=== PATIENT | female | born 1940 | race Caucasian/White ===

== ENCOUNTER 2020-07-30 13:25 | Outpatient (CLI) | payer MEDICARE, SELFPAY ==
--- NOTE | ~2020-07-30 | CT_ITS ---
EXAMINATION: CT brain wo [facility] EXAM DATE: 07/30/2020 14:23 INDICATION: Dizziness. Nausea. TECHNIQUE: Spiral CT of the head was performed without contrast. Axial, coronal and sagittal images were reviewed. The dose-length product (DLP) for this examination was 529.67 mGy-cm. The exposure w as tailored according to patient size, and iterative reconstruction (ASIR) was used as additional dos e reduction technique. There is no prior study for comparison. FINDINGS: There is no acute intraparenchymal hemorrhage. No evidence of intraparenchymal brain mass lesion. No evidence of acute infarction. Please note that initial head CT has limited sensitivity f or small or acute infarctions. There is mild periventricular and subcortical hypodensity, nonspecific but probably related to small vessel ischemic disease. There is moderate prominence of the sulci a nd ventricles related to cerebral atrophy. There is intracranial carotid arteriosclerosis. There a re no extra-axial collections. There is no mass effect or midline shift. The orbits are unremarkabl e. Soft tissue is unremarkable. The visualized sinuses and mastoid air cells are well aerated. IMPRESSION: 1. No acute intracranial findings. 2. Chronic age related findings. Reviewed, dictated and finalized at location B. HER STRETCHER
== END 2020-07-30 13:26 | disposition home or self-care (01) ==
PROVIDERS: PCP Student in an Organized Health Care Education/Training Program; Visit Provider Student in an Organized Health Care Education/Training Program
DX: R42 Dizziness and giddiness (principal); R53.1 Weakness; R26.9 Unspecified abnormalities of gait and mobility
CPT/HCPCS: 70450

== ENCOUNTER 2020-10-02 14:16 | Outpatient (CLI) | payer MEDICARE, SELFPAY ==
--- NOTE | ~2020-10-02 | CT_ITS ---
EXAMINATION: CT soft tissue neck w con DATE: 10/02/2020 14:48 INDICATION: Nontoxic thyroid nodule. TECHNIQUE: Computed tomography (CT) of the neck was performed with 75 mL Omnipaque-350 intravenous co ntrast. Automated exposure control and iterative reconstruction technique were employed. The dose-nader gth product was 433.70 mGy-cm. COMPARISON: None FINDINGS: There is mild scarring at the lung apices. A calcified right lung nodule and calcified medi astinal lymph nodes are consistent with old granulomatous disease. There is a skin marker at left nec k. There are no pathologically enlarged lymph nodes in the neck. There is plaque in the proximal inte rnal carotid arteries with less than 50% stenosis relative to normal distal artery lumen diameters. T he thyroid is normal. There is moderate cervical spondylosis. There is mucosal thickening in the para nasal sinuses. The mastoid air cells are normal. IMPRESSION: 1. No abnormal mass or lymphadenopathy in the neck. Reviewed, dictated and finalized at location B.
[2020-10-02 14:43] LABS: Estimated Glomerular Filt Rate 48
== END 2020-10-02 14:17 | disposition home or self-care (01) ==
PROVIDERS: PCP Student in an Organized Health Care Education/Training Program; Visit Provider Otolaryngology
DX: E04.1 Nontoxic single thyroid nodule (principal)
CPT/HCPCS: 70491; Q9967

== ENCOUNTER 2024-03-04 05:21 | Inpatient (IN) | payer MEDICARE, SELFPAY ==
[2024-03-04] VITALS (80 sets, daily range): BP systolic 72–198; BP diastolic 43–180; PULSE 56–145; RESP 14–36; TEMP 35.1–37.6; O2SAT 10–100
--- NOTE | ~2024-03-04 | XR_ITS ---
EXAMINATION: XR chest 1V DATE: 03/04/2024 06:20 INDICATION: Shortness of breath. Lung cancer. TECHNIQUE: A single frontal view of the chest was obtained. COMPARISON: None. FINDINGS: The patient is rotated to her left. The lungs are hyperexpanded, consistent with emphysema. There are airspace opacities in all left lung zones. There is a small loculated left pleural effusio n. There is a diffuse interstitial pattern in the lungs, consistent with mild pulmonary edema. No pne umothorax. Cardiomegaly is noted. IMPRESSION: 1. Airspace opacities in all left lung zones, likely a combination of malignancy, treatment change, a nd pneumonia. 2. Small loculated left pleural effusion. 3. Mild pulmonary edema. 4. Emphysema. 5. Cardiomegaly. Reviewed, dictated and finalized at location A. IMPRESSION: 1. Airspace opacities in all left lung zones, likely a combination of malignanc y, treatment change, and pneumonia. 2. Small loculated left pleural effusion. 3. Mild pulmonary edema. 4. Emphysema. 5. Cardiomegaly.
--- NOTE | ~2024-03-04 | US_ITS ---
EXAMINATION: US renal BI DATE: 03/04/2024 11:52 INDICATION: Acute kidney injury. TECHNIQUE: Multiple ultrasound grayscale images of the kidneys were obtained. COMPARISON: None. FINDINGS: The right kidney measures 7.9 x 3.5 x 3.4 cm. The left kidney measures 10.4 x 4.9 x 4.3 cm. The kidne ys demonstrate normal parenchymal echogenicity. There are cysts in right kidney measuring up to 4.2 c m. There is no hydronephrosis. The bladder is decompressed by a Lyn catheter. IMPRESSION: 1. Mild atrophy of right kidney. No hydronephrosis. Reviewed, dictated and finalized at location A.
--- NOTE | ~2024-03-04 | XR_ITS ---
EXAMINATION: XR chest 1V portable DATE: 03/05/2024 08:42 INDICATION: Shortness of breath TECHNIQUE: frontal view of the chest was obtained. COMPARISON: Chest radiograph dated 03/04/2024 FINDINGS: Right upper extremity peripherally inserted central venous catheter (PICC) tip at the cephalad super ior vena cava. There is a transvenous cardiac pacemaker via inferior vena caval approach with distal tip in the right ventricle. Interval increase in diffuse interstitial pattern and perihilar predominant patchy bilateral airspace opacities consistent with worsening mild to moderate pulmonary edema potentially superimposed pneumo amberly. Similarly there is increasing retrocardiac consolidation left lower lung zone which could repres ent atelectasis or pneumonia. Small left pleural effusion. There is a lenticular opacity at the later al left midlung zone which could represent a loculated component to the pleural effusion or a subpleu ral mass. There appears to be significant decrease in conspicuity of the cortex along the adjacent la teral left fifth rib which raises concern for associated osteolytic process which could be infectious or malignant in etiology. Cardiomegaly. IMPRESSION: 1. Increasing interstitial pattern and bilateral perihilar predominant opacities consistent with mild to moderate pulmonary edema. 2. Small left pleural effusion with increasing retrocardiac consolidation left lower lung zone which could represent atelectasis or pneumonia. 3. Persistent reticular opacity lateral left midlung zone which could be related to loculated compone nt to the pleural effusion or a subpleural mass. There is some indistinctness to the cortex one of th e adjacent ribs which raises concern for bladder and the setting of hilar ligaments or infection. Cou ld consider contrast enhanced CT for further evaluation. Reviewed, dictated and finalized at location A. IMPRESSION: 1. Increasing interstitial pattern and bilateral perihilar predominant opacitie s consistent with mild to moderate pulmonary edema. 2. Small left pleural effusion with increasing retrocardiac consolidation left lower lung zone which could represent atelectasis or pneumonia. 3. Persistent reticular opacity lateral left midlung zone which could be relate d to loculated component to the pleural effusion or a subpleural mass. There is some indistinctness to the cortex one of the adjacent ribs which raises concer n for bladder and the setting of hilar ligaments or infection. Could consider c ontrast enhanced CT for further evaluation.
--- NOTE | ~2024-03-04 | XR_ITS ---
Portable chest x-ray Comparison: 03/08/2024 Clinical History: Hypoxia Findings: Right-sided PICC line in place. Patchy bilateral airspace consolidation and extensive inte rstitial thickening are stable from prior exam. Small bilateral pleural effusions present. More promi nent pleural-based lentiform density present at the lateral left lung region. Cardiomediastinal silho uette is stable. Bones and soft tissues are unremarkable. Impression: Patchy airspace disease and extensive interstitial prominence unchanged. Correlate for pulmonary mingo a, pneumonia, and/or chronic interstitial disease. Small bilateral pleural effusions. Lentiform density at the lateral left lung, which could reflect loculated effusion. Reviewed, dictated and finalized at location . Impression: Patchy airspace disease and extensive interstitial prominence unchanged. Correl ate for pulmonary edema, pneumonia, and/or chronic interstitial disease. Small bilateral pleural effusions. Lentiform density at the lateral left lung, which could reflect loculated effus ion.
--- NOTE | ~2024-03-04 | XR_ITS ---
EXAMINATION: XR chest PICC line DATE: 03/04/2024 12:38 INDICATION: Central line placement. TECHNIQUE: A single frontal view of the chest was obtained. COMPARISON: Chest single view at 9:39 AM FINDINGS: There is a diffuse interstitial pattern in the lungs. There are airspace opacities in right perihilar region and all left lung zones. There is a small loculated left pleural effusion. No pneum othorax. Cardiomegaly is noted. There is a pacer wire in right ventricle. A right upper extremity per ipherally inserted central venous catheter (PICC) is seen with tip in the superior vena cava. IMPRESSION: 1. PICC tip in the superior vena cava. 2. Mild pulmonary edema. 3. Diffuse left lung disease, likely a combination of malignancy, treatment change, and pneumonia. 4. Small loculated left pleural effusion. 5. Cardiomegaly. Reviewed, dictated and finalized at location A. IMPRESSION: 1. PICC tip in the superior vena cava. 2. Mild pulmonary edema. 3. Diffuse left lung disease, likely a combination of malignancy, treatment daniel nge, and pneumonia. 4. Small loculated left pleural effusion. 5. Cardiomegaly.
--- NOTE | ~2024-03-04 | XR_ITS ---
EXAMINATION: XR chest 1V portable DATE: 03/04/2024 09:55 INDICATION: Pacer placement. TECHNIQUE: A single frontal view of the chest was obtained. COMPARISON: Chest single view at 6:14 AM FINDINGS: There is a diffuse interstitial pattern in the lungs. There are airspace opacities in right perihilar region and all left lung zones. There is a small loculated left pleural effusion. No pneum othorax. Cardiomegaly is noted. There is a pacer wire in right ventricle. IMPRESSION: 1. Worsened mild pulmonary edema. 2. Diffuse left lung disease, likely a combination of malignancy, treatment change, and pneumonia. 3. Small loculated left pleural effusion. 4. Cardiomegaly. Reviewed, dictated and finalized at location A. IMPRESSION: 1. Worsened mild pulmonary edema. 2. Diffuse left lung disease, likely a combination of malignancy, treatment daniel nge, and pneumonia. 3. Small loculated left pleural effusion. 4. Cardiomegaly.
--- NOTE | ~2024-03-04 | XR_ITS ---
Portable chest x-ray Comparison: 03/05/2024 Clinical History: Pulmonary edema Findings: Right-sided PICC line in satisfactory position. Diffuse bilateral pulmonary consolidation and ground glass opacities again present. Possible minimal pleural effusions. Cardiomediastinal silh ouette is stable. Bones and soft tissues are unremarkable. Impression: Extensive bilateral pulmonary consolidation and present. Correlate for severe pulmonary edema versus diffuse pneumonia. Small pleural effusions. Right-sided PICC line. Reviewed, dictated and finalized at location . Impression: Extensive bilateral pulmonary consolidation and present. Correlate for severe p ulmonary edema versus diffuse pneumonia. Small pleural effusions. Right-sided PICC line.
--- NOTE | ~2024-03-04 | XR_ITS ---
EXAMINATION: XR chest 1V portable DATE: 03/08/2024 17:07 INDICATION: Congestive heart failure. Hypoxia. TECHNIQUE: A single frontal view of the chest was obtained. COMPARISON: Chest single view 03/06/2024 FINDINGS: There is a diffuse interstitial pattern in the lungs. There are airspace opacities in the p erihilar regions and at the lung bases. There are small pleural effusions. No pneumothorax. Cardiomeg nidia is noted. A right upper extremity peripherally inserted central venous catheter (PICC) is seen wi th tip in the superior vena cava. IMPRESSION: 1. Diffuse lung disease with mild improvement, likely moderate pulmonary edema. Pneumonia cannot be e xcluded. 2. Stable small pleural effusions. 3. Cardiomegaly. Reviewed, dictated and finalized at location A. IMPRESSION: 1. Diffuse lung disease with mild improvement, likely moderate pulmonary edema. Pneumonia cannot be excluded. 2. Stable small pleural effusions. 3. Cardiomegaly.
--- NOTE | 2024-03-04 05:36 | PC.NURSE ---
0525 VORB to give 1mg atropine, given at 0527. 0528 Pt is placed on 15L via NRB for O2 sat of 84% on 2L via NC. 0534 Dopamine drip is started at 2mcg/kg which is 4.3ml/hr. 0537 VORB to give 3 grams of Calcium gluconate slow IVP, being given at 0539 slow IVP. 0539 18g IV placed in R AC.
[2024-03-04] MEDS: CALCIUM GLUCONATE 1,000 MG/10 ML VIAL 1000 MG (05:37)
--- NOTE | 2024-03-04 05:41 | PC.NURSE ---
ERP placed patient on external pacer at 60mA with a rate of 60. Patient given 50mcg fentanyl for pain at 0542 per VORB.
[2024-03-04] MEDS: fentaNYL CITRATE INJ (*CRX) 100 MCG/2 ML VIAL (05:42)
--- NOTE | 2024-03-04 05:48 | PC.NURSE ---
0548 STEMI called by ERP.
--- NOTE | 2024-03-04 05:49 | PC.NURSE ---
Patient pacer increased to 70mA with capture with rate of 70 per ERP.
--- NOTE | 2024-03-04 05:53 | PC.NURSE ---
Patient being shaved and prepped for boot and shoe laborer.
[2024-03-04] MEDS: CALCIUM GLUCONATE 1,000 MG/10 ML VIAL 2000 MG (05:59)
[2024-03-04 06:04] LABS: Basophils Absolute Auto 0.1 K/mm3 (0.0-0.1); Basophils Percent Auto 0.4 % (0.2-1.2); Eosinophils Absolute Auto 0.2 K/mm3 (0-0.3); Eosinophils Percent Auto 1.8 % (0-4.4); Hematocrit 30.1 % (37.0-47.0); Hemoglobin 9.7 g/dL (12.0-15.0); Immature Granulocyte Absolute 0.06 K/mm3 (0.00-0.031); Immature Granulocyte Percent A 0.4 % (0-0.5); Lymphocytes Absolute Auto 1.83 K/mm3 (0.9-3.2); Lymphocytes Percent Auto 13.6 % (18.3-44.2); Mean Corpuscular HGB Conc 32.2 g/dl (32-36); Mean Corpuscular Hemoglobin 30.5 pg (26-34); Mean Corpuscular Volume 94.7 fl (80-100); Mean Platelet Volume 10.4 fl (7.4-10.4); Monocytes Absolute Auto 1.3 K/mm3 (0.1-0.6); Monocytes Percent Auto 9.5 % (2.6-8.5); Neutrophils Percent Auto 74.3 % (45.5-73.1); Platelet Count Result 307 k/mm3 (150-375); Red Blood Count 3.18 M/mm3 (4.2-5.4); Red Cell Distribution Width 13.5 % (11.5-14.5); White Blood Count 13.5 K/mm3 (4.5-10.0)
[2024-03-04] MEDS: ASPIRIN 81 MG CHEWABLE TABLET 324 MG PO (06:04)
[2024-03-04 06:14] LABS: Prothrombin Time 14.1 Seconds (11.1-14.7)
[2024-03-04 06:15] LABS: Partial Thromboplastin Time 23.5 Seconds (22.3-36.8)
--- NOTE | 2024-03-04 06:21 | PC.NURSE ---
Patient HR started to decrease to 48bpm, pt increased to 80mA with rate of 70 with capture.
[2024-03-04 06:22] LABS: Alanine Aminotransferase 15 U/L (6-35); Albumin Level 3.9 g/dL (3.5-5.1); Alkaline Phosphatase 82 U/L (38-126); Anion Gap 15 mmol/L (4-12); Aspartate Amino Transferase 35 U/L (14-36); Bilirubin,Total 0.5 mg/dL (0.2-1.3); Blood Urea Nitrogen 17 mg/dL (7-17); Calcium 8.9 mg/dL (8.4-10.2); Carbon Dioxide 19 mmol/L (22-30); Chloride 101 mmol/L (98-107); Estimated Glomerular Filt Rate 36; Glucose 327 mg/dL (65-110); Lipase 82 U/L (23-300); Potassium 4.5 mmol/L (3.4-5.0); Sodium 135 mmol/L (137-145)
--- NOTE | 2024-03-04 06:33 | PC.NURSE ---
0628 cheesemaking laborer arrives and gets bedside report. Patient left ED to cheesemaking laborer at 0630.
[2024-03-04 06:37] LABS: Troponin I 0.495 ng/mL (0.000-0.034)
--- NOTE | 2024-03-04 06:41 | P.SEDATION_ITS ---
Moderate Sedation Note-Pt Data Patient Data Diagnosis: nf-Post STEMI; CHB Present Complaint: Brought by EMS with dypsnea, found to have CHB, ECG hswng inf-post REY elevation Procedure to be performed/Plan: Left HEart cath PCI Temporary pacemaker Allergies Allergy/AdvReac Type Severity Reaction Status Date / Time codeine Allergy Nausea and Verified 03/04/24 06:11 Vomiting erythromycin base Allergy Rash Verified 03/04/24 06:11 escitalopram [From Lexapro] Allergy Nausea and Verified 03/04/24 06:11 Vomiting Home Medications Medication Instructions Recorded Confirmed Type amlodipine 10 mg tablet mg 03/04/24 History amlodipine 5 mg tablet mg 03/04/24 History blood sugar diagnostic (OneTouch 03/04/24 03/04/24 History Ultra Test strips) duloxetine 30 mg capsule,delayed mg PO 03/04/24 History release losartan 100 mg tablet mg 03/04/24 History metformin 500 mg tablet,extended mg PO 03/04/24 History release 24 hr pantoprazole 20 mg tablet,delayed mg PO 03/04/24 History release rosuvastatin 10 mg tablet mg 03/04/24 History Sedation/Anesthesia: No previous sedation/anesthesia problems (including family history). Mod Sed Physical Exam Physical Exam Pre Procedural Exam: Normal: Appearance, Eyes, Ears, Nose, Neck, Throat, Airway, Lungs, Heart Size, Neuro Exam, Abdomen, Liver, Kidneys, Spleen, Breasts, Genitalia, Extremities and Skin and Variation: Heart Rate and Heart Rhythm Hours since solid foods: 8 Hours since liquid intake: 8 Mallampati Classification: class II Internal Medicine - PN: Obj Da Vital Signs Vital Signs: Vital Signs - 24 hr 03/04/24 05:21 03/04/24 05:32 03/04/24 05:35 Temperature 36.1 C L Pulse Rate 63 70 Respiratory Rate 29 H Blood Pressure 90/50 L Pulse Oximetry 84 L 96 Oxygen Delivery Nasal Cannula Non-Rebreather Mask Oxygen Flow Rate 2 15 03/04/24 05:44 03/04/24 05:48 03/04/24 05:30 Temperature Pulse Rate 79 76 Respiratory Rate 18 30 H Blood Pressure 92/53 L 105/65 Pulse Oximetry 97 96 89 L Oxygen Delivery Non-Rebreather Mask Oxygen Flow Rate 15 03/04/24 05:31 03/04/24 05:45 03/04/24 05:46 Temperature Pulse Rate 80 84 76 Respiratory Rate 33 H 26 H 26 H Blood Pressure 92/53 L Pulse Oximetry 89 L 84 L 96 Oxygen Delivery Oxygen Flow Rate 03/04/24 05:50 03/04/24 05:51 03/04/24 05:56 Temperature Pulse Rate 95 69 90 Respiratory Rate 26 H 33 H 30 H Blood Pressure 108/60 102/55 L 104/55 L Pulse Oximetry 95 95 95 Oxygen Delivery Oxygen Flow Rate 03/04/24 06:00 03/04/24 06:01 03/04/24 06:34 Temperature Pulse Rate 70 79 76 Respiratory Rate 25 H 22 H 24 H Blood Pressure 108/54 L 106/54 L Pulse Oximetry 97 100 97 Oxygen Delivery Oxygen Flow Rate 03/04/24 06:02 Temperature Pulse Rate 73 Respiratory Rate 26 H Blood Pressure 106/54 L Pulse Oximetry 97 Oxygen Delivery Oxygen Flow Rate Meds/Results Radiology Results: ITS Impressions Chest X-Ray 03/04/24 06:21 IMPRESSION: 1. Airspace opacities in all left lung zones, likely a combination of malignancy, treatment change, and pneumonia. 2. Small loculated left pleural effusion. 3. Mild pulmonary edema. 4. Emphysema. 5. Cardiomegaly. Labs 03/04/24 05:58 03/04/24 05:58 Labs: Laboratory Results - last 24 hr 03/04/24 05:58 WBC 13.5 H RBC 3.18 L Hgb 9.7 L Hct 30.1 L MCV 94.7 MCH 30.5 MCHC 32.2 RDW 13.5 Plt Count 307 MPV 10.4 Immature Gran % (Auto) 0.4 Neut % (Auto) 74.3 H Lymph % (Auto) 13.6 L [place] % (Auto) 9.5 H Eos % (Auto) 1.8 Baso % (Auto) 0.4 Lymph # (Auto) 1.83 [place] # (Auto) 1.3 H Eos # (Auto) 0.2 Baso # (Auto) 0.1 Abs Immat Gran (auto) 0.06 H Absolute Neuts (auto) 10.0 H Absolute Nucleated RBC 0.000 Nucleated RBC % 0.0 PT 14.1 INR 1.0 APTT 23.5 Sodium 135 L Potassium 4.5 Chloride 101 Carbon Dioxide 19 L Anion Gap 15 H BUN 17 Creatinine 1.40 H Estim Creat Clear Calc Not Reportable Estimated GFR 36 L Glucose 327 H Calcium 8.9 Total Bilirubin 0.5 AST 35 ALT 15 Alkaline Phosphatase 82 Troponin I 0.495 H* Total Protein 7.0 Albumin 3.9 Lipase 82 ASA Classification/Sedation ASA Classification/Sedation ASA Class: III Emergent: Yes Risks: Risks, benefits and alternatives explained and patient/family accepted plan for sedation. Patient re-evaluated immediately prior to sedation.
--- NOTE | 2024-03-04 06:41 | PM.CNCAR ---
Assessment and Plan Assessment and plan (1) Cardiomyopathy: Code(s): I42.9 - Cardiomyopathy, unspecified Status: Acute (2) STEMI (ST elevation myocardial infarction): Code(s): I21.3 - ST elevation (STEMI) myocardial infarction of unspecified site Status: Acute (3) Cardiogenic shock: Code(s): R57.0 - Cardiogenic shock Status: Acute (4) Third degree AV block: Code(s): I44.2 - Atrioventricular block, complete Status: Acute Plan inf-post STEMI HAYDE Score: 250 which translates into 60% probability of in hospital 2. CHB 3. Cardiogenic Shock 4. Successful cutting balloon angioplasty and PCI of PlCX with 2.5/15 mm Resolute Thomas VINICIUS, postdilated with 3.0 NC balloon. Residual recalcitrant thrombus in mLCX with COLLETTE 1-2 flow 5. placement of 5 [place] temporary pacemaker wire the artery mid septal wall and under fluoroscopic guidance PLAN - transfer to ICU - will keep temporarily paced at a rate of 100 to help with cardiogenic shock will try to wean off from the pacemaker slowly when the blood pressure starts improving - will keep on Integrilin infusion for 6 hours to help with the residual thrombus - IABP was not placed because she is on Integrilin infusion and the likelihood of bleeding from the RFA site would be higher - with transition her to heparin a 6 oz of Integrilin infusion - uninterrupted DAPT for at least 12 months - EKG in the ICU, echo - statins to be given History of Present Illness History of Present Illness Consult date/time: 03/04/24 06:41 Consult reason: chest pain and hypotension Reason For Visit: STEMI,CHB,Cardiogenic Shock Narrative: 83-year-old female with a past medical history significant for lung cancer, hypertension, diabetes. who was brought by EMS to the ED with sudden onset chest pain, shortness O breath, diaphoresis, pale looking. she was found to have an inferoposterior STEMI with a complete heart block. she was directly taken to the lab after discussing the risks, benefits and alternatives of the procedure with with her. we also discussed the goals of care with her in light of lung malignancy. she wanted to proceed. she was taken to the labeler and VINICIUS was placed in the proximal LCX. there is some residual thrombus in the mid LCX artery. place a temporary pacemaker through the right femoral vein and currently she is being paced at a rate of 100 beats per minute, output of 10 and sensitivity of 5. post PCI she denied any chest pain and will be transferred to the ICU to help with further management Review of Systems Review of Systems: As reviewed above in HPI All systems reviewed & are unremarkable except as noted in HPI and below (HPI) [facility] Past Medical History Medical History (Updated 03/04/24 @ 10:53 by Deepak Johnson MD) Diabetes Lung cancer Social History Social History (Updated 03/04/24 @ 10:35 by Deepak Johnson MD) Social History: Patient's daughter denies patient using any drugs and no use of alcohol or smoking. Smoking status: Never smoker Second hand tobacco smoke exposure: No Meds Home Medications and Allergies Home Medications Medication Instructions Recorded Confirmed Type amlodipine 10 mg tablet mg 03/04/24 History amlodipine 5 mg tablet mg 03/04/24 History blood sugar diagnostic (OneTouch 03/04/24 03/04/24 History Ultra Test strips) duloxetine 30 mg capsule,delayed mg PO 03/04/24 History release losartan 100 mg tablet mg 03/04/24 History metformin 500 mg tablet,extended mg PO 03/04/24 History release 24 hr pantoprazole 20 mg tablet,delayed mg PO 03/04/24 History release rosuvastatin 10 mg tablet mg 03/04/24 History Allergies Allergy/AdvReac Type Severity Reaction Status Date / Time codeine Allergy Nausea and Verified 03/04/24 06:11 Vomiting erythromycin base Allergy Rash Verified 03/04/24 06:11 escitalopram [From Lexapro] Allergy Nausea and Verified 03/04/24 06:11 Vomiting Vital Signs Vital Signs - 24 hr 03/04/24 05:21 03/04/24 05:32 03/04/24 05:35 Temperature 36.1 C L Pulse Rate 63 70 Respiratory Rate 29 H Blood Pressure 90/50 L Pulse Oximetry 84 L 96 Oxygen Delivery Nasal Cannula Non-Rebreather Mask Oxygen Flow Rate 2 15 03/04/24 05:44 03/04/24 05:48 03/04/24 05:30 Temperature Pulse Rate 79 76 Respiratory Rate 18 30 H Blood Pressure 92/53 L 105/65 Pulse Oximetry 97 96 89 L Oxygen Delivery Non-Rebreather Mask Oxygen Flow Rate 15 03/04/24 05:31 03/04/24 05:45 03/04/24 05:46 Temperature Pulse Rate 80 84 76 Respiratory Rate 33 H 26 H 26 H Blood Pressure 92/53 L Pulse Oximetry 89 L 84 L 96 Oxygen Delivery Oxygen Flow Rate 03/04/24 05:50 03/04/24 05:51 03/04/24 05:56 Temperature Pulse Rate 95 69 90 Respiratory Rate 26 H 33 H 30 H Blood Pressure 108/60 102/55 L 104/55 L Pulse Oximetry 95 95 95 Oxygen Delivery Oxygen Flow Rate 03/04/24 06:00 03/04/24 06:01 03/04/24 06:34 Temperature Pulse Rate 70 79 76 Respiratory Rate 25 H 22 H 24 H Blood Pressure 108/54 L 106/54 L Pulse Oximetry 97 100 97 Oxygen Delivery Oxygen Flow Rate 03/04/24 06:02 Temperature Pulse Rate 73 Respiratory Rate 26 H Blood Pressure 106/54 L Pulse Oximetry 97 Oxygen Delivery Oxygen Flow Rate Exam Narrative: GENERAL: ill-appearing, in acute distress, tachypneic, bradycardic, jessie arrest HEAD: [Normocephalic, atraumatic.] EYES: [PERRLA and EOMI.] ENT: Nares clear, no rhinorrhea or epistaxis. Mucous membranes moist. NECK: Supple. CHEST: coarse breath sounds, accessory muscle use for respiration HEART: palpable bilateral radial pulses with mechanical capture intermittently on the monitor car operator, 2+ symmetric, no edema peripherally. ABDOMEN: [Soft, nondistended], [nontender], [No rigidity or guarding] EXTREMITIES: Normal range of motion. [No edema.] SKIN: Warm, dry, no rash. NEURO: [No focal deficits]. Intermittently awake and alert x4, when captures failed she is more lethargic but able to answer questions Results Labs and Meds 03/04/24 20:00 03/04/24 20:00 Lab results: Cardiac Enzymes 03/04/24 Range/Units 05:58 AST 35 (14-36) U/L Troponin I 0.495 H* (0.000-0.034) ng/mL Coagulation 03/04/24 Range/Units 05:58 PT 14.1 (11.1-14.7) Seconds APTT 23.5 (22.3-36.8) Seconds CBC 03/04/24 Range/Units 05:58 WBC 13.5 H (4.5-10.0) K/mm3 RBC 3.18 L (4.2-5.4) M/mm3 Hgb 9.7 L (12.0-15.0) g/dL Hct 30.1 L (37.0-47.0) % Plt Count 307 (150-375) k/mm3 Lymph # (Auto) 1.83 (0.9-3.2) K/mm3 [place] # (Auto) 1.3 H (0.1-0.6) K/mm3 Eos # (Auto) 0.2 (0-0.3) K/mm3 Baso # (Auto) 0.1 (0.0-0.1) K/mm3 Comprehensive Metabolic Panel 03/04/24 Range/Units 05:58 Sodium 135 L (137-145) mmol/L Potassium 4.5 (3.4-5.0) mmol/L Chloride 101 (98-107) mmol/L Carbon Dioxide 19 L (22-30) mmol/L BUN 17 (7-17) mg/dL Creatinine 1.40 H (0.7-1.0) mg/dL Glucose 327 H (65-110) mg/dL Calcium 8.9 (8.4-10.2) mg/dL AST 35 (14-36) U/L ALT 15 (6-35) U/L Alkaline Phosphatase 82 (38-126) U/L Total Protein 7.0 (6.3-8.2) g/dL Albumin 3.9 (3.5-5.1) g/dL Intake and Output 03/03/24 03/03/24 03/04/24 15:59 23:59 07:59 Other: Amount of IV Fluids Infused by 0 EMS Patient Weight 03/04/24 23:59 Weight 57.8 kg
--- NOTE | 2024-03-04 06:48 | ED.SOB ---
HPI - SOB/Dyspnea General Chief Complaint: Shortness of Breath/Dyspnea Stated Complaint: sob, pale, hypotensive, complete heart block, pace Time Seen by Provider: 03/04/24 05:36 History of Present Illness HPI Narrative: 83-year-old female with a past medical history significant for lung cancer, hypertension, diabetes. She presents via EMS for unstable dysrhythmia and 3rd degree heart block requiring transcutaneous pacing. I initially took the report from EMS who stated that patient was in field with hypotension, tachypnea, pale complexion and diaphoresis. She was responsive and found to be in third-degree block. Orders were to transfer the patient to the nearest ER and she arrived to our resuscitation [place]. Patient has no history of heart attacks or cardiac dysrhythmias, no history of atrial fibrillation. Patient was having intermittent failure of capture with EMS in route and had intermittent bradycardia in the 30s to 40s. AV dissociation seen on her 12 lead EKG with and STEMI and depressions in the septal lateral leads. Patient is awake alert and oriented, expressing shortness of breath and chest discomfort with the pacing. She was brought back to the resuscitation [place] for further evaluation and treatment by myself and the resuscitation team. Related Data Home Medications Medication Instructions Recorded Confirmed amlodipine 10 mg tablet mg 03/04/24 amlodipine 5 mg tablet mg 03/04/24 blood sugar diagnostic (OneTouch 03/04/24 03/04/24 Ultra Test strips) duloxetine 30 mg capsule,delayed mg PO 03/04/24 release losartan 100 mg tablet mg 03/04/24 metformin 500 mg tablet,extended mg PO 03/04/24 release 24 hr pantoprazole 20 mg tablet,delayed mg PO 03/04/24 release rosuvastatin 10 mg tablet mg 03/04/24 Allergies Allergy/AdvReac Type Severity Reaction Status Date / Time codeine Allergy Nausea and Verified 03/04/24 06:11 Vomiting erythromycin base Allergy Rash Verified 03/04/24 06:11 escitalopram [From Lexapro] Allergy Nausea and Verified 03/04/24 06:11 Vomiting Review of Systems Review of Systems: As reviewed above in HPI Exam Narrative: GENERAL: ill-appearing, in acute distress, tachypneic, bradycardic, jessie arrest HEAD: [Normocephalic, atraumatic.] EYES: [PERRLA and EOMI.] ENT: Nares clear, no rhinorrhea or epistaxis. Mucous membranes moist. NECK: Supple. CHEST: coarse breath sounds, accessory muscle use for respiration HEART: palpable bilateral radial pulses with mechanical capture intermittently on the junior marketing associate, 2+ symmetric, no edema peripherally. ABDOMEN: [Soft, nondistended], [nontender], [No rigidity or guarding] EXTREMITIES: Normal range of motion. [No edema.] SKIN: Warm, dry, no rash. NEURO: [No focal deficits]. Intermittently awake and alert x4, when captures failed she is more lethargic but able to answer questions Course Vital Signs Vital signs: Vital Signs Temperature 36.1 C L 03/04/24 05:21 Pulse Rate 63 03/04/24 05:21 Respiratory Rate 29 H 03/04/24 05:21 Blood Pressure 90/50 L 03/04/24 05:21 Pulse Oximetry 84 L 03/04/24 05:21 Oxygen Delivery Nasal Cannula 03/04/24 05:21 Oxygen Flow Rate 2 03/04/24 05:21 Temperature 36.1 C L 03/04/24 05:21 Pulse Rate 76 03/04/24 06:34 Respiratory Rate 24 H 03/04/24 06:34 Blood Pressure 106/54 L 03/04/24 06:34 Pulse Oximetry 97 03/04/24 06:34 Oxygen Delivery Non-Rebreather Mask 03/04/24 05:44 Oxygen Flow Rate 15 03/04/24 05:44 Procedures Pacemaker Pacemaker Date: 03/04/24 Pacemaker Time: 05:55 Pacemaker Type: external Pacemaker Settings: voltage (70) Pacemaker Results: electronic capture with pulse Pacemaker Comments: intermittent loss of capture MDM - SOB/Dyspnea MDM Narrative Medical decision making narrative: 83-year-old female presenting in unstable Third-degree heart block requiring transcutaneous pacing. Patient was transition from her pads from the EMS to our pads. Patient was awake and alert when she had mechanical capture but when capture was failing she was more lethargic. Blood sugar was in the 90 systolic with mechanical [place] at 70 beats per minute and 70 male amps. She was given 1 mg of IV atropine, 3 g of elemental calcium gluconate IV push. Dopamine infusion was started at 2 milligrams/kilogram per hour. Transcutaneous passes were applied and patient had mechanical capture and electrical capture at 70 male ABS. She was awake alert and her pressure was in the 110s. She was expressing pain so she was given fentanyl for analgesia with good effect. EKG was obtained prior to the pacing and during the pacing which confirms capture. Prior to starting the pacing she did have evidence of a profound and STEMI with potential elevation in the inferior leads and depressions be broadly in the septal lateral leads. STEMI was activated this time and I spoke to the crusher assembler on-call informing them of patient's presentation, need for catheterization and pacemaker, definitive management. Catheterization lab was activated and Cardiology agreed to take the patient at this time. Patient agreed to the procedure and had reversed her previous DNR DNI and states that she wishes to be full code and received the procedure including pacemaker placement. She was placed on non-rebreather for oxygenation as she was in the 90% on room air. Patient's laboratory studies were sent off, catheterization lab was activated and patient went to the recyclable materials sorter without further incident. Medical Records Attestation: I reviewed the patient's medical records. Lab Data Attestation: I reviewed the patient's lab results. 03/04/24 05:58 03/04/24 05:58 Labs: Lab Results 03/04/24 Range/Units 05:58 WBC 13.5 H (4.5-10.0) K/mm3 RBC 3.18 L (4.2-5.4) M/mm3 Hgb 9.7 L (12.0-15.0) g/dL Hct 30.1 L (37.0-47.0) % MCV 94.7 (80-100) fl MCH 30.5 (26-34) pg MCHC 32.2 (32-36) g/dl RDW 13.5 (11.5-14.5) % Plt Count 307 (150-375) k/mm3 MPV 10.4 (7.4-10.4) fl Immature Gran % (Auto) 0.4 (0-0.5) % Neut % (Auto) 74.3 H (45.5-73.1) % Lymph % (Auto) 13.6 L (18.3-44.2) % [place] % (Auto) 9.5 H (2.6-8.5) % Eos % (Auto) 1.8 (0-4.4) % Baso % (Auto) 0.4 (0.2-1.2) % Lymph # (Auto) 1.83 (0.9-3.2) K/mm3 [place] # (Auto) 1.3 H (0.1-0.6) K/mm3 Eos # (Auto) 0.2 (0-0.3) K/mm3 Baso # (Auto) 0.1 (0.0-0.1) K/mm3 Abs Immat Gran (auto) 0.06 H (0.00-0.031) K/mm3 Absolute Neuts (auto) 10.0 H (1.3-6.7) K/mm3 Absolute Nucleated RBC 0.000 (0.0-0.012) K/mm3 Nucleated RBC % 0.0 (0.0-0.2) % PT 14.1 (11.1-14.7) Seconds INR 1.0 APTT 23.5 (22.3-36.8) Seconds Sodium 135 L (137-145) mmol/L Potassium 4.5 (3.4-5.0) mmol/L Chloride 101 (98-107) mmol/L Carbon Dioxide 19 L (22-30) mmol/L Anion Gap 15 H (4-12) mmol/L BUN 17 (7-17) mg/dL Creatinine 1.40 H (0.7-1.0) mg/dL Estim Creat Clear Calc Not Reportable Estimated GFR 36 L (59 - ) Glucose 327 H (65-110) mg/dL Calcium 8.9 (8.4-10.2) mg/dL Total Bilirubin 0.5 (0.2-1.3) mg/dL AST 35 (14-36) U/L ALT 15 (6-35) U/L Alkaline Phosphatase 82 (38-126) U/L Troponin I 0.495 H* (0.000-0.034) ng/mL Total Protein 7.0 (6.3-8.2) g/dL Albumin 3.9 (3.5-5.1) g/dL Lipase 82 (23-300) U/L Critical Care Time Critical Care Time Critical Care Time: Yes Total Critical Care Time: 45 Discharge Plan Discharge Clinical Impression: Third degree AV block Patient Disposition: Still a Patient Condition: Serious Time of Disposition: 06:50
[2024-03-04 07:53] LABS: Activated Clotting Time 220 SEC (74-137)
[2024-03-04 07:53] LABS: Activated Clotting Time 238 SEC (74-137)
[2024-03-04 07:53] LABS: Activated Clotting Time 226 SEC (74-137)
[2024-03-04 08:32] LABS: Activated Clotting Time 232 SEC (74-137)
--- NOTE | 2024-03-04 08:57 | ECG_ITS ---
Test Date: 2024-03-04 11:57:04 Measurements Intervals [place] Rate: 101 P: 205 GA: 222 QRS: 20 QRSD: 75 T: 269 QT: 344 QTc: 448 Interpretive Statements UNCERTAIN IRREGULAR RHYTHM ELECTRONIC VENTRICULAR PACEMAKER -- CONTOUR ANALYSIS BASED ON INTRINSIC RHYTHM LOW QRS VOLTAGE IN EXTREMITY LEADS [QRS DEFLECTION < 0.5 mV IN LIMB LEADS] POSSIBLE RIGHT VENTRICULAR CONDUCTION DELAY [RSR (QR) IN V1/V2] ST DEVIATION AND MODERATE T-WAVE ABNORMALITY, CONSIDER LATERAL ISCHEMIA [-0.1+ mV T WAVE IN I/aVL/V5/V6] ST DEVIATION AND MODERATE T-WAVE ABNORMALITY, CONSIDER INFERIOR ISCHEMIA [-0.1+ mV T WAVE IN II/aVF] No previous ECG available for comparison Electronically Signed On 03-04-2024 13:35:33 CDT by Zana Knight M.D.
--- NOTE | 2024-03-04 09:04 | P.PCNCC_ITS ---
Cardiac Cath Procedure Note Date of procedure:: 03/04/24 Performing physician:: Evonne Pinzon MD Indication:: 1. Inf-Post STEMI 2. CHB 3. Cardiogenic Shock Brief clinical history:: 83-year-old female with a past medical history significant for lung cancer, hypertension, diabetes who came in with inf-post STEMI, CHB, Cardiogenic Shock. Procedure Procedure performed:: 1. R Radial Access 2. Coronary Angiography 3. left Heart Catheterization 4. RFA Access, 6F; USG Guided 5. Successful cutting balloon angioplasty and PCI of PlCX with 2.5/15 mm Resolute [place] VINICIUS, postdilated with 3.0 NC balloon. Residual recalcitrant thrombus in mLCX with COLLETTE 1-2 flow Sedation/Medication given:: 1. Versed 1 mg @. Fentanyl 25 mcg Access site:: 1. R radial 2. Right Femoral Estimated blood loss:: 10-15 cc Procedure note:: Right radial access was taken 5-6 and Citizen [place] sheath was placed. coronary angiography of the right and left systems is performed with a JR4 diet an AP and a CLS 3 5 guide. reviewing the angiographic images it was decided to intervene on the proximal circumflex artery which was 100% occluded. PCI was performed after loading with aspirin 325 mg, Plavix 600 mg and the heparin with ACT greater than 250 A [email or web address] wire was traversed through the proximal circumflex into the Mets of and moves ballooned with the 2.1 so compliant balloon. due to the heavy calcification of the proximal circ and the angulation of the circumflex we had to use a body wide in the 1st marginal if. the lesion was repaired with a cutting balloon and subsequently 2.5/ 15 mm resolute VINICIUS was placed in the proximal circ. there was a residual thrombus in the mid LCX which was recalcitrant and we gave her 2 doses of Integrilin in and plan to keep her on a low-dose infusion for 6 hours. 5 Citizen [place] balloon tipped pacemaker lead was placed into the artery mid septal under fluoroscopic guidance through a RFA sheath Findings:: 1. left heart catheterization: shows a LVEDP of 25 mm Hg no significant LV to aortic valve gradient 2. coronary angiography: left dominant system with no ramus. gauge the right with JR4 and of system with Cialis 3 5 guide left main: large caliber intermediate length vessel with device into LAD and circumflex branches. no angiographic evidence of atherosclerotic disease. LAD: large caliber tortuous transapical vessel which gives rise to a small caliber diagonal branch. prox LAD has a 50% stenosis. LCX: moderate to large caliber vessel which is 100% thrombotic occlusion of its proximal portion RCA: small caliber nondominant vessel with luminal irregularities in the mid RCA Conclusion:: 1. inf-post STEMI HAYDE Score: 250 which translates into 60% probability of in hospital 2. CHB 3. Cardiogenic Shock 4. Successful cutting balloon angioplasty and PCI of PlCX with 2.5/15 mm Resolute [place] VINICIUS, postdilated with 3.0 NC balloon. Residual recalcitrant thrombus in mLCX with COLLETTE 1-2 flow 5. placement of 5 [place] temporary pacemaker wire the artery mid septal wall and under fluoroscopic guidance Assessment and Plan Assessment and plan (1) Lung cancer: Code(s): C34.90 - Malignant neoplasm of unspecified part of unspecified bronchus or lung Status: Acute (2) STEMI (ST elevation myocardial infarction): Code(s): I21.3 - ST elevation (STEMI) myocardial infarction of unspecified site Status: Acute (3) Cardiogenic shock: Code(s): R57.0 - Cardiogenic shock Status: Acute (4) Third degree AV block: Code(s): I44.2 - Atrioventricular block, complete Status: Acute Plan - transfer to ICU - will keep temporarily paced at a rate of 100 to help with cardiogenic shock will try to wean off from the pacemaker slowly when the blood pressure starts improving - will keep on Integrilin infusion for 6 hours to help with the residual thrombus - IABP was not placed because she is on Integrilin infusion and the likelihood of bleeding from the RFA site would be higher - with transition her to heparin a 6 oz of Integrilin infusion - uninterrupted DAPT for at least 12 months - EKG in the ICU, echo - statins to be given
--- NOTE | 2024-03-04 09:18 | WPDCNINT ---
Assessment and Plan Assessment and plan (1) STEMI (ST elevation myocardial infarction): Code(s): I21.3 - ST elevation (STEMI) myocardial infarction of unspecified site Status: Acute Assessment and Plan: STEMI status post stent placement in circumflex with residual thrombus Aspirin, Lipitor, Plavix Eptifibatide infusion as per cardiology at this time Plan to transition to heparin infusion as per cardiology recommendations Echo was ordered Patient is chest pain-free Transvenous pacing at this time Levophed to maintain blood pressure (2) Cardiogenic shock: Code(s): R57.0 - Cardiogenic shock Status: Acute Assessment and Plan: Patient currently has cardiogenic shock Echo is ordered Continue Levophed Dopamine has been weaned Continue transvenous pacing Monitor lactic acid level Hold further IV fluids (3) Third degree AV block: Code(s): I44.2 - Atrioventricular block, complete Status: Acute Assessment and Plan: Patient currently has a transvenous pacemaker which is set at rate of 100. Will decrease the rate once the hemodynamics improved (4) Elevated serum creatinine: Code(s): R79.89 - Other specified abnormal findings of blood chemistry Status: Acute Assessment and Plan: Presented with creatinine elevated at 1.5. Baseline unknown but this could be secondary to shock Check CK level Check urine sodium and creatinine Renal ultrasound Maintain perfusion with vasopressors Monitor urine output electrolytes and creatinine (5) Acute respiratory failure: Code(s): J96.00 - Acute respiratory failure, unspecified whether with hypoxia or hypercapnia Status: Acute Assessment and Plan: Patient has history of lung cancer and now also has pulmonary edema Pneumonia is also a possibility Blood cultures have been ordered and sent Continue supplemental oxygen with non-rebreather mask ABG reviewed and shows hypoxia and metabolic acidosis Depending on the course may need nippv or intubation. I have discussed this with patient and she is agreeable to intubation if needed Will attempt diuresis once hemodynamics are stabilized (6) Cardiomyopathy: Code(s): I42.9 - Cardiomyopathy, unspecified Status: Acute Assessment and Plan: Echo ordered and pending. See above (7) Lung cancer: Code(s): C34.90 - Malignant neoplasm of unspecified part of unspecified bronchus or lung Status: Acute Assessment and Plan: Patient has stage IV lung cancer. Details unknown. Will request records from [facility] (8) Diabetes: Code(s): E11.9 - Type 2 diabetes mellitus without complications Status: Acute Assessment and Plan: Regular insulin per 6 units IV ordered now. Will give Lantus and Sliding scale ordered May need insulin infusion (9) Acidosis: Code(s): E87.20 - Acidosis, unspecified Status: Acute Assessment and Plan: Metabolic acidosis secondary to his shock and acute kidney injury Bicarb ordered (10) Sepsis: Code(s): A41.9 - Sepsis, unspecified organism Status: Acute Assessment and Plan: Although it appears that the shock is cardiogenic and patient has lung cancer patient does meet criteria for sepsis Check procalcitonin level Blood cultures Empiric vancomycin and cefepime Monitor lactic acid level Plan DVT prophylaxis -heparin infusion Stress ulcer prophylaxis -PPI Nutrition - npo Code Status - Full Code Case discussed with diesel engine pipe fitter Dr. Pinzon I spoke to patient and patient's daughter at bedside.. With patient's current status events of this morning her current status and current treatment plan I explained that there is a likely possibility the patient may need nippv or intubation for respiratory status worsens. Explained the patient critically ill with unstable hemodynamics and respiratory status at this time and has high risk of mortality and may not survive this hospitalization. Total Critical Care Time - 50 minutes Due to a high probability of clinically significant, life threatening deterioration, the patient required my highest level of preparedness to intervene emergently and I personally spent this critical care time directly and personally managing the patient. This critical care time included obtaining a history; examining the patient; pulse oximetry; ordering and review of studies; arranging urgent treatment with development of a management plan; evaluation of patient's response to treatment; frequent reassessment; and discussions with other providers. It was exclusive of separately billable procedures and treating other patients and teaching time. Please see Assessment and Plan section and the rest of the note for further information on patient assessment and treatment Music Composition Teacher Consult Note Consult date: 03/04/24 Reason for consult: STEMI, complete heart block HPI: Kelsey Bain is a 83 year old female with past medical history of stage IV lung cancer, hypertension, diabetes. She presents via EMS for unstable dysrhythmia and 3rd degree heart block requiring transcutaneous pacing. EMS initially reported from the field the ER that patient had hypotension, tachypnea, pale complexion and diaphoresis. She was responsive and found to be in third-degree block. Patient was transcutaneously paced and route and brought to the ER. In ER patient was diagnosed with STEMI. Patient was started on dopamine. Cardiology was consulted and patient was taken to cardiac catheterization lab. In rn labor delivery patient had coronary Angiography and a stent was placed in circumflex. Patient also had residual thrombus in circumflex. Patient also has other vessel coronary disease but does not need any intervention at this time. Patient also had a transvenous pacemaker placed. Patient was started on Levophed dopamine and was given 500 cc of fluids. Patient elevated LVEDP at 25. LV-gram was not done Patient is now being admitted to ICU for further evaluation management. Patient arrived to the ICU on 10 mics of Levophed at 10 mics of dopamine. Patient has right femoral transvenous pacemaker. Patient at this time denies any pain but does admit to be feeling little short of breath. She states she feels cold. She is alert oriented. Denies any other complaints. Limited review of system was obtained due to acutely of the situation. Patient denies fever, chest pain, cough, nausea vomiting, abdominal pain,, headache dizziness or lightheadedness Additional history was obtained from patient's daughter when she arrived at bedside. She told me the patient has never smoked was diagnosed with lung cancer in January which was stage IV and she has just started chemotherapy which is a pale and took her 1st dose this tuesday. Patient also had some sort of head bleed from trauma in May was managed at [facility]. She has history of diabetes hypertension with no known history of heart disease. Review of Systems Review of Systems: All systems reviewed & are unremarkable except as noted in HPI and below (HPI) [facility] Past Medical History Medical History (Updated 03/04/24 @ 10:53 by Deepak Johnson MD) Diabetes Lung cancer Social History Social History (Updated 03/04/24 @ 10:35 by Deepak Johnson MD) Social History: Patient's daughter denies patient using any drugs and no use of alcohol or smoking. Meds Home Medications and Allergies Home Medications Medication Instructions Recorded Confirmed Type amlodipine 10 mg tablet mg 03/04/24 History amlodipine 5 mg tablet mg 03/04/24 History blood sugar diagnostic (OneTouch 03/04/24 03/04/24 History Ultra Test strips) duloxetine 30 mg capsule,delayed mg PO 03/04/24 History release losartan 100 mg tablet mg 03/04/24 History metformin 500 mg tablet,extended mg PO 03/04/24 History release 24 hr pantoprazole 20 mg tablet,delayed mg PO 03/04/24 History release rosuvastatin 10 mg tablet mg 03/04/24 History Allergies Allergy/AdvReac Type Severity Reaction Status Date / Time codeine Allergy Nausea and Verified 03/04/24 06:11 Vomiting erythromycin base Allergy Rash Verified 03/04/24 06:11 escitalopram [From Lexapro] Allergy Nausea and Verified 03/04/24 06:11 Vomiting Vital Signs Vital Signs - 24 hr 03/04/24 05:21 03/04/24 05:32 03/04/24 05:35 Temperature 36.1 C L Pulse Rate 63 70 Respiratory Rate 29 H Blood Pressure 90/50 L Pulse Oximetry 84 L 96 Oxygen Delivery Nasal Cannula Non-Rebreather Mask Oxygen Flow Rate 2 15 03/04/24 05:44 03/04/24 05:48 03/04/24 05:30 Temperature Pulse Rate 79 76 Respiratory Rate 18 30 H Blood Pressure 92/53 L 105/65 Pulse Oximetry 97 96 89 L Oxygen Delivery Non-Rebreather Mask Oxygen Flow Rate 15 03/04/24 05:31 03/04/24 05:45 03/04/24 05:46 Temperature Pulse Rate 80 84 76 Respiratory Rate 33 H 26 H 26 H Blood Pressure 92/53 L Pulse Oximetry 89 L 84 L 96 Oxygen Delivery Oxygen Flow Rate 03/04/24 05:50 03/04/24 05:51 03/04/24 05:56 Temperature Pulse Rate 95 69 90 Respiratory Rate 26 H 33 H 30 H Blood Pressure 108/60 102/55 L 104/55 L Pulse Oximetry 95 95 95 Oxygen Delivery Oxygen Flow Rate 03/04/24 06:00 03/04/24 06:01 03/04/24 06:34 Temperature Pulse Rate 70 79 76 Respiratory Rate 25 H 22 H 24 H Blood Pressure 108/54 L 106/54 L Pulse Oximetry 97 100 97 Oxygen Delivery Oxygen Flow Rate 03/04/24 06:02 Temperature Pulse Rate 73 Respiratory Rate 26 H Blood Pressure 106/54 L Pulse Oximetry 97 Oxygen Delivery Oxygen Flow Rate Exam Narrative: General: Old frail female who is alert awake and shivering from cold Lungs/Chest: Trachea central Clear BS B/L, No crackles or wheezing. Mild tachypnea Cardiac: Tachycardic Normal S1 S2. No murmurs Circulation: Pedal pulses are intact and symmetrical. TR band on right radial site, Abdomen: Normal bowel sounds.. Soft. NT. ND. Extremities: No clubbing, cyanosis or edema. Warm, transvenous pacemaker in right femoral area : Lyn in place Neurologic: Follows commands. Moves all 4 extremities PERRL AO x3 Skin: No Rash Results Labs 03/04/24 09:35 03/04/24 09:36 Labs: Impressions Chest X-Ray 03/04/24 06:21 IMPRESSION: 1. Airspace opacities in all left lung zones, likely a combination of malignancy, treatment change, and pneumonia. 2. Small loculated left pleural effusion. 3. Mild pulmonary edema. 4. Emphysema. 5. Cardiomegaly. Chest X-Ray 03/04/24 10:01 IMPRESSION: 1. Worsened mild pulmonary edema. 2. Diffuse left lung disease, likely a combination of malignancy, treatment change, and pneumonia. 3. Small loculated left pleural effusion. 4. Cardiomegaly. Short CBC 03/04/24 Range/Units 05:58 WBC 13.5 H (4.5-10.0) K/mm3 Hgb 9.7 L (12.0-15.0) g/dL Hct 30.1 L (37.0-47.0) % Plt Count 307 (150-375) k/mm3 BMP 03/04/24 05:58 Sodium 135 L Potassium 4.5 Chloride 101 Carbon Dioxide 19 L BUN 17 Creatinine 1.40 H Glucose 327 H Calcium 8.9 Cardiac Enzymes 03/04/24 Range/Units 05:58 Troponin I 0.495 H* (0.000-0.034) ng/mL Liver Function 03/04/24 Range/Units 05:58 Total Bilirubin 0.5 (0.2-1.3) mg/dL AST 35 (14-36) U/L ALT 15 (6-35) U/L Alkaline Phosphatase 82 (38-126) U/L Albumin 3.9 (3.5-5.1) g/dL Hospitalist MIPS Advance Care Plan I have confirmed that the patient's Advanced Care Plan is present, code status is documented, or surrogate decision maker is listed in patient medical record.: Yes Medication Reconciliation I have utilized all available resources to obtain, update and review the patients current medications (includes all prescriptions, OTC, herbals, cannabis, and nutritional supplements).: Yes
[2024-03-04] MEDS: NOREPINEPHRINE 8 MG/D5W 250 ML 8 MG/250 ML BAG 18.75 MG IV CONT (09:25)
[2024-03-04] MEDS: DOPamine 400 MG/D5W 250 ML 400 MG/250 ML BAG 21.68 MG IV CONT (09:25)
--- NOTE | 2024-03-04 09:25 | ADMGEN ---
This patient, Kelsey Bain, was admitted to Intensive Care Unit-7 at 0921 from clinical laboratory medical director with transvenous pacer, 15L non rebreather, levophed and dopamine gtt. Patient/family oriented to hospital policies and general routines including ID bracelet, bed and alarms, visiting hours, pain management, procedures, bathroom and other care routines, personal items, smoking policy, room service/diet, and visiting hours. Information on how to activate the Rapid Response Team has been discussed. Patient/Family are encouraged to report perceived risks to care and to ask questions if they do not understand what they are told or what they should do.
[2024-03-04] MEDS: CLOPIDOGREL BISULFATE 75 MG TABLET PO (09:45)
[2024-03-04] MEDS: ATORVASTATIN 40 MG TABLET PO (09:45)
[2024-03-04] MEDS: ASPIRIN 81 MG ENTERIC TABLET PO (09:45)
[2024-03-04 09:46] LABS: Basophils Absolute Auto 0.1 K/mm3 (0.0-0.1); Basophils Percent Auto 0.3 % (0.2-1.2); Eosinophils Percent Auto 0.1 % (0-4.4); Hematocrit 28.6 % (37.0-47.0); Hemoglobin 9.1 g/dL (12.0-15.0); Immature Granulocyte Absolute 0.23 K/mm3 (0.00-0.031); Immature Granulocyte Percent A 1.1 % (0-0.5); Lymphocytes Absolute Auto 2.17 K/mm3 (0.9-3.2); Lymphocytes Percent Auto 10.2 % (18.3-44.2); Mean Corpuscular HGB Conc 31.8 g/dl (32-36); Mean Corpuscular Hemoglobin 30.2 pg (26-34); Mean Platelet Volume 10.1 fl (7.4-10.4); Monocytes Absolute Auto 1.8 K/mm3 (0.1-0.6); Monocytes Percent Auto 8.6 % (2.6-8.5); Neutrophils Absolute Auto 16.9 K/mm3 (1.3-6.7); Neutrophils Percent Auto 79.7 % (45.5-73.1); Platelet Count Result 313 k/mm3 (150-375); Red Blood Count 3.01 M/mm3 (4.2-5.4); Red Cell Distribution Width 13.5 % (11.5-14.5); White Blood Count 21.2 K/mm3 (4.5-10.0)
[2024-03-04 09:49] LABS: Alveolar/Arterial O2 Gradient 606.6 mmHg; Base Excess ABG -9.9 mEq/l (+/-2.0); Fractional Inspired Oxygen 100 %; HCO3 ABG 16.4 mEq/l (22.0-26.0); Oxygen Content ABG 12.9 %vol (16.0-22.0); Oxygen Saturation ABG 91.3 % (95.0-100.0); Oxyhemoglobin 90.5 % THb (90.0-100.0); PCO2 ABG 37.5 mmHg (35.0-45.0); PO2 ABG 68.9 mmHg (80.0-100.0); PO2 FiO2 Ratio Arterial Blood 0.69 %; Total Hemoglobin 10.1 g/dL (12.0-18.0)
[2024-03-04 09:50] LABS: Modified Allen's Test Pass; Site Drawn LEFT RADIAL; pH ABG 7.258 (7.350-7.450)
[2024-03-04 09:51] LABS: Device NON-REBREATHER MASK
[2024-03-04 09:53] LABS: Glucose Point of Care 292 mg/dl (65-105)
[2024-03-04] MEDS: SODIUM BICARBONATE 8.4% 50 MEQ/50 ML SYRINGE IV PUSH ×2 (09:58→14:18)
[2024-03-04 10:01] LABS: Cholesterol 118 mg/dL (0-200); HDL Direct 50 mg/dL; Triglycerides 90 mg/dL (<150)
[2024-03-04 10:02] LABS: Anion Gap 18 mmol/L (4-12); Blood Urea Nitrogen 19 mg/dL (7-17); Calcium 10.1 mg/dL (8.4-10.2); Carbon Dioxide 15 mmol/L (22-30); Chloride 101 mmol/L (98-107); Estimated Glomerular Filt Rate 33; Glucose 356 mg/dL (65-110); Potassium 4.4 mmol/L (3.4-5.0); Sodium 134 mmol/L (137-145)
[2024-03-04 10:06] LABS: Lactic Acid Reflex 5.5 mmol/L (0.7-2.0)
[2024-03-04 10:12] LABS: LDL Cholesterol Direct 37 mg/dL
[2024-03-04] MEDS: ONDANSETRON INJ 4 MG/2 ML VIAL IV PUSH (10:16)
[2024-03-04] MEDS: EPTIFIBATIDE 0.75 MG/ML 75 MG/100 ML VIAL 9.25 MG IV CONT (10:23)
[2024-03-04 10:30] LABS: Troponin I > 80.000 ng/mL (0.000-0.034)
[2024-03-04] MEDS: CEFEPIME 1 GM/NS 50 ML 1 GM/50 ML BAG IVPB ×2 (10:35→22:06)
[2024-03-04 10:42] LABS: Procalcitonin 0.2 ng/mL
[2024-03-04] MEDS: INSULIN HUMAN REGULAR (*BKC) 100 UNITS/ML 6 UNITS IV PUSH (10:53)
[2024-03-04] MEDS: PANTOPRAZOLE SODIUM IV 40 MG VIAL IV PUSH (10:53)
[2024-03-04 11:26] LABS: Add Urine Microscopic? YES; Appearance Urine Clear (Clear); Bacteria Urine None Seen /hpf; Bilirubin Urine Negative (Negative); Blood Urine Negative (Negative); Color Urine Yellow (Yellow); Glucose Urine UA Negative (Negative); Ketones Urine Negative (Negative); Leukocyte Esterase Ur Negative LEU/UL (Negative); Nitrate Urine Negative (Negative); Non Pathogenic Casts 0-2; Protein Urine Trace mg/dL (Negative); RBC Urine 0-2 /hpf (0-2); Specific Grav Ur 1.012 (1.001-1.035); Squamous Epithelial Cell Urine None Seen /hpf (Few); Urobilinogen Urine 0.2 mg/dL (<2.0); WBC Urine 0-5 /hpf (0-3)
--- NOTE | 2024-03-04 11:31 | PC.NURSE ---
Report received by REYES Downey with cardiac mushroom laborer team at 0903. Patient to be transported to ICU room 7.
[2024-03-04 11:33] LABS: Sodium Urine Random 65 meq/L
[2024-03-04 11:57] LABS: Creatine Kinase 5784 U/L (30-135)
--- NOTE | 2024-03-04 12:02 | PC.NURSE ---
Spoke with Dr. Pinzon at 1202 via telephone. Verbal order okay to have PICC line inserted per vascular prepress technician.
[2024-03-04 12:43] LABS: Reflex Lactic Acid Yes or No Add Lactic
[2024-03-04] MEDS: VANCOMYCIN 750 MG/NS 250 ML 750 MG/250 ML BAG 250 MG IVPB (13:00)
[2024-03-04] MEDS: INSULIN ASPART (*BKC) 100 UNITS/ML SUB-Q ×3 (13:12→22:10)
[2024-03-04] MEDS: INSULIN GLARGINE (*BKC) 100 UNITS/ML 15 UNITS SUB-Q (13:12)
[2024-03-04] MEDS: CENTRAL LINE FLUSH 10 ML IV PUSH ×2 (13:15→22:08)
[2024-03-04 13:43] LABS: Lactic Acid 4.5 mmol/L (0.7-2.0); Troponin I > 80.000 ng/mL (0.000-0.034)
[2024-03-04 13:49] LABS: Glucose Point of Care 323 mg/dl (65-105)
[2024-03-04] MEDS: SODIUM BICARBONATE 8.4% 150 MEQ in WATER, STERILE FOR INJECTION 950 ML 75 MEQ IV CONT (14:32)
[2024-03-04 14:57] LABS: MRSA (PCR) NOT DETECTED (NOT DETECTE)
[2024-03-04 16:22] LABS: Hemoglobin 8.3 g/dL (12.0-15.0); Mean Corpuscular HGB Conc 33.2 g/dl (32-36); Mean Corpuscular Hemoglobin 30.6 pg (26-34); Mean Corpuscular Volume 92.3 fl (80-100); Mean Platelet Volume 10.1 fl (7.4-10.4); Platelet Count Result 266 k/mm3 (150-375); Red Blood Count 2.71 M/mm3 (4.2-5.4); Red Cell Distribution Width 13.7 % (11.5-14.5); White Blood Count 21.9 K/mm3 (4.5-10.0)
--- NOTE | 2024-03-04 16:29 | PC.NURSE ---
Patient arrived from cardiac director of cath lab to ICU room 7 at 0925. Patient arrived from director of cath lab on 10 mcg of Levophed and 10 mcg of dopamine gtt. Patient being transvenously paced with rate set at 90 bpm and output set to 5 mv[address] Ver[address] order [address] Dr[address] Johnson at bedside to wean Dopamine gtt., then wean Levophed gtt. as tolerated. TR band intact to right radial wrist, transvenous pacer with dressing intact to right groin. Knee immobilizer placed to right leg.
[2024-03-04 16:41] LABS: INR 1.3; Prothrombin Time 16.4 Seconds (11.1-14.7)
[2024-03-04 16:42] LABS: Partial Thromboplastin Time 39.1 Seconds (22.3-36.8)
[2024-03-04 16:44] LABS: Lactic Acid Reflex 4.8 mmol/L (0.7-2.0)
[2024-03-04] MEDS: HEPARIN SOD/D5W 100 UNITS/ML 25,000 UNITS/250 ML BAG 6 UNITS IV CONT (16:47)
[2024-03-04 17:03] LABS: Band Neutrophils Percent 4 % (0-6); Lymphocytes Absolute Manual 0.87 K/mm3 (1.1-4.5); Monocytes Absolute Manual 1.75 K/mm3 (0.1-0.90); Monocytes Percent Manual 8 % (3-9); Neutrophils Absolute Manual 19.27 K/mm3 (1.7-7.2); Neutrophils Percent Manual 84 % (46-73); Total Cells Counted 100
[2024-03-04 17:04] LABS: Platelet Estimate Adequate (Adequate); Schistocytes None Seen
[2024-03-04 18:01] LABS: Glucose Point of Care 249 mg/dl (65-105)
[2024-03-04 19:02] LABS: Lactic Acid Reflex 6.5 mmol/L (0.7-2.0)
--- NOTE | 2024-03-04 20:01 | PC.NURSE ---
[facility] flyer was given to patient.
[2024-03-04 20:04] LABS: Alveolar/Arterial O2 Gradient 548.1 mmHg; Base Excess ABG -3.9 mEq/l (+/-2.0); Carboxyhemoglobin 0.2 % THb (0-2.0); Device NON-REBREATHER MASK; Fractional Inspired Oxygen 100 %; Oxygen Content ABG 12.5 %vol (16.0-22.0); Oxygen Saturation ABG 98.7 % (95.0-100.0); Oxyhemoglobin 98.4 % THb (90.0-100.0); PCO2 ABG 31.9 mmHg (35.0-45.0); PO2 FiO2 Ratio Arterial Blood 1.33 %; Reduced Hemoglobin 1.4 %THb (0-5.0); Site Drawn RIGHT BRACHIAL; Total Hemoglobin 8.8 g/dL (12.0-18.0); pH ABG 7.416 (7.350-7.450)
[2024-03-04 20:11] LABS: Basophils Percent Auto 0.2 % (0.2-1.2); Hematocrit 24.8 % (37.0-47.0); Immature Granulocyte Absolute 0.15 K/mm3 (0.00-0.031); Immature Granulocyte Percent A 0.8 % (0-0.5); Lymphocytes Absolute Auto 1.28 K/mm3 (0.9-3.2); Lymphocytes Percent Auto 6.8 % (18.3-44.2); Mean Corpuscular HGB Conc 32.3 g/dl (32-36); Mean Corpuscular Hemoglobin 29.9 pg (26-34); Mean Corpuscular Volume 92.5 fl (80-100); Mean Platelet Volume 10.4 fl (7.4-10.4); Monocytes Absolute Auto 1.2 K/mm3 (0.1-0.6); Monocytes Percent Auto 6.5 % (2.6-8.5); Neutrophils Absolute Auto 16.2 K/mm3 (1.3-6.7); Neutrophils Percent Auto 85.7 % (45.5-73.1); Platelet Count Result 269 k/mm3 (150-375); Red Blood Count 2.68 M/mm3 (4.2-5.4); Red Cell Distribution Width 13.4 % (11.5-14.5); White Blood Count 18.9 K/mm3 (4.5-10.0)
[2024-03-04 20:32] LABS: Alanine Aminotransferase 417 U/L (6-35); Albumin Level 3.5 g/dL (3.5-5.1); Alkaline Phosphatase 69 U/L (38-126); Anion Gap 14 mmol/L (4-12); Bilirubin,Total 0.5 mg/dL (0.2-1.3); Blood Urea Nitrogen 26 mg/dL (7-17); Calcium 9.1 mg/dL (8.4-10.2); Carbon Dioxide 23 mmol/L (22-30); Chloride 98 mmol/L (98-107); Estimated CRCL calculation 15 ml/min; Estimated Glomerular Filt Rate 27; Glucose 230 mg/dL (65-110); Magnesium 1.6 mg/dL (1.6-2.3); Potassium 4.6 mmol/L (3.4-5.0); Sodium 135 mmol/L (137-145)
[2024-03-04 20:40] LABS: Aspartate Amino Transferase 959 U/L (14-36)
--- NOTE | 2024-03-04 21:14 | ECG_ITS ---
Test Date: 2024-03-04 21:07:51 Measurements Intervals [place] Rate: 58 P: 68 CT: 215 QRS: 0 QRSD: 66 T: 173 QT: 438 QTc: 431 Interpretive Statements SINUS BRADYCARDIA WITH FIRST DEGREE AV BLOCK WITH OCCASIONAL SUPRAVENTRICULAR PREMATURE COMPLEXES LOW QRS VOLTAGE [QRS DEFLECTION < 0.5/1.0 mV IN LIMB/CHEST LEADS] ST DEVIATION AND MODERATE T-WAVE ABNORMALITY, CONSIDER LATERAL ISCHEMIA [-0.1+ mV T WAVE IN I/aVL/V5/V6] MINIMAL ST ELEVATION, INFERIOR LEADS ST depressions in V1/2 consider posterior [place] Electronically Signed On 03-05-2024 14:27:24 CDT by Juan Jose Koroma M.D.
--- NOTE | 2024-03-04 21:15 | PM.PNCARD ---
Progress Note: A&P Assessment and Plan (1) Stage 4 lung cancer: Code(s): C34.90 - Malignant neoplasm of unspecified part of unspecified bronchus or lung Status: Acute (2) Complete heart block: Code(s): I44.2 - Atrioventricular block, complete Status: Resolved (3) ST elevation myocardial infarct involv left circumflex coronary artery: Code(s): I21.21 - ST elevation (STEMI) myocardial infarction involving left circumflex coronary artery Status: Acute (4) Ischemic cardiomyopathy: Code(s): I25.5 - Ischemic cardiomyopathy Status: Acute Plan I decreased the backup rate to 40, patient has her own intrinsic rhythm at 60-65 bpm. Will keep her @ 80 bpm overnight to help with her cardiac output and renal perfusion ECG shows NSR with first degree AV block - Continue heparin till tomorrow - DAPT to continue - Keep Levophed for SBP ~ 100 mmhg - Lactate in AM - Echo not done today, willl get done tomorrow - Ret as per ICU Subjective Date/time seen: 03/04/24 21:15 Interval history: Doing well No chest pain MAP > 65 Of Dopamine, On low dose levophed Objective Data Vital Signs Vital Signs: Vital Signs - 24 hr 03/04/24 05:21 03/04/24 05:32 03/04/24 05:35 Temperature 36.1 C L Pulse Rate 63 70 Respiratory Rate 29 H Blood Pressure 90/50 L Pulse Oximetry 84 L 96 Oxygen Delivery Nasal Cannula Non-Rebreather Mask Oxygen Flow Rate 2 15 Fraction of Inspired Oxygen 03/04/24 05:44 03/04/24 05:48 03/04/24 05:30 Temperature Pulse Rate 79 76 Respiratory Rate 18 30 H Blood Pressure 92/53 L 105/65 Pulse Oximetry 97 96 89 L Oxygen Delivery Non-Rebreather Mask Oxygen Flow Rate 15 Fraction of Inspired Oxygen 03/04/24 05:31 03/04/24 05:45 03/04/24 05:46 Temperature Pulse Rate 80 84 76 Respiratory Rate 33 H 26 H 26 H Blood Pressure 92/53 L Pulse Oximetry 89 L 84 L 96 Oxygen Delivery Oxygen Flow Rate Fraction of Inspired Oxygen 03/04/24 05:50 03/04/24 05:51 03/04/24 05:56 Temperature Pulse Rate 95 69 90 Respiratory Rate 26 H 33 H 30 H Blood Pressure 108/60 102/55 L 104/55 L Pulse Oximetry 95 95 95 Oxygen Delivery Oxygen Flow Rate Fraction of Inspired Oxygen 03/04/24 06:00 03/04/24 06:01 03/04/24 06:34 Temperature Pulse Rate 70 79 76 Respiratory Rate 25 H 22 H 24 H Blood Pressure 108/54 L 106/54 L Pulse Oximetry 97 100 97 Oxygen Delivery Oxygen Flow Rate Fraction of Inspired Oxygen 03/04/24 06:02 03/04/24 09:55 03/04/24 11:29 Temperature 35.1 C L Pulse Rate 73 Respiratory Rate 26 H Blood Pressure 106/54 L Pulse Oximetry 97 95 Oxygen Delivery Non-Rebreather Mask Oxygen Flow Rate 15 Fraction of Inspired Oxygen 03/04/24 09:25 03/04/24 11:44 03/04/24 09:38 Temperature 35.3 C L Pulse Rate 99 99 Respiratory Rate 23 H 26 H Blood Pressure 119/61 115/65 Pulse Oximetry 100 98 Oxygen Delivery Oxygen Flow Rate Fraction of Inspired Oxygen 03/04/24 11:59 03/04/24 12:14 03/04/24 12:29 Temperature 35.5 C L 35.8 C L 35.8 C L Pulse Rate Respiratory Rate Blood Pressure Pulse Oximetry Oxygen Delivery Oxygen Flow Rate Fraction of Inspired Oxygen 03/04/24 09:53 03/04/24 10:23 03/04/24 10:53 Temperature Pulse Rate 140 H 102 H 103 H Respiratory Rate 24 H 34 H 21 H Blood Pressure 113/83 103/92 H 122/76 Pulse Oximetry 98 91 96 Oxygen Delivery Oxygen Flow Rate Fraction of Inspired Oxygen 03/04/24 12:59 03/04/24 10:00 03/04/24 11:53 Temperature 36.2 C L 35.2 C L Pulse Rate 145 H 126 H Respiratory Rate 26 H 26 H Blood Pressure 113/83 106/69 Pulse Oximetry 98 97 Oxygen Delivery Oxygen Flow Rate Fraction of Inspired Oxygen 03/04/24 09:25 03/04/24 09:25 03/04/24 12:00 Temperature Pulse Rate 100 100 Respiratory Rate 24 H Blood Pressure 115/65 115/65 Pulse Oximetry 97 Oxygen Delivery Non-Rebreather Mask Oxygen Flow Rate 15 Fraction of Inspired Oxygen 03/04/24 13:40 03/04/24 13:29 03/04/24 13:30 Temperature 36.3 C L 36.3 C L Pulse Rate Respiratory Rate 30 H Blood Pressure Pulse Oximetry 90 Oxygen Delivery Venturi Mask Oxygen Flow Rate 15 Fraction of Inspired Oxygen 50 03/04/24 14:00 03/04/24 14:00 03/04/24 10:30 Temperature 36.6 C Pulse Rate 90 99 Respiratory Rate Blood Pressure 115/73 Pulse Oximetry Oxygen Delivery Oxygen Flow Rate Fraction of Inspired Oxygen 03/04/24 10:35 03/04/24 10:40 03/04/24 10:45 Temperature Pulse Rate 100 100 103 H Respiratory Rate Blood Pressure 117/74 116/82 131/81 Pulse Oximetry Oxygen Delivery Oxygen Flow Rate Fraction of Inspired Oxygen 03/04/24 10:50 03/04/24 11:00 03/04/24 11:15 Temperature Pulse Rate 100 108 H 111 H Respiratory Rate Blood Pressure 122/76 127/80 118/74 Pulse Oximetry Oxygen Delivery Oxygen Flow Rate Fraction of Inspired Oxygen 03/04/24 12:00 03/04/24 14:00 03/04/24 12:00 Temperature Pulse Rate 106 H 90 106 H Respiratory Rate Blood Pressure 113/84 92/65 L 113/84 Pulse Oximetry Oxygen Delivery Oxygen Flow Rate Fraction of Inspired Oxygen 03/04/24 14:00 03/04/24 12:00 03/04/24 12:00 Temperature 35.3 C L 35.3 C L Pulse Rate 90 106 H 106 H Respiratory Rate 24 H 24 H Blood Pressure 92/65 L 113/84 113/84 Pulse Oximetry 97 97 Oxygen Delivery Oxygen Flow Rate Fraction of Inspired Oxygen 03/04/24 13:00 03/04/24 14:00 03/04/24 14:00 Temperature 36.0 C L 36.6 C 36.6 C Pulse Rate 98 90 90 Respiratory Rate 25 H 28 H 28 H Blood Pressure 96/66 L 92/65 L 92/65 L Pulse Oximetry 100 100 100 Oxygen Delivery Oxygen Flow Rate Fraction of Inspired Oxygen 03/04/24 14:30 03/04/24 15:00 03/04/24 15:00 Temperature 36.9 C 37.1 C 37.1 C Pulse Rate Respiratory Rate Blood Pressure Pulse Oximetry Oxygen Delivery Oxygen Flow Rate Fraction of Inspired Oxygen 03/04/24 15:00 03/04/24 15:00 03/04/24 14:00 Temperature 37.1 C Pulse Rate 90 90 Respiratory Rate 29 H Blood Pressure 85/54 L 85/56 L Pulse Oximetry 100 97 Oxygen Delivery Non-Rebreather Mask Oxygen Flow Rate 15 Fraction of Inspired Oxygen 03/04/24 15:16 03/04/24 15:16 03/04/24 09:25 Temperature Pulse Rate 90 99 Respiratory Rate 34 H Blood Pressure 92/58 L Pulse Oximetry 97 97 Oxygen Delivery Non-Rebreather Mask Oxygen Flow Rate 10 Fraction of Inspired Oxygen 03/04/24 12:00 03/04/24 09:35 03/04/24 09:45 Temperature Pulse Rate 99 99 99 Respiratory Rate Blood Pressure 119/61 115/65 Pulse Oximetry Oxygen Delivery Oxygen Flow Rate Fraction of Inspired Oxygen 03/04/24 10:00 03/04/24 10:15 03/04/24 16:00 Temperature 37.3 C Pulse Rate 140 H 102 H 90 Respiratory Rate 30 H Blood Pressure 113/83 103/92 H 94/59 L Pulse Oximetry 99 Oxygen Delivery Oxygen Flow Rate Fraction of Inspired Oxygen 03/04/24 16:00 03/04/24 16:00 03/04/24 17:12 Temperature 37.3 C Pulse Rate 90 Respiratory Rate 30 H Blood Pressure 94/59 L Pulse Oximetry 99 99 90 Oxygen Delivery Non-Rebreather Mask High Flow Nasal Cannula Oxygen Flow Rate 10 10 Fraction of Inspired Oxygen 03/04/24 17:00 03/04/24 15:30 03/04/24 16:00 Temperature 37.4 C 37.1 C 37.2 C Pulse Rate 91 Respiratory Rate 22 H Blood Pressure 99/59 L Pulse Oximetry 99 Oxygen Delivery Oxygen Flow Rate Fraction of Inspired Oxygen 03/04/24 16:30 03/04/24 17:00 03/04/24 17:30 Temperature 37.4 C 37.4 C 37.3 C Pulse Rate Respiratory Rate Blood Pressure Pulse Oximetry Oxygen Delivery Oxygen Flow Rate Fraction of Inspired Oxygen 03/04/24 18:00 03/04/24 18:00 03/04/24 18:00 Temperature 37.3 C 37.3 C Pulse Rate 90 90 Respiratory Rate 29 H 29 H Blood Pressure 90/70 L 90/70 L Pulse Oximetry 91 91 Oxygen Delivery Oxygen Flow Rate Fraction of Inspired Oxygen 03/04/24 16:00 03/04/24 18:30 03/04/24 19:00 Temperature 37.3 C 37.3 C Pulse Rate 90 90 Respiratory Rate 36 H Blood Pressure 92/52 L 89/50 L Pulse Oximetry 91 Oxygen Delivery Oxygen Flow Rate Fraction of Inspired Oxygen 03/04/24 19:00 03/04/24 18:00 03/04/24 19:00 Temperature 37.3 C Pulse Rate 91 91 Respiratory Rate Blood Pressure 90/70 L 89/50 L Pulse Oximetry Oxygen Delivery Oxygen Flow Rate Fraction of Inspired Oxygen 03/04/24 16:00 03/04/24 18:00 03/04/24 20:00 Temperature Pulse Rate 90 90 91 Respiratory Rate Blood Pressure 82/55 L Pulse Oximetry Oxygen Delivery Oxygen Flow Rate Fraction of Inspired Oxygen 03/04/24 21:12 Temperature Pulse Rate 63 Respiratory Rate Blood Pressure 88/49 L Pulse Oximetry Oxygen Delivery Oxygen Flow Rate Fraction of Inspired Oxygen Intake/Output Intake/Output: Intake & Output 03/01/24 03/02/24 03/03/24 03/04/24 23:59 23:59 23:59 23:59 Intake Total 299.1 Output Total 225 Balance 74.1 Meds/Results Medications: Active Medications Generic Name Dose Route Start Last Admin Trade Name Freq PRN Reason Stop Dose Admin Acetaminophen 650 mg 03/04/24 08:53 Acetaminophen 325 Mg Tablet PO Q6H PRN Mild Pain (1-3) or Fever Aspirin 81 mg 03/04/24 09:00 03/04/24 09:45 Aspirin 81 Mg Enteric Tablet PO 81 mg DAILY BONY Administration Atorvastatin Calcium 40 mg 03/04/24 09:00 03/04/24 09:45 Atorvastatin 40 Mg Tablet PO 40 mg DAILY BONY Administration Clopidogrel Bisulfate 75 mg 03/04/24 09:00 03/04/24 09:45 Clopidogrel Bisulfate 75 Mg Tablet PO 75 mg DAILY BONY Administration Dextrose 12.5 gm 03/04/24 09:24 Dextrose 50% 25 Gm/50 Ml Syringe IV PUSH PRN PRN Hypoglycemia Protocol Glucagon 1 mg 03/04/24 09:24 Glucagon For Inj 1 Mg Vial IM PRN PRN Hypoglycemia Protocol Glucose 15 gm 03/04/24 09:24 Glucose Oral Gel 15 Gm Of Glucse In 37.5 Gm Tube PO PRN PRN Hypoglycemia Protocol Heparin Sodium (Porcine) 4,000 units 03/04/24 15:30 Heparin Sodium 5,000 Units/Ml Vial IV PUSH PRN PRN aPTT less than 55 seconds Heparin Sodium (Porcine) 2,000 units 03/04/24 15:30 Heparin Sodium 5,000 Units/Ml Vial IV PUSH PRN PRN aPTT 55 - 70 seconds Dextrose 1,000 mls @ 100 mls/hr 03/04/24 09:24 Dextrose 5% 1,000 Ml IVPB PRN PRN Hypoglycemia Protocol Cefepime HCl 1 gm in 50 mls @ 100 mls/hr 03/04/24 09:40 03/04/24 11:05 Maxipime 1 Gm/Ns 50 Ml IVPB Infused Q12HR BONY Infusion Heparin Sodium/Dextrose 25,000 units in 250 mls @ 6 mls/hr 03/04/24 15:30 03/04/24 16:47 Heparin Sodium/D5w 100 Units/Ml IV CONT 600 units/hr .Q24H BONY 6 mls/hr Administration Protocol 600 UNITS/HR Norepinephrine Bitartrate 8 mg in 250 mls @ 18.75 mls/hr 03/04/24 09:25 03/04/24 21:12 Levophed 8 Mg/D5w 250 Ml IV CONT 10 mcg/min .[id number] BONY 18.75 mls/hr Titration Protocol 10 MCG/MIN Sodium Bicarbonate 150 meq/ 1,100 mls @ 75 mls/hr 03/04/24 14:30 03/04/24 14:32 Sterile Water IV CONT 03/05/24 14:29 75 mls/hr .[id number] BONY Administration Insulin Aspart 3 - 6 units 03/04/24 09:40 03/04/24 18:00 Insulin Aspart (*Bkc) 100 Units/Ml SUB-Q 3 units Q4HR BONY Administration Protocol Ondansetron HCl 4 mg 03/04/24 08:53 Ondansetron Hcl Odt 4 Mg Tablet PO 03/05/24 08:52 Q4-6H PRN Nausea Ondansetron HCl 4 mg 03/04/24 10:15 03/04/24 10:16 Ondansetron Inj 4 Mg/2 Ml Vial IV PUSH 4 mg Q4H PRN Administration Nausea And Vomiting Pantoprazole Sodium 40 mg 03/04/24 09:00 03/04/24 10:53 Pantoprazole Sodium Iv 40 Mg Vial IV PUSH 40 mg QAM BONY Administration Perflutren Lipid Microsphere 0 ml 03/04/24 08:53 Perflutren Lipid Microspheres 1.5 Ml Vial Diluted To 10 Ml Total Volume IV PUSH 03/07/24 08:57 ONCE PRN adequate visualization Protocol Sodium Chloride 10 ml 03/04/24 14:00 03/04/24 13:15 Central Line Flush IV PUSH 10 ml Q8HR BONY Administration Sodium Chloride 10 ml 03/04/24 12:31 Central Line Flush IV PUSH PRN PRN with TPN bag changes Sodium Chloride 20 ml 03/04/24 12:31 Central Line Flush IV PUSH PRN PRN after blood draws Vancomycin HCl 1 each 03/04/24 11:05 Vancomycin For Acute Kidney Injury IVPB PRN PRN Vancomycin Protocol Radiology Results: ITS Impressions Renal Ultrasound 03/04/24 12:01 IMPRESSION: 1. Mild atrophy of right kidney. No hydronephrosis. Chest X-Ray 03/04/24 13:01 IMPRESSION: 1. PICC tip in the superior vena cava. 2. Mild pulmonary edema. 3. Diffuse left lung disease, likely a combination of malignancy, treatment change, and pneumonia. 4. Small loculated left pleural effusion. 5. Cardiomegaly. Labs Labs: Laboratory Results - last 24 hr 03/04/24 03/04/24 03/04/24 05:58 07:27 07:41 WBC 13.5 H RBC 3.18 L Hgb 9.7 L Hct 30.1 L MCV 94.7 MCH 30.5 MCHC 32.2 RDW 13.5 Plt Count 307 MPV 10.4 Immature Gran % (Auto) 0.4 Neut % (Auto) 74.3 H Lymph % (Auto) 13.6 L [place] % (Auto) 9.5 H Eos % (Auto) 1.8 Baso % (Auto) 0.4 Lymph # (Auto) 1.83 [place] # (Auto) 1.3 H Eos # (Auto) 0.2 Baso # (Auto) 0.1 Abs Immat Gran (auto) 0.06 H Absolute Neuts (auto) 10.0 H Absolute Nucleated RBC 0.000 Total Counted Neutrophils % (Manual) Band Neutrophils % Lymphocytes % (Manual) Monocytes % (Manual) Nucleated RBC % 0.0 Abs Neuts (Manual) Abs Lymphs (Manual) Abs Monocytes (Manual) Platelet Estimate Schistocytes PT 14.1 INR 1.0 APTT 23.5 Activ Coag Time Kaolin 220 H 226 H Puncture Site ABG pH ABG pCO2 ABG pO2 ABG PO2/FiO2 Ratio ABG HCO3 ABG O2 Saturation ABG O2 Content ABG Base Excess A-a Gradient Oxyhemoglobin Carboxyhemoglobin Methemoglobin Reduced Hemoglobin Total Hemoglobin O2 Delivery Device O2 Liters/Min FiO2 Sodium 135 L Potassium 4.5 Chloride 101 Carbon Dioxide 19 L Anion Gap 15 H BUN 17 Creatinine 1.40 H Estim Creat Clear Calc Not Reportable Estimated GFR 36 L Glucose 327 H POC Capillary Glucose Lactic Acid Calcium 8.9 Magnesium Total Bilirubin 0.5 AST 35 ALT 15 Alkaline Phosphatase 82 Total Creatine Kinase Troponin I 0.495 H* Total Protein 7.0 Albumin 3.9 Triglycerides Cholesterol LDL Cholesterol Direct HDL Direct Lipase 82 Procalcitonin Urine Color Urine Appearance Urine pH Ur Specific [place] Urine Protein Urine Glucose (UA) Urine Ketones Ur Blood (Man) Urine Nitrate Urine Bilirubin Urine Urobilinogen Leukocyte Esterase Rfl Urine RBC Urine WBC Ur Squamous Epith Cells Urine Bacteria Urine Casts Ur Random Sodium Urine Creatinine Nasal MRSA (PCR) 03/04/24 03/04/24 03/04/24 07:48 08:26 09:35 WBC 21.2 H RBC 3.01 L Hgb 9.1 L Hct 28.6 L MCV 95.0 MCH 30.2 MCHC 31.8 L RDW 13.5 Plt Count 313 MPV 10.1 Immature Gran % (Auto) 1.1 H Neut % (Auto) 79.7 H Lymph % (Auto) 10.2 L [place] % (Auto) 8.6 H Eos % (Auto) 0.1 Baso % (Auto) 0.3 Lymph # (Auto) 2.17 [place] # (Auto) 1.8 H Eos # (Auto) 0.0 Baso # (Auto) 0.1 Abs Immat Gran (auto) 0.23 H Absolute Neuts (auto) 16.9 H Absolute Nucleated RBC 0.000 Total Counted Neutrophils % (Manual) Band Neutrophils % Lymphocytes % (Manual) Monocytes % (Manual) Nucleated RBC % 0.0 Abs Neuts (Manual) Abs Lymphs (Manual) Abs Monocytes (Manual) Platelet Estimate Schistocytes PT INR APTT Activ Coag Time Kaolin 238 H 232 H Puncture Site ABG pH ABG pCO2 ABG pO2 ABG PO2/FiO2 Ratio ABG HCO3 ABG O2 Saturation ABG O2 Content ABG Base Excess A-a Gradient Oxyhemoglobin Carboxyhemoglobin Methemoglobin Reduced Hemoglobin Total Hemoglobin O2 Delivery Device O2 Liters/Min FiO2 Sodium Potassium Chloride Carbon Dioxide Anion Gap BUN Creatinine Estim Creat Clear Calc Estimated GFR Glucose POC Capillary Glucose Lactic Acid Calcium Magnesium Total Bilirubin AST ALT Alkaline Phosphatase Total Creatine Kinase Troponin I > 80.000 H* D Total Protein Albumin Triglycerides Cholesterol LDL Cholesterol Direct HDL Direct Lipase Procalcitonin Urine Color Urine Appearance Urine pH Ur Specific [place] Urine Protein Urine Glucose (UA) Urine Ketones Ur Blood (Man) Urine Nitrate Urine Bilirubin Urine Urobilinogen Leukocyte Esterase Rfl Urine RBC Urine WBC Ur Squamous Epith Cells Urine Bacteria Urine Casts Ur Random Sodium Urine Creatinine Nasal MRSA (PCR) 03/04/24 03/04/24 03/04/24 09:36 09:37 09:38 WBC RBC Hgb Hct MCV MCH MCHC RDW Plt Count MPV Immature Gran % (Auto) Neut % (Auto) Lymph % (Auto) [place] % (Auto) Eos % (Auto) Baso % (Auto) Lymph # (Auto) [place] # (Auto) Eos # (Auto) Baso # (Auto) Abs Immat Gran (auto) Absolute Neuts (auto) Absolute Nucleated RBC Total Counted Neutrophils % (Manual) Band Neutrophils % Lymphocytes % (Manual) Monocytes % (Manual) Nucleated RBC % Abs Neuts (Manual) Abs Lymphs (Manual) Abs Monocytes (Manual) Platelet Estimate Schistocytes PT INR APTT Activ Coag Time Kaolin Puncture Site ABG pH ABG pCO2 ABG pO2 ABG PO2/FiO2 Ratio ABG HCO3 ABG O2 Saturation ABG O2 Content ABG Base Excess A-a Gradient Oxyhemoglobin Carboxyhemoglobin Methemoglobin Reduced Hemoglobin Total Hemoglobin O2 Delivery Device O2 Liters/Min FiO2 Sodium 134 L Potassium 4.4 Chloride 101 Carbon Dioxide 15 L Anion Gap 18 H BUN 19 H Creatinine 1.50 H Estim Creat Clear Calc Not Reportable Estimated GFR 33 L Glucose 356 H POC Capillary Glucose Lactic Acid 5.5 H* Calcium 10.1 Magnesium Total Bilirubin AST ALT Alkaline Phosphatase Total Creatine Kinase Troponin I Cancelled Total Protein Albumin Triglycerides 90 Cholesterol 118 LDL Cholesterol Direct 37 HDL Direct 50 Lipase Procalcitonin 0.2 Urine Color Urine Appearance Urine pH Ur Specific [place] Urine Protein Urine Glucose (UA) Urine Ketones Ur Blood (Man) Urine Nitrate Urine Bilirubin Urine Urobilinogen Leukocyte Esterase Rfl Urine RBC Urine WBC Ur Squamous Epith Cells Urine Bacteria Urine Casts Ur Random Sodium Urine Creatinine Nasal MRSA (PCR) 03/04/24 03/04/24 03/04/24 09:45 09:49 10:46 WBC RBC Hgb Hct MCV MCH MCHC RDW Plt Count MPV Immature Gran % (Auto) Neut % (Auto) Lymph % (Auto) [place] % (Auto) Eos % (Auto) Baso % (Auto) Lymph # (Auto) [place] # (Auto) Eos # (Auto) Baso # (Auto) Abs Immat Gran (auto) Absolute Neuts (auto) Absolute Nucleated RBC Total Counted Neutrophils % (Manual) Band Neutrophils % Lymphocytes % (Manual) Monocytes % (Manual) Nucleated RBC % Abs Neuts (Manual) Abs Lymphs (Manual) Abs Monocytes (Manual) Platelet Estimate Schistocytes PT INR APTT Activ Coag Time Kaolin Puncture Site Left radial ABG pH 7.258 L* ABG pCO2 37.5 ABG pO2 68.9 L ABG PO2/FiO2 Ratio 0.69 ABG HCO3 16.4 L ABG O2 Saturation 91.3 L ABG O2 Content 12.9 L ABG Base Excess -9.9 A-a Gradient 606.6 Oxyhemoglobin 90.5 Carboxyhemoglobin Methemoglobin Reduced Hemoglobin Total Hemoglobin 10.1 L O2 Delivery Device Non-rebreather mask O2 Liters/Min 15.0 FiO2 100 Sodium Potassium Chloride Carbon Dioxide Anion Gap BUN Creatinine Estim Creat Clear Calc Estimated GFR Glucose POC Capillary Glucose 292 H Lactic Acid Calcium Magnesium Total Bilirubin AST ALT Alkaline Phosphatase Total Creatine Kinase Troponin I Total Protein Albumin Triglycerides Cholesterol LDL Cholesterol Direct HDL Direct Lipase Procalcitonin Urine Color Yellow Urine Appearance Clear Urine pH 6.0 Ur Specific [place] 1.012 Urine Protein Trace Urine Glucose (UA) Negative Urine Ketones Negative Ur Blood (Man) Negative Urine Nitrate Negative Urine Bilirubin Negative Urine Urobilinogen 0.2 Leukocyte Esterase Rfl Negative Urine RBC 0-2 Urine WBC 0-5 Ur Squamous Epith Cells None seen Urine Bacteria None seen Urine Casts 0-2 Ur Random Sodium 65 Urine Creatinine 52.0 Nasal MRSA (PCR) 03/04/24 03/04/24 03/04/24 11:07 13:04 13:05 WBC RBC Hgb Hct MCV MCH MCHC RDW Plt Count MPV Immature Gran % (Auto) Neut % (Auto) Lymph % (Auto) [place] % (Auto) Eos % (Auto) Baso % (Auto) Lymph # (Auto) [place] # (Auto) Eos # (Auto) Baso # (Auto) Abs Immat Gran (auto) Absolute Neuts (auto) Absolute Nucleated RBC Total Counted Neutrophils % (Manual) Band Neutrophils % Lymphocytes % (Manual) Monocytes % (Manual) Nucleated RBC % Abs Neuts (Manual) Abs Lymphs (Manual) Abs Monocytes (Manual) Platelet Estimate Schistocytes PT INR APTT Activ Coag Time Kaolin Puncture Site ABG pH ABG pCO2 ABG pO2 ABG PO2/FiO2 Ratio ABG HCO3 ABG O2 Saturation ABG O2 Content ABG Base Excess A-a Gradient Oxyhemoglobin Carboxyhemoglobin Methemoglobin Reduced Hemoglobin Total Hemoglobin O2 Delivery Device O2 Liters/Min FiO2 Sodium Potassium Chloride Carbon Dioxide Anion Gap BUN Creatinine Estim Creat Clear Calc Estimated GFR Glucose POC Capillary Glucose 323 H Lactic Acid 4.5 H* Calcium Magnesium Total Bilirubin AST ALT Alkaline Phosphatase Total Creatine Kinase 5784 H Troponin I > 80.000 H* Total Protein Albumin Triglycerides Cholesterol LDL Cholesterol Direct HDL Direct Lipase Procalcitonin Urine Color Urine Appearance Urine pH Ur Specific [place] Urine Protein Urine Glucose (UA) Urine Ketones Ur Blood (Man) Urine Nitrate Urine Bilirubin Urine Urobilinogen Leukocyte Esterase Rfl Urine RBC Urine WBC Ur Squamous Epith Cells Urine Bacteria Urine Casts Ur Random Sodium Urine Creatinine Nasal MRSA (PCR) 03/04/24 03/04/24 03/04/24 13:06 16:18 17:58 WBC 21.9 H RBC 2.71 L Hgb 8.3 L Hct 25.0 L MCV 92.3 MCH 30.6 MCHC 33.2 RDW 13.7 Plt Count 266 MPV 10.1 Immature Gran % (Auto) Not Reportable Neut % (Auto) Not Reportable Lymph % (Auto) Not Reportable [place] % (Auto) Not Reportable Eos % (Auto) Not Reportable Baso % (Auto) Not Reportable Lymph # (Auto) Not Reportable [place] # (Auto) Not Reportable Eos # (Auto) Not Reportable Baso # (Auto) Not Reportable Abs Immat Gran (auto) Not Reportable Absolute Neuts (auto) Not Reportable Absolute Nucleated RBC Not Reportable Total Counted 100 Neutrophils % (Manual) 84 H Band Neutrophils % 4 Lymphocytes % (Manual) 4.0 L Monocytes % (Manual) 8 Nucleated RBC % Not Reportable Abs Neuts (Manual) 19.27 H Abs Lymphs (Manual) 0.87 L Abs Monocytes (Manual) 1.75 H Platelet Estimate Adequate Schistocytes None seen PT 16.4 H INR 1.3 APTT 39.1 H Activ Coag Time Kaolin Puncture Site ABG pH ABG pCO2 ABG pO2 ABG PO2/FiO2 Ratio ABG HCO3 ABG O2 Saturation ABG O2 Content ABG Base Excess A-a Gradient Oxyhemoglobin Carboxyhemoglobin Methemoglobin Reduced Hemoglobin Total Hemoglobin O2 Delivery Device O2 Liters/Min FiO2 Sodium Potassium Chloride Carbon Dioxide Anion Gap BUN Creatinine Estim Creat Clear Calc Estimated GFR Glucose POC Capillary Glucose 249 H Lactic Acid 4.8 H* Calcium Magnesium Total Bilirubin AST ALT Alkaline Phosphatase Total Creatine Kinase Troponin I Total Protein Albumin Triglycerides Cholesterol LDL Cholesterol Direct HDL Direct Lipase Procalcitonin Urine Color Urine Appearance Urine pH Ur Specific [place] Urine Protein Urine Glucose (UA) Urine Ketones Ur Blood (Man) Urine Nitrate Urine Bilirubin Urine Urobilinogen Leukocyte Esterase Rfl Urine RBC Urine WBC Ur Squamous Epith Cells Urine Bacteria Urine Casts Ur Random Sodium Urine Creatinine Nasal MRSA (PCR) Not detected 03/04/24 03/04/24 03/04/24 18:38 19:54 20:00 WBC 18.9 H RBC 2.68 L Hgb 8.0 L Hct 24.8 L MCV 92.5 MCH 29.9 MCHC 32.3 RDW 13.4 Plt Count 269 MPV 10.4 Immature Gran % (Auto) 0.8 H Neut % (Auto) 85.7 H Lymph % (Auto) 6.8 L [place] % (Auto) 6.5 Eos % (Auto) 0.0 Baso % (Auto) 0.2 Lymph # (Auto) 1.28 [place] # (Auto) 1.2 H Eos # (Auto) 0.0 Baso # (Auto) 0.0 Abs Immat Gran (auto) 0.15 H Absolute Neuts (auto) 16.2 H Absolute Nucleated RBC 0.000 Total Counted Neutrophils % (Manual) Band Neutrophils % Lymphocytes % (Manual) Monocytes % (Manual) Nucleated RBC % 0.0 Abs Neuts (Manual) Abs Lymphs (Manual) Abs Monocytes (Manual) Platelet Estimate Schistocytes PT INR APTT Activ Coag Time Kaolin Puncture Site Right brachial ABG pH 7.416 ABG pCO2 31.9 L ABG pO2 133.0 H ABG PO2/FiO2 Ratio 1.33 ABG HCO3 20.0 L ABG O2 Saturation 98.7 ABG O2 Content 12.5 L ABG Base Excess -3.9 A-a Gradient 548.1 Oxyhemoglobin 98.4 Carboxyhemoglobin 0.2 Methemoglobin 0.0 Reduced Hemoglobin 1.4 Total Hemoglobin 8.8 L O2 Delivery Device Non-rebreather mask O2 Liters/Min 15.0 FiO2 100 Sodium 135 L Potassium 4.6 Chloride 98 Carbon Dioxide 23 Anion Gap 14 H BUN 26 H Creatinine 1.80 H Estim Creat Clear Calc 15 Estimated GFR 27 L Glucose 230 H POC Capillary Glucose Lactic Acid 6.5 H* Calcium 9.1 Magnesium 1.6 Total Bilirubin 0.5 AST 959 H ALT 417 H Alkaline Phosphatase 69 Total Creatine Kinase Troponin I Total Protein 7.0 Albumin 3.5 Triglycerides Cholesterol LDL Cholesterol Direct HDL Direct Lipase Procalcitonin Urine Color Urine Appearance Urine pH Ur Specific [place] Urine Protein Urine Glucose (UA) Urine Ketones Ur Blood (Man) Urine Nitrate Urine Bilirubin Urine Urobilinogen Leukocyte Esterase Rfl Urine RBC Urine WBC Ur Squamous Epith Cells Urine Bacteria Urine Casts Ur Random Sodium Urine Creatinine Nasal MRSA (PCR)
[2024-03-04] MEDS: LACTATED RINGERS 1,000 ML 75 ML IV CONT (22:06)
[2024-03-04] MEDS: MAGNESIUM SULF 2 GM/WATER 50ML 2 GM/50 ML BAG IVPB (22:08)
[2024-03-04 22:27] LABS: Glucose Point of Care 213 mg/dl (65-105)
[2024-03-04 23:16] LABS: Partial Thromboplastin Time 62.3 Seconds (22.3-36.8)
--- NOTE | 2024-03-04 23:40 | PC.NURSE ---
2100 Dr. Lockhart at bedside.
[2024-03-04] MEDS: HEPARIN SODIUM 5,000 UNITS/ML VIAL 2000 UNITS IV PUSH (23:57)
[2024-03-05] VITALS (65 sets, daily range): BP systolic 87–124; BP diastolic 52–80; PULSE 87–112; RESP 15–31; TEMP 37.4–37.8; O2SAT 80–99
--- NOTE | 2024-03-05 | ECHO_ITS ---
Patient Info Name: Kelsey Bain Age: 83 years : 1940 Gender: Female Ht: 60 in Wt: 127 lbs BSA: 1.57 m2 HR: 105 bpm BP: 120 / 72 mmHg Technical Quality: Fair Exam Date: 03/05/2024 10:48 AM Exam Location: [facility] Lab Patient Status: Inpatient Admit Date: 03/04/2024 Staff Ordering Physician: Evonne Pinzon MD (vanita/maliha) Test Inspection Engineer: Geovanna Colmenares RDCS Attending Provider: Evonne Pinzon MD (vanita/maliha) Referring Physician: Jeromy COVINGTON; Exam Type: CA echo doppler color flow Study Info Indications - CAD Complete two-dimensional, color flow and Doppler transthoracic echocardiogram is performed. Summary 1. Complete two-dimensional, color flow and Doppler transthoracic echocardiogram is performed. 2. The left ventricle is normal size with mildly reduced systolic function. The LVEF is estimated to be 40-45%. 3. The anterolateral, inferior, and inferolateral ceron are severely hypokinetic. 4. The right ventricle is normal size and systolic function. 5. Linear artifact in right ventricle suggestive of catheter(s), pacemaker lead(s), or ICD lead(s). 6. The aortic valve is bileaflet and opens well. There is no aortic regurgitation. 7. The mitral valve leaflets are thickened and sclerotic. There is moderate mitral regurgitation. Left Ventricle The left ventricle is normal size with mildly reduced systolic function. The LVEF is estimated to be 40-45%. The anterolateral, inferior, and inferolateral ceron are severely hypokinetic. Right Ventricle The right ventricle is normal size and systolic function. Linear artifact in right ventricle suggestive of catheter(s), pacemaker lead(s), or ICD lead(s). Left Atria The left atrial size is borderline normal. Right Atria The right atrial size is normal. Aortic Valve The aortic valve is bileaflet and opens well. There is no aortic regurgitation. Pulmonic Valve The pulmonic valve is normal. There is no pulmonic valve regurgitation. Mitral Valve The mitral valve leaflets are thickened and sclerotic. There is moderate mitral regurgitation. Tricuspid Valve The tricuspid valve is normal. There is trace tricuspid regurgitation. Pulmonary Arteries There is mild pulmonary hypertension. The PASP is estimated to be 45 mm Hg. Pericardium/Pleural There is small pericardial effusion. Inferior Vena Cava Normal inferior vena cava with <50% collapse upon inspiration consistent with elevated right atrial pressure, 8 mmHg. Left Ventricular Outflow Tract Name Value Normal LVOT 2D LVOT Diameter 1.9 cm LVOT Doppler LVOT Peak Gradient 4 mmHg LVOT Mean Gradient 2 mmHg LVOT VTI 14 cm LVOT VTI/AV VTI Ratio 0.7 LVOT Stroke Volume 38 ml LVOT CO 3.8 l/min LVOT CI 2.4 l/min/m2 Pulmonic Valve Name Value Normal PV Doppler PV Peak Gradient 2 mmHg Mitral Valve Name Value Normal MV Doppler MV Decel Twiggs 752 cm/s2 MV PHT 57 ms MV Area (PHT) 3.8 cm2 4.0-5.0 MV Diastolic Function MV E Peak Velocity 149 cm/s MV A Peak Velocity 1 cm/s MV E/A 205.5 MV Decel Time 198 ms Tricuspid Valve Name Value Normal TV Regurgitation Doppler TR Peak Velocity 304 cm/s TR Peak Gradient 37 mmHg Estimated PAP/RSVP RA Pressure 8 mmHg <=5 PA Systolic Pressure 45 mmHg <36 RV Systolic Pressure 45 mmHg <36 Aorta Name Value Normal Ascending Aorta Ao Root Diameter (MM) 2.2 cm Ao Root Diam Index (MM) 1.4 cm/m2 Aortic Valve Name Value Normal AV Doppler AV Peak Velocity 153 cm/s AV Peak Gradient 9 mmHg AV Mean Gradient 4 mmHg AV VTI 21 cm AV Area (Cont Eq VTI) 1.8 cm2 >=3.0 AV Area (Cont Eq Rik) 1.7 cm2 AV Regurgitation 2D LVOT Area 2.7 cm2 Ventricles Name Value Normal LV Dimensions 2D/MM IVS Diastolic Thickness (2D) 0.9 cm 0.6-1.0 IVS Diastole Thickness (MM) 0.9 cm 0.6-0.9 LVID Diastole (2D) 4.5 cm 3.8-5.2 LVID Diastole (MM) 4.4 cm 3.8-5.2 LVIW Diastolic Thickness (2D) 0.9 cm 0.6-0.9 LVIW Diastolic Thickness (MM) 1.0 cm 0.6-0.9 LVID Systole (2D) 3.7 cm 2.2-3.5 LVID Systole (MM) 3.4 cm 2.2-3.5 LVOT Diameter 1.9 cm LV Mass (2D Cubed) 137.00 g 67.00-162.00 LV Mass Index (2D Cubed) 87 g/m2 43-95 Relative Wall Thickness (2D) 0.41 LV Mass (MM Cubed) 144.06 g 67.00-162.00 LV Mass Index (MM Cubed) 92 g/m2 43-95 Relative Wall Thickness (MM) 0.45 LV Fractional Shortening/Ejection Fraction 2D/MM LV Fractional Shortening (2D) 17 % 27-45 LV Fractional Shortening (MM) 24 % 27-45 LV EF (MM Teicholz) 48 % 54-74 LV EF (2D Teicholz) 35 % 54-74 LV Diastolic Volume (4C MOD) 70 ml LV EF (4C MOD) 50 % LV Diastolic Volume (2C MOD) 79 ml LV EF (2C MOD) 40 % LV Diastolic Volume (BP MOD) 76 ml 46-106 LV Diastolic Volume Index (BP MOD) 48 ml/m2 29-61 LV Systolic Volume (BP MOD) 43 ml 14-42 LV Systolic Volume Index (BP MOD) 27 ml/m2 8-24 LV EF (BP MOD) 43 % 54-74 LV Diastolic Length (4C) 7.0 cm LV Systolic Length (4C) 5.8 cm LV Stroke Volume (4C MOD) 35 ml Atria Name Value Normal LA Dimensions LA Dimension (MM) 2.7 cm 2.7-3.8 LA Volume (4C A-L) 44 ml LA Volume (BP A-L) 53 ml RA Dimensions RA Area (4C) 11.0 cm2 <=18.0 Report Signatures
[2024-03-05 01:30] LABS: Glucose Point of Care 183 mg/dl (65-105)
[2024-03-05] MEDS: NOREPINEPHRINE 8 MG/D5W 250 ML 8 MG/250 ML BAG 28.13 MG IV CONT (05:32)
[2024-03-05] MEDS: CENTRAL LINE FLUSH 10 ML IV PUSH ×3 (05:43→20:53)
[2024-03-05 05:48] LABS: Hemoglobin 7.7 g/dL (12.0-15.0); Mean Corpuscular HGB Conc 33.5 g/dl (32-36); Mean Corpuscular Hemoglobin 30.4 pg (26-34); Mean Corpuscular Volume 90.9 fl (80-100); Mean Platelet Volume 10.4 fl (7.4-10.4); Platelet Count Result 248 k/mm3 (150-375); Red Blood Count 2.53 M/mm3 (4.2-5.4); Red Cell Distribution Width 13.6 % (11.5-14.5); White Blood Count 22.2 K/mm3 (4.5-10.0)
[2024-03-05 05:51] LABS: Glucose Point of Care 190 mg/dl (65-105)
[2024-03-05 06:01] LABS: Partial Thromboplastin Time 94.9 Seconds (22.3-36.8)
[2024-03-05 06:06] LABS: Albumin Level 3.4 g/dL (3.5-5.1); Alkaline Phosphatase 75 U/L (38-126); Anion Gap 8 mmol/L (4-12); Bilirubin,Total 0.4 mg/dL (0.2-1.3); Blood Urea Nitrogen 31 mg/dL (7-17); Calcium 8.7 mg/dL (8.4-10.2); Carbon Dioxide 29 mmol/L (22-30); Chloride 98 mmol/L (98-107); Estimated CRCL calculation 13 ml/min; Estimated Glomerular Filt Rate 22; Glucose 197 mg/dL (65-110); Magnesium 2.4 mg/dL (1.6-2.3); Potassium 4.5 mmol/L (3.4-5.0); Sodium 135 mmol/L (137-145)
[2024-03-05 06:08] LABS: Alanine Aminotransferase 1224 U/L (6-35)
[2024-03-05 06:30] LABS: Aspartate Amino Transferase 2363 U/L (14-36)
[2024-03-05 06:36] LABS: Vancomycin Random 9.7 ug/mL (10-20)
[2024-03-05] MEDS: VANCOMYCIN 750 MG/NS 250 ML 750 MG/250 ML BAG 250 MG IVPB (07:02)
[2024-03-05 07:56] LABS: Glucose Point of Care 176 mg/dl (65-105)
[2024-03-05] MEDS: CEFEPIME 1 GM/NS 50 ML 1 GM/50 ML BAG IVPB ×2 (08:31→20:53)
[2024-03-05] MEDS: ASPIRIN 81 MG ENTERIC TABLET PO (08:32)
[2024-03-05] MEDS: CLOPIDOGREL BISULFATE 75 MG TABLET PO (08:32)
[2024-03-05] MEDS: ATORVASTATIN 40 MG TABLET PO (08:32)
[2024-03-05] MEDS: PANTOPRAZOLE SODIUM IV 40 MG VIAL IV PUSH (08:33)
--- NOTE | 2024-03-05 09:54 | ECG_ITS ---
Test Date: 2024-03-05 12:40:31 Measurements Intervals [place] Rate: 106 P: 220 IL: 241 QRS: 25 QRSD: 72 T: 0 QT: 339 QTc: 452 Interpretive Statements SINUS TACHYCARDIA WITH FIRST DEGREE AV BLOCK LOW QRS VOLTAGE IN EXTREMITY LEADS [QRS DEFLECTION < 0.5 mV IN LIMB LEADS] ST DEPRESSION, CONSIDER SUBENDOCARDIAL INJURY [0.1+ mV ST DEPRESSION] or Posterior SD WARNING: DATA QUALITY MAY AFFECT INTERPRETATION Compared to ECG 03/04/2024 21:07:51 Sinus bradycardia no longer present T-wave abnormality no longer present Possible ischemia no longer present Myocardial infarct finding no longer present ST (T wave) deviation still present Electronically Signed On 03-05-2024 14:36:58 CDT by Juan Jose Koroma M.D.
--- NOTE | 2024-03-05 09:54 | WPDINTPN ---
Progress Note: A&P Assessment and Plan (1) STEMI (ST elevation myocardial infarction): Code(s): I21.3 - ST elevation (STEMI) myocardial infarction of unspecified site Status: Acute Assessment and Plan: STEMI status post stent placement in circumflex with residual thrombus Aspirin, Lipitor, Plavix She received Eptifibatide infusion post cardiac catheterization Currently on heparin infusion as per cardiology recommendations Echo ordered and pending Patient is chest pain-free Transvenous pacing as below Levophed to maintain blood pressure (2) Cardiogenic shock: Code(s): R57.0 - Cardiogenic shock Status: Acute Assessment and Plan: Patient currently has cardiogenic shock Echo is ordered and pending Continue Levophed Dopamine has been weaned off Transvenous pacing as below Monitor lactic acid level Continue cautious IV fluids (3) Third degree AV block: Code(s): I44.2 - Atrioventricular block, complete Status: Acute Assessment and Plan: Patient presented with complete heart block and had a placement of transvenous pacemaker which is set at rate of 100 initially. In the ICU as the hemodynamics improved patient's rate was gradually dropped to 90 and then 80. This morning patient is sinus tach I have changed the transvenous pacing rate to 50 as a backup patient is in her intrinsic sinus rhythm. Check EKG (4) Acute respiratory failure: Code(s): J96.00 - Acute respiratory failure, unspecified whether with hypoxia or hypercapnia Status: Acute Assessment and Plan: Patient has history of lung cancer and now also has pulmonary edema Pneumonia is also a possibility but very unlikely considering the presentation Blood cultures have been ordered and sent Continue supplemental oxygen high-flow nasal cannula ABG reviewed and shows hypoxia and metabolic acidosis Depending on the course may need nippv or intubation. I have discussed this with patient and she is agreeable to intubation if needed Will attempt diuresis once hemodynamics are stabilized (5) Cardiomyopathy: Code(s): I42.9 - Cardiomyopathy, unspecified Status: Acute Assessment and Plan: Echo ordered and pending. See above (6) Lung cancer: Code(s): C34.90 - Malignant neoplasm of unspecified part of unspecified bronchus or lung Status: Acute Assessment and Plan: Patient has stage IV lung cancer and was just started on chemotherapy. Will request records from [facility] (7) Diabetes: Code(s): E11.9 - Type 2 diabetes mellitus without complications Status: Acute Assessment and Plan: Continue Lantus and Sliding scale ordered Resume diet (8) Acidosis: Code(s): E87.20 - Acidosis, unspecified Status: Acute Assessment and Plan: Metabolic acidosis secondary to his shock and acute kidney injury Bicarb ordered (9) Sepsis: Code(s): A41.9 - Sepsis, unspecified organism Status: Acute Assessment and Plan: Although it appears that the shock is cardiogenic and patient has lung cancer patient does meet criteria for sepsis Low procalcitonin level Blood cultures Continue Empiric cefepime but will discontinue vancomycin Monitor lactic acid level (10) Acute kidney injury: Code(s): N17.9 - Acute kidney failure, unspecified Status: Acute Assessment and Plan: Baseline creatinine unknown. Presented with creatinine elevated at 1.5 which has now increased 2.1 This likely combination of shock and rhabdomyolysis. Patient could not be given liberal IV fluids due to pulmonary edema and congestive heart failure Monitor CK level Continue gentle IV fluid Renal ultrasound is ordered and pending Maintain perfusion with vasopressors Monitor urine output electrolytes and creatinine Will consult nephrology Plan DVT prophylaxis -heparin infusion Stress ulcer prophylaxis -PPI Nutrition -resume diet Code Status - Full Code Total Critical Care Time - 30 minutes Due to a high probability of clinically significant, life threatening deterioration, the patient required my highest level of preparedness to intervene emergently and I personally spent this critical care time directly and personally managing the patient. This critical care time included obtaining a history; examining the patient; pulse oximetry; ordering and review of studies; arranging urgent treatment with development of a management plan; evaluation of patient's response to treatment; frequent reassessment; and discussions with other providers. It was exclusive of separately billable procedures and treating other patients and teaching time. Please see Assessment and Plan section and the rest of the note for further information on patient assessment and treatment Subjective Date/time seen: 03/05/24 Patient states she feels better than yesterday. She denies any pain at this time. She denies any cough but does have some shortness of breath. She states her breathing is low easier than yesterday. Patient denies fever, nausea vomiting, abdominal pain,, diarrhea, headache or constipation. All other systems were reviewed negative Patient is on Levophed. Currently in sinus tach and not requiring pacing. Pacemaker is set at rate of 80. Urine output is low. Review of Systems Review of Systems: All systems reviewed & are unremarkable except as noted in HPI and below (HPI) Exam Narrative: General: Old frail female who is alert awake and shivering from cold Lungs/Chest: Trachea central Clear BS B/L, few crackles at the bases. Cardiac: Tachycardic Normal S1 S2. No murmurs Circulation: Pedal pulses are intact and symmetrical. TR band on right radial site, Abdomen: Normal bowel sounds.. Soft. NT. ND. Extremities: No clubbing, cyanosis or edema. Warm, transvenous pacemaker in right femoral area : Lyn in place Neurologic: Follows commands. Moves all 4 extremities PERRL AO x3 Skin: No Rash Objective Data Vital Signs Vital Signs: Vital Signs - 24 hr 03/04/24 09:55 03/04/24 11:29 03/04/24 11:44 Temperature 35.1 C L 35.3 C L Pulse Rate Pulse Rate [Bilateral Pedal (Dorsalis Pedis) Palpation] Pulse Rate [Left Radial Palpation] Pulse Rate [Right Radial Palpation] Respiratory Rate Blood Pressure Pulse Oximetry 95 Oxygen Delivery Non-Rebreather Mask Oxygen Flow Rate 15 Fraction of Inspired Oxygen 03/04/24 11:59 03/04/24 12:14 03/04/24 12:29 Temperature 35.5 C L 35.8 C L 35.8 C L Pulse Rate Pulse Rate [Bilateral Pedal (Dorsalis Pedis) Palpation] Pulse Rate [Left Radial Palpation] Pulse Rate [Right Radial Palpation] Respiratory Rate Blood Pressure Pulse Oximetry Oxygen Delivery Oxygen Flow Rate Fraction of Inspired Oxygen 03/04/24 10:23 03/04/24 10:53 03/04/24 12:59 Temperature 36.2 C L Pulse Rate 102 H 103 H Pulse Rate [Bilateral Pedal (Dorsalis Pedis) Palpation] Pulse Rate [Left Radial Palpation] Pulse Rate [Right Radial Palpation] Respiratory Rate 34 H 21 H Blood Pressure 103/92 H 122/76 Pulse Oximetry 91 96 Oxygen Delivery Oxygen Flow Rate Fraction of Inspired Oxygen 03/04/24 10:00 03/04/24 11:53 03/04/24 12:00 Temperature 35.2 C L Pulse Rate 145 H 126 H Pulse Rate [Bilateral Pedal (Dorsalis Pedis) Palpation] Pulse Rate [Left Radial Palpation] Pulse Rate [Right Radial Palpation] Respiratory Rate 26 H 26 H 24 H Blood Pressure 113/83 106/69 Pulse Oximetry 98 97 97 Oxygen Delivery Non-Rebreather Mask Oxygen Flow Rate 15 Fraction of Inspired Oxygen 03/04/24 13:40 03/04/24 13:29 03/04/24 13:30 Temperature 36.3 C L 36.3 C L Pulse Rate Pulse Rate [Bilateral Pedal (Dorsalis Pedis) Palpation] Pulse Rate [Left Radial Palpation] Pulse Rate [Right Radial Palpation] Respiratory Rate 30 H Blood Pressure Pulse Oximetry 90 Oxygen Delivery Venturi Mask Oxygen Flow Rate 15 Fraction of Inspired Oxygen 50 03/04/24 14:00 03/04/24 14:00 03/04/24 10:30 Temperature 36.6 C Pulse Rate 90 99 Pulse Rate [Bilateral Pedal (Dorsalis Pedis) Palpation] Pulse Rate [Left Radial Palpation] Pulse Rate [Right Radial Palpation] Respiratory Rate Blood Pressure 115/73 Pulse Oximetry Oxygen Delivery Oxygen Flow Rate Fraction of Inspired Oxygen 03/04/24 10:35 03/04/24 10:40 03/04/24 10:45 Temperature Pulse Rate 100 100 103 H Pulse Rate [Bilateral Pedal (Dorsalis Pedis) Palpation] Pulse Rate [Left Radial Palpation] Pulse Rate [Right Radial Palpation] Respiratory Rate Blood Pressure 117/74 116/82 131/81 Pulse Oximetry Oxygen Delivery Oxygen Flow Rate Fraction of Inspired Oxygen 03/04/24 10:50 03/04/24 11:00 03/04/24 11:15 Temperature Pulse Rate 100 108 H 111 H Pulse Rate [Bilateral Pedal (Dorsalis Pedis) Palpation] Pulse Rate [Left Radial Palpation] Pulse Rate [Right Radial Palpation] Respiratory Rate Blood Pressure 122/76 127/80 118/74 Pulse Oximetry Oxygen Delivery Oxygen Flow Rate Fraction of Inspired Oxygen 03/04/24 12:00 03/04/24 14:00 03/04/24 12:00 Temperature Pulse Rate 106 H 90 106 H Pulse Rate [Bilateral Pedal (Dorsalis Pedis) Palpation] Pulse Rate [Left Radial Palpation] Pulse Rate [Right Radial Palpation] Respiratory Rate Blood Pressure 113/84 92/65 L 113/84 Pulse Oximetry Oxygen Delivery Oxygen Flow Rate Fraction of Inspired Oxygen 03/04/24 14:00 03/04/24 12:00 03/04/24 12:00 Temperature 35.3 C L 35.3 C L Pulse Rate 90 106 H 106 H Pulse Rate [Bilateral Pedal (Dorsalis Pedis) Palpation] Pulse Rate [Left Radial Palpation] Pulse Rate [Right Radial Palpation] Respiratory Rate 24 H 24 H Blood Pressure 92/65 L 113/84 113/84 Pulse Oximetry 97 97 Oxygen Delivery Oxygen Flow Rate Fraction of Inspired Oxygen 03/04/24 13:00 03/04/24 14:00 03/04/24 14:00 Temperature 36.0 C L 36.6 C 36.6 C Pulse Rate 98 90 90 Pulse Rate [Bilateral Pedal (Dorsalis Pedis) Palpation] Pulse Rate [Left Radial Palpation] Pulse Rate [Right Radial Palpation] Respiratory Rate 25 H 28 H 28 H Blood Pressure 96/66 L 92/65 L 92/65 L Pulse Oximetry 100 100 100 Oxygen Delivery Oxygen Flow Rate Fraction of Inspired Oxygen 03/04/24 14:30 03/04/24 15:00 03/04/24 15:00 Temperature 36.9 C 37.1 C 37.1 C Pulse Rate Pulse Rate [Bilateral Pedal (Dorsalis Pedis) Palpation] Pulse Rate [Left Radial Palpation] Pulse Rate [Right Radial Palpation] Respiratory Rate Blood Pressure Pulse Oximetry Oxygen Delivery Oxygen Flow Rate Fraction of Inspired Oxygen 03/04/24 15:00 03/04/24 15:00 03/04/24 14:00 Temperature 37.1 C Pulse Rate 90 90 Pulse Rate [Bilateral Pedal (Dorsalis Pedis) Palpation] Pulse Rate [Left Radial Palpation] Pulse Rate [Right Radial Palpation] Respiratory Rate 29 H Blood Pressure 85/54 L 85/56 L Pulse Oximetry 100 97 Oxygen Delivery Non-Rebreather Mask Oxygen Flow Rate 15 Fraction of Inspired Oxygen 03/04/24 15:16 03/04/24 15:16 03/04/24 12:00 Temperature Pulse Rate 90 99 Pulse Rate [Bilateral Pedal (Dorsalis Pedis) Palpation] Pulse Rate [Left Radial Palpation] Pulse Rate [Right Radial Palpation] Respiratory Rate 34 H Blood Pressure 92/58 L Pulse Oximetry 97 97 Oxygen Delivery Non-Rebreather Mask Oxygen Flow Rate 10 Fraction of Inspired Oxygen 03/04/24 10:00 03/04/24 10:15 03/04/24 16:00 Temperature 37.3 C Pulse Rate 140 H 102 H 90 Pulse Rate [Bilateral Pedal (Dorsalis Pedis) Palpation] Pulse Rate [Left Radial Palpation] Pulse Rate [Right Radial Palpation] Respiratory Rate 30 H Blood Pressure 113/83 103/92 H 94/59 L Pulse Oximetry 99 Oxygen Delivery Oxygen Flow Rate Fraction of Inspired Oxygen 03/04/24 16:00 03/04/24 16:00 03/04/24 17:12 Temperature 37.3 C Pulse Rate 90 Pulse Rate [Bilateral Pedal (Dorsalis Pedis) Palpation] Pulse Rate [Left Radial Palpation] Pulse Rate [Right Radial Palpation] Respiratory Rate 30 H Blood Pressure 94/59 L Pulse Oximetry 99 99 90 Oxygen Delivery Non-Rebreather Mask High Flow Nasal Cannula Oxygen Flow Rate 10 10 Fraction of Inspired Oxygen 03/04/24 17:00 03/04/24 15:30 03/04/24 16:00 Temperature 37.4 C 37.1 C 37.2 C Pulse Rate 91 Pulse Rate [Bilateral Pedal (Dorsalis Pedis) Palpation] Pulse Rate [Left Radial Palpation] Pulse Rate [Right Radial Palpation] Respiratory Rate 22 H Blood Pressure 99/59 L Pulse Oximetry 99 Oxygen Delivery Oxygen Flow Rate Fraction of Inspired Oxygen 03/04/24 16:30 03/04/24 17:00 03/04/24 17:30 Temperature 37.4 C 37.4 C 37.3 C Pulse Rate Pulse Rate [Bilateral Pedal (Dorsalis Pedis) Palpation] Pulse Rate [Left Radial Palpation] Pulse Rate [Right Radial Palpation] Respiratory Rate Blood Pressure Pulse Oximetry Oxygen Delivery Oxygen Flow Rate Fraction of Inspired Oxygen 03/04/24 18:00 03/04/24 18:00 03/04/24 18:00 Temperature 37.3 C 37.3 C Pulse Rate 90 90 Pulse Rate [Bilateral Pedal (Dorsalis Pedis) Palpation] Pulse Rate [Left Radial Palpation] Pulse Rate [Right Radial Palpation] Respiratory Rate 29 H 29 H Blood Pressure 90/70 L 90/70 L Pulse Oximetry 91 91 Oxygen Delivery Oxygen Flow Rate Fraction of Inspired Oxygen 03/04/24 16:00 03/04/24 18:30 03/04/24 19:00 Temperature 37.3 C 37.3 C Pulse Rate 90 90 Pulse Rate [Bilateral Pedal (Dorsalis Pedis) Palpation] Pulse Rate [Left Radial Palpation] Pulse Rate [Right Radial Palpation] Respiratory Rate 36 H Blood Pressure 92/52 L 89/50 L Pulse Oximetry 91 Oxygen Delivery Oxygen Flow Rate Fraction of Inspired Oxygen 03/04/24 19:00 03/04/24 18:00 03/04/24 19:00 Temperature 37.3 C Pulse Rate 91 91 Pulse Rate [Bilateral Pedal (Dorsalis Pedis) Palpation] Pulse Rate [Left Radial Palpation] Pulse Rate [Right Radial Palpation] Respiratory Rate Blood Pressure 90/70 L 89/50 L Pulse Oximetry Oxygen Delivery Oxygen Flow Rate Fraction of Inspired Oxygen 03/04/24 16:00 03/04/24 18:00 03/04/24 20:00 Temperature Pulse Rate 90 90 91 Pulse Rate [Bilateral Pedal (Dorsalis Pedis) Palpation] Pulse Rate [Left Radial Palpation] Pulse Rate [Right Radial Palpation] Respiratory Rate Blood Pressure 82/55 L Pulse Oximetry Oxygen Delivery Oxygen Flow Rate Fraction of Inspired Oxygen 03/04/24 21:12 03/04/24 21:16 03/04/24 20:00 Temperature Pulse Rate 63 61 92 Pulse Rate [Bilateral Pedal (Dorsalis Pedis) Palpation] Pulse Rate [Left Radial Palpation] Pulse Rate [Right Radial Palpation] Respiratory Rate Blood Pressure 88/49 L 88/47 L Pulse Oximetry Oxygen Delivery Oxygen Flow Rate Fraction of Inspired Oxygen 03/04/24 20:00 03/04/24 20:00 03/04/24 20:00 Temperature 37.3 C Pulse Rate 92 92 Pulse Rate [Bilateral Pedal (Dorsalis Pedis) Palpation] 92 Pulse Rate [Left Radial Palpation] 92 Pulse Rate [Right Radial Palpation] 92 Respiratory Rate 29 H 29 H Blood Pressure 82/55 L Pulse Oximetry 100 100 Oxygen Delivery Non-Rebreather Mask Oxygen Flow Rate 15 Fraction of Inspired Oxygen 03/04/24 21:30 03/04/24 21:45 03/04/24 22:00 Temperature Pulse Rate 80 80 80 Pulse Rate [Bilateral Pedal (Dorsalis Pedis) Palpation] Pulse Rate [Left Radial Palpation] Pulse Rate [Right Radial Palpation] Respiratory Rate Blood Pressure 101/58 L 198/180 H 89/54 L Pulse Oximetry Oxygen Delivery Oxygen Flow Rate Fraction of Inspired Oxygen 03/04/24 22:15 03/04/24 22:30 03/04/24 22:45 Temperature Pulse Rate 80 80 80 Pulse Rate [Bilateral Pedal (Dorsalis Pedis) Palpation] Pulse Rate [Left Radial Palpation] Pulse Rate [Right Radial Palpation] Respiratory Rate Blood Pressure 93/54 L 72/48 L 93/53 L Pulse Oximetry Oxygen Delivery Oxygen Flow Rate Fraction of Inspired Oxygen 03/04/24 23:00 03/04/24 23:15 03/04/24 23:30 Temperature Pulse Rate 80 80 82 Pulse Rate [Bilateral Pedal (Dorsalis Pedis) Palpation] Pulse Rate [Left Radial Palpation] Pulse Rate [Right Radial Palpation] Respiratory Rate Blood Pressure 101/55 L 95/56 L 105/61 Pulse Oximetry Oxygen Delivery Oxygen Flow Rate Fraction of Inspired Oxygen 03/04/24 23:45 03/04/24 22:00 03/04/24 22:00 Temperature 37.6 C Pulse Rate 84 80 80 Pulse Rate [Bilateral Pedal (Dorsalis Pedis) Palpation] Pulse Rate [Left Radial Palpation] Pulse Rate [Right Radial Palpation] Respiratory Rate 26 H Blood Pressure 105/56 L 89/54 L Pulse Oximetry 94 Oxygen Delivery Oxygen Flow Rate Fraction of Inspired Oxygen 03/05/24 00:00 03/05/24 00:00 03/05/24 00:00 Temperature 37.6 C Pulse Rate 95 95 Pulse Rate [Bilateral Pedal (Dorsalis Pedis) Palpation] 95 Pulse Rate [Left Radial Palpation] 95 Pulse Rate [Right Radial Palpation] 95 Respiratory Rate 20 Blood Pressure 118/68 Pulse Oximetry 95 Oxygen Delivery Oxygen Flow Rate Fraction of Inspired Oxygen 03/05/24 00:00 03/05/24 02:00 03/05/24 02:00 Temperature 37.7 C H Pulse Rate 95 99 99 Pulse Rate [Bilateral Pedal (Dorsalis Pedis) Palpation] Pulse Rate [Left Radial Palpation] Pulse Rate [Right Radial Palpation] Respiratory Rate 20 22 H Blood Pressure 119/73 Pulse Oximetry 95 98 Oxygen Delivery Non-Rebreather Mask Oxygen Flow Rate 10 Fraction of Inspired Oxygen 03/05/24 00:00 03/05/24 02:11 03/05/24 03:15 Temperature Pulse Rate 95 99 101 H Pulse Rate [Bilateral Pedal (Dorsalis Pedis) Palpation] Pulse Rate [Left Radial Palpation] Pulse Rate [Right Radial Palpation] Respiratory Rate Blood Pressure 118/68 119/73 123/69 Pulse Oximetry Oxygen Delivery Oxygen Flow Rate Fraction of Inspired Oxygen 03/04/24 20:15 03/04/24 20:30 03/04/24 20:45 Temperature 37.3 C 37.3 C 37.3 C Pulse Rate 92 90 90 Pulse Rate [Bilateral Pedal (Dorsalis Pedis) Palpation] Pulse Rate [Left Radial Palpation] Pulse Rate [Right Radial Palpation] Respiratory Rate 20 23 H 23 H Blood Pressure 81/57 L 81/57 L 84/60 L Pulse Oximetry 100 100 100 Oxygen Delivery Oxygen Flow Rate Fraction of Inspired Oxygen 03/04/24 21:00 03/04/24 21:07 03/04/24 21:15 Temperature 37.3 C 37.4 C 37.4 C Pulse Rate 56 L 63 56 L Pulse Rate [Bilateral Pedal (Dorsalis Pedis) Palpation] Pulse Rate [Left Radial Palpation] Pulse Rate [Right Radial Palpation] Respiratory Rate 22 H 26 H 24 H Blood Pressure 77/43 L 88/49 L 86/47 L Pulse Oximetry 10 L 100 100 Oxygen Delivery Oxygen Flow Rate Fraction of Inspired Oxygen 03/04/24 21:30 03/04/24 21:45 03/04/24 22:15 Temperature 37.4 C 37.5 C 37.6 C Pulse Rate 80 80 80 Pulse Rate [Bilateral Pedal (Dorsalis Pedis) Palpation] Pulse Rate [Left Radial Palpation] Pulse Rate [Right Radial Palpation] Respiratory Rate 24 H 18 24 H Blood Pressure 101/58 L 198/180 H 93/54 L Pulse Oximetry 100 99 93 Oxygen Delivery Oxygen Flow Rate Fraction of Inspired Oxygen 03/04/24 22:30 03/04/24 22:45 03/04/24 23:00 Temperature 37.6 C 37.6 C H 37.6 C H Pulse Rate 80 80 80 Pulse Rate [Bilateral Pedal (Dorsalis Pedis) Palpation] Pulse Rate [Left Radial Palpation] Pulse Rate [Right Radial Palpation] Respiratory Rate 28 H 29 H 23 H Blood Pressure 72/48 L 93/53 L 101/55 L Pulse Oximetry 94 92 86 L Oxygen Delivery Oxygen Flow Rate Fraction of Inspired Oxygen 03/04/24 23:15 03/04/24 23:30 03/04/24 23:45 Temperature 37.6 C H 37.6 C H 37.6 C H Pulse Rate 80 82 84 Pulse Rate [Bilateral Pedal (Dorsalis Pedis) Palpation] Pulse Rate [Left Radial Palpation] Pulse Rate [Right Radial Palpation] Respiratory Rate 14 25 H 24 H Blood Pressure 95/56 L 105/61 105/56 L Pulse Oximetry 81 L 92 90 Oxygen Delivery Oxygen Flow Rate Fraction of Inspired Oxygen 03/05/24 05:30 03/05/24 04:00 03/05/24 05:32 Temperature Pulse Rate 104 H 102 H 104 H Pulse Rate [Bilateral Pedal (Dorsalis Pedis) Palpation] Pulse Rate [Left Radial Palpation] Pulse Rate [Right Radial Palpation] Respiratory Rate Blood Pressure 122/70 123/77 122/70 Pulse Oximetry Oxygen Delivery Oxygen Flow Rate Fraction of Inspired Oxygen 03/05/24 03:30 03/05/24 03:45 03/05/24 04:15 Temperature Pulse Rate 103 H 102 H 103 H Pulse Rate [Bilateral Pedal (Dorsalis Pedis) Palpation] Pulse Rate [Left Radial Palpation] Pulse Rate [Right Radial Palpation] Respiratory Rate Blood Pressure 119/66 122/67 107/80 Pulse Oximetry Oxygen Delivery Oxygen Flow Rate Fraction of Inspired Oxygen 03/05/24 04:50 03/05/24 05:00 03/05/24 05:15 Temperature Pulse Rate 106 H 110 H 103 H Pulse Rate [Bilateral Pedal (Dorsalis Pedis) Palpation] Pulse Rate [Left Radial Palpation] Pulse Rate [Right Radial Palpation] Respiratory Rate Blood Pressure 115/57 L 117/64 124/74 Pulse Oximetry Oxygen Delivery Oxygen Flow Rate Fraction of Inspired Oxygen 03/05/24 05:45 03/05/24 06:00 03/05/24 04:00 Temperature Pulse Rate 99 105 H 104 H Pulse Rate [Bilateral Pedal (Dorsalis Pedis) Palpation] Pulse Rate [Left Radial Palpation] Pulse Rate [Right Radial Palpation] Respiratory Rate Blood Pressure 112/66 120/72 Pulse Oximetry Oxygen Delivery Oxygen Flow Rate Fraction of Inspired Oxygen 03/05/24 04:00 03/05/24 04:00 03/05/24 04:00 Temperature 37.7 C H Pulse Rate 104 H 104 H Pulse Rate [Bilateral Pedal (Dorsalis Pedis) Palpation] 104 H Pulse Rate [Left Radial Palpation] 104 H Pulse Rate [Right Radial Palpation] 104 H Respiratory Rate 17 17 Blood Pressure 123/77 Pulse Oximetry 93 93 Oxygen Delivery Non-Rebreather Mask Oxygen Flow Rate 9 Fraction of Inspired Oxygen 03/05/24 06:00 03/05/24 06:00 03/05/24 03:15 Temperature 37.6 C 37.7 C H Pulse Rate 105 H 105 H 100 Pulse Rate [Bilateral Pedal (Dorsalis Pedis) Palpation] Pulse Rate [Left Radial Palpation] Pulse Rate [Right Radial Palpation] Respiratory Rate 26 H 23 H Blood Pressure 120/72 123/69 Pulse Oximetry 91 99 Oxygen Delivery Oxygen Flow Rate Fraction of Inspired Oxygen 03/05/24 03:30 03/05/24 03:45 03/05/24 04:15 Temperature 37.7 C H 37.7 C H 37.8 C H Pulse Rate 103 H 102 H 103 H Pulse Rate [Bilateral Pedal (Dorsalis Pedis) Palpation] Pulse Rate [Left Radial Palpation] Pulse Rate [Right Radial Palpation] Respiratory Rate 15 23 H 23 H Blood Pressure 119/66 122/67 107/80 Pulse Oximetry 93 94 91 Oxygen Delivery Oxygen Flow Rate Fraction of Inspired Oxygen 03/05/24 04:50 03/05/24 05:00 03/05/24 05:15 Temperature 37.7 C H 37.7 C H Pulse Rate 106 H 110 H 103 H Pulse Rate [Bilateral Pedal (Dorsalis Pedis) Palpation] Pulse Rate [Left Radial Palpation] Pulse Rate [Right Radial Palpation] Respiratory Rate 21 H 25 H 25 H Blood Pressure 115/67 117/64 124/74 Pulse Oximetry 86 L 88 L Oxygen Delivery Oxygen Flow Rate Fraction of Inspired Oxygen 03/05/24 05:30 03/05/24 05:45 03/05/24 08:00 Temperature 37.7 C H 37.6 C H 37.4 C Pulse Rate 101 H 99 110 H Pulse Rate [Bilateral Pedal (Dorsalis Pedis) Palpation] Pulse Rate [Left Radial Palpation] Pulse Rate [Right Radial Palpation] Respiratory Rate 24 H 24 H 21 H Blood Pressure 122/70 112/66 116/62 Pulse Oximetry 89 L 93 90 Oxygen Delivery Oxygen Flow Rate Fraction of Inspired Oxygen 03/05/24 08:53 Temperature Pulse Rate Pulse Rate [Bilateral Pedal (Dorsalis Pedis) Palpation] Pulse Rate [Left Radial Palpation] Pulse Rate [Right Radial Palpation] Respiratory Rate Blood Pressure Pulse Oximetry 91 Oxygen Delivery High Flow Nasal Cannula Oxygen Flow Rate 12 Fraction of Inspired Oxygen Intake/Output Intake/Output: Intake & Output 03/02/24 03/03/24 03/04/24 03/05/24 23:59 23:59 23:59 23:59 Intake Total 462.1 150.9 Output Total 225 150 Balance 237.1 0.9 Meds/Results Medications: Active Medications Generic Name Dose Route Start Last Admin Trade Name Freq PRN Reason Stop Dose Admin Acetaminophen 650 mg 03/04/24 08:53 Acetaminophen 325 Mg Tablet PO Q6H PRN Mild Pain (1-3) or Fever Aspirin 81 mg 03/04/24 09:00 03/05/24 08:32 Aspirin 81 Mg Enteric Tablet PO 81 mg DAILY BONY Administration Atorvastatin Calcium 40 mg 03/04/24 09:00 03/05/24 08:32 Atorvastatin 40 Mg Tablet PO 40 mg DAILY BONY Administration Clopidogrel Bisulfate 75 mg 03/04/24 09:00 03/05/24 08:32 Clopidogrel Bisulfate 75 Mg Tablet PO 75 mg DAILY BONY Administration Dextrose 12.5 gm 03/04/24 09:24 Dextrose 50% 25 Gm/50 Ml Syringe IV PUSH PRN PRN Hypoglycemia Protocol Glucagon 1 mg 03/04/24 09:24 Glucagon For Inj 1 Mg Vial IM PRN PRN Hypoglycemia Protocol Glucose 15 gm 03/04/24 09:24 Glucose Oral Gel 15 Gm Of Glucse In 37.5 Gm Tube PO PRN PRN Hypoglycemia Protocol Heparin Sodium (Porcine) 4,000 units 03/04/24 15:30 Heparin Sodium 5,000 Units/Ml Vial IV PUSH PRN PRN aPTT less than 55 seconds Heparin Sodium (Porcine) 2,000 units 03/04/24 15:30 03/04/24 23:57 Heparin Sodium 5,000 Units/Ml Vial IV PUSH 2,000 units PRN PRN Administration aPTT 55 - 70 seconds Dextrose 1,000 mls @ 100 mls/hr 03/04/24 09:24 Dextrose 5% 1,000 Ml IVPB PRN PRN Hypoglycemia Protocol Cefepime HCl 1 gm in 50 mls @ 100 mls/hr 03/04/24 09:40 03/05/24 08:31 Maxipime 1 Gm/Ns 50 Ml IVPB 100 mls/hr Q12HR BONY Administration Heparin Sodium/Dextrose 25,000 units in 250 mls @ 7 mls/hr 03/04/24 15:30 03/05/24 06:05 Heparin Sodium/D5w 100 Units/Ml IV CONT 700 units/hr .Q24H BONY 7 mls/hr Titration Protocol 700 UNITS/HR Norepinephrine Bitartrate 8 mg in 250 mls @ 28.125 mls/hr 03/04/24 09:25 03/05/24 06:00 Levophed 8 Mg/D5w 250 Ml IV CONT 15 mcg/min .Q8H54M BONY 28.13 mls/hr Titration Protocol 15 MCG/MIN Lactated Ringer's 1,000 mls @ 75 mls/hr 03/04/24 21:55 03/04/24 22:06 Lr - Lactated Ringers Iv IV CONT 75 mls/hr .[id number] BONY Administration Insulin Aspart 3 - 6 units 03/04/24 09:40 03/05/24 08:33 Insulin Aspart (*Bkc) 100 Units/Ml SUB-Q Not Given Q4HR BONY Protocol Ondansetron HCl 4 mg 03/04/24 10:15 03/04/24 10:16 Ondansetron Inj 4 Mg/2 Ml Vial IV PUSH 4 mg Q4H PRN Administration Nausea And Vomiting Pantoprazole Sodium 40 mg 03/04/24 09:00 03/05/24 08:33 Pantoprazole Sodium Iv 40 Mg Vial IV PUSH 40 mg QAM BONY Administration Perflutren Lipid Microsphere 0 ml 03/04/24 08:53 Perflutren Lipid Microspheres 1.5 Ml Vial Diluted To 10 Ml Total Volume IV PUSH 03/07/24 08:57 ONCE PRN adequate visualization Protocol Sodium Chloride 10 ml 03/04/24 14:00 03/05/24 05:43 Central Line Flush IV PUSH 10 ml Q8HR BONY Administration Sodium Chloride 10 ml 03/04/24 12:31 Central Line Flush IV PUSH PRN PRN with TPN bag changes Sodium Chloride 20 ml 03/04/24 12:31 Central Line Flush IV PUSH PRN PRN after blood draws Radiology Results: ITS Impressions Renal Ultrasound 03/04/24 12:01 IMPRESSION: 1. Mild atrophy of right kidney. No hydronephrosis. Chest X-Ray 03/05/24 08:44 IMPRESSION: 1. Increasing interstitial pattern and bilateral perihilar predominant opacities consistent with mild to moderate pulmonary edema. 2. Small left pleural effusion with increasing retrocardiac consolidation left lower lung zone which could represent atelectasis or pneumonia. 3. Persistent reticular opacity lateral left midlung zone which could be related to loculated component to the pleural effusion or a subpleural mass. There is some indistinctness to the cortex one of the adjacent ribs which raises concern for bladder and the setting of hilar ligaments or infection. Could consider contrast enhanced CT for further evaluation. Labs Labs: Laboratory Results - last 24 hr 03/04/24 03/04/24 03/04/24 09:35 09:36 09:38 WBC 21.2 H RBC 3.01 L Hgb 9.1 L Hct 28.6 L MCV 95.0 MCH 30.2 MCHC 31.8 L RDW 13.5 Plt Count 313 MPV 10.1 Immature Gran % (Auto) 1.1 H Neut % (Auto) 79.7 H Lymph % (Auto) 10.2 L [place] % (Auto) 8.6 H Eos % (Auto) 0.1 Baso % (Auto) 0.3 Lymph # (Auto) 2.17 [place] # (Auto) 1.8 H Eos # (Auto) 0.0 Baso # (Auto) 0.1 Abs Immat Gran (auto) 0.23 H Absolute Neuts (auto) 16.9 H Absolute Nucleated RBC 0.000 Total Counted Neutrophils % (Manual) Band Neutrophils % Lymphocytes % (Manual) Monocytes % (Manual) Nucleated RBC % 0.0 Abs Neuts (Manual) Abs Lymphs (Manual) Abs Monocytes (Manual) Platelet Estimate Schistocytes PT INR APTT Puncture Site ABG pH ABG pCO2 ABG pO2 ABG PO2/FiO2 Ratio ABG HCO3 ABG O2 Saturation ABG O2 Content ABG Base Excess A-a Gradient Oxyhemoglobin Carboxyhemoglobin Methemoglobin Reduced Hemoglobin Total Hemoglobin O2 Delivery Device O2 Liters/Min FiO2 Sodium 134 L Potassium 4.4 Chloride 101 Carbon Dioxide 15 L Anion Gap 18 H BUN 19 H Creatinine 1.50 H Estim Creat Clear Calc Not Reportable Estimated GFR 33 L Glucose 356 H POC Capillary Glucose Lactic Acid 5.5 H* Calcium 10.1 Magnesium Total Bilirubin AST ALT Alkaline Phosphatase Total Creatine Kinase Troponin I > 80.000 H* D Total Protein Albumin Triglycerides 90 Cholesterol 118 LDL Cholesterol Direct 37 HDL Direct 50 Procalcitonin 0.2 Urine Color Urine Appearance Urine pH Ur Specific [place] Urine Protein Urine Glucose (UA) Urine Ketones Ur Blood (Man) Urine Nitrate Urine Bilirubin Urine Urobilinogen Leukocyte Esterase Rfl Urine RBC Urine WBC Ur Squamous Epith Cells Urine Bacteria Urine Casts Ur Random Sodium Urine Creatinine Nasal MRSA (PCR) Random Vancomycin 03/04/24 03/04/24 03/04/24 10:46 11:07 13:04 WBC RBC Hgb Hct MCV MCH MCHC RDW Plt Count MPV Immature Gran % (Auto) Neut % (Auto) Lymph % (Auto) [place] % (Auto) Eos % (Auto) Baso % (Auto) Lymph # (Auto) [place] # (Auto) Eos # (Auto) Baso # (Auto) Abs Immat Gran (auto) Absolute Neuts (auto) Absolute Nucleated RBC Total Counted Neutrophils % (Manual) Band Neutrophils % Lymphocytes % (Manual) Monocytes % (Manual) Nucleated RBC % Abs Neuts (Manual) Abs Lymphs (Manual) Abs Monocytes (Manual) Platelet Estimate Schistocytes PT INR APTT Puncture Site ABG pH ABG pCO2 ABG pO2 ABG PO2/FiO2 Ratio ABG HCO3 ABG O2 Saturation ABG O2 Content ABG Base Excess A-a Gradient Oxyhemoglobin Carboxyhemoglobin Methemoglobin Reduced Hemoglobin Total Hemoglobin O2 Delivery Device O2 Liters/Min FiO2 Sodium Potassium Chloride Carbon Dioxide Anion Gap BUN Creatinine Estim Creat Clear Calc Estimated GFR Glucose POC Capillary Glucose Lactic Acid 4.5 H* Calcium Magnesium Total Bilirubin AST ALT Alkaline Phosphatase Total Creatine Kinase 5784 H Troponin I > 80.000 H* Total Protein Albumin Triglycerides Cholesterol LDL Cholesterol Direct HDL Direct Procalcitonin Urine Color Yellow Urine Appearance Clear Urine pH 6.0 Ur Specific [place] 1.012 Urine Protein Trace Urine Glucose (UA) Negative Urine Ketones Negative Ur Blood (Man) Negative Urine Nitrate Negative Urine Bilirubin Negative Urine Urobilinogen 0.2 Leukocyte Esterase Rfl Negative Urine RBC 0-2 Urine WBC 0-5 Ur Squamous Epith Cells None seen Urine Bacteria None seen Urine Casts 0-2 Ur Random Sodium 65 Urine Creatinine 52.0 Nasal MRSA (PCR) Random Vancomycin 03/04/24 03/04/24 03/04/24 13:05 13:06 16:18 WBC 21.9 H RBC 2.71 L Hgb 8.3 L Hct 25.0 L MCV 92.3 MCH 30.6 MCHC 33.2 RDW 13.7 Plt Count 266 MPV 10.1 Immature Gran % (Auto) Not Reportable Neut % (Auto) Not Reportable Lymph % (Auto) Not Reportable [place] % (Auto) Not Reportable Eos % (Auto) Not Reportable Baso % (Auto) Not Reportable Lymph # (Auto) Not Reportable [place] # (Auto) Not Reportable Eos # (Auto) Not Reportable Baso # (Auto) Not Reportable Abs Immat Gran (auto) Not Reportable Absolute Neuts (auto) Not Reportable Absolute Nucleated RBC Not Reportable Total Counted 100 Neutrophils % (Manual) 84 H Band Neutrophils % 4 Lymphocytes % (Manual) 4.0 L Monocytes % (Manual) 8 Nucleated RBC % Not Reportable Abs Neuts (Manual) 19.27 H Abs Lymphs (Manual) 0.87 L Abs Monocytes (Manual) 1.75 H Platelet Estimate Adequate Schistocytes None seen PT 16.4 H INR 1.3 APTT 39.1 H Puncture Site ABG pH ABG pCO2 ABG pO2 ABG PO2/FiO2 Ratio ABG HCO3 ABG O2 Saturation ABG O2 Content ABG Base Excess A-a Gradient Oxyhemoglobin Carboxyhemoglobin Methemoglobin Reduced Hemoglobin Total Hemoglobin O2 Delivery Device O2 Liters/Min FiO2 Sodium Potassium Chloride Carbon Dioxide Anion Gap BUN Creatinine Estim Creat Clear Calc Estimated GFR Glucose POC Capillary Glucose 323 H Lactic Acid 4.8 H* Calcium Magnesium Total Bilirubin AST ALT Alkaline Phosphatase Total Creatine Kinase Troponin I Total Protein Albumin Triglycerides Cholesterol LDL Cholesterol Direct HDL Direct Procalcitonin Urine Color Urine Appearance Urine pH Ur Specific [place] Urine Protein Urine Glucose (UA) Urine Ketones Ur Blood (Man) Urine Nitrate Urine Bilirubin Urine Urobilinogen Leukocyte Esterase Rfl Urine RBC Urine WBC Ur Squamous Epith Cells Urine Bacteria Urine Casts Ur Random Sodium Urine Creatinine Nasal MRSA (PCR) Not detected Random Vancomycin 03/04/24 03/04/24 03/04/24 17:58 18:38 19:54 WBC RBC Hgb Hct MCV MCH MCHC RDW Plt Count MPV Immature Gran % (Auto) Neut % (Auto) Lymph % (Auto) [place] % (Auto) Eos % (Auto) Baso % (Auto) Lymph # (Auto) [place] # (Auto) Eos # (Auto) Baso # (Auto) Abs Immat Gran (auto) Absolute Neuts (auto) Absolute Nucleated RBC Total Counted Neutrophils % (Manual) Band Neutrophils % Lymphocytes % (Manual) Monocytes % (Manual) Nucleated RBC % Abs Neuts (Manual) Abs Lymphs (Manual) Abs Monocytes (Manual) Platelet Estimate Schistocytes PT INR APTT Puncture Site Right brachial ABG pH 7.416 ABG pCO2 31.9 L ABG pO2 133.0 H ABG PO2/FiO2 Ratio 1.33 ABG HCO3 20.0 L ABG O2 Saturation 98.7 ABG O2 Content 12.5 L ABG Base Excess -3.9 A-a Gradient 548.1 Oxyhemoglobin 98.4 Carboxyhemoglobin 0.2 Methemoglobin 0.0 Reduced Hemoglobin 1.4 Total Hemoglobin 8.8 L O2 Delivery Device Non-rebreather mask O2 Liters/Min 15.0 FiO2 100 Sodium Potassium Chloride Carbon Dioxide Anion Gap BUN Creatinine Estim Creat Clear Calc Estimated GFR Glucose POC Capillary Glucose 249 H Lactic Acid 6.5 H* Calcium Magnesium Total Bilirubin AST ALT Alkaline Phosphatase Total Creatine Kinase Troponin I Total Protein Albumin Triglycerides Cholesterol LDL Cholesterol Direct HDL Direct Procalcitonin Urine Color Urine Appearance Urine pH Ur Specific [place] Urine Protein Urine Glucose (UA) Urine Ketones Ur Blood (Man) Urine Nitrate Urine Bilirubin Urine Urobilinogen Leukocyte Esterase Rfl Urine RBC Urine WBC Ur Squamous Epith Cells Urine Bacteria Urine Casts Ur Random Sodium Urine Creatinine Nasal MRSA (PCR) Random Vancomycin 03/04/24 03/04/24 03/04/24 20:00 22:05 22:47 WBC 18.9 H RBC 2.68 L Hgb 8.0 L Hct 24.8 L MCV 92.5 MCH 29.9 MCHC 32.3 RDW 13.4 Plt Count 269 MPV 10.4 Immature Gran % (Auto) 0.8 H Neut % (Auto) 85.7 H Lymph % (Auto) 6.8 L [place] % (Auto) 6.5 Eos % (Auto) 0.0 Baso % (Auto) 0.2 Lymph # (Auto) 1.28 [place] # (Auto) 1.2 H Eos # (Auto) 0.0 Baso # (Auto) 0.0 Abs Immat Gran (auto) 0.15 H Absolute Neuts (auto) 16.2 H Absolute Nucleated RBC 0.000 Total Counted Neutrophils % (Manual) Band Neutrophils % Lymphocytes % (Manual) Monocytes % (Manual) Nucleated RBC % 0.0 Abs Neuts (Manual) Abs Lymphs (Manual) Abs Monocytes (Manual) Platelet Estimate Schistocytes PT INR APTT 62.3 H Puncture Site ABG pH ABG pCO2 ABG pO2 ABG PO2/FiO2 Ratio ABG HCO3 ABG O2 Saturation ABG O2 Content ABG Base Excess A-a Gradient Oxyhemoglobin Carboxyhemoglobin Methemoglobin Reduced Hemoglobin Total Hemoglobin O2 Delivery Device O2 Liters/Min FiO2 Sodium 135 L Potassium 4.6 Chloride 98 Carbon Dioxide 23 Anion Gap 14 H BUN 26 H Creatinine 1.80 H Estim Creat Clear Calc 15 Estimated GFR 27 L Glucose 230 H POC Capillary Glucose 213 H Lactic Acid Calcium 9.1 Magnesium 1.6 Total Bilirubin 0.5 AST 959 H ALT 417 H Alkaline Phosphatase 69 Total Creatine Kinase Troponin I Total Protein 7.0 Albumin 3.5 Triglycerides Cholesterol LDL Cholesterol Direct HDL Direct Procalcitonin Urine Color Urine Appearance Urine pH Ur Specific [place] Urine Protein Urine Glucose (UA) Urine Ketones Ur Blood (Man) Urine Nitrate Urine Bilirubin Urine Urobilinogen Leukocyte Esterase Rfl Urine RBC Urine WBC Ur Squamous Epith Cells Urine Bacteria Urine Casts Ur Random Sodium Urine Creatinine Nasal MRSA (PCR) Random Vancomycin 03/05/24 03/05/24 03/05/24 01:19 05:41 05:42 WBC 22.2 H RBC 2.53 L Hgb 7.7 L Hct 23.0 L MCV 90.9 MCH 30.4 MCHC 33.5 RDW 13.6 Plt Count 248 MPV 10.4 Immature Gran % (Auto) Neut % (Auto) Lymph % (Auto) [place] % (Auto) Eos % (Auto) Baso % (Auto) Lymph # (Auto) [place] # (Auto) Eos # (Auto) Baso # (Auto) Abs Immat Gran (auto) Absolute Neuts (auto) Absolute Nucleated RBC Total Counted Neutrophils % (Manual) Band Neutrophils % Lymphocytes % (Manual) Monocytes % (Manual) Nucleated RBC % Abs Neuts (Manual) Abs Lymphs (Manual) Abs Monocytes (Manual) Platelet Estimate Schistocytes PT INR APTT 94.9 H Puncture Site ABG pH ABG pCO2 ABG pO2 ABG PO2/FiO2 Ratio ABG HCO3 ABG O2 Saturation ABG O2 Content ABG Base Excess A-a Gradient Oxyhemoglobin Carboxyhemoglobin Methemoglobin Reduced Hemoglobin Total Hemoglobin O2 Delivery Device O2 Liters/Min FiO2 Sodium 135 L Potassium 4.5 Chloride 98 Carbon Dioxide 29 Anion Gap 8 BUN 31 H Creatinine 2.10 H Estim Creat Clear Calc 13 Estimated GFR 22 L Glucose 197 H POC Capillary Glucose 183 H 190 H Lactic Acid Calcium 8.7 Magnesium 2.4 H Total Bilirubin 0.4 AST 2363 H ALT 1224 H Alkaline Phosphatase 75 Total Creatine Kinase Troponin I Total Protein 7.0 Albumin 3.4 L Triglycerides Cholesterol LDL Cholesterol Direct HDL Direct Procalcitonin Urine Color Urine Appearance Urine pH Ur Specific [place] Urine Protein Urine Glucose (UA) Urine Ketones Ur Blood (Man) Urine Nitrate Urine Bilirubin Urine Urobilinogen Leukocyte Esterase Rfl Urine RBC Urine WBC Ur Squamous Epith Cells Urine Bacteria Urine Casts Ur Random Sodium Urine Creatinine Nasal MRSA (PCR) Random Vancomycin 9.7 L 03/05/24 07:54 WBC RBC Hgb Hct MCV MCH MCHC RDW Plt Count MPV Immature Gran % (Auto) Neut % (Auto) Lymph % (Auto) [place] % (Auto) Eos % (Auto) Baso % (Auto) Lymph # (Auto) [place] # (Auto) Eos # (Auto) Baso # (Auto) Abs Immat Gran (auto) Absolute Neuts (auto) Absolute Nucleated RBC Total Counted Neutrophils % (Manual) Band Neutrophils % Lymphocytes % (Manual) Monocytes % (Manual) Nucleated RBC % Abs Neuts (Manual) Abs Lymphs (Manual) Abs Monocytes (Manual) Platelet Estimate Schistocytes PT INR APTT Puncture Site ABG pH ABG pCO2 ABG pO2 ABG PO2/FiO2 Ratio ABG HCO3 ABG O2 Saturation ABG O2 Content ABG Base Excess A-a Gradient Oxyhemoglobin Carboxyhemoglobin Methemoglobin Reduced Hemoglobin Total Hemoglobin O2 Delivery Device O2 Liters/Min FiO2 Sodium Potassium Chloride Carbon Dioxide Anion Gap BUN Creatinine Estim Creat Clear Calc Estimated GFR Glucose POC Capillary Glucose 176 H Lactic Acid Calcium Magnesium Total Bilirubin AST ALT Alkaline Phosphatase Total Creatine Kinase Troponin I Total Protein Albumin Triglycerides Cholesterol LDL Cholesterol Direct HDL Direct Procalcitonin Urine Color Urine Appearance Urine pH Ur Specific [place] Urine Protein Urine Glucose (UA) Urine Ketones Ur Blood (Man) Urine Nitrate Urine Bilirubin Urine Urobilinogen Leukocyte Esterase Rfl Urine RBC Urine WBC Ur Squamous Epith Cells Urine Bacteria Urine Casts Ur Random Sodium Urine Creatinine Nasal MRSA (PCR) Random Vancomycin
--- NOTE | 2024-03-05 10:32 | P.CONNP_ITS ---
Assessment and Plan Assessment and plan (1) Acute kidney injury: Code(s): N17.9 - Acute kidney failure, unspecified Status: Acute Assessment and Plan: * as noted by trend of labs * suspect multifactorial etiology: * rhabdomyolysis * shock/homodynamic instability * sepsis/infection (?) * contrast exposure (cardiac catheterization) * BP medications prior to admission (losartan) * underlying cardiomyopathy * follow up on renal ultrasound * check urine studies * follow trend of CPK * on trial of IVFs (but may need to discontinue depending on respiratory status) * monitor trend of repeat labs and UOP (2) Chronic kidney disease, stage 3: Code(s): N18.30 - Chronic kidney disease, stage 3 unspecified Status: Chronic Assessment and Plan: * baseline creatinine seems to run ~ 1.0 - 1.6mg/dl in the last year or so * this causes her to fluctuate between CKD stage 3A and stage 3B * presumably secondary to HTN, DM, vascular disease, and age-related change (3) STEMI (ST elevation myocardial infarction): Code(s): I21.3 - ST elevation (STEMI) myocardial infarction of unspecified site Status: Acute Assessment and Plan: * s/p stent placement in circumflex with residual thrombus * Cardiology following * on heparin gtt as well as ASA/statin/plavix * vasaopressor support to maintain MAP (4) Shock: Code(s): R57.9 - Shock, unspecified Status: Acute Assessment and Plan: * suspect a combination of cardiogenic and sepsis * vasopressor support as needed * follow culture data * continue empiric antibiotics (5) Acute respiratory failure: Code(s): J96.00 - Acute respiratory failure, unspecified whether with hypoxia or hypercapnia Status: Acute Assessment and Plan: * due to pulmonary edema complicated by known history of lung cancer * possible component of pneumonia * continue supplemental oxygen * remains at risk for intubation/mechanical ventilation * diuresis as hemodynamics allow (6) Third degree AV block: Code(s): I44.2 - Atrioventricular block, complete Status: Acute Assessment and Plan: * complete heart block noted on presentation * s/p placement of transvenous pacemaker * as the hemodynamics improved, patient's rate was gradually decreased * wean off pacing as tolerated * follow telemetry (7) Stage 4 lung cancer: Code(s): C34.90 - Malignant neoplasm of unspecified part of unspecified bronchus or lung Status: Chronic Assessment and Plan: * known diagnosis * receiving chemotherapy as an outpatient (8) Diabetes: Code(s): E11.9 - Type 2 diabetes mellitus without complications Status: Acute Assessment and Plan: * follow accu-cheks * glycemic control per tipple supervisor/hospitalist Long extensive discussion (greater than 20 min) with both the patient as well as her family at bedside regarding her renal dysfunction and the likelihood that her renal failure is related to her acute illnesses that have led to her hospitalization at this time. I did voiced my concerns that if her urine output continues to worsen or she runs into issues related to fluid overload unresponsive to diuretics, worsening metabolic acidosis, or uremia, she may require renal replacement therapy/ dialysis. The patient as well as her family appeared to voice understanding. I will continue to follow the patient with you while she remains hospitalized and make further recommendations as deemed necessary. Thank you for allowing me to participate in the care of this patient. History of Present Illness Reason for Consult Consult date: 03/05/24 Reason for consult: acute renal failure Chief Complaint Chief complaint: STEMI,CHB,Cardiogenic Shock History of Present Illness Narrative: The patient is an 83-year-old female with a past medical history as outlined below who presented to [facility] Emergency room via EMS for unstable this arrhythmia and associated third-degree heart block. Per EMS records, when they were initially called and saw the patient, she was hypotensive tachypneic with a pale complexion and associated diaphoresis. This is when she was discovered to be found in third-degree heart block. Subsequently, transcutaneous pacing was used and route to the emergency room as a temporary solution. By the time of her arrival to the emergency room, subsequent workup and evaluation demonstrated evidence of a non ST elevation CT. She was started on dopamine and Cardiology was consulted from the emergency room and emergently taken to the cardiac open hearth laborer. While in the cardiac open hearth laborer, she had a stent placed with noted coronary artery disease and other blood vessels but did not need any intervention. Because of her 3rd degree heart block, she had a transvenous pacemaker placed. She still remained hypotensive and was initiated on both Levophed IV fluids, and Dopamine and was subsequently transferred to the ICU post cardiac catheterization. By the time of her arrival to the ICU, her only major complaint was that of shortness of breath and hypothermia. Order last 24 hr, the patient states that she feels a bit better. She reports no pain but does continue to avoid ceased complaints of shortness of breath although it does seem better today comparison to yesterday. No other acute complaints voiced at this time she remains on vasopressor therapy for urine output has declined. Renal consultation was requested due to her acute kidney injury/acute renal failure on top of her baseline chronic kidney disease. For review of her records, her creatinine seems to fluctuate anywhere from 1.0-1.6 mg/dL in the last year causing her to be classified as chronic kidney disease stage 3. presumably, her underlying renal insufficiency is secondary to her risk factors with regard to HTN, DM, vascular disease, and age. on admission, her creatinine was 1.4 mg/dL but has subsequently risen to 2.1 mg/dL by labs done this morning in association with a decline in urine output. It is felt that her acute kidney injury is due to a multitude of issues including rhabdomyolysis, possible prerenal factors, hemodynamic instability, ARB therapy prior to admission, and recent contrast exposure. Currently, at the time my evaluation, she does not appear to be in any acute distress. Review of Systems Review of Systems: As per HPI. [facility] Past Medical History Medical History Anxiety Chronic kidney disease, stage 3 Coronary artery disease Gastroesophageal reflux disease Hypertension Obstructive sleep apnea Osteoporosis ST elevation myocardial infarction (STEMI) (03/04/24) inferior-posterior STEMI status post PTCA/stent to the proximal left circumflex with residual recalcitrant thrombus and mid left circumflex with COLLETTE 1 to 2 flow Stage 4 lung cancer Type 2 diabetes mellitus Surgical History Surgical History History of cardiac catheterization (03/04/24) History of coronary angioplasty with insertion of stent (03/04/24) angioplasty/stent to proximal left circumflex Social History Social History Social History: Surrogate medical decision maker: Code status: Do not resuscitate. Smoking status: Never smoker Second hand tobacco smoke exposure: No Alcohol intake: never Substance use: never Substance use type: does not use Do You Feel Safe in your Home?: Yes Lack of Transportation: No Lack of Food: Never True Current Housing: I Have Housing Concerned About Future Housing: No Difficulty Paying Gas/Electric Bills: No Difficulty Paying for Meds: No Currently Unemployed: No Education: High School Diploma/GED Difficulty w/ Childcare or Family Care: No Spiritual care concerns: No Meds Home Medications and Allergies Home Medications Medication Instructions Recorded Confirmed Type blood sugar diagnostic (OneTouch 03/04/24 04/09/24 History Ultra Test strips) metformin 500 mg tablet,extended 500 mg PO BID 03/04/24 04/09/24 History release 24 hr acidophilus 100 million 1 cap PO DAILY 03/05/24 04/09/24 History cell-pectin, citrus 10 mg capsule amlodipine 5 mg tablet 5 mg PO DAILY 03/05/24 04/09/24 History calcium 600 mg capsule 600 mg PO DAILY 03/05/24 04/09/24 History cholecalciferol (vitamin D3) 25 25 mcg PO DAILY 03/05/24 04/09/24 History mcg (1,000 unit) tablet (Vitamin D3) cyanocobalamin (vitamin B-12) 1,000 mcg PO DAILY 03/05/24 04/09/24 History 1,000 mcg tablet (Vitamin B-12) krill oil 500 mg capsule 500 mg PO DAILY 03/05/24 04/09/24 History kviqqiuweyqj-Au-hgld-minerals 1 tablet PO DAILY 03/05/24 04/09/24 History aspirin 81 mg tablet,delayed 81 mg PO DAILY #90 tabs 03/08/24 04/09/24 Rx release atorvastatin 40 mg tablet 40 mg PO DAILY #90 tabs 03/08/24 04/09/24 Rx osimertinib 80 mg tablet (Tagrisso) 80 mg PO DAILY 03/10/24 04/09/24 History metoprolol succinate 25 mg 12.5 mg PO DAILY #14 tabs 03/12/24 04/09/24 Rx tablet,extended release 24 hr (Toprol XL) pantoprazole 40 mg tablet,delayed 40 mg PO QAM 30 days #30 tabs 03/12/24 04/09/24 Rx release clopidogrel 75 mg tablet 75 mg PO HS 04/09/24 04/09/24 History furosemide 80 mg tablet 80 mg PO BID 04/10/24 04/10/24 History Allergies Allergy/AdvReac Type Severity Reaction Status Date / Time codeine Allergy Nausea and Verified 03/04/24 06:11 Vomiting erythromycin base Allergy Rash Verified 03/04/24 06:11 escitalopram [From Lexapro] Allergy Nausea and Verified 03/04/24 06:11 Vomiting Vital Signs Vital Signs Temp Pulse Pulse Pulse Pulse Resp BP 03/05/24 10:00 99.4 F 100 20 121/76 03/05/24 08:00 101 H 116/62 03/05/24 08:53 03/05/24 08:00 99.4 F 110 H 21 H 116/62 03/05/24 05:45 99.7 F H 99 24 H 112/66 03/05/24 05:30 99.8 F H 101 H 24 H 122/70 03/05/24 05:15 99.9 F H 103 H 25 H 124/74 03/05/24 05:00 100 F H 110 H 25 H 117/64 03/05/24 04:50 106 H 21 H 115/67 03/05/24 04:15 100.1 F H 103 H 23 H 107/80 03/05/24 03:45 100 F H 102 H 23 H 122/67 03/05/24 03:30 99.9 F H 103 H 15 119/66 03/05/24 03:15 99.9 F H 100 23 H 123/69 03/05/24 06:00 105 H 03/05/24 06:00 99.6 F 105 H 26 H 120/72 03/05/24 04:00 104 H 17 03/05/24 04:00 100 F H 104 H 17 123/77 03/05/24 04:00 104 H 104 H 104 H 03/05/24 04:00 104 H 03/05/24 06:00 105 H 120/72 03/05/24 05:45 99 112/66 03/05/24 05:15 103 H 124/74 03/05/24 05:00 110 H 117/64 03/05/24 04:50 106 H 115/57 L 03/05/24 04:15 103 H 107/80 03/05/24 03:45 102 H 122/67 03/05/24 03:30 103 H 119/66 03/05/24 05:32 104 H 122/70 03/05/24 04:00 102 H 123/77 03/05/24 05:30 104 H 122/70 03/04/24 23:45 99.7 F H 84 24 H 105/56 L 03/04/24 23:30 99.7 F H 82 25 H 105/61 03/04/24 23:15 99.7 F H 80 14 95/56 L 03/04/24 23:00 99.7 F H 80 23 H 101/55 L 03/04/24 22:45 99.7 F H 80 29 H 93/53 L 03/04/24 22:30 99.6 F 80 28 H 72/48 L 03/04/24 22:15 99.6 F 80 24 H 93/54 L 03/04/24 21:45 99.5 F 80 18 198/180 H 03/04/24 21:30 99.4 F 80 24 H 101/58 L 03/04/24 21:15 99.4 F 56 L 24 H 86/47 L 03/04/24 21:07 99.3 F 63 26 H 88/49 L 03/04/24 21:00 99.2 F 56 L 22 H 77/43 L 03/04/24 20:45 99.2 F 90 23 H 84/60 L 03/04/24 20:30 99.2 F 90 23 H 81/57 L 03/04/24 20:15 99.2 F 92 20 81/57 L 03/05/24 03:15 101 H 123/69 03/05/24 02:11 99 119/73 03/05/24 00:00 95 118/68 03/05/24 02:00 99 03/05/24 02:00 99.8 F H 99 22 H 119/73 03/05/24 00:00 95 20 03/05/24 00:00 95 95 95 03/05/24 00:00 99.6 F 95 20 118/68 03/05/24 00:00 95 03/04/24 22:00 99.6 F 80 26 H 89/54 L 03/04/24 22:00 80 03/04/24 23:45 84 105/56 L 03/04/24 23:30 82 105/61 03/04/24 23:15 80 95/56 L 03/04/24 23:00 80 101/55 L 03/04/24 22:45 80 93/53 L 03/04/24 22:30 80 72/48 L 03/04/24 22:15 80 93/54 L 03/04/24 22:00 80 89/54 L 03/04/24 21:45 80 198/180 H 03/04/24 21:30 80 101/58 L 03/04/24 20:00 92 29 H 03/04/24 20:00 99.2 F 92 29 H 82/55 L 03/04/24 20:00 92 92 92 03/04/24 20:00 92 03/04/24 21:16 61 88/47 L 03/04/24 21:12 63 88/49 L 03/04/24 20:00 91 82/55 L 03/04/24 18:00 90 03/04/24 16:00 90 03/04/24 19:00 91 89/50 L 03/04/24 18:00 91 90/70 L 03/04/24 19:00 99.2 F 03/04/24 19:00 99.1 F 90 36 H 89/50 L 03/04/24 18:30 99.1 F 03/04/24 16:00 90 92/52 L 03/04/24 18:00 90 29 H 90/70 L 03/04/24 18:00 99.1 F 90 29 H 90/70 L 03/04/24 18:00 99.1 F 03/04/24 17:30 99.1 F 03/04/24 17:00 99.3 F 03/04/24 16:30 99.3 F 03/04/24 16:00 99 F 03/04/24 15:30 98.8 F 03/04/24 17:00 99.3 F 91 22 H 99/59 L 03/04/24 17:12 03/04/24 16:00 03/04/24 16:00 99.1 F 90 30 H 94/59 L 03/04/24 16:00 99.1 F 90 30 H 94/59 L 03/04/24 15:16 03/04/24 15:16 90 34 H 92/58 L 03/04/24 14:00 03/04/24 15:00 98.8 F 90 29 H 85/56 L 03/04/24 15:00 90 85/54 L 03/04/24 15:00 98.8 F 03/04/24 15:00 98.8 F 03/04/24 14:30 98.4 F 03/04/24 14:00 97.8 F 90 28 H 92/65 L 03/04/24 14:00 97.8 F 90 28 H 92/65 L 03/04/24 14:00 90 92/65 L 03/04/24 14:00 90 92/65 L 03/04/24 14:00 90 03/04/24 14:00 97.8 F 03/04/24 13:30 97.3 F L 03/04/24 13:29 97.3 F L 03/04/24 13:40 30 H Exam Narrative: GENERAL APPEARANCE: frail and elderly female in no acute distress HEENT: normocephalic, atraumatic, normal conjunctiva and sclera, nares patient NECK: no lymphadenopathy, thyromegaly, or JVD MOUTH: normal lips, teeth, and gums CARDIOVASCULAR: tachycardic, RRR, normal S1 and S2, no rub RESPIRATORY: coarse with bibasilar crackles ABDOMEN: soft, nontender, nondistended, positive bowel sounds present EXTREMITIES: no evidence of cyanosis, clubbing, or edema NEUROLOGICAL: alert and oriented x 3; CN II - XII intact bilaterally; no focal deficits noted Results Lab Results 03/12/24 05:49 03/12/24 05:49 Lab results: Most recent lab results ABG pH 7.416 (7.350-7.450) 03/04/24 19:54 ABG pCO2 31.9 mmHg (35.0-45.0) L 03/04/24 19:54 ABG pO2 133.0 mmHg (80.0-100.0) H 03/04/24 19:54 ABG HCO3 20.0 mEq/l (22.0-26.0) L 03/04/24 19:54 ABG O2 Saturation 98.7 % (95.0-100.0) 03/04/24 19:54 Calcium 8.7 mg/dL (8.4-10.2) 03/05/24 05:42 Magnesium 2.4 mg/dL (1.6-2.3) H 03/05/24 05:42 Urine Creatinine 52.0 mg/dL 03/04/24 10:46
--- NOTE | 2024-03-05 11:35 | P.PNCA_ITS ---
Progress Note: A&P Assessment and Plan (1) STEMI (ST elevation myocardial infarction): Code(s): I21.3 - ST elevation (STEMI) myocardial infarction of unspecified site Status: Acute (2) Cardiogenic shock: Code(s): R57.0 - Cardiogenic shock Status: Acute Plan 83 yo woman with lung cancer, DM type 2, and HTN who suffered a STEMI is now post revascularization with a TVP in place for hemodynamically significant bradycardia STEMI sp PCI with features of cardiogenic shock - continue asa 81mg, plavix 75mg, and atorvastatin 40mg qhs - wean off levophed with goal SBP >85mmHg - keep TVP in place given her significant bradycardia this morning - needs an echocardiogram and repeat lactic acid - if her clinical course does not improve, will consider invasive hemodynamics and mechanical support Subjective Date/time seen: 03/05/24 11:35 Interval history: denies chest pain and dyspnea today. Review of Systems Review of Systems: All systems reviewed & are unremarkable except as noted in HPI and below Exam Const: General: comfortable and no acute distress HENMT: Mouth: Yes moist mucous membranes Eyes: EOM: EOMs intact bilaterally Neck: Neck: no JVD Resp: Auscultation: clear to auscultation bilaterally Cardio: Rhythm: regular rhythm GI: GI Palp: Yes Soft to palpation Neuro: Speech: normal speech Extrem: Other: right groin dressing is dry and intact. no palpable hematoma. TVP in place Psych: Affect: normal affect Objective Data Vital Signs Vital Signs: Vital Signs - 24 hr 03/04/24 11:44 03/04/24 11:59 03/04/24 12:14 Temperature 35.3 C L 35.5 C L 35.8 C L Pulse Rate Pulse Rate [Bilateral Pedal (Dorsalis Pedis) Palpation] Pulse Rate [Left Radial Palpation] Pulse Rate [Right Radial Palpation] Respiratory Rate Blood Pressure Pulse Oximetry Oxygen Delivery Oxygen Flow Rate Fraction of Inspired Oxygen 03/04/24 12:29 03/04/24 12:59 03/04/24 11:53 Temperature 35.8 C L 36.2 C L 35.2 C L Pulse Rate 126 H Pulse Rate [Bilateral Pedal (Dorsalis Pedis) Palpation] Pulse Rate [Left Radial Palpation] Pulse Rate [Right Radial Palpation] Respiratory Rate 26 H Blood Pressure 106/69 Pulse Oximetry 97 Oxygen Delivery Oxygen Flow Rate Fraction of Inspired Oxygen 10/13/24 12:00 03/04/24 13:40 03/04/24 13:29 Temperature 36.3 C L Pulse Rate Pulse Rate [Bilateral Pedal (Dorsalis Pedis) Palpation] Pulse Rate [Left Radial Palpation] Pulse Rate [Right Radial Palpation] Respiratory Rate 24 H 30 H Blood Pressure Pulse Oximetry 97 90 Oxygen Delivery Non-Rebreather Mask Venturi Mask Oxygen Flow Rate 15 15 Fraction of Inspired Oxygen 50 03/04/24 13:30 03/04/24 14:00 03/04/24 14:00 Temperature 36.3 C L 36.6 C Pulse Rate 90 Pulse Rate [Bilateral Pedal (Dorsalis Pedis) Palpation] Pulse Rate [Left Radial Palpation] Pulse Rate [Right Radial Palpation] Respiratory Rate Blood Pressure Pulse Oximetry Oxygen Delivery Oxygen Flow Rate Fraction of Inspired Oxygen 03/04/24 12:00 03/04/24 14:00 03/04/24 12:00 Temperature Pulse Rate 106 H 90 106 H Pulse Rate [Bilateral Pedal (Dorsalis Pedis) Palpation] Pulse Rate [Left Radial Palpation] Pulse Rate [Right Radial Palpation] Respiratory Rate Blood Pressure 113/84 92/65 L 113/84 Pulse Oximetry Oxygen Delivery Oxygen Flow Rate Fraction of Inspired Oxygen 03/04/24 14:00 03/04/24 12:00 03/04/24 12:00 Temperature 35.3 C L 35.3 C L Pulse Rate 90 106 H 106 H Pulse Rate [Bilateral Pedal (Dorsalis Pedis) Palpation] Pulse Rate [Left Radial Palpation] Pulse Rate [Right Radial Palpation] Respiratory Rate 24 H 24 H Blood Pressure 92/65 L 113/84 113/84 Pulse Oximetry 97 97 Oxygen Delivery Oxygen Flow Rate Fraction of Inspired Oxygen 03/04/24 13:00 03/04/24 14:00 03/04/24 14:00 Temperature 36.0 C L 36.6 C 36.6 C Pulse Rate 98 90 90 Pulse Rate [Bilateral Pedal (Dorsalis Pedis) Palpation] Pulse Rate [Left Radial Palpation] Pulse Rate [Right Radial Palpation] Respiratory Rate 25 H 28 H 28 H Blood Pressure 96/66 L 92/65 L 92/65 L Pulse Oximetry 100 100 100 Oxygen Delivery Oxygen Flow Rate Fraction of Inspired Oxygen 03/04/24 14:30 03/04/24 15:00 03/04/24 15:00 Temperature 36.9 C 37.1 C 37.1 C Pulse Rate Pulse Rate [Bilateral Pedal (Dorsalis Pedis) Palpation] Pulse Rate [Left Radial Palpation] Pulse Rate [Right Radial Palpation] Respiratory Rate Blood Pressure Pulse Oximetry Oxygen Delivery Oxygen Flow Rate Fraction of Inspired Oxygen 03/04/24 15:00 03/04/24 15:00 03/04/24 14:00 Temperature 37.1 C Pulse Rate 90 90 Pulse Rate [Bilateral Pedal (Dorsalis Pedis) Palpation] Pulse Rate [Left Radial Palpation] Pulse Rate [Right Radial Palpation] Respiratory Rate 29 H Blood Pressure 85/54 L 85/56 L Pulse Oximetry 100 97 Oxygen Delivery Non-Rebreather Mask Oxygen Flow Rate 15 Fraction of Inspired Oxygen 03/04/24 15:16 03/04/24 15:16 03/04/24 12:00 Temperature Pulse Rate 90 99 Pulse Rate [Bilateral Pedal (Dorsalis Pedis) Palpation] Pulse Rate [Left Radial Palpation] Pulse Rate [Right Radial Palpation] Respiratory Rate 34 H Blood Pressure 92/58 L Pulse Oximetry 97 97 Oxygen Delivery Non-Rebreather Mask Oxygen Flow Rate 10 Fraction of Inspired Oxygen 03/04/24 16:00 03/04/24 16:00 03/04/24 16:00 Temperature 37.3 C 37.3 C Pulse Rate 90 90 Pulse Rate [Bilateral Pedal (Dorsalis Pedis) Palpation] Pulse Rate [Left Radial Palpation] Pulse Rate [Right Radial Palpation] Respiratory Rate 30 H 30 H Blood Pressure 94/59 L 94/59 L Pulse Oximetry 99 99 99 Oxygen Delivery Non-Rebreather Mask Oxygen Flow Rate 10 Fraction of Inspired Oxygen 03/04/24 17:12 03/04/24 17:00 03/04/24 15:30 Temperature 37.4 C 37.1 C Pulse Rate 91 Pulse Rate [Bilateral Pedal (Dorsalis Pedis) Palpation] Pulse Rate [Left Radial Palpation] Pulse Rate [Right Radial Palpation] Respiratory Rate 22 H Blood Pressure 99/59 L Pulse Oximetry 90 99 Oxygen Delivery High Flow Nasal Cannula Oxygen Flow Rate 10 Fraction of Inspired Oxygen 03/04/24 16:00 03/04/24 16:30 03/04/24 17:00 Temperature 37.2 C 37.4 C 37.4 C Pulse Rate Pulse Rate [Bilateral Pedal (Dorsalis Pedis) Palpation] Pulse Rate [Left Radial Palpation] Pulse Rate [Right Radial Palpation] Respiratory Rate Blood Pressure Pulse Oximetry Oxygen Delivery Oxygen Flow Rate Fraction of Inspired Oxygen 03/04/24 17:30 03/04/24 18:00 03/04/24 18:00 Temperature 37.3 C 37.3 C 37.3 C Pulse Rate 90 Pulse Rate [Bilateral Pedal (Dorsalis Pedis) Palpation] Pulse Rate [Left Radial Palpation] Pulse Rate [Right Radial Palpation] Respiratory Rate 29 H Blood Pressure 90/70 L Pulse Oximetry 91 Oxygen Delivery Oxygen Flow Rate Fraction of Inspired Oxygen 03/04/24 18:00 03/04/24 16:00 03/04/24 18:30 Temperature 37.3 C Pulse Rate 90 90 Pulse Rate [Bilateral Pedal (Dorsalis Pedis) Palpation] Pulse Rate [Left Radial Palpation] Pulse Rate [Right Radial Palpation] Respiratory Rate 29 H Blood Pressure 90/70 L 92/52 L Pulse Oximetry 91 Oxygen Delivery Oxygen Flow Rate Fraction of Inspired Oxygen 03/04/24 19:00 03/04/24 19:00 03/04/24 18:00 Temperature 37.3 C 37.3 C Pulse Rate 90 91 Pulse Rate [Bilateral Pedal (Dorsalis Pedis) Palpation] Pulse Rate [Left Radial Palpation] Pulse Rate [Right Radial Palpation] Respiratory Rate 36 H Blood Pressure 89/50 L 90/70 L Pulse Oximetry 91 Oxygen Delivery Oxygen Flow Rate Fraction of Inspired Oxygen 03/04/24 19:00 03/04/24 16:00 03/04/24 18:00 Temperature Pulse Rate 91 90 90 Pulse Rate [Bilateral Pedal (Dorsalis Pedis) Palpation] Pulse Rate [Left Radial Palpation] Pulse Rate [Right Radial Palpation] Respiratory Rate Blood Pressure 89/50 L Pulse Oximetry Oxygen Delivery Oxygen Flow Rate Fraction of Inspired Oxygen 03/04/24 20:00 03/04/24 21:12 03/04/24 21:16 Temperature Pulse Rate 91 63 61 Pulse Rate [Bilateral Pedal (Dorsalis Pedis) Palpation] Pulse Rate [Left Radial Palpation] Pulse Rate [Right Radial Palpation] Respiratory Rate Blood Pressure 82/55 L 88/49 L 88/47 L Pulse Oximetry Oxygen Delivery Oxygen Flow Rate Fraction of Inspired Oxygen 03/04/24 20:00 03/04/24 20:00 03/04/24 20:00 Temperature 37.3 C Pulse Rate 92 92 Pulse Rate [Bilateral Pedal (Dorsalis Pedis) Palpation] 92 Pulse Rate [Left Radial Palpation] 92 Pulse Rate [Right Radial Palpation] 92 Respiratory Rate 29 H Blood Pressure 82/55 L Pulse Oximetry 100 Oxygen Delivery Oxygen Flow Rate Fraction of Inspired Oxygen 03/04/24 20:00 03/04/24 21:30 03/04/24 21:45 Temperature Pulse Rate 92 80 80 Pulse Rate [Bilateral Pedal (Dorsalis Pedis) Palpation] Pulse Rate [Left Radial Palpation] Pulse Rate [Right Radial Palpation] Respiratory Rate 29 H Blood Pressure 101/58 L 198/180 H Pulse Oximetry 100 Oxygen Delivery Non-Rebreather Mask Oxygen Flow Rate 15 Fraction of Inspired Oxygen 03/04/24 22:00 03/04/24 22:15 03/04/24 22:30 Temperature Pulse Rate 80 80 80 Pulse Rate [Bilateral Pedal (Dorsalis Pedis) Palpation] Pulse Rate [Left Radial Palpation] Pulse Rate [Right Radial Palpation] Respiratory Rate Blood Pressure 89/54 L 93/54 L 72/48 L Pulse Oximetry Oxygen Delivery Oxygen Flow Rate Fraction of Inspired Oxygen 03/04/24 22:45 03/04/24 23:00 03/04/24 23:15 Temperature Pulse Rate 80 80 80 Pulse Rate [Bilateral Pedal (Dorsalis Pedis) Palpation] Pulse Rate [Left Radial Palpation] Pulse Rate [Right Radial Palpation] Respiratory Rate Blood Pressure 93/53 L 101/55 L 95/56 L Pulse Oximetry Oxygen Delivery Oxygen Flow Rate Fraction of Inspired Oxygen 03/04/24 23:30 03/04/24 23:45 03/04/24 22:00 Temperature Pulse Rate 82 84 80 Pulse Rate [Bilateral Pedal (Dorsalis Pedis) Palpation] Pulse Rate [Left Radial Palpation] Pulse Rate [Right Radial Palpation] Respiratory Rate Blood Pressure 105/61 105/56 L Pulse Oximetry Oxygen Delivery Oxygen Flow Rate Fraction of Inspired Oxygen 03/04/24 22:00 03/05/24 00:00 03/05/24 00:00 Temperature 37.6 C 37.6 C Pulse Rate 80 95 95 Pulse Rate [Bilateral Pedal (Dorsalis Pedis) Palpation] Pulse Rate [Left Radial Palpation] Pulse Rate [Right Radial Palpation] Respiratory Rate 26 H 20 Blood Pressure 89/54 L 118/68 Pulse Oximetry 94 95 Oxygen Delivery Oxygen Flow Rate Fraction of Inspired Oxygen 03/05/24 00:00 03/05/24 00:00 03/05/24 02:00 Temperature 37.7 C H Pulse Rate 95 99 Pulse Rate [Bilateral Pedal (Dorsalis Pedis) Palpation] 95 Pulse Rate [Left Radial Palpation] 95 Pulse Rate [Right Radial Palpation] 95 Respiratory Rate 20 22 H Blood Pressure 119/73 Pulse Oximetry 95 98 Oxygen Delivery Non-Rebreather Mask Oxygen Flow Rate 10 Fraction of Inspired Oxygen 03/05/24 02:00 03/05/24 00:00 03/05/24 02:11 Temperature Pulse Rate 99 95 99 Pulse Rate [Bilateral Pedal (Dorsalis Pedis) Palpation] Pulse Rate [Left Radial Palpation] Pulse Rate [Right Radial Palpation] Respiratory Rate Blood Pressure 118/68 119/73 Pulse Oximetry Oxygen Delivery Oxygen Flow Rate Fraction of Inspired Oxygen 03/05/24 03:15 03/04/24 20:15 03/04/24 20:30 Temperature 37.3 C 37.3 C Pulse Rate 101 H 92 90 Pulse Rate [Bilateral Pedal (Dorsalis Pedis) Palpation] Pulse Rate [Left Radial Palpation] Pulse Rate [Right Radial Palpation] Respiratory Rate 20 23 H Blood Pressure 123/69 81/57 L 81/57 L Pulse Oximetry 100 100 Oxygen Delivery Oxygen Flow Rate Fraction of Inspired Oxygen 03/04/24 20:45 03/04/24 21:00 03/04/24 21:07 Temperature 37.3 C 37.3 C 37.4 C Pulse Rate 90 56 L 63 Pulse Rate [Bilateral Pedal (Dorsalis Pedis) Palpation] Pulse Rate [Left Radial Palpation] Pulse Rate [Right Radial Palpation] Respiratory Rate 23 H 22 H 26 H Blood Pressure 84/60 L 77/43 L 88/49 L Pulse Oximetry 100 10 L 100 Oxygen Delivery Oxygen Flow Rate Fraction of Inspired Oxygen 03/04/24 21:15 03/04/24 21:30 03/04/24 21:45 Temperature 37.4 C 37.4 C 37.5 C Pulse Rate 56 L 80 80 Pulse Rate [Bilateral Pedal (Dorsalis Pedis) Palpation] Pulse Rate [Left Radial Palpation] Pulse Rate [Right Radial Palpation] Respiratory Rate 24 H 24 H 18 Blood Pressure 86/47 L 101/58 L 198/180 H Pulse Oximetry 100 100 99 Oxygen Delivery Oxygen Flow Rate Fraction of Inspired Oxygen 03/04/24 22:15 03/04/24 22:30 03/04/24 22:45 Temperature 37.6 C 37.6 C 37.6 C H Pulse Rate 80 80 80 Pulse Rate [Bilateral Pedal (Dorsalis Pedis) Palpation] Pulse Rate [Left Radial Palpation] Pulse Rate [Right Radial Palpation] Respiratory Rate 24 H 28 H 29 H Blood Pressure 93/54 L 72/48 L 93/53 L Pulse Oximetry 93 94 92 Oxygen Delivery Oxygen Flow Rate Fraction of Inspired Oxygen 03/04/24 23:00 03/04/24 23:15 03/04/24 23:30 Temperature 37.6 C H 37.6 C H 37.6 C H Pulse Rate 80 80 82 Pulse Rate [Bilateral Pedal (Dorsalis Pedis) Palpation] Pulse Rate [Left Radial Palpation] Pulse Rate [Right Radial Palpation] Respiratory Rate 23 H 14 25 H Blood Pressure 101/55 L 95/56 L 105/61 Pulse Oximetry 86 L 81 L 92 Oxygen Delivery Oxygen Flow Rate Fraction of Inspired Oxygen 03/04/24 23:45 03/05/24 05:30 03/05/24 04:00 Temperature 37.6 C H Pulse Rate 84 104 H 102 H Pulse Rate [Bilateral Pedal (Dorsalis Pedis) Palpation] Pulse Rate [Left Radial Palpation] Pulse Rate [Right Radial Palpation] Respiratory Rate 24 H Blood Pressure 105/56 L 122/70 123/77 Pulse Oximetry 90 Oxygen Delivery Oxygen Flow Rate Fraction of Inspired Oxygen 03/05/24 05:32 03/05/24 03:30 03/05/24 03:45 Temperature Pulse Rate 104 H 103 H 102 H Pulse Rate [Bilateral Pedal (Dorsalis Pedis) Palpation] Pulse Rate [Left Radial Palpation] Pulse Rate [Right Radial Palpation] Respiratory Rate Blood Pressure 122/70 119/66 122/67 Pulse Oximetry Oxygen Delivery Oxygen Flow Rate Fraction of Inspired Oxygen 03/05/24 04:15 03/05/24 04:50 03/05/24 05:00 Temperature Pulse Rate 103 H 106 H 110 H Pulse Rate [Bilateral Pedal (Dorsalis Pedis) Palpation] Pulse Rate [Left Radial Palpation] Pulse Rate [Right Radial Palpation] Respiratory Rate Blood Pressure 107/80 115/57 L 117/64 Pulse Oximetry Oxygen Delivery Oxygen Flow Rate Fraction of Inspired Oxygen 03/05/24 05:15 03/05/24 05:45 03/05/24 06:00 Temperature Pulse Rate 103 H 99 105 H Pulse Rate [Bilateral Pedal (Dorsalis Pedis) Palpation] Pulse Rate [Left Radial Palpation] Pulse Rate [Right Radial Palpation] Respiratory Rate Blood Pressure 124/74 112/66 120/72 Pulse Oximetry Oxygen Delivery Oxygen Flow Rate Fraction of Inspired Oxygen 03/05/24 04:00 03/05/24 04:00 03/05/24 04:00 Temperature 37.7 C H Pulse Rate 104 H 104 H Pulse Rate [Bilateral Pedal (Dorsalis Pedis) Palpation] 104 H Pulse Rate [Left Radial Palpation] 104 H Pulse Rate [Right Radial Palpation] 104 H Respiratory Rate 17 Blood Pressure 123/77 Pulse Oximetry 93 Oxygen Delivery Oxygen Flow Rate Fraction of Inspired Oxygen 03/05/24 04:00 03/05/24 06:00 03/05/24 06:00 Temperature 37.6 C Pulse Rate 104 H 105 H 105 H Pulse Rate [Bilateral Pedal (Dorsalis Pedis) Palpation] Pulse Rate [Left Radial Palpation] Pulse Rate [Right Radial Palpation] Respiratory Rate 17 26 H Blood Pressure 120/72 Pulse Oximetry 93 91 Oxygen Delivery Non-Rebreather Mask Oxygen Flow Rate 9 Fraction of Inspired Oxygen 03/05/24 03:15 03/05/24 03:30 03/05/24 03:45 Temperature 37.7 C H 37.7 C H 37.7 C H Pulse Rate 100 103 H 102 H Pulse Rate [Bilateral Pedal (Dorsalis Pedis) Palpation] Pulse Rate [Left Radial Palpation] Pulse Rate [Right Radial Palpation] Respiratory Rate 23 H 15 23 H Blood Pressure 123/69 119/66 122/67 Pulse Oximetry 99 93 94 Oxygen Delivery Oxygen Flow Rate Fraction of Inspired Oxygen 03/05/24 04:15 03/05/24 04:50 03/05/24 05:00 Temperature 37.8 C H 37.7 C H Pulse Rate 103 H 106 H 110 H Pulse Rate [Bilateral Pedal (Dorsalis Pedis) Palpation] Pulse Rate [Left Radial Palpation] Pulse Rate [Right Radial Palpation] Respiratory Rate 23 H 21 H 25 H Blood Pressure 107/80 115/67 117/64 Pulse Oximetry 91 86 L Oxygen Delivery Oxygen Flow Rate Fraction of Inspired Oxygen 03/05/24 05:15 03/05/24 05:30 03/05/24 05:45 Temperature 37.7 C H 37.7 C H 37.6 C H Pulse Rate 103 H 101 H 99 Pulse Rate [Bilateral Pedal (Dorsalis Pedis) Palpation] Pulse Rate [Left Radial Palpation] Pulse Rate [Right Radial Palpation] Respiratory Rate 25 H 24 H 24 H Blood Pressure 124/74 122/70 112/66 Pulse Oximetry 88 L 89 L 93 Oxygen Delivery Oxygen Flow Rate Fraction of Inspired Oxygen 03/05/24 08:00 03/05/24 08:53 03/05/24 08:00 Temperature 37.4 C Pulse Rate 110 H 101 H Pulse Rate [Bilateral Pedal (Dorsalis Pedis) Palpation] Pulse Rate [Left Radial Palpation] Pulse Rate [Right Radial Palpation] Respiratory Rate 21 H Blood Pressure 116/62 116/62 Pulse Oximetry 90 91 Oxygen Delivery High Flow Nasal Cannula Oxygen Flow Rate 12 Fraction of Inspired Oxygen 03/05/24 10:30 03/05/24 10:45 03/05/24 08:00 Temperature Pulse Rate 106 H 105 H 101 H Pulse Rate [Bilateral Pedal (Dorsalis Pedis) Palpation] Pulse Rate [Left Radial Palpation] Pulse Rate [Right Radial Palpation] Respiratory Rate Blood Pressure 118/69 106/63 Pulse Oximetry Oxygen Delivery Oxygen Flow Rate Fraction of Inspired Oxygen 03/05/24 08:00 03/05/24 11:00 03/05/24 10:00 Temperature 37.4 C Pulse Rate 106 H 100 Pulse Rate [Bilateral Pedal (Dorsalis Pedis) Palpation] 101 H Pulse Rate [Left Radial Palpation] 101 H Pulse Rate [Right Radial Palpation] 101 H Respiratory Rate 20 Blood Pressure 106/65 121/76 Pulse Oximetry 98 Oxygen Delivery Oxygen Flow Rate Fraction of Inspired Oxygen 03/05/24 10:00 03/05/24 11:15 03/05/24 11:31 Temperature Pulse Rate 100 108 H 103 H Pulse Rate [Bilateral Pedal (Dorsalis Pedis) Palpation] Pulse Rate [Left Radial Palpation] Pulse Rate [Right Radial Palpation] Respiratory Rate Blood Pressure 103/52 L 101/70 Pulse Oximetry Oxygen Delivery Oxygen Flow Rate Fraction of Inspired Oxygen Intake/Output Intake/Output: Intake & Output 03/02/24 03/03/24 03/04/24 03/05/24 23:59 23:59 23:59 23:59 Intake Total 462.1 391.7 Output Total 225 150 Balance 237.1 241.7 Meds/Results Medications: Active Medications Generic Name Dose Route Start Last Admin Trade Name Freq PRN Reason Stop Dose Admin Acetaminophen 650 mg 03/04/24 08:53 Acetaminophen 325 Mg Tablet PO Q6H PRN Mild Pain (1-3) or Fever Aspirin 81 mg 03/04/24 09:00 03/05/24 08:32 Aspirin 81 Mg Enteric Tablet PO 81 mg DAILY BONY Administration Atorvastatin Calcium 40 mg 03/04/24 09:00 03/05/24 08:32 Atorvastatin 40 Mg Tablet PO 40 mg DAILY BONY Administration Clopidogrel Bisulfate 75 mg 03/04/24 09:00 03/05/24 08:32 Clopidogrel Bisulfate 75 Mg Tablet PO 75 mg DAILY BONY Administration Dextrose 12.5 gm 03/04/24 09:24 Dextrose 50% 25 Gm/50 Ml Syringe IV PUSH PRN PRN Hypoglycemia Protocol Enoxaparin Sodium 30 mg 03/06/24 09:00 Enoxaparin 30 Mg/0.3 Ml Syringe SUB-Q DAILY BONY Glucagon 1 mg 03/04/24 09:24 Glucagon For Inj 1 Mg Vial IM PRN PRN Hypoglycemia Protocol Glucose 15 gm 03/04/24 09:24 Glucose Oral Gel 15 Gm Of Glucse In 37.5 Gm Tube PO PRN PRN Hypoglycemia Protocol Dextrose 1,000 mls @ 100 mls/hr 03/04/24 09:24 Dextrose 5% 1,000 Ml IVPB PRN PRN Hypoglycemia Protocol Cefepime HCl 1 gm in 50 mls @ 100 mls/hr 03/04/24 09:40 03/05/24 09:01 Maxipime 1 Gm/Ns 50 Ml IVPB Infused Q12HR BONY Infusion Norepinephrine Bitartrate 8 mg in 250 mls @ 26.25 mls/hr 03/04/24 09:25 03/05/24 11:31 Levophed 8 Mg/D5w 250 Ml IV CONT 14 mcg/min .[id number] BONY 26.25 mls/hr Titration Protocol 14 MCG/MIN Lactated Ringer's 1,000 mls @ 75 mls/hr 03/04/24 21:55 03/04/24 22:06 Lr - Lactated Ringers Iv IV CONT 75 mls/hr .[id number] BONY Administration Insulin Aspart 3 - 6 units 03/04/24 09:40 03/05/24 08:33 Insulin Aspart (*Bkc) 100 Units/Ml SUB-Q Not Given Q4HR [facility] Protocol Insulin Glargine 15 units 03/05/24 10:00 Insulin Glargine (*Bkc) 100 Units/Ml SUB-Q QAM BONY Ondansetron HCl 4 mg 03/04/24 10:15 03/04/24 10:16 Ondansetron Inj 4 Mg/2 Ml Vial IV PUSH 4 mg Q4H PRN Administration Nausea And Vomiting Pantoprazole Sodium 40 mg 03/04/24 09:00 03/05/24 08:33 Pantoprazole Sodium Iv 40 Mg Vial IV PUSH 40 mg QAM BONY Administration Perflutren Lipid Microsphere 0 ml 03/04/24 08:53 Perflutren Lipid Microspheres 1.5 Ml Vial Diluted To 10 Ml Total Volume IV PUSH 03/07/24 08:57 ONCE PRN adequate visualization Protocol Sodium Chloride 10 ml 03/04/24 14:00 03/05/24 05:43 Central Line Flush IV PUSH 10 ml Q8HR BONY Administration Sodium Chloride 10 ml 03/04/24 12:31 Central Line Flush IV PUSH PRN PRN with TPN bag changes Sodium Chloride 20 ml 03/04/24 12:31 Central Line Flush IV PUSH PRN PRN after blood draws Radiology Results: ITS Impressions Renal Ultrasound 03/04/24 12:01 IMPRESSION: 1. Mild atrophy of right kidney. No hydronephrosis. Chest X-Ray 03/05/24 08:44 IMPRESSION: 1. Increasing interstitial pattern and bilateral perihilar predominant opacities consistent with mild to moderate pulmonary edema. 2. Small left pleural effusion with increasing retrocardiac consolidation left lower lung zone which could represent atelectasis or pneumonia. 3. Persistent reticular opacity lateral left midlung zone which could be related to loculated component to the pleural effusion or a subpleural mass. There is some indistinctness to the cortex one of the adjacent ribs which raises concern for bladder and the setting of hilar ligaments or infection. Could consider contrast enhanced CT for further evaluation. Labs Labs: Laboratory Results - last 24 hr 03/04/24 03/04/24 03/04/24 11:07 13:04 13:05 WBC RBC Hgb Hct MCV MCH MCHC RDW Plt Count MPV Immature Gran % (Auto) Neut % (Auto) Lymph % (Auto) [place]aver % (Auto) Eos % (Auto) Baso % (Auto) Lymph # (Auto) [place] # (Auto) Eos # (Auto) Baso # (Auto) Abs Immat Gran (auto) Absolute Neuts (auto) Absolute Nucleated RBC Total Counted Neutrophils % (Manual) Band Neutrophils % Lymphocytes % (Manual) Monocytes % (Manual) Nucleated RBC % Abs Neuts (Manual) Abs Lymphs (Manual) Abs Monocytes (Manual) Platelet Estimate Schistocytes PT INR APTT Puncture Site ABG pH ABG pCO2 ABG pO2 ABG PO2/FiO2 Ratio ABG HCO3 ABG O2 Saturation ABG O2 Content ABG Base Excess A-a Gradient Oxyhemoglobin Carboxyhemoglobin Methemoglobin Reduced Hemoglobin Total Hemoglobin O2 Delivery Device O2 Liters/Min FiO2 Sodium Potassium Chloride Carbon Dioxide Anion Gap BUN Creatinine Estim Creat Clear Calc Estimated GFR Glucose POC Capillary Glucose 323 H Lactic Acid 4.5 H* Calcium Magnesium Total Bilirubin AST ALT Alkaline Phosphatase Total Creatine Kinase 5784 H Troponin I > 80.000 H* Total Protein Albumin Nasal MRSA (PCR) Random Vancomycin 03/04/24 03/04/24 03/04/24 13:06 16:18 17:58 WBC 21.9 H RBC 2.71 L Hgb 8.3 L Hct 25.0 L MCV 92.3 MCH 30.6 MCHC 33.2 RDW 13.7 Plt Count 266 MPV 10.1 Immature Gran % (Auto) Not Reportable Neut % (Auto) Not Reportable Lymph % (Auto) Not Reportable [place]aver % (Auto) Not Reportable Eos % (Auto) Not Reportable Baso % (Auto) Not Reportable Lymph # (Auto) Not Reportable [place] # (Auto) Not Reportable Eos # (Auto) Not Reportable Baso # (Auto) Not Reportable Abs Immat Gran (auto) Not Reportable Absolute Neuts (auto) Not Reportable Absolute Nucleated RBC Not Reportable Total Counted 100 Neutrophils % (Manual) 84 H Band Neutrophils % 4 Lymphocytes % (Manual) 4.0 L Monocytes % (Manual) 8 Nucleated RBC % Not Reportable Abs Neuts (Manual) 19.27 H Abs Lymphs (Manual) 0.87 L Abs Monocytes (Manual) 1.75 H Platelet Estimate Adequate Schistocytes None seen PT 16.4 H INR 1.3 APTT 39.1 H Puncture Site ABG pH ABG pCO2 ABG pO2 ABG PO2/FiO2 Ratio ABG HCO3 ABG O2 Saturation ABG O2 Content ABG Base Excess A-a Gradient Oxyhemoglobin Carboxyhemoglobin Methemoglobin Reduced Hemoglobin Total Hemoglobin O2 Delivery Device O2 Liters/Min FiO2 Sodium Potassium Chloride Carbon Dioxide Anion Gap BUN Creatinine Estim Creat Clear Calc Estimated GFR Glucose POC Capillary Glucose 249 H Lactic Acid 4.8 H* Calcium Magnesium Total Bilirubin AST ALT Alkaline Phosphatase Total Creatine Kinase Troponin I Total Protein Albumin Nasal MRSA (PCR) Not detected Random Vancomycin 03/04/24 03/04/24 03/04/24 18:38 19:54 20:00 WBC 18.9 H RBC 2.68 L Hgb 8.0 L Hct 24.8 L MCV 92.5 MCH 29.9 MCHC 32.3 RDW 13.4 Plt Count 269 MPV 10.4 Immature Gran % (Auto) 0.8 H Neut % (Auto) 85.7 H Lymph % (Auto) 6.8 L [place]aver % (Auto) 6.5 Eos % (Auto) 0.0 Baso % (Auto) 0.2 Lymph # (Auto) 1.28 [place] # (Auto) 1.2 H Eos # (Auto) 0.0 Baso # (Auto) 0.0 Abs Immat Gran (auto) 0.15 H Absolute Neuts (auto) 16.2 H Absolute Nucleated RBC 0.000 Total Counted Neutrophils % (Manual) Band Neutrophils % Lymphocytes % (Manual) Monocytes % (Manual) Nucleated RBC % 0.0 Abs Neuts (Manual) Abs Lymphs (Manual) Abs Monocytes (Manual) Platelet Estimate Schistocytes PT INR APTT Puncture Site Right brachial ABG pH 7.416 ABG pCO2 31.9 L ABG pO2 133.0 H ABG PO2/FiO2 Ratio 1.33 ABG HCO3 20.0 L ABG O2 Saturation 98.7 ABG O2 Content 12.5 L ABG Base Excess -3.9 A-a Gradient 548.1 Oxyhemoglobin 98.4 Carboxyhemoglobin 0.2 Methemoglobin 0.0 Reduced Hemoglobin 1.4 Total Hemoglobin 8.8 L O2 Delivery Device Non-rebreather mask O2 Liters/Min 15.0 FiO2 100 Sodium 135 L Potassium 4.6 Chloride 98 Carbon Dioxide 23 Anion Gap 14 H BUN 26 H Creatinine 1.80 H Estim Creat Clear Calc 15 Estimated GFR 27 L Glucose 230 H POC Capillary Glucose Lactic Acid 6.5 H* Calcium 9.1 Magnesium 1.6 Total Bilirubin 0.5 AST 959 H ALT 417 H Alkaline Phosphatase 69 Total Creatine Kinase Troponin I Total Protein 7.0 Albumin 3.5 Nasal MRSA (PCR) Random Vancomycin 03/04/24 03/04/24 03/05/24 22:05 22:47 01:19 WBC RBC Hgb Hct MCV MCH MCHC RDW Plt Count MPV Immature Gran % (Auto) Neut % (Auto) Lymph % (Auto) Beaver % (Auto) Eos % (Auto) Baso % (Auto) Lymph # (Auto) [place]aver # (Auto) Eos # (Auto) Baso # (Auto) Abs Immat Gran (auto) Absolute Neuts (auto) Absolute Nucleated RBC Total Counted Neutrophils % (Manual) Band Neutrophils % Lymphocytes % (Manual) Monocytes % (Manual) Nucleated RBC % Abs Neuts (Manual) Abs Lymphs (Manual) Abs Monocytes (Manual) Platelet Estimate Schistocytes PT INR APTT 62.3 H Puncture Site ABG pH ABG pCO2 ABG pO2 ABG PO2/FiO2 Ratio ABG HCO3 ABG O2 Saturation ABG O2 Content ABG Base Excess A-a Gradient Oxyhemoglobin Carboxyhemoglobin Methemoglobin Reduced Hemoglobin Total Hemoglobin O2 Delivery Device O2 Liters/Min FiO2 Sodium Potassium Chloride Carbon Dioxide Anion Gap BUN Creatinine Estim Creat Clear Calc Estimated GFR Glucose POC Capillary Glucose 213 H 183 H Lactic Acid Calcium Magnesium Total Bilirubin AST ALT Alkaline Phosphatase Total Creatine Kinase Troponin I Total Protein Albumin Nasal MRSA (PCR) Random Vancomycin 03/05/24 03/05/24 03/05/24 05:41 05:42 07:54 WBC 22.2 H RBC 2.53 L Hgb 7.7 L Hct 23.0 L MCV 90.9 MCH 30.4 MCHC 33.5 RDW 13.6 Plt Count 248 MPV 10.4 Immature Gran % (Auto) Neut % (Auto) Lymph % (Auto) Beaver % (Auto) Eos % (Auto) Baso % (Auto) Lymph # (Auto) Beaver # (Auto) Eos # (Auto) Baso # (Auto) Abs Immat Gran (auto) Absolute Neuts (auto) Absolute Nucleated RBC Total Counted Neutrophils % (Manual) Band Neutrophils % Lymphocytes % (Manual) Monocytes % (Manual) Nucleated RBC % Abs Neuts (Manual) Abs Lymphs (Manual) Abs Monocytes (Manual) Platelet Estimate Schistocytes PT INR APTT 94.9 H Puncture Site ABG pH ABG pCO2 ABG pO2 ABG PO2/FiO2 Ratio ABG HCO3 ABG O2 Saturation ABG O2 Content ABG Base Excess A-a Gradient Oxyhemoglobin Carboxyhemoglobin Methemoglobin Reduced Hemoglobin Total Hemoglobin O2 Delivery Device O2 Liters/Min FiO2 Sodium 135 L Potassium 4.5 Chloride 98 Carbon Dioxide 29 Anion Gap 8 BUN 31 H Creatinine 2.10 H Estim Creat Clear Calc 13 Estimated GFR 22 L Glucose 197 H POC Capillary Glucose 190 H 176 H Lactic Acid Calcium 8.7 Magnesium 2.4 H Total Bilirubin 0.4 AST 2363 H ALT 1224 H Alkaline Phosphatase 75 Total Creatine Kinase Troponin I Total Protein 7.0 Albumin 3.4 L Nasal MRSA (PCR) Random Vancomycin 9.7 L
[2024-03-05] MEDS: INSULIN GLARGINE (*BKC) 100 UNITS/ML 15 UNITS SUB-Q (12:02)
[2024-03-05] MEDS: LACTATED RINGERS 1,000 ML 75 ML IV CONT (12:03)
[2024-03-05 12:04] LABS: Glucose Point of Care 198 mg/dl (65-105)
[2024-03-05 12:34] LABS: Lactic Acid Reflex 2.6 mmol/L (0.7-2.0)
[2024-03-05 12:59] LABS: Creatinine Urine 139.4 mg/dL
[2024-03-05 13:01] LABS: Total Protein Urine Random 23 mg/dL; Urea Random Urine 541 MG/DL
[2024-03-05 13:03] LABS: Creatinine Urine 140.5 mg/dL; Sodium Urine Random 17 meq/L; Total Protein Urine Random 23 mg/dL; Ur Ttl Prot Creatinine Ratio 0.16 mg/mg (0-0.20)
[2024-03-05 13:22] LABS: Eosinophil Urine None Seen % (None Seen); Urine Eos QC 2nd Tech Confirmed
[2024-03-05] MEDS: ACETAMINOPHEN 325 MG TABLET 650 MG PO (14:41)
[2024-03-05 15:23] LABS: Reflex Lactic Acid Yes or No Add Lactic
[2024-03-05 16:21] LABS: Glucose Point of Care 160 mg/dl (65-105)
[2024-03-05] MEDS: NOREPINEPHRINE 8 MG/D5W 250 ML 8 MG/250 ML BAG 9.38 MG IV CONT (16:30)
[2024-03-05 18:15] LABS: Hematocrit 21.2 % (37.0-47.0); Mean Corpuscular Hemoglobin 30.7 pg (26-34); Mean Platelet Volume 10.7 fl (7.4-10.4); Platelet Count Result 175 k/mm3 (150-375); Red Blood Count 2.28 M/mm3 (4.2-5.4); Red Cell Distribution Width 13.8 % (11.5-14.5); White Blood Count 21.9 K/mm3 (4.5-10.0)
[2024-03-05 18:25] LABS: Lactic Acid Reflex 3.7 mmol/L (0.7-2.0)
[2024-03-05 18:29] LABS: Albumin Level 3.3 g/dL (3.5-5.1); Alkaline Phosphatase 67 U/L (38-126); Anion Gap 10 mmol/L (4-12); Bilirubin,Total 0.3 mg/dL (0.2-1.3); Blood Urea Nitrogen 34 mg/dL (7-17); Calcium 8.2 mg/dL (8.4-10.2); Carbon Dioxide 25 mmol/L (22-30); Chloride 97 mmol/L (98-107); Estimated CRCL calculation 12 ml/min; Estimated Glomerular Filt Rate 21; Glucose 217 mg/dL (65-110); Potassium 4.1 mmol/L (3.4-5.0); Sodium 132 mmol/L (137-145)
[2024-03-05 19:28] LABS: Alanine Aminotransferase 1221 U/L (6-35); Aspartate Amino Transferase 1810 U/L (14-36)
[2024-03-05 21:04] LABS: Glucose Point of Care 167 mg/dl (65-105)
[2024-03-06] VITALS (43 sets, daily range): BP systolic 92–122; BP diastolic 48–74; PULSE 89–119; RESP 20–35; TEMP 37.3–38; O2SAT 91–100
[2024-03-06 00:05] LABS: Glucose Point of Care 154 mg/dl (65-105)
[2024-03-06 00:13] LABS: Hematocrit 21.3 % (37.0-47.0); Mean Corpuscular HGB Conc 32.9 g/dl (32-36); Mean Corpuscular Hemoglobin 30.6 pg (26-34); Mean Platelet Volume 10.5 fl (7.4-10.4); Platelet Count Result 144 k/mm3 (150-375); Red Blood Count 2.29 M/mm3 (4.2-5.4); White Blood Count 19.4 K/mm3 (4.5-10.0)
--- NOTE | 2024-03-06 00:15 | PC.NURSE ---
RT at bedside to initiate cpap. Unable to maintain O2 saturations. Patient placed back on 15 L NRB.
[2024-03-06 05:21] LABS: Mean Corpuscular HGB Conc 32.7 g/dl (32-36); Mean Corpuscular Hemoglobin 30.4 pg (26-34); Mean Corpuscular Volume 92.9 fl (80-100); Mean Platelet Volume 10.6 fl (7.4-10.4); Platelet Count Result 123 k/mm3 (150-375); Red Blood Count 2.24 M/mm3 (4.2-5.4); White Blood Count 19.3 K/mm3 (4.5-10.0)
[2024-03-06 05:35] LABS: Hematocrit 20.8 % (37.0-47.0); Hemoglobin 6.8 g/dL (12.0-15.0)
[2024-03-06 05:37] LABS: Albumin Level 3.3 g/dL (3.5-5.1); Alkaline Phosphatase 75 U/L (38-126); Anion Gap 7 mmol/L (4-12); Bilirubin,Total 0.3 mg/dL (0.2-1.3); Blood Urea Nitrogen 36 mg/dL (7-17); Calcium 8.2 mg/dL (8.4-10.2); Carbon Dioxide 28 mmol/L (22-30); Chloride 99 mmol/L (98-107); Creatine Kinase 1133 U/L (30-135); Estimated CRCL calculation 13 ml/min; Estimated Glomerular Filt Rate 22; Glucose 142 mg/dL (65-110); Magnesium 2.4 mg/dL (1.6-2.3); Potassium 4.3 mmol/L (3.4-5.0); Sodium 134 mmol/L (137-145)
[2024-03-06] MEDS: CENTRAL LINE FLUSH 10 ML IV PUSH ×3 (06:08→21:50)
[2024-03-06 06:19] LABS: Alanine Aminotransferase 1092 U/L (6-35); Aspartate Amino Transferase 1137 U/L (14-36)
[2024-03-06 06:25] LABS: Hepatitis B Surface Antigen Negative (Negative)
[2024-03-06 06:42] LABS: Hepatitis B Surface Anti Res Negative
[2024-03-06 08:50] LABS: Glucose Point of Care 161 mg/dl (65-105)
[2024-03-06] MEDS: CLOPIDOGREL BISULFATE 75 MG TABLET PO (09:22)
[2024-03-06] MEDS: ATORVASTATIN 40 MG TABLET PO (09:22)
[2024-03-06] MEDS: ASPIRIN 81 MG ENTERIC TABLET PO (09:22)
[2024-03-06] MEDS: PANTOPRAZOLE SODIUM IV 40 MG VIAL IV PUSH (09:23)
[2024-03-06] MEDS: FUROSEMIDE INJ 40 MG/4 ML VIAL IV PUSH ×2 (09:23→16:59)
[2024-03-06] MEDS: CEFEPIME 1 GM/NS 50 ML 1 GM/50 ML BAG IVPB ×2 (09:23→21:49)
[2024-03-06] MEDS: INSULIN GLARGINE (*BKC) 100 UNITS/ML 15 UNITS SUB-Q (09:23)
--- NOTE | 2024-03-06 09:25 | P.PNNP_ITS ---
Progress Note: A&P Assessment and Plan (1) Acute kidney injury: Code(s): N17.9 - Acute kidney failure, unspecified Status: Acute Assessment and Plan: * as noted by trend of labs since admission * suspect multifactorial etiology: * rhabdomyolysis * shock/homodynamic instability * sepsis/infection (?) * contrast exposure (cardiac catheterization) * BP medications prior to admission (losartan) * underlying cardiomyopathy * evaluation to date noted: * renal ultrasound with right renal atrophy but on obstruction * urine electrolytes prerenal (suspect more indicative of cardiomyopathy than volume depletion) * urine eosinophils negative * CPK downtrending * no significant proteinuria * trial of diuretics today * monitor trend of repeat labs and UOP (2) Chronic kidney disease, stage 3: Code(s): N18.30 - Chronic kidney disease, stage 3 unspecified Status: Chronic Assessment and Plan: * baseline creatinine seems to run ~ 1.0 - 1.6mg/dl in the last year or so * this causes her to fluctuate between CKD stage 3A and stage 3B * presumably secondary to HTN, DM, vascular disease, and age-related change (3) STEMI (ST elevation myocardial infarction): Code(s): I21.3 - ST elevation (STEMI) myocardial infarction of unspecified site Status: Acute Assessment and Plan: * s/p stent placement in circumflex with residual thrombus * Cardiology following * on ASA/statin/plavix * evidence of cardiomyopathy by Echo (4) Shock: Code(s): R57.9 - Shock, unspecified Status: Acute Assessment and Plan: * resolving * suspect a combination of cardiogenic and sepsis * weaned off vasopressor support * follow culture data * continue empiric antibiotics (5) Acute respiratory failure: Code(s): J96.00 - Acute respiratory failure, unspecified whether with hypoxia or hypercapnia Status: Acute Assessment and Plan: * due to pulmonary edema complicated by known history of lung cancer * possible component of pneumonia * continue supplemental oxygen * remains at risk for intubation/mechanical ventilation * diuresis as hemodynamics allow (6) Anemia: Code(s): D64.9 - Anemia, unspecified Status: Acute Assessment and Plan: * PRBC transfusion per protocol * related to JAE, CKD, and acute illness * check iron stores and stool guaiac * follow H/H (7) Third degree AV block: Code(s): I44.2 - Atrioventricular block, complete Status: Acute Assessment and Plan: * complete heart block noted on presentation * s/p placement of transvenous pacemaker * as the hemodynamics improved, patient's rate was gradually weaned off pacing * follow telemetry (8) Stage 4 lung cancer: Code(s): C34.90 - Malignant neoplasm of unspecified part of unspecified bronchus or lung Status: Chronic Assessment and Plan: * known diagnosis * receiving chemotherapy as an outpatient (9) Diabetes: Code(s): E11.9 - Type 2 diabetes mellitus without complications Status: Acute Assessment and Plan: * follow accu-cheks * glycemic control per coffee shop attendant/hospitalist Will continue to follow.. Subjective Date/time seen: 03/06/24 09:25 Interval history: Follow-up for acute kidney injury/acute renal failure on chronic kidney disease. Renal function/creatinine appears relatively stable at this time but diminished urine output noted in the last 24 hours; weaned off vasopressor therapy overnight/early this morning with relative stability in hemodynamics; noted drop in H/H by AM labs with plan for PRBC transfusion as well as IV lasix; no apparent distress noted on my visit. Exam Narrative: General: frail and elderly female in NAD Heart: normal S1 and S2; no rub Lungs: coarse with bibasilar crackles Abdomen: soft, nontender, nondistended, positive bowel sounds Extremities: no cyanosis or clubbing; no edema Skin: warm and dry Objective Data Vital Signs Vital Signs: Vital Signs Temp Pulse Pulse Pulse Pulse Resp BP 03/06/24 06:00 99.3 F 98 24 H 102/64 03/06/24 06:00 98 03/06/24 06:00 99 102/64 03/06/24 04:00 110 H 03/06/24 04:00 99.5 F 110 H 24 H 111/66 03/06/24 04:00 110 H 111/66 03/06/24 03:52 03/06/24 02:00 99.5 F 101 H 23 H 93/62 L 03/06/24 01:45 99.5 F 97 27 H 92/62 L 03/06/24 01:30 99.5 F 97 24 H 96/67 L 03/06/24 01:15 99.4 F 89 26 H 104/62 03/06/24 02:00 101 H 03/06/24 02:00 97 93/62 L 03/06/24 00:00 104 H 03/06/24 01:00 99.4 F 108 H 22 H 103/63 03/06/24 00:45 99.4 F 101 H 26 H 100/60 03/06/24 00:30 99.4 F 99 29 H 97/48 L 03/06/24 00:15 99.3 F 99 25 H 107/63 03/06/24 00:00 99.4 F 104 H 28 H 97/58 L 03/06/24 00:00 03/06/24 00:00 110 H 97/58 L 03/05/24 23:43 03/05/24 23:00 99.5 F 94 23 H 100/60 03/05/24 22:00 99.4 F 95 26 H 96/61 L 03/05/24 22:00 95 03/05/24 20:00 97 03/05/24 20:00 03/05/24 22:00 95 96/61 L 03/05/24 21:00 99.5 F 101 H 31 H 89/61 L 03/05/24 20:00 99.6 F 97 23 H 99/58 L 03/05/24 20:00 98 99/58 L 03/05/24 19:45 101 H 102/61 03/05/24 19:30 102 H 104/70 03/05/24 19:01 90 91/63 L 03/05/24 18:45 98 96/62 L 03/05/24 18:30 90 92/59 L 03/05/24 18:15 88 87/66 L 03/05/24 18:00 95 92/61 L 03/05/24 17:47 107 H 101/66 03/05/24 17:45 99.8 F H 94 28 H 101/66 03/05/24 17:45 94 03/05/24 17:37 03/05/24 17:30 95 110/60 03/05/24 17:19 87 96/57 L 03/05/24 17:01 109 H 94/57 L 03/05/24 16:00 105 H 03/05/24 16:45 104 H 105/69 03/05/24 16:45 03/05/24 16:30 104 H 106/68 03/05/24 16:16 103 H 110/68 03/05/24 16:00 99.7 F H 103 H 24 H 96/57 L 03/05/24 16:00 103 H 103 H 103 H 03/05/24 16:00 104 H 96/57 L 03/05/24 15:54 03/05/24 15:45 109 H 118/76 03/05/24 15:30 108 H 100/62 03/05/24 15:15 103 H 107/64 03/05/24 15:00 105 H 98/65 L 03/05/24 14:45 03/05/24 14:55 03/05/24 14:45 92 92/57 L 03/05/24 14:30 91 89/64 L 03/05/24 14:15 94 98/68 L 03/05/24 14:00 97 03/05/24 14:00 100.0 F H 92 26 H 102/65 03/05/24 14:00 98 102/65 03/05/24 13:45 103 H 108/67 03/05/24 13:36 03/05/24 13:33 104 H 111/70 03/05/24 12:00 99.6 F 110 H 29 H 106/68 03/05/24 12:00 110 H 110 H 110 H 03/05/24 12:00 03/05/24 12:00 110 H 03/05/24 13:20 104 H 114/65 03/05/24 13:01 105 H 107/66 03/05/24 12:49 109 H 105/69 03/05/24 12:33 108 H 117/66 03/05/24 12:19 112 H 106/68 03/05/24 12:00 110 H 102/71 03/05/24 11:47 103 H 103/68 03/05/24 11:31 103 H 101/70 03/05/24 11:15 108 H 103/52 L 03/05/24 10:00 100 03/05/24 10:00 99.4 F 100 20 121/76 03/05/24 11:00 106 H 106/65 03/05/24 10:45 105 H 106/63 03/05/24 10:30 106 H 118/69 Intake/Output Intake/Output: Intake & Output 03/03/24 03/04/24 03/05/24/15/24 23:59 23:59 23:59 23:59 Intake Total 462.1 2018.9 100 Output Total 225 300 250 Balance 237.1 1718.9 -150 Meds/Results Medications: Active Medications Generic Name Dose Route Start Last Admin Trade Name Freq PRN Reason Stop Dose Admin Acetaminophen 650 mg 03/04/24 08:53 03/05/24 14:41 Acetaminophen 325 Mg Tablet PO 650 mg Q6H PRN Administration Mild Pain (1-3) or Fever Aspirin 81 mg 03/04/24 09:00 03/05/24 08:32 Aspirin 81 Mg Enteric Tablet PO 81 mg DAILY BONY Administration Atorvastatin Calcium 40 mg 03/04/24 09:00 03/05/24 08:32 Atorvastatin 40 Mg Tablet PO 40 mg DAILY BONY Administration Clopidogrel Bisulfate 75 mg 03/04/24 09:00 03/05/24 08:32 Clopidogrel Bisulfate 75 Mg Tablet PO 75 mg DAILY BONY Administration Dextrose 12.5 gm 03/04/24 09:24 Dextrose 50% 25 Gm/50 Ml Syringe IV PUSH PRN PRN Hypoglycemia Protocol Enoxaparin Sodium 30 mg 03/06/24 09:00 03/06/24 08:45 Enoxaparin 30 Mg/0.3 Ml Syringe SUB-Q Not Given DAILY BONY Glucagon 1 mg 03/04/24 09:24 Glucagon For Inj 1 Mg Vial IM PRN PRN Hypoglycemia Protocol Glucose 15 gm 03/04/24 09:24 Glucose Oral Gel 15 Gm Of Glucse In 37.5 Gm Tube PO PRN PRN Hypoglycemia Protocol Dextrose 1,000 mls @ 100 mls/hr 03/04/24 09:24 Dextrose 5% 1,000 Ml IVPB PRN PRN Hypoglycemia Protocol Cefepime HCl 1 gm in 50 mls @ 100 mls/hr 03/04/24 09:40 03/05/24 21:23 Maxipime 1 Gm/Ns 50 Ml IVPB Infused Q12HR BONY Infusion Norepinephrine Bitartrate 8 mg in 250 mls @ 0 mls/hr 03/04/24 09:25 03/06/24 06:00 Levophed 8 Mg/D5w 250 Ml IV CONT 0 mcg/min .Q0M BONY 0 mls/hr Titration Protocol 0 MCG/MIN Sodium Chloride 250 mls @ 30 mls/hr 03/06/24 06:50 Normal Saline Iv IV CONT 03/06/24 15:09 .Q8H20M STA Insulin Aspart 3 - 6 units 03/04/24 09:40 03/06/24 08:54 Insulin Aspart (*Bkc) 100 Units/Ml SUB-Q Not Given Q4HR BONY Protocol Insulin Glargine 15 units 03/05/24 10:00 03/05/24 12:02 Insulin Glargine (*Bkc) 100 Units/Ml SUB-Q 15 units QAM BONY Administration Ondansetron HCl 4 mg 03/04/24 10:15 03/04/24 10:16 Ondansetron Inj 4 Mg/2 Ml Vial IV PUSH 4 mg Q4H PRN Administration Nausea And Vomiting Pantoprazole Sodium 40 mg 03/04/24 09:00 03/05/24 08:33 Pantoprazole Sodium Iv 40 Mg Vial IV PUSH 40 mg QAM BONY Administration Perflutren Lipid Microsphere 0 ml 03/04/24 08:53 Perflutren Lipid Microspheres 1.5 Ml Vial Diluted To 10 Ml Total Volume IV PUSH 03/07/24 08:57 ONCE PRN adequate visualization Protocol Sodium Chloride 10 ml 03/04/24 14:00 03/06/24 06:08 Central Line Flush IV PUSH 10 ml Q8HR BONY Administration Sodium Chloride 10 ml 03/04/24 12:31 Central Line Flush IV PUSH PRN PRN with TPN bag changes Sodium Chloride 20 ml 03/04/24 12:31 Central Line Flush IV PUSH PRN PRN after blood draws Radiology Results: ITS Impressions Renal Ultrasound 03/04/24 12:01 IMPRESSION: 1. Mild atrophy of right kidney. No hydronephrosis. Chest X-Ray 03/06/24 07:42 Impression: Extensive bilateral pulmonary consolidation and present. Correlate for severe pulmonary edema versus diffuse pneumonia. Small pleural effusions. Right-sided PICC line. Labs Labs: Laboratory Tests 03/06/24 04:59 03/06/24 04:59 Lactic Acid 1.0 Calcium 8.2 L Magnesium 2.4 H Total Bilirubin 0.3 AST 1137 H ALT 1092 H Alkaline Phosphatase 75 Total Creatine Kinase 1133 H Total Protein 6.0 L Albumin 3.3 L Microbiology 03/04/24 11:08 Blood Blood Culture - Preliminary 03/04/24 10:55 Blood Blood Culture - Preliminary
[2024-03-06] MEDS: SODIUM CHLORIDE 0.9% IV 250 ML 30 ML IV CONT (11:00)
--- NOTE | 2024-03-06 11:47 | PM.PNCARD ---
Progress Note: A&P Assessment and Plan (1) STEMI (ST elevation myocardial infarction): Code(s): I21.3 - ST elevation (STEMI) myocardial infarction of unspecified site Status: Acute Assessment and Plan: Continue ASA, Plavix, Atorvastatin (2) Cardiogenic shock: Code(s): R57.0 - Cardiogenic shock Status: Acute Assessment and Plan: Echocardiogram with LVEF 40-45%. Off of Levophed now. (3) Third degree AV block: Code(s): I44.2 - Atrioventricular block, complete Status: Acute Assessment and Plan: Not requiring transvenous pacer. Removed at bedside this morning. (4) Cardiomyopathy: Code(s): I42.9 - Cardiomyopathy, unspecified Status: Acute Assessment and Plan: Echocardiogram with LVEF 40-45%. Will hold off on starting heart failure GDMT at this time given JAE, recent pressor requirement. Agree with intermittent doses of IV Lasix given pulmonary edema on chest XR. (5) Acute kidney injury: Code(s): N17.9 - Acute kidney failure, unspecified Status: Acute Assessment and Plan: Nephrology consulted. (6) Anemia: Code(s): D64.9 - Anemia, unspecified Status: Acute Assessment and Plan: Hgb 6.8 this morning, receiving blood transfusion. Plan After discussion regarding code status with the patient, patient would like to return to DNR/DNI status. Recommendations and plan discussed with Hospitalist. Subjective Date/time seen: 03/06/24 11:47 Interval history: Reason for visit: STEMI HPI: 83-year-old female with a past medical history significant for lung cancer, hypertension, diabetes who was brought by EMS to the ED with sudden onset chest pain, shortness of breath, diaphoresis, pale looking. She was found to have an inferoposterior STEMI with a complete heart block. She was directly taken to the lab after discussing the risks, benefits and alternatives of the procedure with her. We also discussed the goals of care with her in light of lung malignancy. She wanted to proceed. She was taken to the lab technologist and VINICIUS was placed in the proximal LCX. There is some residual thrombus in the mid LCX artery. Placed a temporary pacemaker through the right femoral vein and currently she is being paced at a rate of 100 beats per minute, output of 10 and sensitivity of 5. Post PCI she denied any chest pain and will be transferred to the ICU to help with further management. Date of service 03/05: Denies chest pain and dyspnea today. Date of service 03/06: No chest pain. Tele with sinus tachycardia with first degree AV block. Not requiring transvenous pacer. Off of pressors. Hgb 6.8, getting blood transfusion. Review of Systems Review of Systems: All systems reviewed & are unremarkable except as noted in HPI and below (HPI) Exam Const: General: no acute distress Other: Ill appearing female Eyes: General: appearance normal, both eyes and all related structures Sclera: sclerae normal Resp: Effort & Inspection: normal respiratory effort Cardio: Rate: regular rate Rhythm: regular rhythm Heart sounds: no murmurs Neuro: Speech: normal speech Psych: Mental Status: mental status grossly normal Affect: normal affect Objective Data Vital Signs Vital Signs: Vital Signs - 24 hr 03/05/24 12:00 03/05/24 12:19 03/05/24 12:33 Temperature Pulse Rate 110 H 112 H 108 H Pulse Rate [Bilateral Pedal (Dorsalis Pedis) Palpation] Pulse Rate [Left Radial Palpation] Pulse Rate [Right Radial Palpation] Respiratory Rate Blood Pressure 102/71 106/68 117/66 Pulse Oximetry Oxygen Delivery Oxygen Flow Rate 03/05/24 12:49 03/05/24 13:01 03/05/24 13:20 Temperature Pulse Rate 109 H 105 H 104 H Pulse Rate [Bilateral Pedal (Dorsalis Pedis) Palpation] Pulse Rate [Left Radial Palpation] Pulse Rate [Right Radial Palpation] Respiratory Rate Blood Pressure 105/69 107/66 114/65 Pulse Oximetry Oxygen Delivery Oxygen Flow Rate 03/05/24 12:00 03/05/24 12:00 03/05/24 12:00 Temperature Pulse Rate 110 H Pulse Rate [Bilateral Pedal (Dorsalis Pedis) Palpation] 110 H Pulse Rate [Left Radial Palpation] 110 H Pulse Rate [Right Radial Palpation] 110 H Respiratory Rate Blood Pressure Pulse Oximetry 90 Oxygen Delivery High Flow Nasal Cannula Oxygen Flow Rate 15 03/05/24 12:00 03/05/24 13:33 03/05/24 13:36 Temperature 37.6 C Pulse Rate 110 H 104 H Pulse Rate [Bilateral Pedal (Dorsalis Pedis) Palpation] Pulse Rate [Left Radial Palpation] Pulse Rate [Right Radial Palpation] Respiratory Rate 29 H Blood Pressure 106/68 111/70 Pulse Oximetry 92 96 Oxygen Delivery High Flow Therapy with Na Oxygen Flow Rate 13 03/05/24 13:45 03/05/24 14:00 03/05/24 14:00 Temperature 37.8 C H Pulse Rate 103 H 98 92 Pulse Rate [Bilateral Pedal (Dorsalis Pedis) Palpation] Pulse Rate [Left Radial Palpation] Pulse Rate [Right Radial Palpation] Respiratory Rate 26 H Blood Pressure 108/67 102/65 102/65 Pulse Oximetry 92 Oxygen Delivery Oxygen Flow Rate 03/05/24 14:00 03/05/24 14:15 03/05/24 14:30 Temperature Pulse Rate 97 94 91 Pulse Rate [Bilateral Pedal (Dorsalis Pedis) Palpation] Pulse Rate [Left Radial Palpation] Pulse Rate [Right Radial Palpation] Respiratory Rate Blood Pressure 98/68 L 89/64 L Pulse Oximetry Oxygen Delivery Oxygen Flow Rate 03/05/24 14:45 03/05/24 14:55 03/05/24 14:45 Temperature Pulse Rate 92 Pulse Rate [Bilateral Pedal (Dorsalis Pedis) Palpation] Pulse Rate [Left Radial Palpation] Pulse Rate [Right Radial Palpation] Respiratory Rate Blood Pressure 92/57 L Pulse Oximetry 93 80 L Oxygen Delivery High Flow Therapy with Na High Flow Therapy with Na Oxygen Flow Rate 14 13 03/05/24 15:00 03/05/24 15:15 03/05/24 15:30 Temperature Pulse Rate 105 H 103 H 108 H Pulse Rate [Bilateral Pedal (Dorsalis Pedis) Palpation] Pulse Rate [Left Radial Palpation] Pulse Rate [Right Radial Palpation] Respiratory Rate Blood Pressure 98/65 L 107/64 100/62 Pulse Oximetry Oxygen Delivery Oxygen Flow Rate 03/05/24 15:45 03/05/24 15:54 03/05/24 16:00 Temperature Pulse Rate 109 H 104 H Pulse Rate [Bilateral Pedal (Dorsalis Pedis) Palpation] Pulse Rate [Left Radial Palpation] Pulse Rate [Right Radial Palpation] Respiratory Rate Blood Pressure 118/76 96/57 L Pulse Oximetry 88 L Oxygen Delivery High Flow Therapy with Na Oxygen Flow Rate 15 03/05/24 16:00 03/05/24 16:00 03/05/24 16:16 Temperature 37.6 C H Pulse Rate 103 H 103 H Pulse Rate [Bilateral Pedal (Dorsalis Pedis) Palpation] 103 H Pulse Rate [Left Radial Palpation] 103 H Pulse Rate [Right Radial Palpation] 103 H Respiratory Rate 24 H Blood Pressure 96/57 L 110/68 Pulse Oximetry 93 Oxygen Delivery Oxygen Flow Rate 03/05/24 16:30 03/05/24 16:45 03/05/24 16:45 Temperature Pulse Rate 104 H 104 H Pulse Rate [Bilateral Pedal (Dorsalis Pedis) Palpation] Pulse Rate [Left Radial Palpation] Pulse Rate [Right Radial Palpation] Respiratory Rate Blood Pressure 106/68 105/69 Pulse Oximetry 98 Oxygen Delivery High Flow Therapy with Na Oxygen Flow Rate 14 03/05/24 16:00 03/05/24 17:01 03/05/24 17:19 Temperature Pulse Rate 105 H 109 H 87 Pulse Rate [Bilateral Pedal (Dorsalis Pedis) Palpation] Pulse Rate [Left Radial Palpation] Pulse Rate [Right Radial Palpation] Respiratory Rate Blood Pressure 94/57 L 96/57 L Pulse Oximetry Oxygen Delivery Oxygen Flow Rate 03/05/24 17:30 03/05/24 17:37 03/05/24 17:45 Temperature Pulse Rate 95 94 Pulse Rate [Bilateral Pedal (Dorsalis Pedis) Palpation] Pulse Rate [Left Radial Palpation] Pulse Rate [Right Radial Palpation] Respiratory Rate Blood Pressure 110/60 Pulse Oximetry 96 Oxygen Delivery High Flow Therapy with Na Oxygen Flow Rate 13 03/05/24 17:45 03/05/24 17:47 03/05/24 18:00 Temperature 37.7 C H Pulse Rate 94 107 H 95 Pulse Rate [Bilateral Pedal (Dorsalis Pedis) Palpation] Pulse Rate [Left Radial Palpation] Pulse Rate [Right Radial Palpation] Respiratory Rate 28 H Blood Pressure 101/66 101/66 92/61 L Pulse Oximetry 95 Oxygen Delivery Oxygen Flow Rate 03/05/24 18:15 03/05/24 18:30 03/05/24 18:45 Temperature Pulse Rate 88 90 98 Pulse Rate [Bilateral Pedal (Dorsalis Pedis) Palpation] Pulse Rate [Left Radial Palpation] Pulse Rate [Right Radial Palpation] Respiratory Rate Blood Pressure 87/66 L 92/59 L 96/62 L Pulse Oximetry Oxygen Delivery Oxygen Flow Rate 03/05/24 19:01 03/05/24 19:30 03/05/24 19:45 Temperature Pulse Rate 90 102 H 101 H Pulse Rate [Bilateral Pedal (Dorsalis Pedis) Palpation] Pulse Rate [Left Radial Palpation] Pulse Rate [Right Radial Palpation] Respiratory Rate Blood Pressure 91/63 L 104/70 102/61 Pulse Oximetry Oxygen Delivery Oxygen Flow Rate 03/05/24 20:00 03/05/24 20:00 03/05/24 21:00 Temperature 37.6 C 37.5 C Pulse Rate 98 97 101 H Pulse Rate [Bilateral Pedal (Dorsalis Pedis) Palpation] Pulse Rate [Left Radial Palpation] Pulse Rate [Right Radial Palpation] Respiratory Rate 23 H 31 H Blood Pressure 99/58 L 99/58 L 89/61 L Pulse Oximetry 94 92 Oxygen Delivery Oxygen Flow Rate 03/05/24 22:00 03/05/24 20:00 03/05/24 20:00 Temperature Pulse Rate 95 97 Pulse Rate [Bilateral Pedal (Dorsalis Pedis) Palpation] Pulse Rate [Left Radial Palpation] Pulse Rate [Right Radial Palpation] Respiratory Rate Blood Pressure 96/61 L Pulse Oximetry 97 Oxygen Delivery High Flow Therapy with Na Oxygen Flow Rate 13 03/05/24 22:00 03/05/24 22:00 03/05/24 23:00 Temperature 37.4 C 37.5 C Pulse Rate 95 95 94 Pulse Rate [Bilateral Pedal (Dorsalis Pedis) Palpation] Pulse Rate [Left Radial Palpation] Pulse Rate [Right Radial Palpation] Respiratory Rate 26 H 23 H Blood Pressure 96/61 L 100/60 Pulse Oximetry 96 99 Oxygen Delivery Oxygen Flow Rate 03/05/24 23:43 03/06/24 00:00 03/06/24 00:00 Temperature Pulse Rate 110 H Pulse Rate [Bilateral Pedal (Dorsalis Pedis) Palpation] Pulse Rate [Left Radial Palpation] Pulse Rate [Right Radial Palpation] Respiratory Rate Blood Pressure 97/58 L Pulse Oximetry 98 95 Oxygen Delivery Non-Rebreather Mask Non-Rebreather Mask Oxygen Flow Rate 15 15 03/06/24 00:00 03/06/24 00:15 03/06/24 00:30 Temperature 37.4 C 37.4 C 37.4 C Pulse Rate 104 H 99 99 Pulse Rate [Bilateral Pedal (Dorsalis Pedis) Palpation] Pulse Rate [Left Radial Palpation] Pulse Rate [Right Radial Palpation] Respiratory Rate 28 H 25 H 29 H Blood Pressure 97/58 L 107/63 97/48 L Pulse Oximetry 95 97 100 Oxygen Delivery Oxygen Flow Rate 03/06/24 00:45 03/06/24 01:00 03/06/24 00:00 Temperature 37.4 C 37.4 C Pulse Rate 101 H 108 H 104 H Pulse Rate [Bilateral Pedal (Dorsalis Pedis) Palpation] Pulse Rate [Left Radial Palpation] Pulse Rate [Right Radial Palpation] Respiratory Rate 26 H 22 H Blood Pressure 100/60 103/63 Pulse Oximetry 93 97 Oxygen Delivery Oxygen Flow Rate 03/06/24 02:00 03/06/24 02:00 03/06/24 01:15 Temperature 37.4 C Pulse Rate 97 101 H 89 Pulse Rate [Bilateral Pedal (Dorsalis Pedis) Palpation] Pulse Rate [Left Radial Palpation] Pulse Rate [Right Radial Palpation] Respiratory Rate 26 H Blood Pressure 93/62 L 104/62 Pulse Oximetry 99 Oxygen Delivery Oxygen Flow Rate 03/06/24 01:30 03/06/24 01:45 03/06/24 02:00 Temperature 37.5 C 37.5 C 37.5 C Pulse Rate 97 97 101 H Pulse Rate [Bilateral Pedal (Dorsalis Pedis) Palpation] Pulse Rate [Left Radial Palpation] Pulse Rate [Right Radial Palpation] Respiratory Rate 24 H 27 H 23 H Blood Pressure 96/67 L 92/62 L 93/62 L Pulse Oximetry 98 100 97 Oxygen Delivery Oxygen Flow Rate 03/06/24 03:52 03/06/24 04:00 03/06/24 04:00 Temperature 37.5 C Pulse Rate 110 H 110 H Pulse Rate [Bilateral Pedal (Dorsalis Pedis) Palpation] Pulse Rate [Left Radial Palpation] Pulse Rate [Right Radial Palpation] Respiratory Rate 24 H Blood Pressure 111/66 111/66 Pulse Oximetry 100 99 Oxygen Delivery Non-Rebreather Mask Oxygen Flow Rate 03/06/24 04:00 03/06/24 06:00 03/06/24 06:00 Temperature Pulse Rate 110 H 99 98 Pulse Rate [Bilateral Pedal (Dorsalis Pedis) Palpation] Pulse Rate [Left Radial Palpation] Pulse Rate [Right Radial Palpation] Respiratory Rate Blood Pressure 102/64 Pulse Oximetry Oxygen Delivery Oxygen Flow Rate 03/06/24 06:00 03/06/24 08:00 03/06/24 08:00 Temperature 37.4 C Pulse Rate 98 100 Pulse Rate [Bilateral Pedal (Dorsalis Pedis) Palpation] Pulse Rate [Left Radial Palpation] Pulse Rate [Right Radial Palpation] Respiratory Rate 24 H Blood Pressure 102/64 Pulse Oximetry 98 99 Oxygen Delivery Non-Rebreather Mask Oxygen Flow Rate 11 03/06/24 08:00 03/06/24 10:00 03/06/24 10:00 Temperature 37.4 C 37.3 C Pulse Rate 108 H 106 H 106 H Pulse Rate [Bilateral Pedal (Dorsalis Pedis) Palpation] Pulse Rate [Left Radial Palpation] Pulse Rate [Right Radial Palpation] Respiratory Rate 26 H 30 H Blood Pressure 110/69 100/58 L Pulse Oximetry 93 94 Oxygen Delivery Oxygen Flow Rate 03/06/24 11:19 03/06/24 08:00 03/06/24 10:00 Temperature 37.6 C Pulse Rate 112 H 105 H 106 H Pulse Rate [Bilateral Pedal (Dorsalis Pedis) Palpation] Pulse Rate [Left Radial Palpation] Pulse Rate [Right Radial Palpation] Respiratory Rate 26 H Blood Pressure 103/70 105/68 100/58 L Pulse Oximetry 96 Oxygen Delivery Oxygen Flow Rate 03/06/24 11:34 Temperature 37.6 C Pulse Rate 105 H Pulse Rate [Bilateral Pedal (Dorsalis Pedis) Palpation] Pulse Rate [Left Radial Palpation] Pulse Rate [Right Radial Palpation] Respiratory Rate 26 H Blood Pressure 99/61 L Pulse Oximetry 97 Oxygen Delivery Oxygen Flow Rate Intake/Output Intake/Output: Intake & Output 03/03/24 03/04/24 03/05/24 03/06/24 23:59 23:59 23:59 23:59 Intake Total 462.1 2018.9 305.5 Output Total 225 300 700 Balance 237.1 1718.9 -394.5 Meds/Results Medications: Active Medications Generic Name Dose Route Start Last Admin Trade Name Freq PRN Reason Stop Dose Admin Acetaminophen 650 mg 03/04/24 08:53 03/05/24 14:41 Acetaminophen 325 Mg Tablet PO 650 mg Q6H PRN Administration Mild Pain (1-3) or Fever Aspirin 81 mg 03/04/24 09:00 03/06/24 09:22 Aspirin 81 Mg Enteric Tablet PO 81 mg DAILY BONY Administration Atorvastatin Calcium 40 mg 03/04/24 09:00 03/06/24 09:22 Atorvastatin 40 Mg Tablet PO 40 mg DAILY BONY Administration Clopidogrel Bisulfate 75 mg 03/04/24 09:00 03/06/24 09:22 Clopidogrel Bisulfate 75 Mg Tablet PO 75 mg DAILY BONY Administration Dextrose 12.5 gm 03/04/24 09:24 Dextrose 50% 25 Gm/50 Ml Syringe IV PUSH PRN PRN Hypoglycemia Protocol Enoxaparin Sodium 30 mg 03/06/24 09:00 03/06/24 08:45 Enoxaparin 30 Mg/0.3 Ml Syringe SUB-Q Not Given DAILY BONY Glucagon 1 mg 03/04/24 09:24 Glucagon For Inj 1 Mg Vial IM PRN PRN Hypoglycemia Protocol Glucose 15 gm 03/04/24 09:24 Glucose Oral Gel 15 Gm Of Glucse In 37.5 Gm Tube PO PRN PRN Hypoglycemia Protocol Dextrose 1,000 mls @ 100 mls/hr 03/04/24 09:24 Dextrose 5% 1,000 Ml IVPB PRN PRN Hypoglycemia Protocol Cefepime HCl 1 gm in 50 mls @ 100 mls/hr 03/04/24 09:40 03/06/24 09:53 Maxipime 1 Gm/Ns 50 Ml IVPB Infused Q12HR BONY Infusion Norepinephrine Bitartrate 8 mg in 250 mls @ 0 mls/hr 03/04/24 09:25 03/06/24 10:00 Levophed 8 Mg/D5w 250 Ml IV CONT 0 mcg/min .Q0M BONY 0 mls/hr Titration Protocol 0 MCG/MIN Sodium Chloride 250 mls @ 30 mls/hr 03/06/24 06:50 03/06/24 11:11 Normal Saline Iv IV CONT 03/06/24 15:09 0 mls/hr .Q8H20M STA Infusion Insulin Aspart 3 - 6 units 03/04/24 09:40 03/06/24 08:54 Insulin Aspart (*Bkc) 100 Units/Ml SUB-Q Not Given Q4HR [facility] Protocol Insulin Glargine 15 units 03/05/24 10:00 03/06/24 09:23 Insulin Glargine (*Bkc) 100 Units/Ml SUB-Q 15 units QAM BONY Administration Ondansetron HCl 4 mg 03/04/24 10:15 03/04/24 10:16 Ondansetron Inj 4 Mg/2 Ml Vial IV PUSH 4 mg Q4H PRN Administration Nausea And Vomiting Pantoprazole Sodium 40 mg 03/04/24 09:00 03/06/24 09:23 Pantoprazole Sodium Iv 40 Mg Vial IV PUSH 40 mg QAM BONY Administration Perflutren Lipid Microsphere 0 ml 03/04/24 08:53 Perflutren Lipid Microspheres 1.5 Ml Vial Diluted To 10 Ml Total Volume IV PUSH 03/07/24 08:57 ONCE PRN adequate visualization Protocol Sodium Chloride 10 ml 03/04/24 14:00 03/06/24 06:08 Central Line Flush IV PUSH 10 ml Q8HR BONY Administration Sodium Chloride 10 ml 03/04/24 12:31 Central Line Flush IV PUSH PRN PRN with TPN bag changes Sodium Chloride 20 ml 03/04/24 12:31 Central Line Flush IV PUSH PRN PRN after blood draws Radiology Results: ITS Impressions Renal Ultrasound 03/04/24 12:01 IMPRESSION: 1. Mild atrophy of right kidney. No hydronephrosis. Chest X-Ray 03/06/24 07:42 Impression: Extensive bilateral pulmonary consolidation and present. Correlate for severe pulmonary edema versus diffuse pneumonia. Small pleural effusions. Right-sided PICC line. Labs Labs: Laboratory Results - last 24 hr 03/05/24 03/05/24 03/05/24 12:01 12:15 12:15 WBC RBC Hgb Hct MCV MCH MCHC RDW Plt Count MPV Sodium Potassium Chloride Carbon Dioxide Anion Gap BUN Creatinine Estim Creat Clear Calc Estimated GFR Glucose POC Capillary Glucose 198 H Lactic Acid 2.6 H Calcium Magnesium Total Bilirubin AST ALT Alkaline Phosphatase Total Creatine Kinase Total Protein Albumin Urine Eosinophils None seen U Random Total Protein 23 23 Ur Random Sodium 17 Ur Random Urea 541 Urine Creatinine 140.5 Protein/Creat Ratio 2 Hep Bs Antigen Hep Bs Antibody Blood Type Antibody Screen Crossmatch 03/05/24 03/05/24 03/05/24 12:15 16:19 18:06 WBC 21.9 H RBC 2.28 L Hgb 7.0 L Hct 21.2 L MCV 93.0 MCH 30.7 MCHC 33.0 RDW 13.8 Plt Count 175 MPV 10.7 H Sodium 132 L Potassium 4.1 Chloride 97 L Carbon Dioxide 25 Anion Gap 10 BUN 34 H Creatinine 2.20 H Estim Creat Clear Calc 12 Estimated GFR 21 L Glucose 217 H POC Capillary Glucose 160 H Lactic Acid 3.7 H Calcium 8.2 L Magnesium Total Bilirubin 0.3 AST 1810 H ALT 1221 H Alkaline Phosphatase 67 Total Creatine Kinase Total Protein 6.0 L Albumin 3.3 L Urine Eosinophils U Random Total Protein Ur Random Sodium Ur Random Urea Urine Creatinine 139.4 Protein/Creat Ratio 2 0.16 Hep Bs Antigen Hep Bs Antibody Blood Type Antibody Screen Crossmatch 03/05/24 03/05/24 03/06/24 20:51 23:51 00:02 WBC 19.4 H RBC 2.29 L Hgb 7.0 L Hct 21.3 L MCV 93.0 MCH 30.6 MCHC 32.9 RDW 14.0 Plt Count 144 L MPV 10.5 H Sodium Potassium Chloride Carbon Dioxide Anion Gap BUN Creatinine Estim Creat Clear Calc Estimated GFR Glucose POC Capillary Glucose 167 H 154 H Lactic Acid Calcium Magnesium Total Bilirubin AST ALT Alkaline Phosphatase Total Creatine Kinase Total Protein Albumin Urine Eosinophils U Random Total Protein Ur Random Sodium Ur Random Urea Urine Creatinine Protein/Creat Ratio 2 Hep Bs Antigen Hep Bs Antibody Blood Type Antibody Screen Crossmatch 03/06/24 03/06/24 03/06/24 04:59 06:34 08:43 WBC 19.3 H RBC 2.24 L Hgb 6.8 L* Hct 20.8 L* MCV 92.9 MCH 30.4 MCHC 32.7 RDW 14.0 Plt Count 123 L MPV 10.6 H Sodium 134 L Potassium 4.3 Chloride 99 Carbon Dioxide 28 Anion Gap 7 BUN 36 H Creatinine 2.10 H Estim Creat Clear Calc 13 Estimated GFR 22 L Glucose 142 H POC Capillary Glucose 161 H Lactic Acid 1.0 Calcium 8.2 L Magnesium 2.4 H Total Bilirubin 0.3 AST 1137 H ALT 1092 H Alkaline Phosphatase 75 Total Creatine Kinase 1133 H Total Protein 6.0 L Albumin 3.3 L Urine Eosinophils U Random Total Protein Ur Random Sodium Ur Random Urea Urine Creatinine Protein/Creat Ratio 2 Hep Bs Antigen Negative Hep Bs Antibody Negative Blood Type O Positive Antibody Screen Negative Crossmatch See Detail
[2024-03-06 11:53] LABS: Glucose Point of Care 159 mg/dl (65-105)
--- NOTE | 2024-03-06 12:33 | WPDINTPN ---
Progress Note: A&P Assessment and Plan (1) STEMI (ST elevation myocardial infarction): Code(s): I21.3 - ST elevation (STEMI) myocardial infarction of unspecified site Status: Acute Assessment and Plan: STEMI status post stent placement in left circumflex with residual thrombus -continue Aspirin, statin, Plavix -cardiology following the patient. Status post Eptifibatide infusion and heparin infusion post cardiac catheterization Patient is chest pain-free Transvenous pacing as below Currently off all pressors. 03/05/2024: Echocardiogram Summary 1. Complete two-dimensional, color flow and Doppler transthoracic echocardiogram is performed. 2. The left ventricle is normal size with mildly reduced systolic function. The LVEF is estimated to be 40-45%. 3. The anterolateral, inferior, and inferolateral ceron are severely hypokinetic. 4. The right ventricle is normal size and systolic function. 5. Linear artifact in right ventricle suggestive of catheter(s), pacemaker lead(s), or ICD lead(s). 6. The aortic valve is bileaflet and opens well. There is no aortic regurgitation. 7. The mitral valve leaflets are thickened and sclerotic. There is moderate mitral regurgitatio (2) Cardiogenic shock: Code(s): R57.0 - Cardiogenic shock Status: Acute Assessment and Plan: Patient currently has cardiogenic shock likely secondary to STEMI Echo as above Off vasopressor Off dopamine -Transvenous pacing as below -lactic acid has resolved -off IV fluids (3) Third degree AV block: Code(s): I44.2 - Atrioventricular block, complete Status: Acute Assessment and Plan: Patient presented with complete heart block and had a placement of transvenous pacemaker which is set at rate of 100 initially. In the ICU as the hemodynamics improved patient's rate was gradually dropped to 90 and then 80. 03/05: This morning patient is sinus tach I have changed the transvenous pacing rate to 50 as a backup patient is in her intrinsic sinus rhythm. -patient has not required transvenous pacing since since the morning of 03/05/2024, discussed with assistant merchandise manager, transvenous temporary pacer was removed (4) Acute respiratory failure: Code(s): J96.00 - Acute respiratory failure, unspecified whether with hypoxia or hypercapnia Status: Acute Assessment and Plan: Patient has history of lung cancer and now also has pulmonary edema Pneumonia is also a possibility but very unlikely considering the presentation 03/04: Blood cultures are negative x2 Continue supplemental oxygen high-flow nasal cannula -03/06: patient received Lasix this morning., will monitor urine output, may repeat another does later today to offload her lungs -high-flow therapy or NIPPV if required (5) Cardiomyopathy: Code(s): I42.9 - Cardiomyopathy, unspecified Status: Acute Assessment and Plan: Echo as above, will hold heart failure GDMT per Cardiology given her acute kidney injury and recent vasopressor use (6) Lung cancer: Code(s): C34.90 - Malignant neoplasm of unspecified part of unspecified bronchus or lung Status: Acute Assessment and Plan: Patient has stage IV lung cancer and was just started on chemotherapy. Have requested records from [facility] (7) Diabetes: Code(s): E11.9 - Type 2 diabetes mellitus without complications Status: Acute Assessment and Plan: Continue Lantus and Sliding scale ordered Resume diet (8) Acidosis: Code(s): E87.20 - Acidosis, unspecified Status: Acute Assessment and Plan: Metabolic acidosis secondary to his shock and acute kidney injury Status post bicarb -lactic acidosis has resolved (9) Sepsis: Code(s): A41.9 - Sepsis, unspecified organism Status: Acute Assessment and Plan: Although it appears that the shock is cardiogenic and patient has lung cancer patient does meet criteria for sepsis Low procalcitonin level Blood cultures are negative x2 Patient was started on Empiric cefepime and vancomycin, 03/04 -vancomycin was discontinued Lactic acids have normalized (10) Acute kidney injury: Code(s): N17.9 - Acute kidney failure, unspecified Status: Acute Assessment and Plan: Baseline creatinine unknown. Presented with creatinine elevated at 1.5 which has now increased 2.1 This likely combination of shock and rhabdomyolysis,, contrast from coronary angiogram Patient could not be given liberal IV fluids due to pulmonary edema and congestive heart failure Monitor CK level Off IV fluid 03/04: Renal ultrasound with mild atrophy of right kidney, no hydronephrosis Maintain adequate mean arterial pressures for end-organ perfusion Monitor urine output electrolytes and creatinine Appreciate nephrology following the patient -patient was diuresed this morning, will monitor urine output and repeat diuresis if required dated today (11) Anemia: Code(s): D64.9 - Anemia, unspecified Status: Acute Assessment and Plan: Anemia could be multifactorial -hemoglobin 6.8 this morning on 03/06 -will receive 1 unit of packed RBCs -will check iron panel, stool Hemoccult Plan DVT prophylaxis -off heparin infusion due to anemia, SCDs Stress ulcer prophylaxis -PPI Nutrition -heart healthy diet Code Status -DNR/DNI per Cardiology discussion with the patient Total Critical Care Time - 34 minutes -discussed with patient and her daughter at bedside updated on patient's condition and plan of care. I answered all questions Due to a high probability of clinically significant, life threatening deterioration, the patient required my highest level of preparedness to intervene emergently and I personally spent this critical care time directly and personally managing the patient. This critical care time included obtaining a history; examining the patient; pulse oximetry; ordering and review of studies; arranging urgent treatment with development of a management plan; evaluation of patient's response to treatment; frequent reassessment; and discussions with other providers. It was exclusive of separately billable procedures and treating other patients and teaching time. Please see Assessment and Plan section and the rest of the note for further information on patient assessment and treatment Subjective Date/time seen: 03/06/24 12:33 Interval history: Reason for consult: STEMI status post VINICIUS x1 to proximal left circumflex with some residual thrombus in the mid left circumflex artery, , rhabdomyolysis, high-grade AV block requiring temporary pacemaker, pulmonary edema, acute kidney injury 03/06/2024: Patient seen and examined the ICU, is awake, alert and, requiring 10-11 L of high-flow oxygen via nasal cannula. Patient with sinus tachycardia, not requiring temporary transvenous pacer. Urine output is decreased, patient is afebrile, hemodynamically stable, off pressors. Dropped her hemoglobin to 6.8 this morning Review of Systems Review of Systems: All systems reviewed & are unremarkable except as noted in HPI and below (HPI) Exam Narrative: General: Old frail female who is alert awake in mild respiratory distress Lungs/Chest: Trachea central Clear BS B/L, bilateral crackles and wheezing Cardiac: Tachycardic Normal S1 S2. No murmurs Circulation: Pedal pulses are intact and symmetrical. Right radial site with no ecchymosis or hematoma, right radial pulse is palpable Abdomen: Normal bowel sounds.. Soft. NT. ND. Extremities: No clubbing, cyanosis or edema. Warm, transvenous pacemaker in right femoral area : Lyn in place Neurologic: Follows commands. Moves all 4 extremities PERRL AO x3 Skin: No Rash Objective Data Vital Signs Vital Signs: Vital Signs - 24 hr 03/05/24 12:49 03/05/24 13:01 03/05/24 13:20 Temperature Pulse Rate 109 H 105 H 104 H Pulse Rate [Bilateral Pedal (Dorsalis Pedis) Palpation] Pulse Rate [Left Radial Palpation] Pulse Rate [Right Radial Palpation] Respiratory Rate Blood Pressure 105/69 107/66 114/65 Pulse Oximetry Oxygen Delivery Oxygen Flow Rate 03/05/24 13:33 03/05/24 13:36 03/05/24 13:45 Temperature Pulse Rate 104 H 103 H Pulse Rate [Bilateral Pedal (Dorsalis Pedis) Palpation] Pulse Rate [Left Radial Palpation] Pulse Rate [Right Radial Palpation] Respiratory Rate Blood Pressure 111/70 108/67 Pulse Oximetry 96 Oxygen Delivery High Flow Therapy with Na Oxygen Flow Rate 13 03/05/24 14:00 03/05/24 14:00 03/05/24 14:00 Temperature 100.0 F H Pulse Rate 98 92 97 Pulse Rate [Bilateral Pedal (Dorsalis Pedis) Palpation] Pulse Rate [Left Radial Palpation] Pulse Rate [Right Radial Palpation] Respiratory Rate 26 H Blood Pressure 102/65 102/65 Pulse Oximetry 92 Oxygen Delivery Oxygen Flow Rate 03/05/24 14:15 03/05/24 14:30 03/05/24 14:45 Temperature Pulse Rate 94 91 92 Pulse Rate [Bilateral Pedal (Dorsalis Pedis) Palpation] Pulse Rate [Left Radial Palpation] Pulse Rate [Right Radial Palpation] Respiratory Rate Blood Pressure 98/68 L 89/64 L 92/57 L Pulse Oximetry Oxygen Delivery Oxygen Flow Rate 03/05/24 14:55 03/05/24 14:45 03/05/24 15:00 Temperature Pulse Rate 105 H Pulse Rate [Bilateral Pedal (Dorsalis Pedis) Palpation] Pulse Rate [Left Radial Palpation] Pulse Rate [Right Radial Palpation] Respiratory Rate Blood Pressure 98/65 L Pulse Oximetry 93 80 L Oxygen Delivery High Flow Therapy with Na High Flow Therapy with Na Oxygen Flow Rate 14 13 03/05/24 15:15 03/05/24 15:30 03/05/24 15:45 Temperature Pulse Rate 103 H 108 H 109 H Pulse Rate [Bilateral Pedal (Dorsalis Pedis) Palpation] Pulse Rate [Left Radial Palpation] Pulse Rate [Right Radial Palpation] Respiratory Rate Blood Pressure 107/64 100/62 118/76 Pulse Oximetry Oxygen Delivery Oxygen Flow Rate 03/05/24 15:54 03/05/24 16:00 03/05/24 16:00 Temperature Pulse Rate 104 H Pulse Rate [Bilateral Pedal (Dorsalis Pedis) Palpation] 103 H Pulse Rate [Left Radial Palpation] 103 H Pulse Rate [Right Radial Palpation] 103 H Respiratory Rate Blood Pressure 96/57 L Pulse Oximetry 88 L Oxygen Delivery High Flow Therapy with Na Oxygen Flow Rate 15 03/05/24 16:00 03/05/24 16:16 03/05/24 16:30 Temperature 99.7 F H Pulse Rate 103 H 103 H 104 H Pulse Rate [Bilateral Pedal (Dorsalis Pedis) Palpation] Pulse Rate [Left Radial Palpation] Pulse Rate [Right Radial Palpation] Respiratory Rate 24 H Blood Pressure 96/57 L 110/68 106/68 Pulse Oximetry 93 Oxygen Delivery Oxygen Flow Rate 03/05/24 16:45 03/05/24 16:45 03/05/24 16:00 Temperature Pulse Rate 104 H 105 H Pulse Rate [Bilateral Pedal (Dorsalis Pedis) Palpation] Pulse Rate [Left Radial Palpation] Pulse Rate [Right Radial Palpation] Respiratory Rate Blood Pressure 105/69 Pulse Oximetry 98 Oxygen Delivery High Flow Therapy with Na Oxygen Flow Rate 14 03/05/24 17:01 03/05/24 17:19 03/05/24 17:30 Temperature Pulse Rate 109 H 87 95 Pulse Rate [Bilateral Pedal (Dorsalis Pedis) Palpation] Pulse Rate [Left Radial Palpation] Pulse Rate [Right Radial Palpation] Respiratory Rate Blood Pressure 94/57 L 96/57 L 110/60 Pulse Oximetry Oxygen Delivery Oxygen Flow Rate 03/05/24 17:37 03/05/24 17:45 03/05/24 17:45 Temperature 99.8 F H Pulse Rate 94 94 Pulse Rate [Bilateral Pedal (Dorsalis Pedis) Palpation] Pulse Rate [Left Radial Palpation] Pulse Rate [Right Radial Palpation] Respiratory Rate 28 H Blood Pressure 101/66 Pulse Oximetry 96 95 Oxygen Delivery High Flow Therapy with Na Oxygen Flow Rate 13 03/05/24 17:47 03/05/24 18:00 03/05/24 18:15 Temperature Pulse Rate 107 H 95 88 Pulse Rate [Bilateral Pedal (Dorsalis Pedis) Palpation] Pulse Rate [Left Radial Palpation] Pulse Rate [Right Radial Palpation] Respiratory Rate Blood Pressure 101/66 92/61 L 87/66 L Pulse Oximetry Oxygen Delivery Oxygen Flow Rate 03/05/24 18:30 03/05/24 18:45 03/05/24 19:01 Temperature Pulse Rate 90 98 90 Pulse Rate [Bilateral Pedal (Dorsalis Pedis) Palpation] Pulse Rate [Left Radial Palpation] Pulse Rate [Right Radial Palpation] Respiratory Rate Blood Pressure 92/59 L 96/62 L 91/63 L Pulse Oximetry Oxygen Delivery Oxygen Flow Rate 03/05/24 19:30 03/05/24 19:45 03/05/24 20:00 Temperature Pulse Rate 102 H 101 H 98 Pulse Rate [Bilateral Pedal (Dorsalis Pedis) Palpation] Pulse Rate [Left Radial Palpation] Pulse Rate [Right Radial Palpation] Respiratory Rate Blood Pressure 104/70 102/61 99/58 L Pulse Oximetry Oxygen Delivery Oxygen Flow Rate 03/05/24 20:00 03/05/24 21:00 03/05/24 22:00 Temperature 99.6 F 99.5 F Pulse Rate 97 101 H 95 Pulse Rate [Bilateral Pedal (Dorsalis Pedis) Palpation] Pulse Rate [Left Radial Palpation] Pulse Rate [Right Radial Palpation] Respiratory Rate 23 H 31 H Blood Pressure 99/58 L 89/61 L 96/61 L Pulse Oximetry 94 92 Oxygen Delivery Oxygen Flow Rate 03/05/24 20:00 03/05/24 20:00 03/05/24 22:00 Temperature Pulse Rate 97 95 Pulse Rate [Bilateral Pedal (Dorsalis Pedis) Palpation] Pulse Rate [Left Radial Palpation] Pulse Rate [Right Radial Palpation] Respiratory Rate Blood Pressure Pulse Oximetry 97 Oxygen Delivery High Flow Therapy with Na Oxygen Flow Rate 13 03/05/24 22:00 03/05/24 23:00 03/05/24 23:43 Temperature 99.4 F 99.5 F Pulse Rate 95 94 Pulse Rate [Bilateral Pedal (Dorsalis Pedis) Palpation] Pulse Rate [Left Radial Palpation] Pulse Rate [Right Radial Palpation] Respiratory Rate 26 H 23 H Blood Pressure 96/61 L 100/60 Pulse Oximetry 96 99 98 Oxygen Delivery Non-Rebreather Mask Oxygen Flow Rate 15 03/06/24 00:00 03/06/24 00:00 03/06/24 00:00 Temperature 99.4 F Pulse Rate 110 H 104 H Pulse Rate [Bilateral Pedal (Dorsalis Pedis) Palpation] Pulse Rate [Left Radial Palpation] Pulse Rate [Right Radial Palpation] Respiratory Rate 28 H Blood Pressure 97/58 L 97/58 L Pulse Oximetry 95 95 Oxygen Delivery Non-Rebreather Mask Oxygen Flow Rate 15 03/06/24 00:15 03/06/24 00:30 03/06/24 00:45 Temperature 99.3 F 99.4 F 99.4 F Pulse Rate 99 99 101 H Pulse Rate [Bilateral Pedal (Dorsalis Pedis) Palpation] Pulse Rate [Left Radial Palpation] Pulse Rate [Right Radial Palpation] Respiratory Rate 25 H 29 H 26 H Blood Pressure 107/63 97/48 L 100/60 Pulse Oximetry 97 100 93 Oxygen Delivery Oxygen Flow Rate 03/06/24 01:00 03/06/24 00:00 03/06/24 02:00 Temperature 99.4 F Pulse Rate 108 H 104 H 97 Pulse Rate [Bilateral Pedal (Dorsalis Pedis) Palpation] Pulse Rate [Left Radial Palpation] Pulse Rate [Right Radial Palpation] Respiratory Rate 22 H Blood Pressure 103/63 93/62 L Pulse Oximetry 97 Oxygen Delivery Oxygen Flow Rate 03/06/24 02:00 03/06/24 01:15 03/06/24 01:30 Temperature 99.4 F 99.5 F Pulse Rate 101 H 89 97 Pulse Rate [Bilateral Pedal (Dorsalis Pedis) Palpation] Pulse Rate [Left Radial Palpation] Pulse Rate [Right Radial Palpation] Respiratory Rate 26 H 24 H Blood Pressure 104/62 96/67 L Pulse Oximetry 99 98 Oxygen Delivery Oxygen Flow Rate 03/06/24 01:45 03/06/24 02:00 03/06/24 03:52 Temperature 99.5 F 99.5 F Pulse Rate 97 101 H Pulse Rate [Bilateral Pedal (Dorsalis Pedis) Palpation] Pulse Rate [Left Radial Palpation] Pulse Rate [Right Radial Palpation] Respiratory Rate 27 H 23 H Blood Pressure 92/62 L 93/62 L Pulse Oximetry 100 97 100 Oxygen Delivery Non-Rebreather Mask Oxygen Flow Rate 15 03/06/24 04:00 03/06/24 04:00 03/06/24 04:00 Temperature 99.5 F Pulse Rate 110 H 110 H 110 H Pulse Rate [Bilateral Pedal (Dorsalis Pedis) Palpation] Pulse Rate [Left Radial Palpation] Pulse Rate [Right Radial Palpation] Respiratory Rate 24 H Blood Pressure 111/66 111/66 Pulse Oximetry 99 Oxygen Delivery Oxygen Flow Rate 03/06/24 06:00 03/06/24 06:00 03/06/24 06:00 Temperature 99.3 F Pulse Rate 99 98 98 Pulse Rate [Bilateral Pedal (Dorsalis Pedis) Palpation] Pulse Rate [Left Radial Palpation] Pulse Rate [Right Radial Palpation] Respiratory Rate 24 H Blood Pressure 102/64 102/64 Pulse Oximetry 98 Oxygen Delivery Oxygen Flow Rate 03/06/24 08:00 03/06/24 08:00 03/06/24 08:00 Temperature 99.3 F Pulse Rate 100 108 H Pulse Rate [Bilateral Pedal (Dorsalis Pedis) Palpation] Pulse Rate [Left Radial Palpation] Pulse Rate [Right Radial Palpation] Respiratory Rate 26 H Blood Pressure 110/69 Pulse Oximetry 99 93 Oxygen Delivery Non-Rebreather Mask Oxygen Flow Rate 11 03/06/24 10:00 03/06/24 10:00 03/06/24 11:19 Temperature 99.1 F 99.6 F Pulse Rate 106 H 106 H 112 H Pulse Rate [Bilateral Pedal (Dorsalis Pedis) Palpation] Pulse Rate [Left Radial Palpation] Pulse Rate [Right Radial Palpation] Respiratory Rate 30 H 26 H Blood Pressure 100/58 L 103/70 Pulse Oximetry 94 96 Oxygen Delivery Oxygen Flow Rate 03/06/24 08:00 03/06/24 10:00 03/06/24 11:34 Temperature 99.6 F Pulse Rate 105 H 106 H 105 H Pulse Rate [Bilateral Pedal (Dorsalis Pedis) Palpation] Pulse Rate [Left Radial Palpation] Pulse Rate [Right Radial Palpation] Respiratory Rate 26 H Blood Pressure 105/68 100/58 L 99/61 L Pulse Oximetry 97 Oxygen Delivery Oxygen Flow Rate 03/06/24 11:54 Temperature Pulse Rate 113 H Pulse Rate [Bilateral Pedal (Dorsalis Pedis) Palpation] Pulse Rate [Left Radial Palpation] Pulse Rate [Right Radial Palpation] Respiratory Rate Blood Pressure 112/68 Pulse Oximetry Oxygen Delivery Oxygen Flow Rate Intake/Output Intake/Output: Intake & Output 03/03/24 03/04/24 03/05/24 03/06/24 23:59 23:59 23:59 23:59 Intake Total 462.1 2018.9 305.5 Output Total 225 300 700 Balance 237.1 1718.9 -394.5 Meds/Results Medications: Active Medications Generic Name Dose Route Start Last Admin Trade Name Freq PRN Reason Stop Dose Admin Acetaminophen 650 mg 03/04/24 08:53 03/05/24 14:41 Acetaminophen 325 Mg Tablet PO 650 mg Q6H PRN Administration Mild Pain (1-3) or Fever Aspirin 81 mg 03/04/24 09:00 03/06/24 09:22 Aspirin 81 Mg Enteric Tablet PO 81 mg DAILY BONY Administration Atorvastatin Calcium 40 mg 03/04/24 09:00 03/06/24 09:22 Atorvastatin 40 Mg Tablet PO 40 mg DAILY BONY Administration Clopidogrel Bisulfate 75 mg 03/04/24 09:00 03/06/24 09:22 Clopidogrel Bisulfate 75 Mg Tablet PO 75 mg DAILY BONY Administration Dextrose 12.5 gm 03/04/24 09:24 Dextrose 50% 25 Gm/50 Ml Syringe IV PUSH PRN PRN Hypoglycemia Protocol Enoxaparin Sodium 30 mg 03/06/24 09:00 03/06/24 08:45 Enoxaparin 30 Mg/0.3 Ml Syringe SUB-Q Not Given DAILY BONY Glucagon 1 mg 03/04/24 09:24 Glucagon For Inj 1 Mg Vial IM PRN PRN Hypoglycemia Protocol Glucose 15 gm 03/04/24 09:24 Glucose Oral Gel 15 Gm Of Glucse In 37.5 Gm Tube PO PRN PRN Hypoglycemia Protocol Dextrose 1,000 mls @ 100 mls/hr 03/04/24 09:24 Dextrose 5% 1,000 Ml IVPB PRN PRN Hypoglycemia Protocol Cefepime HCl 1 gm in 50 mls @ 100 mls/hr 03/04/24 09:40 03/06/24 09:53 Maxipime 1 Gm/Ns 50 Ml IVPB Infused Q12HR BONY Infusion Norepinephrine Bitartrate 8 mg in 250 mls @ 0 mls/hr 03/04/24 09:25 03/06/24 11:54 Levophed 8 Mg/D5w 250 Ml IV CONT 0 mcg/min .Q0M BONY 0 mls/hr Titration Protocol 0 MCG/MIN Sodium Chloride 250 mls @ 30 mls/hr 03/06/24 06:50 03/06/24 11:11 Normal Saline Iv IV CONT 03/06/24 15:09 0 mls/hr .Q8H20M STA Infusion Insulin Aspart 3 - 6 units 03/04/24 09:40 03/06/24 11:53 Insulin Aspart (*Bkc) 100 Units/Ml SUB-Q Not Given Q4HR BONY Protocol Insulin Glargine 15 units 03/05/24 10:00 03/06/24 09:23 Insulin Glargine (*Bkc) 100 Units/Ml SUB-Q 15 units QAM BONY Administration Ondansetron HCl 4 mg 03/04/24 10:15 03/04/24 10:16 Ondansetron Inj 4 Mg/2 Ml Vial IV PUSH 4 mg Q4H PRN Administration Nausea And Vomiting Pantoprazole Sodium 40 mg 03/04/24 09:00 03/06/24 09:23 Pantoprazole Sodium Iv 40 Mg Vial IV PUSH 40 mg QAM BONY Administration Perflutren Lipid Microsphere 0 ml 03/04/24 08:53 Perflutren Lipid Microspheres 1.5 Ml Vial Diluted To 10 Ml Total Volume IV PUSH 03/07/24 08:57 ONCE PRN adequate visualization Protocol Sodium Chloride 10 ml 03/04/24 14:00 03/06/24 06:08 Central Line Flush IV PUSH 10 ml Q8HR BONY Administration Sodium Chloride 10 ml 03/04/24 12:31 Central Line Flush IV PUSH PRN PRN with TPN bag changes Sodium Chloride 20 ml 03/04/24 12:31 Central Line Flush IV PUSH PRN PRN after blood draws Radiology Results: ITS Impressions Renal Ultrasound 03/04/24 12:01 IMPRESSION: 1. Mild atrophy of right kidney. No hydronephrosis. Chest X-Ray 03/06/24 07:42 Impression: Extensive bilateral pulmonary consolidation and present. Correlate for severe pulmonary edema versus diffuse pneumonia. Small pleural effusions. Right-sided PICC line. Labs Labs: Laboratory Results - last 24 hr 03/05/24 03/05/24 03/05/24 12:15 12:15 12:15 WBC RBC Hgb Hct MCV MCH MCHC RDW Plt Count MPV Sodium Potassium Chloride Carbon Dioxide Anion Gap BUN Creatinine Estim Creat Clear Calc Estimated GFR Glucose POC Capillary Glucose Lactic Acid 2.6 H Calcium Magnesium Total Bilirubin AST ALT Alkaline Phosphatase Total Creatine Kinase Total Protein Albumin Urine Eosinophils None seen U Random Total Protein 23 23 Ur Random Sodium 17 Ur Random Urea 541 Urine Creatinine 140.5 139.4 Protein/Creat Ratio 2 0.16 Hep Bs Antigen Hep Bs Antibody Blood Type Antibody Screen Crossmatch 03/05/24 03/05/24 03/05/24 16:19 18:06 20:51 WBC 21.9 H RBC 2.28 L Hgb 7.0 L Hct 21.2 L MCV 93.0 MCH 30.7 MCHC 33.0 RDW 13.8 Plt Count 175 MPV 10.7 H Sodium 132 L Potassium 4.1 Chloride 97 L Carbon Dioxide 25 Anion Gap 10 BUN 34 H Creatinine 2.20 H Estim Creat Clear Calc 12 Estimated GFR 21 L Glucose 217 H POC Capillary Glucose 160 H 167 H Lactic Acid 3.7 H Calcium 8.2 L Magnesium Total Bilirubin 0.3 AST 1810 H ALT 1221 H Alkaline Phosphatase 67 Total Creatine Kinase Total Protein 6.0 L Albumin 3.3 L Urine Eosinophils U Random Total Protein Ur Random Sodium Ur Random Urea Urine Creatinine Protein/Creat Ratio 2 Hep Bs Antigen Hep Bs Antibody Blood Type Antibody Screen Crossmatch 03/05/24 03/06/24 03/06/24 23:51 00:02 04:59 WBC 19.4 H 19.3 H RBC 2.29 L 2.24 L Hgb 7.0 L 6.8 L* Hct 21.3 L 20.8 L* MCV 93.0 92.9 MCH 30.6 30.4 MCHC 32.9 32.7 RDW 14.0 14.0 Plt Count 144 L 123 L MPV 10.5 H 10.6 H Sodium 134 L Potassium 4.3 Chloride 99 Carbon Dioxide 28 Anion Gap 7 BUN 36 H Creatinine 2.10 H Estim Creat Clear Calc 13 Estimated GFR 22 L Glucose 142 H POC Capillary Glucose 154 H Lactic Acid 1.0 Calcium 8.2 L Magnesium 2.4 H Total Bilirubin 0.3 AST 1137 H ALT 1092 H Alkaline Phosphatase 75 Total Creatine Kinase 1133 H Total Protein 6.0 L Albumin 3.3 L Urine Eosinophils U Random Total Protein Ur Random Sodium Ur Random Urea Urine Creatinine Protein/Creat Ratio 2 Hep Bs Antigen Negative Hep Bs Antibody Negative Blood Type Antibody Screen Crossmatch 03/06/24 03/06/24 03/06/24 06:34 08:43 11:50 WBC RBC Hgb Hct MCV MCH MCHC RDW Plt Count MPV Sodium Potassium Chloride Carbon Dioxide Anion Gap BUN Creatinine Estim Creat Clear Calc Estimated GFR Glucose POC Capillary Glucose 161 H 159 H Lactic Acid Calcium Magnesium Total Bilirubin AST ALT Alkaline Phosphatase Total Creatine Kinase Total Protein Albumin Urine Eosinophils U Random Total Protein Ur Random Sodium Ur Random Urea Urine Creatinine Protein/Creat Ratio 2 Hep Bs Antigen Hep Bs Antibody Blood Type O Positive Antibody Screen Negative Crossmatch See Detail
[2024-03-06 13:03] LABS: Iron 26 ug/dL (37-170)
[2024-03-06 13:12] LABS: Percent Iron Saturation 8 % (20-50)
[2024-03-06] MEDS: IPRATROPIUM 0.5 MG/ALBUTEROL SULFATE 2.5 MG AMPUL.NEB 3 ML INHALATION ×2 (14:38→20:27)
[2024-03-06 16:28] LABS: Glucose Point of Care 252 mg/dl (65-105)
[2024-03-06 16:32] LABS: Hematocrit 26.7 % (37.0-47.0); Hemoglobin 8.9 g/dL (12.0-15.0)
[2024-03-06] MEDS: INSULIN ASPART (*BKC) 100 UNITS/ML SUB-Q (16:58)
[2024-03-06 21:56] LABS: Glucose Point of Care 176 mg/dl (65-105)
[2024-03-07] VITALS (27 sets, daily range): BP systolic 107–132; BP diastolic 62–89; PULSE 101–126; RESP 18–30; TEMP 36.7–38.1; O2SAT 90–98
[2024-03-07 01:17] LABS: Glucose Point of Care 142 mg/dl (65-105)
[2024-03-07] MEDS: IPRATROPIUM 0.5 MG/ALBUTEROL SULFATE 2.5 MG AMPUL.NEB 3 ML INHALATION ×4 (02:02→20:15)
[2024-03-07 06:33] LABS: Hematocrit 26.2 % (37.0-47.0); Hemoglobin 8.8 g/dL (12.0-15.0); Immature Platelet Fraction Pct 5.2 % (0.9-11.2); Mean Corpuscular HGB Conc 33.6 g/dl (32-36); Mean Corpuscular Hemoglobin 29.8 pg (26-34); Mean Corpuscular Volume 88.8 fl (80-100); Mean Platelet Volume 10.3 fl (7.4-10.4); Platelet Count Result 111 k/mm3 (150-375); Red Blood Count 2.95 M/mm3 (4.2-5.4); Red Cell Distribution Width 15.4 % (11.5-14.5); White Blood Count 15.9 K/mm3 (4.5-10.0)
[2024-03-07 06:34] LABS: Glucose Point of Care 129 mg/dl (65-105)
[2024-03-07 06:51] LABS: Albumin Level 3.4 g/dL (3.5-5.1); Alkaline Phosphatase 80 U/L (38-126); Anion Gap 6 mmol/L (4-12); Aspartate Amino Transferase 532 U/L (14-36); Bilirubin,Total 0.7 mg/dL (0.2-1.3); Blood Urea Nitrogen 36 mg/dL (7-17); Calcium 8.2 mg/dL (8.4-10.2); Carbon Dioxide 32 mmol/L (22-30); Chloride 96 mmol/L (98-107); Creatine Kinase 414 U/L (30-135); Estimated CRCL calculation 15 ml/min; Estimated Glomerular Filt Rate 27; Glucose 128 mg/dL (65-110); Potassium 3.5 mmol/L (3.4-5.0); Sodium 134 mmol/L (137-145)
[2024-03-07 07:00] LABS: Alanine Aminotransferase 886 U/L (6-35)
[2024-03-07 07:57] LABS: Glucose Point of Care 129 mg/dl (65-105)
[2024-03-07] MEDS: BUMETANIDE INJ 1 MG/4 ML VIAL IV PUSH (08:24)
[2024-03-07] MEDS: POTASSIUM CHLORIDE 20 MEQ PACKET (FOR LIQUID) 40 MEQ PO (08:25)
[2024-03-07] MEDS: CEFEPIME 1 GM/NS 50 ML 1 GM/50 ML BAG IVPB ×2 (08:25→21:01)
[2024-03-07] MEDS: PANTOPRAZOLE SODIUM IV 40 MG VIAL IV PUSH (08:26)
[2024-03-07] MEDS: CLOPIDOGREL BISULFATE 75 MG TABLET PO (08:26)
[2024-03-07] MEDS: ASPIRIN 81 MG ENTERIC TABLET PO (08:26)
[2024-03-07] MEDS: ATORVASTATIN 40 MG TABLET PO (08:26)
[2024-03-07] MEDS: ENOXAPARIN 30 MG/0.3 ML SYRINGE SUB-Q (08:26)
[2024-03-07] MEDS: INSULIN GLARGINE (*BKC) 100 UNITS/ML 15 UNITS SUB-Q (08:28)
[2024-03-07] MEDS: CENTRAL LINE FLUSH 10 ML IV PUSH ×3 (08:28→21:01)
--- NOTE | 2024-03-07 08:55 | P.PNNP_ITS ---
Progress Note: A&P Assessment and Plan (1) Acute kidney injury: Code(s): N17.9 - Acute kidney failure, unspecified Status: Acute Assessment and Plan: * as noted by trend of labs since admission * suspect multifactorial etiology: * rhabdomyolysis * shock/homodynamic instability * sepsis/infection (?) * contrast exposure (cardiac catheterization) * BP medications prior to admission (losartan) * underlying cardiomyopathy * evaluation to date noted: * renal ultrasound with right renal atrophy but on obstruction * urine electrolytes prerenal (suspect more indicative of cardiomyopathy than volume depletion) * urine eosinophils negative * CPK downtrending * no significant proteinuria * trial of diuretics today * monitor trend of repeat labs and UOP (2) Chronic kidney disease, stage 3: Code(s): N18.30 - Chronic kidney disease, stage 3 unspecified Status: Chronic Assessment and Plan: * baseline creatinine seems to run ~ 1.0 - 1.6mg/dl in the last year or so * this causes her to fluctuate between CKD stage 3A and stage 3B * presumably secondary to HTN, DM, vascular disease, and age-related change (3) STEMI (ST elevation myocardial infarction): Code(s): I21.3 - ST elevation (STEMI) myocardial infarction of unspecified site Status: Acute Assessment and Plan: * s/p stent placement in circumflex with residual thrombus * Cardiology following * on ASA/statin/plavix * evidence of cardiomyopathy by Echo (4) Shock: Code(s): R57.9 - Shock, unspecified Status: Acute Assessment and Plan: * resolved * suspect a combination of cardiogenic and sepsis * weaned off vasopressor support * follow culture data * wean antibiotics (5) Acute respiratory failure: Code(s): J96.00 - Acute respiratory failure, unspecified whether with hypoxia or hypercapnia Status: Acute Assessment and Plan: * due to pulmonary edema complicated by known history of lung cancer * possible component of pneumonia * continue supplemental oxygen * remains at risk for intubation/mechanical ventilation * diuresis as hemodynamics allow (6) Anemia: Code(s): D64.9 - Anemia, unspecified Status: Acute Assessment and Plan: * PRBC transfusion per protocol * related to JAE, CKD, and acute illness * anemia studies c/w with iron deficiency * follow H/H (7) Stage 4 lung cancer: Code(s): C34.90 - Malignant neoplasm of unspecified part of unspecified bronchus or lung Status: Chronic Assessment and Plan: * known diagnosis * receiving chemotherapy as an outpatient (8) Diabetes: Code(s): E11.9 - Type 2 diabetes mellitus without complications Status: Acute Assessment and Plan: * follow accu-cheks * glycemic control per tawer/hospitalist Will continue to follow.. Subjective Date/time seen: 03/07/24 08:55 Interval history: Follow-up for acute kidney injury/acute renal failure on chronic kidney disease. Reasonable response to IV diuretics given yesterday with relative stability if not improvement in renal function/creatinine -- plan to repeat IV diuretics toda y; overall, she reports feeling better in general at the time of my visit; transvenous pacemaker was removed yesterday; relative stability in hemodynamics noted without the need for vasopressor therapy; tolerated PRBC transfusion with appropriate incrementation of H/H; breathing/respiratory status appears to be slowly improving with current interventions/therapy. Exam Narrative: General: frail and elderly female in NAD Heart: normal S1 and S2; no rub Lungs: coarse with bibasilar crackles Abdomen: soft, nontender, nondistended, positive bowel sounds Extremities: no cyanosis or clubbing; no edema Skin: warm and dry Objective Data Vital Signs Vital Signs: Vital Signs Temp Pulse Resp BP Pulse Ox O2 Del Method O2 Flow Rate 03/07/24 08:00 99.4 F 119 H 27 H 126/89 94 03/07/24 07:36 106 H 21 H 03/07/24 07:26 111 H 25 H 03/07/24 07:26 92 High Flow Nasal Cannula 6 03/07/24 06:00 98.9 F 104 H 19 111/69 95 03/07/24 05:00 98.6 F 104 H 24 H 118/79 94 03/07/24 04:00 98.8 F 108 H 20 107/68 95 03/07/24 03:00 99.1 F 118 H 24 H 114/77 91 03/07/24 02:00 99.5 F 107 H 19 114/75 96 03/07/24 01:00 99.8 F H 101 H 20 109/69 97 03/07/24 00:00 99.9 F H 105 H 22 H 112/71 96 03/06/24 23:00 100.2 F H 108 H 20 111/71 94 03/07/24 06:00 105 H 03/07/24 04:00 106 H 03/07/24 02:00 105 H 03/07/24 00:00 104 H 03/06/24 22:00 108 H 03/06/24 20:00 112 H 03/07/24 04:00 105 H 24 H 94 High Flow Nasal Cannula 6 03/07/24 00:00 105 H 24 H 94 High Flow Nasal Cannula 8 03/07/24 02:11 105 H 24 H 03/07/24 02:04 105 H 18 03/06/24 22:30 100.3 F H 108 H 23 H 110/66 94 03/06/24 22:00 100.3 F H 110 H 24 H 115/72 94 03/06/24 21:30 100.4 F H 115 H 35 H 120/65 94 03/06/24 21:00 100.4 F H 115 H 30 H 115/67 91 03/06/24 20:30 100.4 F H 110 H 28 H 115/70 96 03/06/24 20:00 100.4 F H 111 H 23 H 113/71 95 03/06/24 19:31 100.3 F H 112 H 29 H 97 03/06/24 19:30 100.4 F H 112 H 29 H 118/69 94 03/06/24 19:00 100.2 F H 117 H 28 H 114/73 98 03/06/24 18:59 100.2 F H 117 H 32 H 95 03/06/24 20:00 113 H 24 H 100 High Flow Nasal Cannula 10 03/06/24 20:36 113 H 24 H 03/06/24 20:30 113 H 22 H 03/06/24 20:30 100 High Flow Nasal Cannula 10 03/06/24 18:45 100.3 F H 112 H 25 H 105/73 93 03/06/24 18:33 100.2 F H 114 H 22 H 114/74 95 03/06/24 18:16 100.1 F H 111 H 25 H 110/60 92 03/06/24 18:00 100.1 F H 112 H 22 H 111/65 93 03/06/24 18:00 113 H 03/06/24 17:57 100.1 F H 112 H 22 H 111/65 93 03/06/24 16:00 100.3 F H 117 H 25 H 116/69 95 03/06/24 16:00 95 High Flow Nasal Cannula 11 03/06/24 16:00 115 H 03/06/24 14:00 109 H 121/72 03/06/24 14:48 119 H 20 03/06/24 14:39 117 H 32 H 03/06/24 14:37 94 High Flow Nasal Cannula 11 03/06/24 14:32 100.2 F H 111 H 24 H 121/72 96 03/06/24 14:00 100.2 F H 110 H 25 H 122/72 93 03/06/24 14:00 110 H 03/06/24 13:34 99.7 F H 110 H 23 H 115/62 97 03/06/24 12:34 99.5 F 106 H 25 H 108/58 L 93 03/06/24 12:00 99.5 F 102 H 32 H 106/61 93 03/06/24 12:00 93 High Flow Nasal Cannula 11 03/06/24 12:00 108 H 03/06/24 11:54 113 H 112/68 03/06/24 11:34 99.6 F 105 H 26 H 99/61 L 97 03/06/24 11:19 99.6 F 112 H 26 H 103/70 96 Intake/Output Intake/Output: Intake & Output 03/04/24 03/05/24 03/06/24 03/07/24 23:59 23:59 23:59 23:59 Intake Total 462.1 2018.9 1595.5 Output Total 491 761 4820 1550 Balance 237.1 1718.9 445.5 -1550 Meds/Results Medications: Active Medications Generic Name Dose Route Start Last Admin Trade Name Freq PRN Reason Stop Dose Admin Acetaminophen 650 mg 03/04/24 08:53 03/05/24 14:41 Acetaminophen 325 Mg Tablet PO 650 mg Q6H PRN Administration Mild Pain (1-3) or Fever Albuterol/Ipratropium 3 ml 03/06/24 14:00 03/07/24 07:25 Ipratropium 0.5 Mg/Albuterol Sulfate 2.5 Mg Ampul.Neb 3 Ml INHALATION 3 ml Q6HRT BONY Administration Aspirin 81 mg 03/04/24 09:00 03/07/24 08:26 Aspirin 81 Mg Enteric Tablet PO 81 mg DAILY BONY Administration Atorvastatin Calcium 40 mg 03/04/24 09:00 03/07/24 08:26 Atorvastatin 40 Mg Tablet PO 40 mg DAILY BONY Administration Clopidogrel Bisulfate 75 mg 03/04/24 09:00 03/07/24 08:26 Clopidogrel Bisulfate 75 Mg Tablet PO 75 mg DAILY BONY Administration Dextrose 12.5 gm 03/04/24 09:24 Dextrose 50% 25 Gm/50 Ml Syringe IV PUSH PRN PRN Hypoglycemia Protocol Enoxaparin Sodium 30 mg 03/06/24 09:00 03/07/24 08:26 Enoxaparin 30 Mg/0.3 Ml Syringe SUB-Q 30 mg DAILY BONY Administration Glucagon 1 mg 03/04/24 09:24 Glucagon For Inj 1 Mg Vial IM PRN PRN Hypoglycemia Protocol Glucose 15 gm 03/04/24 09:24 Glucose Oral Gel 15 Gm Of Glucse In 37.5 Gm Tube PO PRN PRN Hypoglycemia Protocol Dextrose 1,000 mls @ 100 mls/hr 03/04/24 09:24 Dextrose 5% 1,000 Ml IVPB PRN PRN Hypoglycemia Protocol Cefepime HCl 1 gm in 50 mls @ 100 mls/hr 03/04/24 09:40 03/07/24 08:25 Maxipime 1 Gm/Ns 50 Ml IVPB 100 mls/hr Q12HR BONY Administration Norepinephrine Bitartrate 8 mg in 250 mls @ 0 mls/hr 03/04/24 09:25 03/06/24 15:08 Levophed 8 Mg/D5w 250 Ml IV CONT Not Given .Q0M BONY Protocol 0 MCG/MIN Insulin Aspart 3 - 6 units 03/04/24 09:40 03/07/24 08:27 Insulin Aspart (*Bkc) 100 Units/Ml SUB-Q Not Given Q4HR [facility] Protocol Insulin Glargine 15 units 03/05/24 10:00 03/07/24 08:28 Insulin Glargine (*Bkc) 100 Units/Ml SUB-Q 15 units QAM BONY Administration Ondansetron HCl 4 mg 03/04/24 10:15 03/04/24 10:16 Ondansetron Inj 4 Mg/2 Ml Vial IV PUSH 4 mg Q4H PRN Administration Nausea And Vomiting Pantoprazole Sodium 40 mg 03/04/24 09:00 03/07/24 08:26 Pantoprazole Sodium Iv 40 Mg Vial IV PUSH 40 mg QAM BONY Administration Potassium Chloride 40 meq 03/07/24 09:00 03/07/24 08:25 Potassium Chloride 20 Meq Packet (For Liquid) PO 03/07/24 17:01 40 meq BID BONY Administration Sodium Chloride 10 ml 03/04/24 14:00 03/07/24 08:28 Central Line Flush IV PUSH 10 ml Q8HR BONY Administration Sodium Chloride 10 ml 03/04/24 12:31 Central Line Flush IV PUSH PRN PRN with TPN bag changes Sodium Chloride 20 ml 03/04/24 12:31 Central Line Flush IV PUSH PRN PRN after blood draws Radiology Results: ITS Impressions Renal Ultrasound 03/04/24 12:01 IMPRESSION: 1. Mild atrophy of right kidney. No hydronephrosis. Chest X-Ray 03/06/24 07:42 Impression: Extensive bilateral pulmonary consolidation and present. Correlate for severe pulmonary edema versus diffuse pneumonia. Small pleural effusions. Right-sided PICC line. Labs Labs: Laboratory Tests 03/07/24 06:21 03/07/24 06:20 Calcium 8.2 L Magnesium 2.0 Total Bilirubin 0.7 AST 532 H ALT 886 H Alkaline Phosphatase 80 Total Creatine Kinase 414 H Total Protein 7.0 Albumin 3.4 L
--- NOTE | 2024-03-07 09:30 | WPDINTPN ---
Progress Note: A&P Assessment and Plan (1) STEMI (ST elevation myocardial infarction): Code(s): I21.3 - ST elevation (STEMI) myocardial infarction of unspecified site Status: Acute Assessment and Plan: STEMI status post stent placement in left circumflex with residual thrombus -continue Aspirin, statin, Plavix -will discuss with Cardiology regarding adding low-dose metoprolol for tachycardia status post STEMI, since she had high degree AV block on admission -cardiology following the patient. Status post Eptifibatide infusion and heparin infusion post cardiac catheterization Patient is chest pain-free Transvenous pacer removed on 03/06 Currently off all pressors. 03/05/2024: Echocardiogram Summary 1. Complete two-dimensional, color flow and Doppler transthoracic echocardiogram is performed. 2. The left ventricle is normal size with mildly reduced systolic function. The LVEF is estimated to be 40-45%. 3. The anterolateral, inferior, and inferolateral ceron are severely hypokinetic. 4. The right ventricle is normal size and systolic function. 5. Linear artifact in right ventricle suggestive of catheter(s), pacemaker lead(s), or ICD lead(s). 6. The aortic valve is bileaflet and opens well. There is no aortic regurgitation. 7. The mitral valve leaflets are thickened and sclerotic. There is moderate mitral regurgitatio (2) Cardiogenic shock: Code(s): R57.0 - Cardiogenic shock Status: Acute Assessment and Plan: Patient currently has cardiogenic shock likely secondary to STEMI Echo as above Off vasopressor Off dopamine -lactic acid has resolved -off IV fluids (3) Third degree AV block: Code(s): I44.2 - Atrioventricular block, complete Status: Acute Assessment and Plan: Patient presented with complete heart block and had a placement of transvenous pacemaker which is set at rate of 100 initially. In the ICU as the hemodynamics improved patient's rate was gradually dropped to 90 and then 80. 03/05: This morning patient is sinus tach I have changed the transvenous pacing rate to 50 as a backup patient is in her intrinsic sinus rhythm. -patient has not required transvenous pacing since since the morning of 03/05/2024, discussed with blaster helper, transvenous temporary pacer was removed on 03/06 (4) Acute respiratory failure: Code(s): J96.00 - Acute respiratory failure, unspecified whether with hypoxia or hypercapnia Status: Acute Assessment and Plan: Patient has history of lung cancer and now also has pulmonary edema Pneumonia is also a possibility but very unlikely considering the presentation 03/04: Blood cultures are negative x2 Continue supplemental oxygen high-flow nasal cannula -03/06: Patient responded well to diuretics with good urine output, negative fluid balance improvement in her creatinine. -will repeat diuretics again -high-flow therapy or NIPPV if required (5) Cardiomyopathy: Code(s): I42.9 - Cardiomyopathy, unspecified Status: Acute Assessment and Plan: Echo as above, cardiology recommended holding heart failure GDMT per Cardiology given her acute kidney injury and recent vasopressor use (6) Lung cancer: Code(s): C34.90 - Malignant neoplasm of unspecified part of unspecified bronchus or lung Status: Acute Assessment and Plan: Patient has stage IV lung cancer and was just started on chemotherapy. Have requested records from [facility] (7) Diabetes: Code(s): E11.9 - Type 2 diabetes mellitus without complications Status: Acute Assessment and Plan: Continue Lantus and Sliding scale ordered Resume heart healthy diet (8) Acidosis: Code(s): E87.20 - Acidosis, unspecified Status: Acute Assessment and Plan: Metabolic acidosis secondary to his shock and acute kidney injury Status post bicarb -lactic acidosis has resolved (9) Sepsis: Code(s): A41.9 - Sepsis, unspecified organism Status: Acute Assessment and Plan: Although it appears that the shock is cardiogenic and patient has lung cancer patient does meet criteria for sepsis Low procalcitonin level Blood cultures are negative x2 Patient was started on Empiric cefepime and vancomycin, 03/04 -vancomycin was discontinued Lactic acids have normalized (10) Acute kidney injury: Code(s): N17.9 - Acute kidney failure, unspecified Status: Acute Assessment and Plan: Baseline creatinine unknown. Presented with creatinine elevated at 1.5 which has now increased 2.1 This likely combination of shock and rhabdomyolysis,, contrast from coronary angiogram Patient could not be given liberal IV fluids due to pulmonary edema and congestive heart failure Monitor CK level Off IV fluid 03/04: Renal ultrasound with mild atrophy of right kidney, no hydronephrosis Maintain adequate mean arterial pressures for end-organ perfusion Monitor urine output electrolytes and creatinine Appreciate nephrology following the patient -03/06: diuresed well - will diurese again today (11) Anemia: Code(s): D64.9 - Anemia, unspecified Status: Acute Assessment and Plan: Anemia could be multifactorial -hemoglobin 6.8 this morning on 03/06 -03/06: s/p 1 unit of packed RBCs -iron panel reflective of iron deficiency anemia Plan DVT prophylaxis -off heparin infusion due to anemia, SCDs Stress ulcer prophylaxis -PPI Nutrition -heart healthy diet Code Status -DNR/DNI per Cardiology discussion with the patient Total Critical Care Time - 32 minutes -discuss with family in rounds, updated them with her condition and plan of care. I answered all questions Patient is a transfer of the ICU if okay with cardiology Due to a high probability of clinically significant, life threatening deterioration, the patient required my highest level of preparedness to intervene emergently and I personally spent this critical care time directly and personally managing the patient. This critical care time included obtaining a history; examining the patient; pulse oximetry; ordering and review of studies; arranging urgent treatment with development of a management plan; evaluation of patient's response to treatment; frequent reassessment; and discussions with other providers. It was exclusive of separately billable procedures and treating other patients and teaching time. Please see Assessment and Plan section and the rest of the note for further information on patient assessment and treatment Subjective Date/time seen: 03/07/24 09:30 Interval history: Reason for consult: STEMI status post VINICIUS x1 to proximal left circumflex with some residual thrombus in the mid left circumflex artery, , rhabdomyolysis, high-grade AV block requiring temporary pacemaker, pulmonary edema, acute kidney injury 03/07/2024: Patient seen and examined the ICU, is awake, alert, oriented. Had very good urine output in response to diuretics on 03/06, currently on 6 L oxygen via nasal cannula. Transvenous pacemaker was removed yesterday. Patient states she feels better this morning, denies any chest pain, breathing is better, denies any nausea, vomiting. Review of Systems Review of Systems: All systems reviewed & are unremarkable except as noted in HPI and below (HPI) Exam Narrative: General: Old frail female who is alert awake in mild respiratory distress Lungs/Chest: Trachea central Clear BS B/L, bilateral crackles, No wheezing Cardiac: Tachycardic Normal S1 S2. No murmurs Circulation: Pedal pulses are intact and symmetrical. Right radial site with no ecchymosis or hematoma, right radial pulse is palpable Abdomen: Normal bowel sounds.. Soft. NT. ND. Extremities: No clubbing, cyanosis or edema. Warm, transvenous pacemaker in right femoral area : Lyn in place Neurologic: Follows commands. Moves all 4 extremities PERRL AO x3 Skin: No Rash Objective Data Vital Signs Vital Signs: Vital Signs - 24 hr 03/06/24 10:00 03/06/24 10:00 03/06/24 11:19 Temperature 99.1 F 99.6 F Pulse Rate 106 H 106 H 112 H Respiratory Rate 30 H 26 H Blood Pressure 100/58 L 103/70 Pulse Oximetry 94 96 Oxygen Delivery Oxygen Flow Rate Fraction of Inspired Oxygen 03/06/24 10:00 03/06/24 11:34 03/06/24 11:54 Temperature 99.6 F Pulse Rate 106 H 105 H 113 H Respiratory Rate 26 H Blood Pressure 100/58 L 99/61 L 112/68 Pulse Oximetry 97 Oxygen Delivery Oxygen Flow Rate Fraction of Inspired Oxygen 03/06/24 12:00 03/06/24 12:00 03/06/24 12:00 Temperature 99.5 F Pulse Rate 108 H 102 H Respiratory Rate 32 H Blood Pressure 106/61 Pulse Oximetry 93 93 Oxygen Delivery High Flow Nasal Cannula Oxygen Flow Rate 11 Fraction of Inspired Oxygen 03/06/24 12:34 03/06/24 13:34 03/06/24 14:00 Temperature 99.5 F 99.7 F H Pulse Rate 106 H 110 H 110 H Respiratory Rate 25 H 23 H Blood Pressure 108/58 L 115/62 Pulse Oximetry 93 97 Oxygen Delivery Oxygen Flow Rate Fraction of Inspired Oxygen 03/06/24 14:00 03/06/24 14:32 03/06/24 14:37 Temperature 100.2 F H 100.2 F H Pulse Rate 110 H 111 H Respiratory Rate 25 H 24 H Blood Pressure 122/72 121/72 Pulse Oximetry 93 96 94 Oxygen Delivery High Flow Nasal Cannula Oxygen Flow Rate 11 Fraction of Inspired Oxygen 03/06/24 14:39 03/06/24 14:48 03/06/24 14:00 Temperature Pulse Rate 117 H 119 H 109 H Respiratory Rate 32 H 20 Blood Pressure 121/72 Pulse Oximetry Oxygen Delivery Oxygen Flow Rate Fraction of Inspired Oxygen 03/06/24 16:00 03/06/24 16:00 03/06/24 16:00 Temperature 100.3 F H Pulse Rate 115 H 117 H Respiratory Rate 25 H Blood Pressure 116/69 Pulse Oximetry 95 95 Oxygen Delivery High Flow Nasal Cannula Oxygen Flow Rate 11 Fraction of Inspired Oxygen 03/06/24 17:57 03/06/24 18:00 03/06/24 18:00 Temperature 100.1 F H 100.1 F H Pulse Rate 112 H 113 H 112 H Respiratory Rate 22 H 22 H Blood Pressure 111/65 111/65 Pulse Oximetry 93 93 Oxygen Delivery Oxygen Flow Rate Fraction of Inspired Oxygen 03/06/24 18:16 03/06/24 18:33 03/06/24 18:45 Temperature 100.1 F H 100.2 F H 100.3 F H Pulse Rate 111 H 114 H 112 H Respiratory Rate 25 H 22 H 25 H Blood Pressure 110/60 114/74 105/73 Pulse Oximetry 92 95 93 Oxygen Delivery Oxygen Flow Rate Fraction of Inspired Oxygen 03/06/24 20:30 03/06/24 20:30 03/06/24 20:36 Temperature Pulse Rate 113 H 113 H Respiratory Rate 22 H 24 H Blood Pressure Pulse Oximetry 100 Oxygen Delivery High Flow Nasal Cannula Oxygen Flow Rate 10 Fraction of Inspired Oxygen 03/06/24 20:00 03/06/24 18:59 03/06/24 19:00 Temperature 100.2 F H 100.2 F H Pulse Rate 113 H 117 H 117 H Respiratory Rate 24 H 32 H 28 H Blood Pressure 114/73 Pulse Oximetry 100 95 98 Oxygen Delivery High Flow Nasal Cannula Oxygen Flow Rate 10 Fraction of Inspired Oxygen 50 03/06/24 19:30 03/06/24 19:31 03/06/24 20:00 Temperature 100.4 F H 100.3 F H 100.4 F H Pulse Rate 112 H 112 H 111 H Respiratory Rate 29 H 29 H 23 H Blood Pressure 118/69 113/71 Pulse Oximetry 94 97 95 Oxygen Delivery Oxygen Flow Rate Fraction of Inspired Oxygen 03/06/24 20:30 03/06/24 21:00 03/06/24 21:30 Temperature 100.4 F H 100.4 F H 100.4 F H Pulse Rate 110 H 115 H 115 H Respiratory Rate 28 H 30 H 35 H Blood Pressure 115/70 115/67 120/65 Pulse Oximetry 96 91 94 Oxygen Delivery Oxygen Flow Rate Fraction of Inspired Oxygen 03/06/24 22:00 03/06/24 22:30 03/07/24 02:04 Temperature 100.3 F H 100.3 F H Pulse Rate 110 H 108 H 105 H Respiratory Rate 24 H 23 H 18 Blood Pressure 115/72 110/66 Pulse Oximetry 94 94 Oxygen Delivery Oxygen Flow Rate Fraction of Inspired Oxygen 03/07/24 02:11 03/07/24 00:00 03/07/24 04:00 Temperature Pulse Rate 105 H 105 H 105 H Respiratory Rate 24 H 24 H 24 H Blood Pressure Pulse Oximetry 94 94 Oxygen Delivery High Flow Nasal Cannula High Flow Nasal Cannula Oxygen Flow Rate 8 6 Fraction of Inspired Oxygen 50 50 03/06/24 20:00 03/06/24 22:00 03/07/24 00:00 Temperature Pulse Rate 112 H 108 H 104 H Respiratory Rate Blood Pressure Pulse Oximetry Oxygen Delivery Oxygen Flow Rate Fraction of Inspired Oxygen 03/07/24 02:00 03/07/24 04:00 03/07/24 06:00 Temperature Pulse Rate 105 H 106 H 105 H Respiratory Rate Blood Pressure Pulse Oximetry Oxygen Delivery Oxygen Flow Rate Fraction of Inspired Oxygen 03/06/24 23:00 03/07/24 00:00 03/07/24 01:00 Temperature 100.2 F H 99.9 F H 99.8 F H Pulse Rate 108 H 105 H 101 H Respiratory Rate 20 22 H 20 Blood Pressure 111/71 112/71 109/69 Pulse Oximetry 94 96 97 Oxygen Delivery Oxygen Flow Rate Fraction of Inspired Oxygen 03/07/24 02:00 03/07/24 03:00 03/07/24 04:00 Temperature 99.5 F 99.1 F 98.8 F Pulse Rate 107 H 118 H 108 H Respiratory Rate 19 24 H 20 Blood Pressure 114/75 114/77 107/68 Pulse Oximetry 96 91 95 Oxygen Delivery Oxygen Flow Rate Fraction of Inspired Oxygen 03/07/24 05:00 03/07/24 06:00 03/07/24 07:26 Temperature 98.6 F 98.9 F Pulse Rate 104 H 104 H Respiratory Rate 24 H 19 Blood Pressure 118/79 111/69 Pulse Oximetry 94 95 92 Oxygen Delivery High Flow Nasal Cannula Oxygen Flow Rate 6 Fraction of Inspired Oxygen 03/07/24 07:26 03/07/24 07:36 03/07/24 08:00 Temperature 99.4 F Pulse Rate 111 H 106 H 119 H Respiratory Rate 25 H 21 H 27 H Blood Pressure 126/89 Pulse Oximetry 94 Oxygen Delivery Oxygen Flow Rate Fraction of Inspired Oxygen Intake/Output Intake/Output: Intake & Output 03/04/24 03/05/24 03/06/24 03/07/24 23:59 23:59 23:59 23:59 Intake Total 462.1 2018.9 1595.5 Output Total 712 308 6393 1550 Balance 237.1 1718.9 445.5 -1550 Meds/Results Medications: Active Medications Generic Name Dose Route Start Last Admin Trade Name Freq PRN Reason Stop Dose Admin Acetaminophen 650 mg 03/04/24 08:53 03/05/24 14:41 Acetaminophen 325 Mg Tablet PO 650 mg Q6H PRN Administration Mild Pain (1-3) or Fever Albuterol/Ipratropium 3 ml 03/06/24 14:00 03/07/24 07:25 Ipratropium 0.5 Mg/Albuterol Sulfate 2.5 Mg Ampul.Neb 3 Ml INHALATION 3 ml Q6HRT BONY Administration Aspirin 81 mg 03/04/24 09:00 03/07/24 08:26 Aspirin 81 Mg Enteric Tablet PO 81 mg DAILY BONY Administration Atorvastatin Calcium 40 mg 03/04/24 09:00 03/07/24 08:26 Atorvastatin 40 Mg Tablet PO 40 mg DAILY BONY Administration Clopidogrel Bisulfate 75 mg 03/04/24 09:00 03/07/24 08:26 Clopidogrel Bisulfate 75 Mg Tablet PO 75 mg DAILY BONY Administration Dextrose 12.5 gm 03/04/24 09:24 Dextrose 50% 25 Gm/50 Ml Syringe IV PUSH PRN PRN Hypoglycemia Protocol Enoxaparin Sodium 30 mg 03/06/24 09:00 03/07/24 08:26 Enoxaparin 30 Mg/0.3 Ml Syringe SUB-Q 30 mg DAILY BONY Administration Glucagon 1 mg 03/04/24 09:24 Glucagon For Inj 1 Mg Vial IM PRN PRN Hypoglycemia Protocol Glucose 15 gm 03/04/24 09:24 Glucose Oral Gel 15 Gm Of Glucse In 37.5 Gm Tube PO PRN PRN Hypoglycemia Protocol Dextrose 1,000 mls @ 100 mls/hr 03/04/24 09:24 Dextrose 5% 1,000 Ml IVPB PRN PRN Hypoglycemia Protocol Cefepime HCl 1 gm in 50 mls @ 100 mls/hr 03/04/24 09:40 03/07/24 08:25 Maxipime 1 Gm/Ns 50 Ml IVPB 100 mls/hr Q12HR BONY Administration Norepinephrine Bitartrate 8 mg in 250 mls @ 0 mls/hr 03/04/24 09:25 03/06/24 15:08 Levophed 8 Mg/D5w 250 Ml IV CONT Not Given .Q0M BONY Protocol 0 MCG/MIN Insulin Aspart 3 - 6 units 03/04/24 09:40 03/07/24 08:27 Insulin Aspart (*Bkc) 100 Units/Ml SUB-Q Not Given Q4HR BONY Protocol Insulin Glargine 15 units 03/05/24 10:00 03/07/24 08:28 Insulin Glargine (*Bkc) 100 Units/Ml SUB-Q 15 units QAM BONY Administration Ondansetron HCl 4 mg 03/04/24 10:15 03/04/24 10:16 Ondansetron Inj 4 Mg/2 Ml Vial IV PUSH 4 mg Q4H PRN Administration Nausea And Vomiting Pantoprazole Sodium 40 mg 03/04/24 09:00 03/07/24 08:26 Pantoprazole Sodium Iv 40 Mg Vial IV PUSH 40 mg QAM BONY Administration Potassium Chloride 40 meq 03/07/24 09:00 03/07/24 08:25 Potassium Chloride 20 Meq Packet (For Liquid) PO 03/07/24 17:01 40 meq BID BONY Administration Sodium Chloride 10 ml 03/04/24 14:00 03/07/24 08:28 Central Line Flush IV PUSH 10 ml Q8HR BONY Administration Sodium Chloride 10 ml 03/04/24 12:31 Central Line Flush IV PUSH PRN PRN with TPN bag changes Sodium Chloride 20 ml 03/04/24 12:31 Central Line Flush IV PUSH PRN PRN after blood draws Radiology Results: ITS Impressions Renal Ultrasound 03/04/24 12:01 IMPRESSION: 1. Mild atrophy of right kidney. No hydronephrosis. Chest X-Ray 03/06/24 07:42 Impression: Extensive bilateral pulmonary consolidation and present. Correlate for severe pulmonary edema versus diffuse pneumonia. Small pleural effusions. Right-sided PICC line. Labs Labs: Laboratory Results - last 24 hr 03/06/24 03/06/24 03/06/24 04:59 06:34 11:50 WBC RBC Hgb Hct MCV MCH MCHC RDW Plt Count MPV % Immature Plt Fraction Sodium Potassium Chloride Carbon Dioxide Anion Gap BUN Creatinine Estim Creat Clear Calc Estimated GFR Glucose POC Capillary Glucose 159 H Calcium Magnesium Iron 26 L TIBC 326 % Saturation 8 L Total Bilirubin AST ALT Alkaline Phosphatase Total Creatine Kinase Total Protein Albumin Blood Type O Positive Antibody Screen Negative Crossmatch See Detail 03/06/24 03/06/24 03/06/24 16:21 16:24 21:49 WBC RBC Hgb 8.9 L Hct 26.7 L MCV MCH MCHC RDW Plt Count MPV % Immature Plt Fraction Sodium Potassium Chloride Carbon Dioxide Anion Gap BUN Creatinine Estim Creat Clear Calc Estimated GFR Glucose POC Capillary Glucose 252 H 176 H Calcium Magnesium Iron TIBC % Saturation Total Bilirubin AST ALT Alkaline Phosphatase Total Creatine Kinase Total Protein Albumin Blood Type Antibody Screen Crossmatch 03/07/24 03/07/24 03/07/24 01:13 06:16 06:20 WBC RBC Hgb Hct MCV MCH MCHC RDW Plt Count MPV % Immature Plt Fraction Sodium 134 L Potassium 3.5 Chloride 96 L Carbon Dioxide 32 H Anion Gap 6 BUN 36 H Creatinine 1.80 H Estim Creat Clear Calc 15 Estimated GFR 27 L Glucose 128 H POC Capillary Glucose 142 H 129 H Calcium 8.2 L Magnesium 2.0 Iron TIBC % Saturation Total Bilirubin 0.7 AST 532 H ALT 886 H Alkaline Phosphatase 80 Total Creatine Kinase 414 H Total Protein 7.0 Albumin 3.4 L Blood Type Antibody Screen Crossmatch 03/07/24 03/07/24 06:21 07:53 WBC 15.9 H RBC 2.95 L Hgb 8.8 L Hct 26.2 L MCV 88.8 MCH 29.8 MCHC 33.6 RDW 15.4 H Plt Count 111 L MPV 10.3 % Immature Plt Fraction 5.2 Sodium Potassium Chloride Carbon Dioxide Anion Gap BUN Creatinine Estim Creat Clear Calc Estimated GFR Glucose POC Capillary Glucose 129 H Calcium Magnesium Iron TIBC % Saturation Total Bilirubin AST ALT Alkaline Phosphatase Total Creatine Kinase Total Protein Albumin Blood Type Antibody Screen Crossmatch
[2024-03-07 11:46] LABS: Glucose Point of Care 206 mg/dl (65-105)
[2024-03-07] MEDS: METOPROLOL SUCCINATE EXT REL 12.5 MG TABCR PO (11:53)
[2024-03-07] MEDS: INSULIN ASPART (*BKC) 100 UNITS/ML SUB-Q ×2 (11:53→21:01)
--- NOTE | 2024-03-07 12:20 | PM.PNCARD ---
Progress Note: A&P Assessment and Plan (1) STEMI (ST elevation myocardial infarction): Code(s): I21.3 - ST elevation (STEMI) myocardial infarction of unspecified site Status: Acute Assessment and Plan: Continue ASA, Plavix, Atorvastatin (2) Cardiogenic shock: Code(s): R57.0 - Cardiogenic shock Status: Acute Assessment and Plan: Echocardiogram with LVEF 40-45%. Off of Levophed now. (3) Third degree AV block: Code(s): I44.2 - Atrioventricular block, complete Status: Acute Assessment and Plan: Not requiring transvenous pacer. Removed at bedside 03/06 (4) Cardiomyopathy: Code(s): I42.9 - Cardiomyopathy, unspecified Status: Acute Assessment and Plan: Echocardiogram with LVEF 40-45%. Agree with intermittent doses of IV diuretic given pulmonary edema on chest XR. Will start low dose Toprol. Plan to uptitrate heart failure GDMT as tolerated. Hold off on ARNI/ACEi/ARB due to JAE. (5) Acute kidney injury: Code(s): N17.9 - Acute kidney failure, unspecified Status: Acute Assessment and Plan: Improving. Nephrology consulted. (6) Anemia: Code(s): D64.9 - Anemia, unspecified Status: Acute Assessment and Plan: Hgb 6.8 03/06, received blood transfusion. Hgb currently stable. Plan Recommendations and plan discussed with School Psychology Specialist. Subjective Date/time seen: 03/07/24 12:20 Interval history: Reason for visit: STEMI HPI: 83-year-old female with a past medical history significant for lung cancer, hypertension, diabetes who was brought by EMS to the ED with sudden onset chest pain, shortness of breath, diaphoresis, pale looking. She was found to have an inferoposterior STEMI with a complete heart block. She was directly taken to the lab after discussing the risks, benefits and alternatives of the procedure with her. We also discussed the goals of care with her in light of lung malignancy. She wanted to proceed. She was taken to the nitriles lab technician and VINICIUS was placed in the proximal LCX. There is some residual thrombus in the mid LCX artery. Placed a temporary pacemaker through the right femoral vein and currently she is being paced at a rate of 100 beats per minute, output of 10 and sensitivity of 5. Post PCI she denied any chest pain and will be transferred to the ICU to help with further management. Date of service 03/05: Denies chest pain and dyspnea today. Date of service 03/06: No chest pain. Tele with sinus tachycardia with first degree AV block. Not requiring transvenous pacer. Off of pressors. Hgb 6.8, getting blood transfusion. Date of service 03/07: Feeling better today. Still requiring supplemental oxygen. Diuresed well with Lasix yesterday, given dose of Bumex this morning. Review of Systems Review of Systems: All systems reviewed & are unremarkable except as noted in HPI and below (HPI) Exam Const: General: no acute distress Eyes: General: appearance normal, both eyes and all related structures Sclera: sclerae normal Resp: Effort & Inspection: normal respiratory effort Other: On supplemental oxygen Cardio: Rate: regular rate Rhythm: regular rhythm Neuro: Speech: normal speech Psych: Mental Status: mental status grossly normal Affect: normal affect Objective Data Vital Signs Vital Signs: Vital Signs - 24 hr 03/06/24 12:34 03/06/24 13:34 03/06/24 14:00 Temperature 37.5 C 37.6 C H Pulse Rate 106 H 110 H 110 H Respiratory Rate 25 H 23 H Blood Pressure 108/58 L 115/62 Pulse Oximetry 93 97 Oxygen Delivery Oxygen Flow Rate Fraction of Inspired Oxygen 03/06/24 14:00 03/06/24 14:32 03/06/24 14:37 Temperature 37.9 C H 37.9 C H Pulse Rate 110 H 111 H Respiratory Rate 25 H 24 H Blood Pressure 122/72 121/72 Pulse Oximetry 93 96 94 Oxygen Delivery High Flow Nasal Cannula Oxygen Flow Rate 11 Fraction of Inspired Oxygen 03/06/24 14:39 03/06/24 14:48 03/06/24 14:00 Temperature Pulse Rate 117 H 119 H 109 H Respiratory Rate 32 H 20 Blood Pressure 121/72 Pulse Oximetry Oxygen Delivery Oxygen Flow Rate Fraction of Inspired Oxygen 03/06/24 16:00 03/06/24 16:00 03/06/24 16:00 Temperature 37.9 C H Pulse Rate 115 H 117 H Respiratory Rate 25 H Blood Pressure 116/69 Pulse Oximetry 95 95 Oxygen Delivery High Flow Nasal Cannula Oxygen Flow Rate 11 Fraction of Inspired Oxygen 03/06/24 17:57 03/06/24 18:00 03/06/24 18:00 Temperature 37.8 C H 37.8 C H Pulse Rate 112 H 113 H 112 H Respiratory Rate 22 H 22 H Blood Pressure 111/65 111/65 Pulse Oximetry 93 93 Oxygen Delivery Oxygen Flow Rate Fraction of Inspired Oxygen 03/06/24 18:16 03/06/24 18:33 03/06/24 18:45 Temperature 37.8 C H 37.9 C H 37.9 C H Pulse Rate 111 H 114 H 112 H Respiratory Rate 25 H 22 H 25 H Blood Pressure 110/60 114/74 105/73 Pulse Oximetry 92 95 93 Oxygen Delivery Oxygen Flow Rate Fraction of Inspired Oxygen 03/06/24 20:30 03/06/24 20:30 03/06/24 20:36 Temperature Pulse Rate 113 H 113 H Respiratory Rate 22 H 24 H Blood Pressure Pulse Oximetry 100 Oxygen Delivery High Flow Nasal Cannula Oxygen Flow Rate 10 Fraction of Inspired Oxygen 03/06/24 20:00 03/06/24 18:59 03/06/24 19:00 Temperature 37.9 C H 37.9 C H Pulse Rate 113 H 117 H 117 H Respiratory Rate 24 H 32 H 28 H Blood Pressure 114/73 Pulse Oximetry 100 95 98 Oxygen Delivery High Flow Nasal Cannula Oxygen Flow Rate 10 Fraction of Inspired Oxygen 50 03/06/24 19:30 03/06/24 19:31 03/06/24 20:00 Temperature 38.0 C H 37.9 C H 38.0 C H Pulse Rate 112 H 112 H 111 H Respiratory Rate 29 H 29 H 23 H Blood Pressure 118/69 113/71 Pulse Oximetry 94 97 95 Oxygen Delivery Oxygen Flow Rate Fraction of Inspired Oxygen 03/06/24 20:30 03/06/24 21:00 03/06/24 21:30 Temperature 38.0 C H 38.0 C H 38.0 C H Pulse Rate 110 H 115 H 115 H Respiratory Rate 28 H 30 H 35 H Blood Pressure 115/70 115/67 120/65 Pulse Oximetry 96 91 94 Oxygen Delivery Oxygen Flow Rate Fraction of Inspired Oxygen 03/06/24 22:00 03/06/24 22:30 03/07/24 02:04 Temperature 37.9 C H 37.9 C H Pulse Rate 110 H 108 H 105 H Respiratory Rate 24 H 23 H 18 Blood Pressure 115/72 110/66 Pulse Oximetry 94 94 Oxygen Delivery Oxygen Flow Rate Fraction of Inspired Oxygen 03/07/24 02:11 03/07/24 00:00 03/07/24 04:00 Temperature Pulse Rate 105 H 105 H 105 H Respiratory Rate 24 H 24 H 24 H Blood Pressure Pulse Oximetry 94 94 Oxygen Delivery High Flow Nasal Cannula High Flow Nasal Cannula Oxygen Flow Rate 8 6 Fraction of Inspired Oxygen 50 50 03/06/24 20:00 03/06/24 22:00 03/07/24 00:00 Temperature Pulse Rate 112 H 108 H 104 H Respiratory Rate Blood Pressure Pulse Oximetry Oxygen Delivery Oxygen Flow Rate Fraction of Inspired Oxygen 03/07/24 02:00 03/07/24 04:00 03/07/24 06:00 Temperature Pulse Rate 105 H 106 H 105 H Respiratory Rate Blood Pressure Pulse Oximetry Oxygen Delivery Oxygen Flow Rate Fraction of Inspired Oxygen 03/06/24 23:00 03/07/24 00:00 03/07/24 01:00 Temperature 37.9 C H 37.7 C H 37.7 C H Pulse Rate 108 H 105 H 101 H Respiratory Rate 20 22 H 20 Blood Pressure 111/71 112/71 109/69 Pulse Oximetry 94 96 97 Oxygen Delivery Oxygen Flow Rate Fraction of Inspired Oxygen 03/07/24 02:00 03/07/24 03:00 03/07/24 04:00 Temperature 37.5 C 37.3 C 37.1 C Pulse Rate 107 H 118 H 108 H Respiratory Rate 19 24 H 20 Blood Pressure 114/75 114/77 107/68 Pulse Oximetry 96 91 95 Oxygen Delivery Oxygen Flow Rate Fraction of Inspired Oxygen 03/07/24 05:00 03/07/24 06:00 03/07/24 07:26 Temperature 37.0 C 37.2 C Pulse Rate 104 H 104 H Respiratory Rate 24 H 19 Blood Pressure 118/79 111/69 Pulse Oximetry 94 95 92 Oxygen Delivery High Flow Nasal Cannula Oxygen Flow Rate 6 Fraction of Inspired Oxygen 03/07/24 07:26 03/07/24 07:36 03/07/24 08:00 Temperature 37.4 C Pulse Rate 111 H 106 H 119 H Respiratory Rate 25 H 21 H 27 H Blood Pressure 126/89 Pulse Oximetry 94 Oxygen Delivery Oxygen Flow Rate Fraction of Inspired Oxygen 03/07/24 10:00 03/07/24 08:00 03/07/24 08:00 Temperature 37.6 C Pulse Rate 126 H 118 H 126 H Respiratory Rate 21 H 21 H Blood Pressure 126/70 Pulse Oximetry 95 95 Oxygen Delivery High Flow Nasal Cannula Oxygen Flow Rate 6 Fraction of Inspired Oxygen 50 03/07/24 11:53 Temperature Pulse Rate 125 H Respiratory Rate Blood Pressure Pulse Oximetry Oxygen Delivery Oxygen Flow Rate Fraction of Inspired Oxygen Intake/Output Intake/Output: Intake & Output 03/04/24 03/05/24 03/06/24 03/07/24 23:59 23:59 23:59 23:59 Intake Total 462.1 2018.9 1595.5 Output Total 945 066 9303 1550 Balance 237.1 1718.9 445.5 -1550 Meds/Results Medications: Active Medications Generic Name Dose Route Start Last Admin Trade Name Freq PRN Reason Stop Dose Admin Acetaminophen 650 mg 03/04/24 08:53 03/05/24 14:41 Acetaminophen 325 Mg Tablet PO 650 mg Q6H PRN Administration Mild Pain (1-3) or Fever Albuterol/Ipratropium 3 ml 03/06/24 14:00 03/07/24 07:25 Ipratropium 0.5 Mg/Albuterol Sulfate 2.5 Mg Ampul.Neb 3 Ml INHALATION 3 ml Q6HRT BONY Administration Aspirin 81 mg 03/04/24 09:00 03/07/24 08:26 Aspirin 81 Mg Enteric Tablet PO 81 mg DAILY OBNY Administration Atorvastatin Calcium 40 mg 03/04/24 09:00 03/07/24 08:26 Atorvastatin 40 Mg Tablet PO 40 mg DAILY BONY Administration Clopidogrel Bisulfate 75 mg 03/04/24 09:00 03/07/24 08:26 Clopidogrel Bisulfate 75 Mg Tablet PO 75 mg DAILY BONY Administration Dextrose 12.5 gm 03/04/24 09:24 Dextrose 50% 25 Gm/50 Ml Syringe IV PUSH PRN PRN Hypoglycemia Protocol Enoxaparin Sodium 30 mg 03/06/24 09:00 03/07/24 08:26 Enoxaparin 30 Mg/0.3 Ml Syringe SUB-Q 30 mg DAILY BONY Administration Glucagon 1 mg 03/04/24 09:24 Glucagon For Inj 1 Mg Vial IM PRN PRN Hypoglycemia Protocol Glucose 15 gm 03/04/24 09:24 Glucose Oral Gel 15 Gm Of Glucse In 37.5 Gm Tube PO PRN PRN Hypoglycemia Protocol Dextrose 1,000 mls @ 100 mls/hr 03/04/24 09:24 Dextrose 5% 1,000 Ml IVPB PRN PRN Hypoglycemia Protocol Cefepime HCl 1 gm in 50 mls @ 100 mls/hr 03/04/24 09:40 03/07/24 08:25 Maxipime 1 Gm/Ns 50 Ml IVPB 100 mls/hr Q12HR BONY Administration Insulin Aspart 3 - 6 units 03/04/24 09:40 03/07/24 11:53 Insulin Aspart (*Bkc) 100 Units/Ml SUB-Q 3 units Q4HR BONY Administration Protocol Insulin Glargine 15 units 03/05/24 10:00 03/07/24 08:28 Insulin Glargine (*Bkc) 100 Units/Ml SUB-Q 15 units QAM BONY Administration Metoprolol Succinate 12.5 mg 03/07/24 11:25 03/07/24 11:53 Metoprolol Succinate Ext Rel 12.5 Mg Tabcr PO 12.5 mg QAM BONY Administration Ondansetron HCl 4 mg 03/04/24 10:15 03/04/24 10:16 Ondansetron Inj 4 Mg/2 Ml Vial IV PUSH 4 mg Q4H PRN Administration Nausea And Vomiting Pantoprazole Sodium 40 mg 03/08/24 09:00 Pantoprazole 40 Mg Tablet PO QAM [facility] Potassium Chloride 40 meq 03/07/24 09:00 03/07/24 08:25 Potassium Chloride 20 Meq Packet (For Liquid) PO 03/07/24 17:01 40 meq BID BONY Administration Sodium Chloride 10 ml 03/04/24 14:00 03/07/24 08:28 Central Line Flush IV PUSH 10 ml Q8HR BONY Administration Sodium Chloride 10 ml 03/04/24 12:31 Central Line Flush IV PUSH PRN PRN with TPN bag changes Sodium Chloride 20 ml 03/04/24 12:31 Central Line Flush IV PUSH PRN PRN after blood draws Radiology Results: ITS Impressions Renal Ultrasound 03/04/24 12:01 IMPRESSION: 1. Mild atrophy of right kidney. No hydronephrosis. Chest X-Ray 03/06/24 07:42 Impression: Extensive bilateral pulmonary consolidation and present. Correlate for severe pulmonary edema versus diffuse pneumonia. Small pleural effusions. Right-sided PICC line. Labs Labs: Laboratory Results - last 24 hr 10/15/24 10/15/24 10/15/24 04:59 06:34 16:21 WBC RBC Hgb 8.9 L Hct 26.7 L MCV MCH MCHC RDW Plt Count MPV % Immature Plt Fraction Sodium Potassium Chloride Carbon Dioxide Anion Gap BUN Creatinine Estim Creat Clear Calc Estimated GFR Glucose POC Capillary Glucose Calcium Magnesium Iron 26 L TIBC 326 % Saturation 8 L Total Bilirubin AST ALT Alkaline Phosphatase Total Creatine Kinase Total Protein Albumin Crossmatch See Detail 03/06/24 03/06/24 03/07/24 16:24 21:49 01:13 WBC RBC Hgb Hct MCV MCH MCHC RDW Plt Count MPV % Immature Plt Fraction Sodium Potassium Chloride Carbon Dioxide Anion Gap BUN Creatinine Estim Creat Clear Calc Estimated GFR Glucose POC Capillary Glucose 252 H 176 H 142 H Calcium Magnesium Iron TIBC % Saturation Total Bilirubin AST ALT Alkaline Phosphatase Total Creatine Kinase Total Protein Albumin Crossmatch 03/07/24 03/07/24 03/07/24 06:16 06:20 06:21 WBC 15.9 H RBC 2.95 L Hgb 8.8 L Hct 26.2 L MCV 88.8 MCH 29.8 MCHC 33.6 RDW 15.4 H Plt Count 111 L MPV 10.3 % Immature Plt Fraction 5.2 Sodium 134 L Potassium 3.5 Chloride 96 L Carbon Dioxide 32 H Anion Gap 6 BUN 36 H Creatinine 1.80 H Estim Creat Clear Calc 15 Estimated GFR 27 L Glucose 128 H POC Capillary Glucose 129 H Calcium 8.2 L Magnesium 2.0 Iron TIBC % Saturation Total Bilirubin 0.7 AST 532 H ALT 886 H Alkaline Phosphatase 80 Total Creatine Kinase 414 H Total Protein 7.0 Albumin 3.4 L Crossmatch 03/07/24 03/07/24 07:53 11:40 WBC RBC Hgb Hct MCV MCH MCHC RDW Plt Count MPV % Immature Plt Fraction Sodium Potassium Chloride Carbon Dioxide Anion Gap BUN Creatinine Estim Creat Clear Calc Estimated GFR Glucose POC Capillary Glucose 129 H 206 H Calcium Magnesium Iron TIBC % Saturation Total Bilirubin AST ALT Alkaline Phosphatase Total Creatine Kinase Total Protein Albumin Crossmatch
--- NOTE | 2024-03-07 13:45 | P.CONIM_ITS ---
Assessment and Plan Assessment and plan (1) Acute respiratory failure with hypoxia: Code(s): J96.01 - Acute respiratory failure with hypoxia Status: Acute Assessment and Plan: Patient to continues to have a high oxygen requirement, currently on 6 L high- flow. * X-ray today with extensive bilateral pulmonary consolidation and ground-glass opacities and small pleural effusions. * Pulmonary embolism consider given malignancy though less likely by presentation and history. * Continue diuretics and empiric antibiotics given low-grade fever and leukocytosis. (2) Acute on chronic kidney failure: Code(s): N17.9 - Acute kidney failure, unspecified; N18.9 - Chronic kidney disease, unspecified Status: Resolved Assessment and Plan: Chronic kidney disease stage IIIA to 3B with baseline creatinine ranging between 1.0 and 1.6 in the last year. * Presented with acute on chronic kidney failure felt to be due to a combination of shock, possible sepsis, contrast exposure, blood pressure medications taken prior to admission, cardiomyopathy, and rhabdomyolysis. * Renal ultrasound showed right renal atrophy and electrolytes were pre renal. * Creatinine is improving and is now closer to baseline; nephrology is following. (3) Ischemic cardiomyopathy: Code(s): I25.5 - Ischemic cardiomyopathy Status: Acute Assessment and Plan: Echo showed normal LV size with mildly reduced systolic function with an estim ated EF of 40 to 45%. * Started on low-dose Toprol this morning per Cardiology. Avoiding ARNI/ACEi/ARB due to acute kidney injury. * Chest x-ray shows diffuse pulmonary disease which has responded to diuretics. * Continue judicious IV diuresis with close monitoring of volume status, electrolytes, and renal function. (4) ST elevation myocardial infarct involv left circumflex coronary artery: Code(s): I21.21 - ST elevation (STEMI) myocardial infarction involving left circumflex coronary artery Status: Acute Assessment and Plan: Presenting with inferior-posterior STEMI due to 100% occluded proximal circumflex. * Angioplasty/stent to 100% thrombotic occluded proximal left circumflex on 03/04/2024. * Residual recalcitrant thrombus in the mid left circumflex with COLLETTE 1 to 2 flow. * Received eptifibatide and heparin infusions post cardiac catheterization. * Continue aspirin, clopidogrel, and statin per Cardiology. (5) Transaminitis: Code(s): R74.01 - Elevation of levels of liver transaminase levels Status: Acute Assessment and Plan: LFTs were normal on presentation but AST and ALT increased to as high as 2363 and 1224 respectively. * Likely due to shock liver. * LFTs continue to trend down. (6) Type 2 diabetes mellitus: Code(s): E11.9 - Type 2 diabetes mellitus without complications Status: Acute Assessment and Plan: According to patient her diabetes is well controlled on metformin. * Initiate sliding scale insulin, Accu-Cheks, and hypoglycemic protocol. * Check hemoglobin A1c. (7) Stage 4 lung cancer: Code(s): C34.90 - Malignant neoplasm of unspecified part of unspecified bronchus or lung Status: Acute Assessment and Plan: Recently diagnosed and receiving treatment at [facility]. (8) Complete heart block: Code(s): I44.2 - Atrioventricular block, complete Status: Resolved Assessment and Plan: Patient was in third-degree heart block on arrival to the ED treated with transcutaneous pacing and dopamine. * Temporary pacemaker placed at time of cardiac catheterization on 03/04/2024. * Transvenous pacer removed at bedside in the morning of 03/06/2024. (9) Cardiogenic shock: Code(s): R57.0 - Cardiogenic shock Status: Resolved Assessment and Plan: Initially treated with dopamine then norepinephrine which has since been weaned. Plan Thank you for allowing us to participate in this patient's care. Please do not hesitate to contact us with any questions. HPI Date of Consult Consult date: 03/08/24 Requesting Physician: Evonne Pinzon MD Primary Care Provider: Gerardo Casillas, DO Consult Narrative Reason for consult: medical management Narrative: This is an 83-year-old female with stage IV lung cancer, hypertension, dyslipidemia, type 2 diabetes mellitus, chronic kidney disease stage 3, gastroesophageal reflux disease, and osteoporosis who presented to the emergency department via EMS from home in the asset protection manager hours on 03/04/2024 with weakness and shortness of breath. On EMS arrival the patient was pale and diaphoretic with hypotension and tachypnea. Initial EKG reportedly showed a left bundle-branch block which degraded to complete heart block for which she was transcutaneously paced. On arrival to the ED she was given atropine 1 mg IV, calcium gluconate 3 g IV, and she was started on a dopamine infusion with improvement in her mentation and blood pressures. She was complaining of pain and a repeat EKG showed ST-elevation consistent with inferior-posterior STEMI. She was taken to the [facility] lab [facility] and was found to have 100% thrombotic occlusion of the proximal left circumflex status post balloon angioplasty and drug-eluting stent though residual recalcitrant thrombus noted in the mid circumflex with COLLETTE 1 to 2 flow. Temporary pacemaker was placed at that time. She was brought to the ICU on norepinephrine for shock, likely cardiogenic, though could not rule out septic shock. Echocardiogram showed mildly reduced systolic function with an EF of 40 to 45% and severely hypokinetic anterolateral, inferior, and inferolateral ceron. She was started on cefepime and vancomycin for possible pneumonia. Chest x-ray continues to show extensive bilateral pulmonary consolidation and ground-glass opacities and she remains on cefepime (MRSA nares was negative). She is also getting intermittent doses of IV diuretics with good response. Today she was deemed stable enough to move out of the ICU and the hospitalists are being admitted in this setting for help managing her medical co nditions. At the time my evaluation her only complaint is that of an ongoing dry cough. She denies fever, sinus congestion, headache, chest pain, pleuritic pain, palpitations, sensations of racing heart, nausea, vomiting, lower extremity edema, and calf pain. Review of Systems Review of Systems: 12 systems were reviewed and are negativ e except for as per HPI. [facility] Past Medical History Medical History (Updated 03/07/24 @ 16:18 by Verena Sanders PA-C) Anxiety Chronic kidney disease, stage 3 Coronary artery disease Gastroesophageal reflux disease Hypertension Obstructive sleep apnea Osteoporosis ST elevation myocardial infarction (STEMI) (03/04/24) inferior-posterior STEMI status post PTCA/stent to the proximal left circumflex with residual recalcitrant thrombus and mid left circumflex with COLLETTE 1 to 2 flow Stage 4 lung cancer Type 2 diabetes mellitus Surgical History Surgical History (Updated 03/07/24 @ 16:07 by Verena Sanders PA-C) History of cardiac catheterization (03/04/24) History of coronary angioplasty with insertion of stent (03/04/24) angioplasty/stent to proximal left circumflex Social History Social History (Updated 03/07/24 @ 15:53 by Verena Sanders PA-C) Social History: Surrogate medical decision maker: Code status: Do not resuscitate. Smoking status: Never smoker Second hand tobacco smoke exposure: No Meds Home Medications and Allergies Home Medications Medication Instructions Recorded Confirmed Type blood sugar diagnostic (OneTouch 03/04/24 03/04/24 History Ultra Test strips) losartan 100 mg tablet 100 mg PO DAILY 03/04/24 03/05/24 History metformin 500 mg tablet,extended 500 mg PO BID 03/04/24 03/05/24 History release 24 hr pantoprazole 20 mg tablet,delayed 20 mg PO DAILY 03/04/24 03/05/24 History release rosuvastatin 10 mg tablet 10 mg PO HS 03/04/24 03/05/24 History acidophilus 100 million 1 cap PO DAILY 03/05/24 03/05/24 History cell-pectin, citrus 10 mg capsule alendronate 70 mg tablet 70 mg PO WEEKLY 03/05/24 03/05/24 History amlodipine 5 mg tablet 5 mg PO DAILY 03/05/24 03/05/24 History aspirin 81 mg tablet 81 mg PO DAILY 03/05/24 03/05/24 History calcium 600 mg capsule 600 mg PO DAILY 03/05/24 03/05/24 History cholecalciferol (vitamin D3) 25 25 mcg PO DAILY 03/05/24 03/05/24 History mcg (1,000 unit) tablet (Vitamin D3) cyanocobalamin (vitamin B-12) 1,000 mcg PO DAILY 03/05/24 03/05/24 History 1,000 mcg tablet (Vitamin B-12) krill oil 500 mg capsule 500 mg PO DAILY 03/05/24 03/05/24 History faibiraxxxrl-Hy-uxkf-minerals 1 tablet PO DAILY 03/05/24 03/05/24 History Allergies Allergy/AdvReac Type Severity Reaction Status Date / Time codeine Allergy Nausea and Verified 03/04/24 06:11 Vomiting erythromycin base Allergy Rash Verified 03/04/24 06:11 escitalopram [From Lexapro] Allergy Nausea and Verified 03/04/24 06:11 Vomiting Vital Signs Vital Signs - 24 hr 03/06/24 14:00 03/06/24 14:00 03/06/24 14:32 Temperature 100.2 F H 100.2 F H Pulse Rate 110 H 110 H 111 H Respiratory Rate 25 H 24 H Blood Pressure 122/72 121/72 Pulse Oximetry 93 96 Oxygen Delivery Oxygen Flow Rate Fraction of Inspired Oxygen 03/06/24 14:37 03/06/24 14:39 03/06/24 14:48 Temperature Pulse Rate 117 H 119 H Respiratory Rate 32 H 20 Blood Pressure Pulse Oximetry 94 Oxygen Delivery High Flow Nasal Cannula Oxygen Flow Rate 11 Fraction of Inspired Oxygen 03/06/24 14:00 03/06/24 16:00 03/06/24 16:00 Temperature Pulse Rate 109 H 115 H Respiratory Rate Blood Pressure 121/72 Pulse Oximetry 95 Oxygen Delivery High Flow Nasal Cannula Oxygen Flow Rate 11 Fraction of Inspired Oxygen 03/06/24 16:00 03/06/24 17:57 03/06/24 18:00 Temperature 100.3 F H 100.1 F H Pulse Rate 117 H 112 H 113 H Respiratory Rate 25 H 22 H Blood Pressure 116/69 111/65 Pulse Oximetry 95 93 Oxygen Delivery Oxygen Flow Rate Fraction of Inspired Oxygen 03/06/24 18:00 03/06/24 18:16 03/06/24 18:33 Temperature 100.1 F H 100.1 F H 100.2 F H Pulse Rate 112 H 111 H 114 H Respiratory Rate 22 H 25 H 22 H Blood Pressure 111/65 110/60 114/74 Pulse Oximetry 93 92 95 Oxygen Delivery Oxygen Flow Rate Fraction of Inspired Oxygen 03/06/24 18:45 03/06/24 20:30 03/06/24 20:30 Temperature 100.3 F H Pulse Rate 112 H 113 H Respiratory Rate 25 H 22 H Blood Pressure 105/73 Pulse Oximetry 93 100 Oxygen Delivery High Flow Nasal Cannula Oxygen Flow Rate 10 Fraction of Inspired Oxygen 03/06/24 20:36 03/06/24 20:00 03/06/24 18:59 Temperature 100.2 F H Pulse Rate 113 H 113 H 117 H Respiratory Rate 24 H 24 H 32 H Blood Pressure Pulse Oximetry 100 95 Oxygen Delivery High Flow Nasal Cannula Oxygen Flow Rate 10 Fraction of Inspired Oxygen 50 03/06/24 19:00 03/06/24 19:30 03/06/24 19:31 Temperature 100.2 F H 100.4 F H 100.3 F H Pulse Rate 117 H 112 H 112 H Respiratory Rate 28 H 29 H 29 H Blood Pressure 114/73 118/69 Pulse Oximetry 98 94 97 Oxygen Delivery Oxygen Flow Rate Fraction of Inspired Oxygen 03/06/24 20:00 03/06/24 20:30 03/06/24 21:00 Temperature 100.4 F H 100.4 F H 100.4 F H Pulse Rate 111 H 110 H 115 H Respiratory Rate 23 H 28 H 30 H Blood Pressure 113/71 115/70 115/67 Pulse Oximetry 95 96 91 Oxygen Delivery Oxygen Flow Rate Fraction of Inspired Oxygen 03/06/24 21:30 03/06/24 22:00 03/06/24 22:30 Temperature 100.4 F H 100.3 F H 100.3 F H Pulse Rate 115 H 110 H 108 H Respiratory Rate 35 H 24 H 23 H Blood Pressure 120/65 115/72 110/66 Pulse Oximetry 94 94 94 Oxygen Delivery Oxygen Flow Rate Fraction of Inspired Oxygen 03/07/24 02:04 03/07/24 02:11 03/07/24 00:00 Temperature Pulse Rate 105 H 105 H 105 H Respiratory Rate 18 24 H 24 H Blood Pressure Pulse Oximetry 94 Oxygen Delivery High Flow Nasal Cannula Oxygen Flow Rate 8 Fraction of Inspired Oxygen 50 03/07/24 04:00 03/06/24 20:00 03/06/24 22:00 Temperature Pulse Rate 105 H 112 H 108 H Respiratory Rate 24 H Blood Pressure Pulse Oximetry 94 Oxygen Delivery High Flow Nasal Cannula Oxygen Flow Rate 6 Fraction of Inspired Oxygen 50 03/07/24 00:00 03/07/24 02:00 03/07/24 04:00 Temperature Pulse Rate 104 H 105 H 106 H Respiratory Rate Blood Pressure Pulse Oximetry Oxygen Delivery Oxygen Flow Rate Fraction of Inspired Oxygen 03/07/24 06:00 03/06/24 23:00 03/07/24 00:00 Temperature 100.2 F H 99.9 F H Pulse Rate 105 H 108 H 105 H Respiratory Rate 20 22 H Blood Pressure 111/71 112/71 Pulse Oximetry 94 96 Oxygen Delivery Oxygen Flow Rate Fraction of Inspired Oxygen 03/07/24 01:00 03/07/24 02:00 03/07/24 03:00 Temperature 99.8 F H 99.5 F 99.1 F Pulse Rate 101 H 107 H 118 H Respiratory Rate 20 19 24 H Blood Pressure 109/69 114/75 114/77 Pulse Oximetry 97 96 91 Oxygen Delivery Oxygen Flow Rate Fraction of Inspired Oxygen 03/07/24 04:00 03/07/24 05:00 03/07/24 06:00 Temperature 98.8 F 98.6 F 98.9 F Pulse Rate 108 H 104 H 104 H Respiratory Rate 20 24 H 19 Blood Pressure 107/68 118/79 111/69 Pulse Oximetry 95 94 95 Oxygen Delivery Oxygen Flow Rate Fraction of Inspired Oxygen 03/07/24 07:26 03/07/24 07:26 03/07/24 07:36 Temperature Pulse Rate 111 H 106 H Respiratory Rate 25 H 21 H Blood Pressure Pulse Oximetry 92 Oxygen Delivery High Flow Nasal Cannula Oxygen Flow Rate 6 Fraction of Inspired Oxygen 03/07/24 08:00 03/07/24 10:00 03/07/24 08:00 Temperature 99.4 F 99.6 F Pulse Rate 119 H 126 H 118 H Respiratory Rate 27 H 21 H Blood Pressure 126/89 126/70 Pulse Oximetry 94 95 Oxygen Delivery Oxygen Flow Rate Fraction of Inspired Oxygen 03/07/24 08:00 03/07/24 11:53 03/07/24 12:00 Temperature 100.5 F H Pulse Rate 126 H 125 H 123 H Respiratory Rate 21 H 30 H Blood Pressure 132/72 Pulse Oximetry 95 91 Oxygen Delivery High Flow Nasal Cannula Oxygen Flow Rate 6 Fraction of Inspired Oxygen 50 03/07/24 10:00 03/07/24 12:00 03/07/24 12:00 Temperature Pulse Rate 125 H 122 H 122 H Respiratory Rate 30 H Blood Pressure Pulse Oximetry 91 Oxygen Delivery High Flow Nasal Cannula Oxygen Flow Rate 11 Fraction of Inspired Oxygen 50 Exam Narrative: General: Mildly ill-appearing female in the semi-Reese position in bed in no distress. Weight: 53.9 kg. BMI: 23.2. HEENT: PERRL, EOMI. Sclera anicteric. Oral mucosa moist. Neck: Supple. Respiratory: Currently on 6 L high-flow. She is able to speak in full sentences. Occasional dry cough. Coarse crackles throughout. Cardiovascular: Tachycardic with normal S1-S2. Soft murmur at the apex. Gastrointestinal: Abdomen is soft, nontender, and nondistended with positive bowel sounds. Skin: Warm and dry. No rash or lesions on limited exam. Extremities: No cyanosis, clubbing, or edema. Radial and pedal pulses intact. No palpable knots or cords. Negative Vernon sign bilaterally. Neurological: Alert. Cranial nerves 2-12 are grossly intact. No gross focal deficits to casual conversation. Psychiatric: Pleasant and cooperative with normal mood and affect. Results Labs 03/07/24 06:21 03/07/24 06:20 Labs: Short CBC 03/06/24 03/07/24 Range/Units 16:21 06:21 WBC 15.9 H (4.5-10.0) K/mm3 Hgb 8.9 L 8.8 L (12.0-15.0) g/dL Hct 26.7 L 26.2 L (37.0-47.0) % Plt Count 111 L (150-375) k/mm3 BMP 03/07/24 06:20 Sodium 134 L Potassium 3.5 Chloride 96 L Carbon Dioxide 32 H BUN 36 H Creatinine 1.80 H Glucose 128 H Calcium 8.2 L Cardiac Enzymes 03/07/24 Range/Units 06:20 Total Creatine Kinase 414 H (30-135) U/L Liver Function 03/07/24 Range/Units 06:20 Total Bilirubin 0.7 (0.2-1.3) mg/dL AST 532 H (14-36) U/L ALT 886 H (6-35) U/L Alkaline Phosphatase 80 (38-126) U/L Albumin 3.4 L (3.5-5.1) g/dL Hospitalist MIPS Advance Care Plan I have confirmed that the patient's Advanced Care Plan is present, code status is documented, or surrogate decision maker is listed in patient medical record.: Yes Medication Reconciliation I have utilized all available resources to obtain, update and review the grant ents current medications (includes all prescriptions, OTC, herbals, cannabis, and nutritional supplements).: Yes
[2024-03-07 17:16] LABS: Glucose Point of Care 170 mg/dl (65-105)
[2024-03-07 17:55] LABS: CRP 6.7 mg/dL (<1.0)
[2024-03-07] MEDS: POTASSIUM CHLORIDE 20 MEQ ER TABLET 40 MEQ PO (18:09)
[2024-03-07 18:17] LABS: Influenza A QL RT-PCR Negative (Negative); Influenza B QL RT-PCR Negative (Negative); SARS-CoV-2 RNA PCR Negative (Negative)
[2024-03-07 18:30] LABS: Procalcitonin 0.5 ng/mL
--- NOTE | 2024-03-07 19:58 | PC.NURSE ---
received pt from ICU @ 1300-pt up to chair- O2 High Flow nasal cannula 6liters- spo2 92%- pt oriented to room and routines of floor- monitor ST- call light in reach
[2024-03-07 20:42] LABS: Glucose Point of Care 237 mg/dl (65-105)
[2024-03-07 22:02] LABS: Hemoglobin A1C 7.5 % (<5.7)
[2024-03-07 23:23] LABS: Myoglobin, Urine <1 mg/L (0-1)
[2024-03-08] VITALS (29 sets, daily range): BP systolic 108–115; BP diastolic 64–70; PULSE 97–115; RESP 18–20; TEMP 36.4–37; O2SAT 90–100
[2024-03-08] MEDS: IPRATROPIUM 0.5 MG/ALBUTEROL SULFATE 2.5 MG AMPUL.NEB 3 ML INHALATION ×4 (03:07→20:16)
[2024-03-08 04:37] LABS: Hematocrit 25.8 % (37.0-47.0); Hemoglobin 8.6 g/dL (12.0-15.0); Immature Platelet Fraction Pct 6.9 % (0.9-11.2); Mean Corpuscular HGB Conc 33.3 g/dl (32-36); Mean Corpuscular Hemoglobin 29.6 pg (26-34); Mean Corpuscular Volume 88.7 fl (80-100); Mean Platelet Volume 11.1 fl (7.4-10.4); Platelet Count Result 115 k/mm3 (150-375); Red Blood Count 2.91 M/mm3 (4.2-5.4); Red Cell Distribution Width 15.2 % (11.5-14.5); White Blood Count 13.6 K/mm3 (4.5-10.0)
[2024-03-08 04:47] LABS: Alanine Aminotransferase 631 U/L (6-35); Albumin Level 3.2 g/dL (3.5-5.1); Alkaline Phosphatase 91 U/L (38-126); Anion Gap 3 mmol/L (4-12); Aspartate Amino Transferase 249 U/L (14-36); Bilirubin,Total 0.9 mg/dL (0.2-1.3); Blood Urea Nitrogen 29 mg/dL (7-17); Calcium 8.1 mg/dL (8.4-10.2); Carbon Dioxide 32 mmol/L (22-30); Chloride 99 mmol/L (98-107); Creatine Kinase 208 U/L (30-135); Estimated CRCL calculation 18 ml/min; Estimated Glomerular Filt Rate 33; Glucose 122 mg/dL (65-110); Magnesium 1.9 mg/dL (1.6-2.3); Potassium 4.2 mmol/L (3.4-5.0); Sodium 134 mmol/L (137-145)
[2024-03-08] MEDS: CENTRAL LINE FLUSH 10 ML IV PUSH ×3 (06:18→20:56)
[2024-03-08 07:58] LABS: Glucose Point of Care 148 mg/dl (65-105)
[2024-03-08] MEDS: INSULIN GLARGINE (*BKC) 100 UNITS/ML 15 UNITS SUB-Q (08:44)
[2024-03-08] MEDS: CEFEPIME 1 GM/NS 50 ML 1 GM/50 ML BAG IVPB ×2 (08:44→20:55)
[2024-03-08] MEDS: METOPROLOL SUCCINATE EXT REL 12.5 MG TABCR PO (08:44)
[2024-03-08] MEDS: BUMETANIDE INJ 1 MG/4 ML VIAL IV PUSH ×2 (08:44→17:48)
[2024-03-08] MEDS: ENOXAPARIN 30 MG/0.3 ML SYRINGE SUB-Q (08:44)
[2024-03-08] MEDS: CLOPIDOGREL BISULFATE 75 MG TABLET PO (08:45)
[2024-03-08] MEDS: PANTOPRAZOLE 40 MG TABLET PO (08:45)
[2024-03-08] MEDS: ATORVASTATIN 40 MG TABLET PO (08:45)
[2024-03-08] MEDS: ASPIRIN 81 MG ENTERIC TABLET PO (08:45)
--- NOTE | 2024-03-08 11:07 | PM.PNCARD ---
Progress Note: A&P Assessment and Plan (1) STEMI (ST elevation myocardial infarction): Code(s): I21.3 - ST elevation (STEMI) myocardial infarction of unspecified site Status: Acute Assessment and Plan: Continue ASA, Plavix, Atorvastatin (2) Cardiogenic shock: Code(s): R57.0 - Cardiogenic shock Status: Resolved Assessment and Plan: Echocardiogram with LVEF 40-45%. Off of Levophed now. Shock resolved. (3) Third degree AV block: Code(s): I44.2 - Atrioventricular block, complete Status: Acute Assessment and Plan: In setting of STEMI. Improved after PCI. Not requiring transvenous pacer. Removed at bedside 03/06 (4) Cardiomyopathy: Code(s): I42.9 - Cardiomyopathy, unspecified Status: Acute Assessment and Plan: Echocardiogram with LVEF 40-45%. Agree with intermittent doses of IV diuretic given pulmonary edema on chest XR. Started low dose Toprol. Plan to uptitrate heart failure GDMT as tolerated. Hold off on ARNI/ACEi/ARB due to JAE, will plan to start once JAE resolves. (5) Acute kidney injury: Code(s): N17.9 - Acute kidney failure, unspecified Status: Acute Assessment and Plan: Improving. Nephrology consulted. (6) Anemia: Code(s): D64.9 - Anemia, unspecified Status: Acute Assessment and Plan: Hgb 6.8 03/06, received blood transfusion. Hgb currently stable. (7) Acute respiratory failure with hypoxia: Code(s): J96.01 - Acute respiratory failure with hypoxia Status: Acute Assessment and Plan: Continue with IV diuresis. Will obtain CXR in the AM. Wean off oxygen as tolerated. (8) Type 2 diabetes mellitus: Code(s): E11.9 - Type 2 diabetes mellitus without complications Status: Acute Assessment and Plan: Hgb A1c is 7.5. Management as per Hospitalist. (9) Transaminitis: Code(s): R74.01 - Elevation of levels of liver transaminase levels Status: Acute Assessment and Plan: Likely due to shock, IN. Improving. Plan Recommendations and plan discussed with Hospitalist. Subjective Date/time seen: 03/08/24 11:07 Interval history: Reason for visit: STEMI HPI: 83-year-old female with a past medical history significant for lung cancer, hypertension, diabetes who was brought by EMS to the ED with sudden onset chest pain, shortness of breath, diaphoresis, pale looking. She was found to have an inferoposterior STEMI with a complete heart block. She was directly taken to the lab after discussing the risks, benefits and alternatives of the procedure with her. We also discussed the goals of care with her in light of lung malignancy. She wanted to proceed. She was taken to the labor relations consultant and VINICIUS was placed in the proximal LCX. There is some residual thrombus in the mid LCX artery. Placed a temporary pacemaker through the right femoral vein and currently she is being paced at a rate of 100 beats per minute, output of 10 and sensitivity of 5. Post PCI she denied any chest pain and will be transferred to the ICU to help with further management. Date of service 03/05: Denies chest pain and dyspnea today. Date of service 03/06: No chest pain. Tele with sinus tachycardia with first degree AV block. Not requiring transvenous pacer. Off of pressors. Hgb 6.8, getting blood transfusion. Date of service 03/07: Feeling better today. Still requiring supplemental oxygen. Diuresed well with Lasix yesterday, given dose of Bumex this morning. Date of service 03/08: Diuresed well yesterday. Feeling a bit better. Still requiring oxygen. Review of Systems Review of Systems: All systems reviewed & are unremarkable except as noted in HPI and below (HPI) Exam Const: General: no acute distress Eyes: General: appearance normal, both eyes and all related structures Sclera: sclerae normal Resp: Effort & Inspection: normal respiratory effort Other: On supplemental oxygen Cardio: Rate: regular rate Rhythm: regular rhythm Neuro: Speech: normal speech Psych: Mental Status: mental status grossly normal Affect: normal affect Objective Data Vital Signs Vital Signs: Vital Signs - 24 hr 03/07/24 11:53 03/07/24 12:00 03/07/24 12:00 Temperature 38.1 C H Pulse Rate 125 H 123 H 122 H Respiratory Rate 30 H Blood Pressure 132/72 Pulse Oximetry 91 Oxygen Delivery Oxygen Flow Rate Fraction of Inspired Oxygen 03/07/24 12:00 03/07/24 14:26 03/07/24 14:38 Temperature Pulse Rate 122 H 109 H 108 H Respiratory Rate 30 H 20 20 Blood Pressure Pulse Oximetry 91 Oxygen Delivery High Flow Nasal Cannula Oxygen Flow Rate 11 Fraction of Inspired Oxygen 50 03/07/24 16:00 03/07/24 14:00 03/07/24 16:00 Temperature 36.7 C Pulse Rate 114 H 110 H 117 H Respiratory Rate 18 Blood Pressure 110/62 Pulse Oximetry 96 Oxygen Delivery Oxygen Flow Rate Fraction of Inspired Oxygen 03/07/24 18:00 03/07/24 20:16 03/07/24 20:16 Temperature Pulse Rate 118 H 103 H 103 H Respiratory Rate 20 Blood Pressure Pulse Oximetry 93 Oxygen Delivery High Flow Nasal Cannula Oxygen Flow Rate 6 Fraction of Inspired Oxygen 03/07/24 20:17 03/07/24 20:23 03/07/24 20:00 Temperature 37.0 C Pulse Rate 104 H 103 H 103 H Respiratory Rate 20 20 Blood Pressure 112/71 Pulse Oximetry 98 Oxygen Delivery Oxygen Flow Rate Fraction of Inspired Oxygen 03/07/24 20:00 03/07/24 22:51 03/07/24 22:00 Temperature Pulse Rate 111 H Respiratory Rate Blood Pressure Pulse Oximetry 93 96 Oxygen Delivery High Flow Nasal Cannula High Flow Nasal Cannula Oxygen Flow Rate 6 6 Fraction of Inspired Oxygen 03/07/24 23:36 03/08/24 00:00 03/08/24 00:00 Temperature 36.8 C Pulse Rate 113 H 111 H Respiratory Rate 20 Blood Pressure 116/67 Pulse Oximetry 90 93 Oxygen Delivery High Flow Nasal Cannula Oxygen Flow Rate 6 Fraction of Inspired Oxygen 03/08/24 02:00 03/08/24 03:08 03/08/24 03:14 Temperature Pulse Rate 112 H 110 H 113 H Respiratory Rate 20 18 Blood Pressure Pulse Oximetry Oxygen Delivery Oxygen Flow Rate Fraction of Inspired Oxygen 03/08/24 04:00 03/08/24 04:00 03/08/24 04:36 Temperature 37.0 C Pulse Rate 110 H 111 H Respiratory Rate 20 Blood Pressure 115/67 Pulse Oximetry 93 95 Oxygen Delivery High Flow Nasal Cannula Oxygen Flow Rate 6 Fraction of Inspired Oxygen 03/08/24 06:00 03/08/24 07:39 03/08/24 08:19 Temperature 36.7 C Pulse Rate 97 100 Respiratory Rate 18 Blood Pressure 108/65 Pulse Oximetry 100 94 Oxygen Delivery High Flow Nasal Cannula Oxygen Flow Rate 6 Fraction of Inspired Oxygen 03/08/24 08:19 03/08/24 08:33 10/17/24 08:44 Temperature Pulse Rate 102 H 101 H 99 Respiratory Rate 20 20 Blood Pressure Pulse Oximetry Oxygen Delivery Oxygen Flow Rate Fraction of Inspired Oxygen 03/08/24 08:00 Temperature Pulse Rate Respiratory Rate Blood Pressure Pulse Oximetry 95 Oxygen Delivery High Flow Nasal Cannula Oxygen Flow Rate 6 Fraction of Inspired Oxygen Intake/Output Intake/Output: Intake & Output 03/05/24 03/06/24 03/07/24 03/08/24 23:59 23:59 23:59 23:59 Intake Total 2018.9 1595.5 1710 550 Output Total 300 1150 3150 400 Balance 1718.9 445.5 -1440 150 Meds/Results Medications: Active Medications Generic Name Dose Route Start Last Admin Trade Name Freq PRN Reason Stop Dose Admin Acetaminophen 650 mg 03/04/24 08:53 03/05/24 14:41 Acetaminophen 325 Mg Tablet PO 650 mg Q6H PRN Administration Mild Pain (1-3) or Fever Albuterol/Ipratropium 3 ml 03/06/24 14:00 03/08/24 08:19 Ipratropium 0.5 Mg/Albuterol Sulfate 2.5 Mg Ampul.Neb 3 Ml INHALATION 3 ml Q6HRT BONY Administration Aspirin 81 mg 03/04/24 09:00 03/08/24 08:45 Aspirin 81 Mg Enteric Tablet PO 81 mg DAILY BONY Administration Atorvastatin Calcium 40 mg 03/04/24 09:00 03/08/24 08:45 Atorvastatin 40 Mg Tablet PO 40 mg DAILY BONY Administration Bumetanide 1 mg 03/08/24 09:00 03/08/24 08:44 Bumetanide Inj 1 Mg/4 Ml Vial IV PUSH 1 mg QAM BONY Administration Clopidogrel Bisulfate 75 mg 03/04/24 09:00 03/08/24 08:45 Clopidogrel Bisulfate 75 Mg Tablet PO 75 mg DAILY BONY Administration Dextrose 12.5 gm 03/04/24 09:24 Dextrose 50% 25 Gm/50 Ml Syringe IV PUSH PRN PRN Hypoglycemia Protocol Enoxaparin Sodium 30 mg 03/06/24 09:00 03/08/24 08:44 Enoxaparin 30 Mg/0.3 Ml Syringe SUB-Q 30 mg DAILY BONY Administration Glucagon 1 mg 03/04/24 09:24 Glucagon For Inj 1 Mg Vial IM PRN PRN Hypoglycemia Protocol Glucose 15 gm 03/04/24 09:24 Glucose Oral Gel 15 Gm Of Glucse In 37.5 Gm Tube PO PRN PRN Hypoglycemia Protocol Dextrose 1,000 mls @ 100 mls/hr 03/04/24 09:24 Dextrose 5% 1,000 Ml IVPB PRN PRN Hypoglycemia Protocol Cefepime HCl 1 gm in 50 mls @ 100 mls/hr 03/04/24 09:40 03/08/24 08:44 Maxipime 1 Gm/Ns 50 Ml IVPB 100 mls/hr Q12HR BONY Administration Insulin Aspart 3 - 6 units 03/08/24 08:00 03/08/24 08:00 Insulin Aspart (*Bkc) 100 Units/Ml SUB-Q Not Given TIDWM BONY Protocol Insulin Glargine 15 units 03/05/24 10:00 03/08/24 08:44 Insulin Glargine (*Bkc) 100 Units/Ml SUB-Q 15 units QAM BONY Administration Metoprolol Succinate 12.5 mg 03/07/24 11:25 03/08/24 08:44 Metoprolol Succinate Ext Rel 12.5 Mg Tabcr PO 12.5 mg QAM BONY Administration Ondansetron HCl 4 mg 03/04/24 10:15 03/04/24 10:16 Ondansetron Inj 4 Mg/2 Ml Vial IV PUSH 4 mg Q4H PRN Administration Nausea And Vomiting Pantoprazole Sodium 40 mg 03/08/24 09:00 03/08/24 08:45 Pantoprazole 40 Mg Tablet PO 40 mg QAM BONY Administration Sodium Chloride 10 ml 03/04/24 14:00 03/08/24 06:18 Central Line Flush IV PUSH 10 ml Q8HR BONY Administration Sodium Chloride 10 ml 03/04/24 12:31 Central Line Flush IV PUSH PRN PRN with TPN bag changes Sodium Chloride 20 ml 03/04/24 12:31 Central Line Flush IV PUSH PRN PRN after blood draws Sodium Chloride 1 spray 03/07/24 17:44 Saline 0.65% Guillermo Soln 44 Ml Btl NASAL Q6HR PRN congestion Radiology Results: ITS Impressions Renal Ultrasound 03/04/24 12:01 IMPRESSION: 1. Mild atrophy of right kidney. No hydronephrosis. Chest X-Ray 03/06/24 07:42 Impression: Extensive bilateral pulmonary consolidation and present. Correlate for severe pulmonary edema versus diffuse pneumonia. Small pleural effusions. Right-sided PICC line. Labs Labs: Laboratory Results - last 24 hr 03/05/24 03/07/24 03/07/24 12:15 11:40 17:12 WBC RBC Hgb Hct MCV MCH MCHC RDW Plt Count MPV % Immature Plt Fraction Sodium Potassium Chloride Carbon Dioxide Anion Gap BUN Creatinine Estim Creat Clear Calc Estimated GFR Glucose POC Capillary Glucose 206 H 170 H Hemoglobin A1c Calcium Magnesium Total Bilirubin AST ALT Alkaline Phosphatase Total Creatine Kinase C-Reactive Protein Total Protein Albumin Procalcitonin TSH (Reflex) Urine Myoglobin <1 Influenza A (RT-PCR) Influenza B (RT-PCR) SARS-CoV-2 RNA (RT-PCR) 03/07/24 03/07/24 03/07/24 17:14 17:23 17:26 WBC RBC Hgb Hct MCV MCH MCHC RDW Plt Count MPV % Immature Plt Fraction Sodium Potassium Chloride Carbon Dioxide Anion Gap BUN Creatinine Estim Creat Clear Calc Estimated GFR Glucose POC Capillary Glucose Hemoglobin A1c 7.5 H Calcium Magnesium Total Bilirubin AST ALT Alkaline Phosphatase Total Creatine Kinase C-Reactive Protein 6.7 H Total Protein Albumin Procalcitonin 0.5 TSH (Reflex) 1.050 Urine Myoglobin Influenza A (RT-PCR) Negative Influenza B (RT-PCR) Negative SARS-CoV-2 RNA (RT-PCR) Negative 03/07/24 03/08/24 03/08/24 20:39 04:29 07:26 WBC 13.6 H RBC 2.91 L Hgb 8.6 L Hct 25.8 L MCV 88.7 MCH 29.6 MCHC 33.3 RDW 15.2 H Plt Count 115 L MPV 11.1 H % Immature Plt Fraction 6.9 Sodium 134 L Potassium 4.2 Chloride 99 Carbon Dioxide 32 H Anion Gap 3 L BUN 29 H Creatinine 1.50 H Estim Creat Clear Calc 18 Estimated GFR 33 L Glucose 122 H POC Capillary Glucose 237 H 148 H Hemoglobin A1c Calcium 8.1 L Magnesium 1.9 Total Bilirubin 0.9 AST 249 H ALT 631 H Alkaline Phosphatase 91 Total Creatine Kinase 208 H C-Reactive Protein Total Protein 6.0 L Albumin 3.2 L Procalcitonin TSH (Reflex) Urine Myoglobin Influenza A (RT-PCR) Influenza B (RT-PCR) SARS-CoV-2 RNA (RT-PCR)
--- NOTE | 2024-03-08 11:27 | PCPTNOTE ---
spoke with Dr. Correia about removing bed rest orders so we can complete PT eval
[2024-03-08 11:47] LABS: Glucose Point of Care 185 mg/dl (65-105)
--- NOTE | 2024-03-08 12:07 | P.PNNP_ITS ---
Progress Note: A&P Assessment and Plan (1) Acute kidney injury: Code(s): N17.9 - Acute kidney failure, unspecified Status: Acute Assessment and Plan: * as noted by trend of labs since admission * suspect multifactorial etiology: * rhabdomyolysis * shock/homodynamic instability * sepsis/infection (?) * contrast exposure (cardiac catheterization) * BP medications prior to admission (losartan) * underlying cardiomyopathy * evaluation to date noted: * renal ultrasound with right renal atrophy but on obstruction * urine electrolytes prerenal (suspect more indicative of cardiomyopathy than volume depletion) * urine eosinophils negative * CPK downtrending * no significant proteinuria * continue IV diuretics as tolerated * monitor trend of repeat labs and UOP (2) Chronic kidney disease, stage 3: Code(s): N18.30 - Chronic kidney disease, stage 3 unspecified Status: Chronic Assessment and Plan: * baseline creatinine seems to run ~ 1.0 - 1.6mg/dl in the last year or so * this causes her to fluctuate between CKD stage 3A and stage 3B * presumably secondary to HTN, DM, vascular disease, and age-related change (3) STEMI (ST elevation myocardial infarction): Code(s): I21.3 - ST elevation (STEMI) myocardial infarction of unspecified site Status: Acute Assessment and Plan: * s/p stent placement in circumflex with residual thrombus * Cardiology following * on ASA/statin/plavix * evidence of cardiomyopathy by Echo * diuresis as tolerated (4) Shock: Code(s): R57.9 - Shock, unspecified Status: Acute Assessment and Plan: * resolved * suspect a combination of cardiogenic and sepsis * weaned off vasopressor support * follow culture data * wean antibiotics (5) Acute respiratory failure: Code(s): J96.00 - Acute respiratory failure, unspecified whether with hypoxia or hypercapnia Status: Acute Assessment and Plan: * due to pulmonary edema complicated by known history of lung cancer * possible component of pneumonia * continue supplemental oxygen * remains at risk for intubation/mechanical ventilation * diuresis as hemodynamics allow (6) Anemia: Code(s): D64.9 - Anemia, unspecified Status: Acute Assessment and Plan: * PRBC transfusion per protocol * related to JAE, CKD, and acute illness * anemia studies c/w with iron deficiency * follow H/H (7) Stage 4 lung cancer: Code(s): C34.90 - Malignant neoplasm of unspecified part of unspecified bronchus or lung Status: Chronic Assessment and Plan: * known diagnosis * receiving chemotherapy as an outpatient (8) Diabetes: Code(s): E11.9 - Type 2 diabetes mellitus without complications Status: Acute Assessment and Plan: * follow accu-cheks * glycemic control per hospitalist Will continue to follow.. Subjective Date/time seen: 03/08/24 12:07 Interval history: Follow-up for acute kidney injury/acute renal failure on chronic kidney disease. Transferred out of ICU yesterday; still requiring supplemental oxygen at this time but continues to have good urine output in response to IV diuretic therapy; stable hemodynamics noted as well; no issues/events overnight or earlier this morning. Exam Narrative: General: frail and elderly female in NAD Heart: normal S1 and S2; no rub Lungs: coarse with bibasilar crackles Abdomen: soft, nontender, nondistended, positive bowel sounds Extremities: no cyanosis or clubbing; no edema Skin: warm and intact Objective Data Vital Signs Vital Signs: Vital Signs Temp Pulse Resp BP Pulse Ox O2 Del Method O2 Flow Rate 03/08/24 12:00 111 H 03/08/24 11:31 98.1 F 107 H 18 114/70 96 High Flow Nasal Cannula 6 03/08/24 10:00 108 H 03/08/24 08:00 95 High Flow Nasal Cannula 6 03/08/24 08:44 99 03/08/24 08:33 101 H 20 03/08/24 08:19 102 H 20 03/08/24 08:19 94 High Flow Nasal Cannula 6 03/08/24 07:39 98.1 F 100 18 108/65 100 03/08/24 06:00 97 03/08/24 04:36 98.6 F 111 H 20 115/67 95 03/08/24 04:00 93 High Flow Nasal Cannula 6 03/08/24 04:00 110 H 03/08/24 03:14 113 H 18 03/08/24 03:08 110 H 20 03/08/24 02:00 112 H 03/08/24 00:00 93 High Flow Nasal Cannula 6 03/08/24 00:00 111 H 03/07/24 23:36 98.3 F 113 H 20 116/67 90 03/07/24 22:00 111 H 03/07/24 22:51 96 High Flow Nasal Cannula 6 03/07/24 20:00 93 High Flow Nasal Cannula 6 03/07/24 20:00 103 H 03/07/24 20:23 103 H 20 03/07/24 20:17 98.6 F 104 H 20 112/71 98 03/07/24 20:16 103 H 20 03/07/24 20:16 103 H 93 High Flow Nasal Cannula 6 03/07/24 18:00 118 H Intake/Output Intake/Output: Intake & Output 03/05/24 03/06/24 03/07/24 03/08/24 23:59 23:59 23:59 23:59 Intake Total 2018.9 1595.5 1710 1000 Output Total 300 1150 3150 650 Balance 1718.9 445.5 -1440 350 Meds/Results Medications: Active Medications Generic Name Dose Route Start Last Admin Trade Name Freq PRN Reason Stop Dose Admin Acetaminophen 650 mg 03/04/24 08:53 03/05/24 14:41 Acetaminophen 325 Mg Tablet PO 650 mg Q6H PRN Administration Mild Pain (1-3) or Fever Albuterol/Ipratropium 3 ml 03/06/24 14:00 03/08/24 13:47 Ipratropium 0.5 Mg/Albuterol Sulfate 2.5 Mg Ampul.Neb 3 Ml INHALATION 3 ml Q6HRT BONY Administration Alteplase, Recombinant 2 mg 03/08/24 12:00 03/08/24 12:40 Alteplase 2 Mg Vial (Cathflo) IV PUSH 2 mg ONCE PRN Administration Line Occlusion Aspirin 81 mg 03/04/24 09:00 03/08/24 08:45 Aspirin 81 Mg Enteric Tablet PO 81 mg DAILY BONY Administration Atorvastatin Calcium 40 mg 03/04/24 09:00 03/08/24 08:45 Atorvastatin 40 Mg Tablet PO 40 mg DAILY BONY Administration Bumetanide 1 mg 03/08/24 09:00 03/08/24 08:44 Bumetanide Inj 1 Mg/4 Ml Vial IV PUSH 1 mg QAM BONY Administration Clopidogrel Bisulfate 75 mg 03/04/24 09:00 03/08/24 08:45 Clopidogrel Bisulfate 75 Mg Tablet PO 75 mg DAILY BONY Administration Dextrose 12.5 gm 03/04/24 09:24 Dextrose 50% 25 Gm/50 Ml Syringe IV PUSH PRN PRN Hypoglycemia Protocol Enoxaparin Sodium 30 mg 03/06/24 09:00 03/08/24 08:44 Enoxaparin 30 Mg/0.3 Ml Syringe SUB-Q 30 mg DAILY BONY Administration Glucagon 1 mg 03/04/24 09:24 Glucagon For Inj 1 Mg Vial IM PRN PRN Hypoglycemia Protocol Glucose 15 gm 03/04/24 09:24 Glucose Oral Gel 15 Gm Of Glucse In 37.5 Gm Tube PO PRN PRN Hypoglycemia Protocol Dextrose 1,000 mls @ 100 mls/hr 03/04/24 09:24 Dextrose 5% 1,000 Ml IVPB PRN PRN Hypoglycemia Protocol Cefepime HCl 1 gm in 50 mls @ 100 mls/hr 03/04/24 09:40 03/08/24 09:14 Maxipime 1 Gm/Ns 50 Ml IVPB Infused Q12HR BONY Infusion Insulin Aspart 3 - 6 units 03/08/24 08:00 03/08/24 16:24 Insulin Aspart (*Bkc) 100 Units/Ml SUB-Q 4 units TIDWM BONY Administration Protocol Insulin Glargine 15 units 03/05/24 10:00 03/08/24 08:44 Insulin Glargine (*Bkc) 100 Units/Ml SUB-Q 15 units QAM BONY Administration Metoprolol Succinate 12.5 mg 03/07/24 11:25 03/08/24 08:44 Metoprolol Succinate Ext Rel 12.5 Mg Tabcr PO 12.5 mg QAM BONY Administration Ondansetron HCl 4 mg 03/04/24 10:15 03/04/24 10:16 Ondansetron Inj 4 Mg/2 Ml Vial IV PUSH 4 mg Q4H PRN Administration Nausea And Vomiting Pantoprazole Sodium 40 mg 03/08/24 09:00 03/08/24 08:45 Pantoprazole 40 Mg Tablet PO 40 mg QAM BONY Administration Sodium Chloride 10 ml 03/04/24 14:00 03/08/24 14:53 Central Line Flush IV PUSH 10 ml Q8HR BONY Administration Sodium Chloride 10 ml 03/04/24 12:31 Central Line Flush IV PUSH PRN PRN with TPN bag changes Sodium Chloride 20 ml 03/04/24 12:31 Central Line Flush IV PUSH PRN PRN after blood draws Sodium Chloride 1 spray 03/07/24 17:44 Saline 0.65% Guillermo Soln 44 Ml Btl NASAL Q6HR PRN congestion Radiology Results: ITS Impressions Renal Ultrasound 03/04/24 12:01 IMPRESSION: 1. Mild atrophy of right kidney. No hydronephrosis. Chest X-Ray 03/06/24 07:42 Impression: Extensive bilateral pulmonary consolidation and present. Correlate for severe pulmonary edema versus diffuse pneumonia. Small pleural effusions. Right-sided PICC line. Labs Labs: Laboratory Tests 03/08/24 04:29 03/08/24 04:29 Calcium 8.1 L Magnesium 1.9 Total Bilirubin 0.9 AST 249 H ALT 631 H Alkaline Phosphatase 91 Total Creatine Kinase 208 H Total Protein 6.0 L Albumin 3.2 L
[2024-03-08] MEDS: ALTEPLASE 2 MG VIAL (CATHFLO) IV PUSH (12:40)
--- NOTE | 2024-03-08 13:43 | P.PNIM_ITS ---
Progress Note: A&P Assessment and Plan (1) Acute respiratory failure with hypoxia: Code(s): J96.01 - Acute respiratory failure with hypoxia Status: Acute Assessment and Plan: Patient to continues to have a high oxygen requirement, currently on 6 L high- flow. * X-ray today with extensive bilateral pulmonary consolidation and ground-glass opacities and small pleural effusions. * Continue diuretics and empiric antibiotics given low-grade fever and leukocytosis. * continue iv abx watch cultures * isiah murray in 2-3 days time * watch wcc and oxygen needs while in hospital (2) Acute on chronic kidney failure: Code(s): N17.9 - Acute kidney failure, unspecified; N18.9 - Chronic kidney disease, unspecified Status: Resolved Assessment and Plan: Chronic kidney disease stage IIIA to 3B with baseline creatinine ranging between 1.0 and 1.6 in the last year. * Creatinine is improving, nephrology is following. (3) Ischemic cardiomyopathy: Code(s): I25.5 - Ischemic cardiomyopathy Status: Acute Assessment and Plan: Echo showed normal LV size with mildly reduced systolic function with an estimated EF of 40 to 45%. * continue to diuresis with iv lasix (4) ST elevation myocardial infarct involv left circumflex coronary artery: Code(s): I21.21 - ST elevation (STEMI) myocardial infarction involving left circumflex coronary artery Status: Acute Assessment and Plan: Presenting with inferior-posterior STEMI due to 100% occluded proximal circumflex. * Angioplasty/stent to 100% thrombotic occluded proximal left circumflex on 03/04/2024. * Residual recalcitrant thrombus in the mid left circumflex with COLLETTE 1 to 2 flow. * Received eptifibatide and heparin infusions post cardiac catheterization. * Continue aspirin, clopidogrel, and statin per Cardiology. (5) Transaminitis: Code(s): R74.01 - Elevation of levels of liver transaminase levels Status: Acute Assessment and Plan: LFTs were normal on presentation but AST and ALT increased to as high as 2363 and 1224 respectively. * watch lfts (6) Type 2 diabetes mellitus: Code(s): E11.9 - Type 2 diabetes mellitus without complications Status: Acute Assessment and Plan: * hbaic is 7 * can use insulin in hospital and dc on oral hypoglycemics (7) Stage 4 lung cancer: Code(s): C34.90 - Malignant neoplasm of unspecified part of unspecified bronchus or lung Status: Acute Assessment and Plan: Recently diagnosed and receiving treatment at [facility]. (8) Complete heart block: Code(s): I44.2 - Atrioventricular block, complete Status: Resolved Assessment and Plan: Patient was in third-degree heart block on arrival to the ED treated with transcutaneous pacing and dopamine. * Temporary pacemaker placed at time of cardiac catheterization on 03/04/2024. * Transvenous pacer removed at bedside in the morning of 03/06/2024. (9) Cardiogenic shock: Code(s): R57.0 - Cardiogenic shock Status: Resolved Assessment and Plan: weaned off vasopressors doing well on the floor Plan dvt prop: lovenox Subjective Date/time seen: 03/08/24 13:43 Interval history: 83-year-old female with stage IV lung cancer, hypertension, dyslipidemia, type 2 diabetes mellitus, chronic kidney disease stage 3, gastroesophageal reflux disease, and osteoporosis who presented to the emergency department via EMS from home in the it infrastructure project manager hours on 03/04/2024 with weakness and shortness of breath. On EMS arrival the patient was pale and diaphoretic with hypotension and tachypnea. Initial EKG reportedly showed a left bundle-branch block which degraded to complete heart block for which she was transcutaneously paced. On arrival to the ED she was given atropine 1 mg IV, calcium gluconate 3 g IV, and she was started on a dopamine infusion with improvement in her mentation and blood pressures. She was complaining of pain and a repeat EKG showed ST-e levation consistent with inferior-posterior STEMI. She was taken to the clinical laboratory technician and was found to have 100% thrombotic occlusion of the proximal left circumflex status post balloon angioplasty and drug-eluting stent though residual recalcitrant thrombus noted in the mid circumflex with COLLETTE 1 to 2 flow. Temporary pacemaker was placed at that time. She was brought to the ICU on norepinephrine for shock, likely cardiogenic, though could not rule out septic shock. Echocardiogram showed mildly reduced systolic function with an EF of 40 to 45% and severely hypokinetic anterolateral, inferior, and inferolateral ceron. Pt admited with heart block,STEMI, pneumonia and septic shock Pt out of icu down to 6 liters of oxygen continue to wean off oxygen, D/W cardiology Pt is sp heart cath complains of SOB and cough , Cxr shows extensive bilateral pulmonary consolidation and ground-glass opacities continue iv abx and iv lasix, pt will likely DC on Tuesday/ Tuesday rpt CXR dulce maria Continue PT/ OT today Review of Systems Review of Systems: Pt feeling much better Exam Narrative: General: Mildly ill-appearing female. Respiratory: Currently on 6 L high-flow. BL crackles in lungs Cardiovascular: Tachycardic with normal S1-S2. Gastrointestinal: Abdomen is soft, nontender, and nondistended with positive bowel sounds. Skin: Warm and dry. No rash or lesions on limited exam. Extremities: No cyanosis, clubbing, or edema. Neurological: Alert. Cranial nerves 2-12 are grossly intact. No gross focal deficits to casual conversation. Psychiatric: Pleasant and cooperative with normal mood and affect. Objective Data Vital Signs Vital Signs: Vital Signs - 24 hr 03/07/24 14:26 03/07/24 14:38 03/07/24 16:00 Temperature 36.7 C Pulse Rate 109 H 108 H 114 H Respiratory Rate 20 20 18 Blood Pressure 110/62 Pulse Oximetry 96 Oxygen Delivery Oxygen Flow Rate 03/07/24 14:00 03/07/24 16:00 03/07/24 18:00 Temperature Pulse Rate 110 H 117 H 118 H Respiratory Rate Blood Pressure Pulse Oximetry Oxygen Delivery Oxygen Flow Rate 03/07/24 20:16 03/07/24 20:16 03/07/24 20:17 Temperature 37.0 C Pulse Rate 103 H 103 H 104 H Respiratory Rate 20 20 Blood Pressure 112/71 Pulse Oximetry 93 98 Oxygen Delivery High Flow Nasal Cannula Oxygen Flow Rate 6 03/07/24 20:23 03/07/24 20:00 03/07/24 20:00 Temperature Pulse Rate 103 H 103 H Respiratory Rate 20 Blood Pressure Pulse Oximetry 93 Oxygen Delivery High Flow Nasal Cannula Oxygen Flow Rate 6 03/07/24 22:51 03/07/24 22:00 03/07/24 23:36 Temperature 36.8 C Pulse Rate 111 H 113 H Respiratory Rate 20 Blood Pressure 116/67 Pulse Oximetry 96 90 Oxygen Delivery High Flow Nasal Cannula Oxygen Flow Rate 6 03/08/24 00:00 03/08/24 00:00 03/08/24 02:00 Temperature Pulse Rate 111 H 112 H Respiratory Rate Blood Pressure Pulse Oximetry 93 Oxygen Delivery High Flow Nasal Cannula Oxygen Flow Rate 6 03/08/24 03:08 03/08/24 03:14 03/08/24 04:00 Temperature Pulse Rate 110 H 113 H 110 H Respiratory Rate 20 18 Blood Pressure Pulse Oximetry Oxygen Delivery Oxygen Flow Rate 03/08/24 04:00 03/08/24 04:36 03/08/24 06:00 Temperature 37.0 C Pulse Rate 111 H 97 Respiratory Rate 20 Blood Pressure 115/67 Pulse Oximetry 93 95 Oxygen Delivery High Flow Nasal Cannula Oxygen Flow Rate 6 03/08/24 07:39 03/08/24 08:19 03/08/24 08:19 Temperature 36.7 C Pulse Rate 100 102 H Respiratory Rate 18 20 Blood Pressure 108/65 Pulse Oximetry 100 94 Oxygen Delivery High Flow Nasal Cannula Oxygen Flow Rate 6 03/08/24 08:33 03/08/24 08:44 03/08/24 08:00 Temperature Pulse Rate 101 H 99 Respiratory Rate 20 Blood Pressure Pulse Oximetry 95 Oxygen Delivery High Flow Nasal Cannula Oxygen Flow Rate 6 03/08/24 11:31 03/08/24 08:00 03/08/24 10:00 Temperature 36.7 C Pulse Rate 107 H 106 H 108 H Respiratory Rate 18 Blood Pressure 114/70 Pulse Oximetry 93 Oxygen Delivery Oxygen Flow Rate 03/08/24 12:00 03/08/24 12:00 Temperature Pulse Rate 111 H Respiratory Rate Blood Pressure Pulse Oximetry 96 Oxygen Delivery High Flow Nasal Cannula Oxygen Flow Rate 6 Intake/Output Intake/Output: Intake & Output 03/05/24 03/06/24 03/07/24 03/08/24 23:59 23:59 23:59 23:59 Intake Total 2018.9 1595.5 1710 950 Output Total 300 1150 3150 650 Balance 1718.9 445.5 -1440 300 Meds/Results Medications: Active Medications Generic Name Dose Route Start Last Admin Trade Name Freq PRN Reason Stop Dose Admin Acetaminophen 650 mg 03/04/24 08:53 03/05/24 14:41 Acetaminophen 325 Mg Tablet PO 650 mg Q6H PRN Administration Mild Pain (1-3) or Fever Albuterol/Ipratropium 3 ml 03/06/24 14:00 03/08/24 08:19 Ipratropium 0.5 Mg/Albuterol Sulfate 2.5 Mg Ampul.Neb 3 Ml INHALATION 3 ml Q6HRT BONY Administration Alteplase, Recombinant 2 mg 03/08/24 12:00 03/08/24 12:40 Alteplase 2 Mg Vial (Cathflo) IV PUSH 2 mg ONCE PRN Administration Line Occlusion Aspirin 81 mg 03/04/24 09:00 03/08/24 08:45 Aspirin 81 Mg Enteric Tablet PO 81 mg DAILY BONY Administration Atorvastatin Calcium 40 mg 03/04/24 09:00 03/08/24 08:45 Atorvastatin 40 Mg Tablet PO 40 mg DAILY BONY Administration Bumetanide 1 mg 03/08/24 09:00 03/08/24 08:44 Bumetanide Inj 1 Mg/4 Ml Vial IV PUSH 1 mg QAM BONY Administration Clopidogrel Bisulfate 75 mg 03/04/24 09:00 03/08/24 08:45 Clopidogrel Bisulfate 75 Mg Tablet PO 75 mg DAILY BONY Administration Dextrose 12.5 gm 03/04/24 09:24 Dextrose 50% 25 Gm/50 Ml Syringe IV PUSH PRN PRN Hypoglycemia Protocol Enoxaparin Sodium 30 mg 03/06/24 09:00 03/08/24 08:44 Enoxaparin 30 Mg/0.3 Ml Syringe SUB-Q 30 mg DAILY BONY Administration Glucagon 1 mg 03/04/24 09:24 Glucagon For Inj 1 Mg Vial IM PRN PRN Hypoglycemia Protocol Glucose 15 gm 03/04/24 09:24 Glucose Oral Gel 15 Gm Of Glucse In 37.5 Gm Tube PO PRN PRN Hypoglycemia Protocol Dextrose 1,000 mls @ 100 mls/hr 03/04/24 09:24 Dextrose 5% 1,000 Ml IVPB PRN PRN Hypoglycemia Protocol Cefepime HCl 1 gm in 50 mls @ 100 mls/hr 03/04/24 09:40 03/08/24 08:44 Maxipime 1 Gm/Ns 50 Ml IVPB 100 mls/hr Q12HR BONY Administration Insulin Aspart 3 - 6 units 03/08/24 08:00 03/08/24 11:47 Insulin Aspart (*Bkc) 100 Units/Ml SUB-Q Not Given TIDWM BONY Protocol Insulin Glargine 15 units 03/05/24 10:00 03/08/24 08:44 Insulin Glargine (*Bkc) 100 Units/Ml SUB-Q 15 units QAM BONY Administration Metoprolol Succinate 12.5 mg 03/07/24 11:25 03/08/24 08:44 Metoprolol Succinate Ext Rel 12.5 Mg Tabcr PO 12.5 mg QAM BONY Administration Ondansetron HCl 4 mg 03/04/24 10:15 03/04/24 10:16 Ondansetron Inj 4 Mg/2 Ml Vial IV PUSH 4 mg Q4H PRN Administration Nausea And Vomiting Pantoprazole Sodium 40 mg 03/08/24 09:00 03/08/24 08:45 Pantoprazole 40 Mg Tablet PO 40 mg QAM BONY Administration Sodium Chloride 10 ml 03/04/24 14:00 03/08/24 06:18 Central Line Flush IV PUSH 10 ml Q8HR BONY Administration Sodium Chloride 10 ml 03/04/24 12:31 Central Line Flush IV PUSH PRN PRN with TPN bag changes Sodium Chloride 20 ml 03/04/24 12:31 Central Line Flush IV PUSH PRN PRN after blood draws Sodium Chloride 1 spray 03/07/24 17:44 Saline 0.65% Guillermo Soln 44 Ml Btl NASAL Q6HR PRN congestion Radiology Results: ITS Impressions Renal Ultrasound 03/04/24 12:01 IMPRESSION: 1. Mild atrophy of right kidney. No hydronephrosis. Chest X-Ray 03/06/24 07:42 Impression: Extensive bilateral pulmonary consolidation and present. Correlate for severe pulmonary edema versus diffuse pneumonia. Small pleural effusions. Right-sided PICC line. Labs Labs: Laboratory Results - last 24 hr 03/05/24 03/07/24 03/07/24 12:15 17:12 17:14 WBC RBC Hgb Hct MCV MCH MCHC RDW Plt Count MPV % Immature Plt Fraction Sodium Potassium Chloride Carbon Dioxide Anion Gap BUN Creatinine Estim Creat Clear Calc Estimated GFR Glucose POC Capillary Glucose 170 H Hemoglobin A1c Calcium Magnesium Total Bilirubin AST ALT Alkaline Phosphatase Total Creatine Kinase C-Reactive Protein Total Protein Albumin Procalcitonin TSH (Reflex) Urine Myoglobin <1 Influenza A (RT-PCR) Negative Influenza B (RT-PCR) Negative SARS-CoV-2 RNA (RT-PCR) Negative 03/07/24 03/07/24 03/07/24 17:23 17:26 20:39 WBC RBC Hgb Hct MCV MCH MCHC RDW Plt Count MPV % Immature Plt Fraction Sodium Potassium Chloride Carbon Dioxide Anion Gap BUN Creatinine Estim Creat Clear Calc Estimated GFR Glucose POC Capillary Glucose 237 H Hemoglobin A1c 7.5 H Calcium Magnesium Total Bilirubin AST ALT Alkaline Phosphatase Total Creatine Kinase C-Reactive Protein 6.7 H Total Protein Albumin Procalcitonin 0.5 TSH (Reflex) 1.050 Urine Myoglobin Influenza A (RT-PCR) Influenza B (RT-PCR) SARS-CoV-2 RNA (RT-PCR) 03/08/24 03/08/24 03/08/24 04:29 07:26 11:30 WBC 13.6 H RBC 2.91 L Hgb 8.6 L Hct 25.8 L MCV 88.7 MCH 29.6 MCHC 33.3 RDW 15.2 H Plt Count 115 L MPV 11.1 H % Immature Plt Fraction 6.9 Sodium 134 L Potassium 4.2 Chloride 99 Carbon Dioxide 32 H Anion Gap 3 L BUN 29 H Creatinine 1.50 H Estim Creat Clear Calc 18 Estimated GFR 33 L Glucose 122 H POC Capillary Glucose 148 H 185 H Hemoglobin A1c Calcium 8.1 L Magnesium 1.9 Total Bilirubin 0.9 AST 249 H ALT 631 H Alkaline Phosphatase 91 Total Creatine Kinase 208 H C-Reactive Protein Total Protein 6.0 L Albumin 3.2 L Procalcitonin TSH (Reflex) Urine Myoglobin Influenza A (RT-PCR) Influenza B (RT-PCR) SARS-CoV-2 RNA (RT-PCR)
[2024-03-08 15:53] LABS: Glucose Point of Care 273 mg/dl (65-105)
[2024-03-08] MEDS: INSULIN ASPART (*BKC) 100 UNITS/ML SUB-Q (16:24)
[2024-03-08 20:30] LABS: Glucose Point of Care 141 mg/dl (65-105)
[2024-03-09] VITALS (30 sets, daily range): BP systolic 101–110; BP diastolic 58–70; PULSE 65–104; RESP 16–20; TEMP 36.4–37.3; O2SAT 95–100
[2024-03-09] MEDS: IPRATROPIUM 0.5 MG/ALBUTEROL SULFATE 2.5 MG AMPUL.NEB 3 ML INHALATION ×4 (02:50→20:33)
[2024-03-09] MEDS: CENTRAL LINE FLUSH 10 ML IV PUSH ×3 (05:51→20:26)
[2024-03-09 06:04] LABS: Hematocrit 26.2 % (37.0-47.0); Hemoglobin 8.8 g/dL (12.0-15.0); Mean Corpuscular HGB Conc 33.6 g/dl (32-36); Mean Corpuscular Hemoglobin 29.9 pg (26-34); Mean Corpuscular Volume 89.1 fl (80-100); Mean Platelet Volume 10.8 fl (7.4-10.4); Platelet Count Result 133 k/mm3 (150-375); Red Blood Count 2.94 M/mm3 (4.2-5.4); Red Cell Distribution Width 14.6 % (11.5-14.5); White Blood Count 11.2 K/mm3 (4.5-10.0)
[2024-03-09 06:33] LABS: Alanine Aminotransferase 416 U/L (6-35); Albumin Level 3.3 g/dL (3.5-5.1); Alkaline Phosphatase 94 U/L (38-126); Anion Gap 4 mmol/L (4-12); Aspartate Amino Transferase 129 U/L (14-36); Blood Urea Nitrogen 29 mg/dL (7-17); Calcium 8.3 mg/dL (8.4-10.2); Carbon Dioxide 33 mmol/L (22-30); Chloride 98 mmol/L (98-107); Creatine Kinase 141 U/L (30-135); Estimated CRCL calculation 18 ml/min; Estimated Glomerular Filt Rate 33; Glucose 123 mg/dL (65-110); Magnesium 1.8 mg/dL (1.6-2.3); Potassium 3.4 mmol/L (3.4-5.0); Sodium 135 mmol/L (137-145)
[2024-03-09 07:57] LABS: Glucose Point of Care 131 mg/dl (65-105)
--- NOTE | 2024-03-09 09:34 | P.PNIM_ITS ---
Progress Note: A&P Assessment and Plan (1) Acute respiratory failure with hypoxia: Code(s): J96.01 - Acute respiratory failure with hypoxia Status: Acute Assessment and Plan: Patient to continues to have a high oxygen requirement initially 15 liters/minute, slowly down to 6 liter/minute * X-ray with extensive bilateral pulmonary consolidation and ground-glass opacities and small pleural effusions. * Continue diuretics and empiric antibiotics cefepime given low-grade fever and leukocytosis. * continue iv abx watch cultures Leukocytosis improving On Bumex 1 mg IV daily (2) Acute on chronic kidney failure: Code(s): N17.9 - Acute kidney failure, unspecified; N18.9 - Chronic kidney disease, unspecified Status: Resolved Assessment and Plan: Chronic kidney disease stage IIIA to 3B with baseline creatinine ranging between 1.0 and 1.6 in the last year. Increased creatinine all the way to 2.2 now slowly getting back to baseline (3) Ischemic cardiomyopathy: Code(s): I25.5 - Ischemic cardiomyopathy Status: Acute Assessment and Plan: Echo showed normal LV size with mildly reduced systolic function with an estimated EF of 40 to 45%. * continue to diuresis with iv lasix (4) ST elevation myocardial infarct involv left circumflex coronary artery: Code(s): I21.21 - ST elevation (STEMI) myocardial infarction involving left circumflex coronary artery Status: Acute Assessment and Plan: Presenting with inferior-posterior STEMI due to 100% occluded proximal circumflex. * Angioplasty/stent to 100% thrombotic occluded proximal left circumflex on 03/04/2024. * Residual recalcitrant thrombus in the mid left circumflex with COLLETTE 1 to 2 flow. * Received eptifibatide and heparin infusions post cardiac catheterization. * Continue aspirin, clopidogrel, and statin per Cardiology. (5) Transaminitis: Code(s): R74.01 - Elevation of levels of liver transaminase levels Status: Acute Assessment and Plan: LFTs were normal on presentation but AST and ALT increased to as high as 2363 and 1224 respectively. Continue to monitor LFTs has been improving (6) Type 2 diabetes mellitus: Code(s): E11.9 - Type 2 diabetes mellitus without complications Status: Acute Assessment and Plan: * hbaic is 7 * can use insulin in hospital and dc on oral hypoglycemics (7) Stage 4 lung cancer: Code(s): C34.90 - Malignant neoplasm of unspecified part of unspecified bronchus or lung Status: Acute Assessment and Plan: Recently diagnosed and receiving treatment at [facility]. (8) Complete heart block: Code(s): I44.2 - Atrioventricular block, complete Status: Resolved Assessment and Plan: Patient was in third-degree heart block on arrival to the ED treated with transcutaneous pacing and dopamine. * Temporary pacemaker placed at time of cardiac catheterization on 03/04/2024. * Transvenous pacer removed at bedside in the morning of 03/06/2024. (9) Cardiogenic shock: Code(s): R57.0 - Cardiogenic shock Status: Resolved Assessment and Plan: weaned off vasopressors doing well on the floor Plan dvt prop: lovenox Subjective Date/time seen: 03/09/24 09:34 Interval history: No overnight events reported. Denies any shortness of breath or chest pain. No leg swelling. Sore mouth reported. Wants to get up and move around Review of Systems Review of Systems: All systems reviewed & are unremarkable except as noted in HPI and below (HPI) Exam Narrative: General: Well-appearing female. Respiratory: Currently on 6 L high-flow. Diminished breath sounds bilaterally no wheezes Cardiovascular: Tachycardic with normal S1-S2. Gastrointestinal: Abdomen is soft, nontender, and nondistended with positive bowel sounds. Skin: Warm and dry. No rash or lesions on limited exam. Extremities: No cyanosis, clubbing, or edema. Neurological: Alert. Cranial nerves 2-12 are grossly intact. No gross focal deficits to casual conversation. Psychiatric: Pleasant and cooperative with normal mood and affect. Objective Data Vital Signs Vital Signs: Vital Signs - 24 hr 03/08/24 11:31 03/08/24 10:00 03/08/24 12:00 Temperature 98.1 F Pulse Rate 107 H 108 H Respiratory Rate 18 Blood Pressure 114/70 Pulse Oximetry 93 96 Oxygen Delivery High Flow Nasal Cannula Oxygen Flow Rate 6 Fraction of Inspired Oxygen 03/08/24 12:00 03/08/24 13:48 03/08/24 13:59 Temperature Pulse Rate 111 H 104 H 104 H Respiratory Rate 20 20 Blood Pressure Pulse Oximetry Oxygen Delivery Oxygen Flow Rate Fraction of Inspired Oxygen 03/08/24 14:00 03/08/24 15:46 03/08/24 16:00 Temperature 98.1 F Pulse Rate 110 H 112 H 101 H Respiratory Rate 18 Blood Pressure 115/69 Pulse Oximetry 96 Oxygen Delivery Oxygen Flow Rate Fraction of Inspired Oxygen 03/08/24 16:00 03/08/24 18:00 03/08/24 18:14 Temperature Pulse Rate 102 H Respiratory Rate Blood Pressure Pulse Oximetry 96 94 Oxygen Delivery High Flow Nasal Cannula High Flow Nasal Cannula Oxygen Flow Rate 5 4 Fraction of Inspired Oxygen 03/08/24 20:18 03/08/24 20:20 03/08/24 20:27 Temperature Pulse Rate 103 H 103 H 104 H Respiratory Rate 20 20 Blood Pressure Pulse Oximetry 95 Oxygen Delivery High Flow Nasal Cannula Oxygen Flow Rate 6 Fraction of Inspired Oxygen 03/08/24 20:33 03/08/24 20:00 03/08/24 20:00 Temperature 97.6 F Pulse Rate 105 H 105 H 105 H Respiratory Rate 18 18 Blood Pressure 112/64 Pulse Oximetry 93 92 Oxygen Delivery High Flow Nasal Cannula Oxygen Flow Rate 4 Fraction of Inspired Oxygen 50 03/08/24 21:38 03/08/24 21:00 03/09/24 00:00 Temperature Pulse Rate 115 H 115 H 104 H Respiratory Rate 18 Blood Pressure Pulse Oximetry 90 Oxygen Delivery High Flow Nasal Cannula Oxygen Flow Rate 6 Fraction of Inspired Oxygen 50 03/09/24 00:00 03/09/24 00:14 03/09/24 04:18 Temperature 99.2 F 98.1 F Pulse Rate 104 H 76 98 Respiratory Rate 18 18 18 Blood Pressure 107/63 107/60 Pulse Oximetry 95 95 96 Oxygen Delivery High Flow Nasal Cannula Oxygen Flow Rate 6 Fraction of Inspired Oxygen 50 03/09/24 02:50 03/09/24 03:00 03/09/24 02:00 Temperature Pulse Rate 93 94 102 H Respiratory Rate 18 18 Blood Pressure Pulse Oximetry Oxygen Delivery Oxygen Flow Rate Fraction of Inspired Oxygen 03/09/24 04:00 03/09/24 04:00 03/09/24 05:40 Temperature Pulse Rate 94 94 95 Respiratory Rate 18 Blood Pressure Pulse Oximetry 96 Oxygen Delivery High Flow Nasal Cannula Oxygen Flow Rate 6 Fraction of Inspired Oxygen 50 03/09/24 07:25 03/09/24 07:25 03/09/24 07:33 Temperature Pulse Rate 88 89 Respiratory Rate 20 20 Blood Pressure Pulse Oximetry 98 Oxygen Delivery High Flow Nasal Cannula Oxygen Flow Rate 6 Fraction of Inspired Oxygen 03/09/24 08:00 Temperature 97.6 F Pulse Rate 65 Respiratory Rate 18 Blood Pressure 106/61 Pulse Oximetry 97 Oxygen Delivery Oxygen Flow Rate Fraction of Inspired Oxygen Intake/Output Intake/Output: Intake & Output 03/06/24 03/07/24 03/08/24 03/09/24 23:59 23:59 23:59 23:59 Intake Total 1595.5 1710 1170 550 Output Total 1150 3150 1400 400 Balance 445.5 -1440 -230 150 Meds/Results Medications: Active Medications Generic Name Dose Route Start Last Admin Trade Name Freq PRN Reason Stop Dose Admin Acetaminophen 650 mg 03/04/24 08:53 03/05/24 14:41 Acetaminophen 325 Mg Tablet PO 650 mg Q6H PRN Administration Mild Pain (1-3) or Fever Albuterol/Ipratropium 3 ml 03/06/24 14:00 03/09/24 07:25 Ipratropium 0.5 Mg/Albuterol Sulfate 2.5 Mg Ampul.Neb 3 Ml INHALATION 3 ml Q6HRT BONY Administration Alteplase, Recombinant 2 mg 03/08/24 12:00 03/08/24 12:40 Alteplase 2 Mg Vial (Cathflo) IV PUSH 2 mg ONCE PRN Administration Line Occlusion Aspirin 81 mg 03/04/24 09:00 03/08/24 08:45 Aspirin 81 Mg Enteric Tablet PO 81 mg DAILY BONY Administration Atorvastatin Calcium 40 mg 03/04/24 09:00 03/08/24 08:45 Atorvastatin 40 Mg Tablet PO 40 mg DAILY BONY Administration Bumetanide 1 mg 03/08/24 09:00 03/08/24 08:44 Bumetanide Inj 1 Mg/4 Ml Vial IV PUSH 1 mg QAM BONY Administration Clopidogrel Bisulfate 75 mg 03/04/24 09:00 03/08/24 08:45 Clopidogrel Bisulfate 75 Mg Tablet PO 75 mg DAILY BONY Administration Dextrose 12.5 gm 03/04/24 09:24 Dextrose 50% 25 Gm/50 Ml Syringe IV PUSH PRN PRN Hypoglycemia Protocol Enoxaparin Sodium 30 mg 03/06/24 09:00 03/08/24 08:44 Enoxaparin 30 Mg/0.3 Ml Syringe SUB-Q 30 mg DAILY BONY Administration Glucagon 1 mg 03/04/24 09:24 Glucagon For Inj 1 Mg Vial IM PRN PRN Hypoglycemia Protocol Glucose 15 gm 03/04/24 09:24 Glucose Oral Gel 15 Gm Of Glucse In 37.5 Gm Tube PO PRN PRN Hypoglycemia Protocol Dextrose 1,000 mls @ 100 mls/hr 03/04/24 09:24 Dextrose 5% 1,000 Ml IVPB PRN PRN Hypoglycemia Protocol Cefepime HCl 1 gm in 50 mls @ 100 mls/hr 03/04/24 09:40 03/08/24 21:25 Maxipime 1 Gm/Ns 50 Ml IVPB Infused Q12HR BONY Infusion Insulin Aspart 3 - 6 units 03/08/24 08:00 03/09/24 09:33 Insulin Aspart (*Bkc) 100 Units/Ml SUB-Q Not Given TIDWM [facility] Protocol Insulin Glargine 15 units 03/05/24 10:00 03/08/24 08:44 Insulin Glargine (*Bkc) 100 Units/Ml SUB-Q 15 units QAM BONY Administration Metoprolol Succinate 12.5 mg 03/07/24 11:25 03/08/24 08:44 Metoprolol Succinate Ext Rel 12.5 Mg Tabcr PO 12.5 mg QAM BONY Administration Ondansetron HCl 4 mg 03/04/24 10:15 03/04/24 10:16 Ondansetron Inj 4 Mg/2 Ml Vial IV PUSH 4 mg Q4H PRN Administration Nausea And Vomiting Pantoprazole Sodium 40 mg 03/08/24 09:00 03/08/24 08:45 Pantoprazole 40 Mg Tablet PO 40 mg QAM BONY Administration Sodium Chloride 10 ml 03/04/24 14:00 03/09/24 05:51 Central Line Flush IV PUSH 10 ml Q8HR BONY Administration Sodium Chloride 10 ml 03/04/24 12:31 Central Line Flush IV PUSH PRN PRN with TPN bag changes Sodium Chloride 20 ml 03/04/24 12:31 Central Line Flush IV PUSH PRN PRN after blood draws Sodium Chloride 1 spray 03/07/24 17:44 Saline 0.65% Guillermo Soln 44 Ml Btl NASAL Q6HR PRN congestion Radiology Results: ITS Impressions Renal Ultrasound 03/04/24 12:01 IMPRESSION: 1. Mild atrophy of right kidney. No hydronephrosis. Chest X-Ray 03/09/24 07:21 Impression: Patchy airspace disease and extensive interstitial prominence unchanged. Correlate for pulmonary edema, pneumonia, and/or chronic interstitial disease. Small bilateral pleural effusions. Lentiform density at the lateral left lung, which could reflect loculated effusion. Labs Labs: Laboratory Results - last 24 hr 03/08/24 03/08/24 03/08/24 11:30 15:49 20:03 WBC RBC Hgb Hct MCV MCH MCHC RDW Plt Count MPV Sodium Potassium Chloride Carbon Dioxide Anion Gap BUN Creatinine Estim Creat Clear Calc Estimated GFR Glucose POC Capillary Glucose 185 H 273 H 141 H Calcium Magnesium Total Bilirubin AST ALT Alkaline Phosphatase Total Creatine Kinase Total Protein Albumin 03/09/24 03/09/24 04:11 07:38 WBC 11.2 H RBC 2.94 L Hgb 8.8 L Hct 26.2 L MCV 89.1 MCH 29.9 MCHC 33.6 RDW 14.6 H Plt Count 133 L MPV 10.8 H Sodium 135 L Potassium 3.4 Chloride 98 Carbon Dioxide 33 H Anion Gap 4 BUN 29 H Creatinine 1.50 H Estim Creat Clear Calc 18 Estimated GFR 33 L Glucose 123 H POC Capillary Glucose 131 H Calcium 8.3 L Magnesium 1.8 Total Bilirubin 1.0 AST 129 H ALT 416 H Alkaline Phosphatase 94 Total Creatine Kinase 141 H Total Protein 7.0 Albumin 3.3 L
[2024-03-09] MEDS: CEFEPIME 1 GM/NS 50 ML 1 GM/50 ML BAG IVPB ×2 (09:39→20:25)
[2024-03-09] MEDS: PANTOPRAZOLE 40 MG TABLET PO (09:40)
[2024-03-09] MEDS: ENOXAPARIN 30 MG/0.3 ML SYRINGE SUB-Q (09:40)
[2024-03-09] MEDS: ATORVASTATIN 40 MG TABLET PO (09:40)
[2024-03-09] MEDS: METOPROLOL SUCCINATE EXT REL 12.5 MG TABCR PO (09:40)
[2024-03-09] MEDS: BUMETANIDE INJ 1 MG/4 ML VIAL IV PUSH ×2 (09:40→16:39)
[2024-03-09] MEDS: CLOPIDOGREL BISULFATE 75 MG TABLET PO (09:40)
[2024-03-09] MEDS: ASPIRIN 81 MG ENTERIC TABLET PO (09:41)
[2024-03-09] MEDS: INSULIN GLARGINE (*BKC) 100 UNITS/ML 15 UNITS SUB-Q (09:41)
--- NOTE | 2024-03-09 09:47 | P.PNCA_ITS ---
Progress Note: A&P Assessment and Plan (1) STEMI (ST elevation myocardial infarction): Code(s): I21.3 - ST elevation (STEMI) myocardial infarction of unspecified site Status: Acute Assessment and Plan: Continue ASA, Plavix, Atorvastatin (2) Cardiogenic shock: Code(s): R57.0 - Cardiogenic shock Status: Resolved Assessment and Plan: Echocardiogram with LVEF 40-45%. Off of Levophed now. Shock resolved. (3) Third degree AV block: Code(s): I44.2 - Atrioventricular block, complete Status: Acute Assessment and Plan: In setting of STEMI. Resolved after PCI. Transvenous pacer removed at bedside 03/06 (4) Cardiomyopathy: Code(s): I42.9 - Cardiomyopathy, unspecified Status: Acute Assessment and Plan: Echocardiogram with LVEF 40-45%. Agree with intermittent doses of IV diuretic given pulmonary edema, pleural effusions on chest XR. Started low dose Toprol. Plan to uptitrate heart failure GDMT as tolerated. As JAE has significantly improved, will start low dose Losartan. Will give a one time dose of Metolazone today to facilitate diuresis. (5) Acute kidney injury: Code(s): N17.9 - Acute kidney failure, unspecified Status: Acute Assessment and Plan: Improving. Nephrology consulted. (6) Anemia: Code(s): D64.9 - Anemia, unspecified Status: Acute Assessment and Plan: Hgb 6.8 03/06, received blood transfusion. Hgb has remained stable since then. (7) Acute respiratory failure with hypoxia: Code(s): J96.01 - Acute respiratory failure with hypoxia Status: Acute Assessment and Plan: Continue with IV diuresis. On antibiotics as per Hospitalist. Wean off oxygen as tolerated. (8) Type 2 diabetes mellitus: Code(s): E11.9 - Type 2 diabetes mellitus without complications Status: Acute Assessment and Plan: Hgb A1c is 7.5. Management as per Hospitalist. (9) Transaminitis: Code(s): R74.01 - Elevation of levels of liver transaminase levels Status: Acute Assessment and Plan: Likely due to shock, OK. Improving. Plan Recommendations and plan discussed with Hospitalist. Subjective Date/time seen: 03/09/24 09:47 Interval history: Reason for visit: STEMI HPI: 83-year-old female with a past medical history significant for lung cancer, hypertension, diabetes who was brought by EMS to the ED with sudden onset chest pain, shortness of breath, diaphoresis, pale looking. She was found to have an inferoposterior STEMI with a complete heart block. She was directly taken to the lab after discussing the risks, benefits and alternatives of the procedure with her. We also discussed the goals of care with her in light of lung malignancy. She wanted to proceed. She was taken to the laboratory technical specialist and VINICIUS was placed in the proximal LCX. There is some residual thrombus in the mid LCX artery. Placed a temporary pacemaker through the right femoral vein and currently she is being paced at a rate of 100 beats per minute, output of 10 and sensitivity of 5. Post PCI she denied any chest pain and will be transferred to the ICU to help with further management. Date of service 03/05: Denies chest pain and dyspnea today. Date of service 03/06: No chest pain. Tele with sinus tachycardia with first degree AV block. Not requiring transvenous pacer. Off of pressors. Hgb 6.8, getting blood transfusion. Date of service 03/07: Feeling better today. Still requiring supplemental oxygen. Diuresed well with Lasix yesterday, given dose of Bumex this morning. Date of service 03/08: Diuresed well yesterday. Feeling a bit better. Still requiring oxygen. Date of service 03/09: Remains on oxygen. CXR this morning shows patchy airspace disease and extensive interstitial prominence unchanged, small bilateral pleural effusions, lentiform density at the lateral left lung. Patient reports she has not had a bowel movement since admission. Feels like her throat is sore. Wants to move around more. Review of Systems Review of Systems: All systems reviewed & are unremarkable except as noted in HPI and below (HPI) Exam Const: General: no acute distress Eyes: General: appearance normal, both eyes and all related structures Sclera: sclerae normal Resp: Effort & Inspection: normal respiratory effort Other: On supplemental oxygen Cardio: Rate: regular rate Rhythm: regular rhythm Neuro: Speech: normal speech Psych: Mental Status: mental status grossly normal Affect: normal affect Objective Data Vital Signs Vital Signs: Vital Signs - 24 hr 03/08/24 11:31 03/08/24 10:00 03/08/24 12:00 Temperature 36.7 C Pulse Rate 107 H 108 H Respiratory Rate 18 Blood Pressure 114/70 Pulse Oximetry 93 96 Oxygen Delivery High Flow Nasal Cannula Oxygen Flow Rate 6 Fraction of Inspired Oxygen 03/08/24 12:00 03/08/24 13:48 03/08/24 13:59 Temperature Pulse Rate 111 H 104 H 104 H Respiratory Rate 20 20 Blood Pressure Pulse Oximetry Oxygen Delivery Oxygen Flow Rate Fraction of Inspired Oxygen 03/08/24 14:00 03/08/24 15:46 03/08/24 16:00 Temperature 36.7 C Pulse Rate 110 H 112 H 101 H Respiratory Rate 18 Blood Pressure 115/69 Pulse Oximetry 96 Oxygen Delivery Oxygen Flow Rate Fraction of Inspired Oxygen 03/08/24 16:00 03/08/24 18:00 03/08/24 18:14 Temperature Pulse Rate 102 H Respiratory Rate Blood Pressure Pulse Oximetry 96 94 Oxygen Delivery High Flow Nasal Cannula High Flow Nasal Cannula Oxygen Flow Rate 5 4 Fraction of Inspired Oxygen 03/08/24 20:18 03/08/24 20:20 03/08/24 20:27 Temperature Pulse Rate 103 H 103 H 104 H Respiratory Rate 20 20 Blood Pressure Pulse Oximetry 95 Oxygen Delivery High Flow Nasal Cannula Oxygen Flow Rate 6 Fraction of Inspired Oxygen 03/08/24 20:33 03/08/24 20:00 03/08/24 20:00 Temperature 36.4 C Pulse Rate 105 H 105 H 105 H Respiratory Rate 18 18 Blood Pressure 112/64 Pulse Oximetry 93 92 Oxygen Delivery High Flow Nasal Cannula Oxygen Flow Rate 4 Fraction of Inspired Oxygen 50 03/08/24 21:38 03/08/24 21:00 03/09/24 00:00 Temperature Pulse Rate 115 H 115 H 104 H Respiratory Rate 18 Blood Pressure Pulse Oximetry 90 Oxygen Delivery High Flow Nasal Cannula Oxygen Flow Rate 6 Fraction of Inspired Oxygen 50 03/09/24 00:00 03/09/24 00:14 03/09/24 04:18 Temperature 37.3 C 36.7 C Pulse Rate 104 H 76 98 Respiratory Rate 18 18 18 Blood Pressure 107/63 107/60 Pulse Oximetry 95 95 96 Oxygen Delivery High Flow Nasal Cannula Oxygen Flow Rate 6 Fraction of Inspired Oxygen 50 03/09/24 02:50 03/09/24 03:00 03/09/24 02:00 Temperature Pulse Rate 93 94 102 H Respiratory Rate 18 18 Blood Pressure Pulse Oximetry Oxygen Delivery Oxygen Flow Rate Fraction of Inspired Oxygen 03/09/24 04:00 03/09/24 04:00 03/09/24 05:40 Temperature Pulse Rate 94 94 95 Respiratory Rate 18 Blood Pressure Pulse Oximetry 96 Oxygen Delivery High Flow Nasal Cannula Oxygen Flow Rate 6 Fraction of Inspired Oxygen 50 03/09/24 07:25 03/09/24 07:25 03/09/24 07:33 Temperature Pulse Rate 88 89 Respiratory Rate 20 20 Blood Pressure Pulse Oximetry 98 Oxygen Delivery High Flow Nasal Cannula Oxygen Flow Rate 6 Fraction of Inspired Oxygen 03/09/24 08:00 03/09/24 09:37 03/09/24 09:40 Temperature 36.4 C Pulse Rate 65 103 H 102 H Respiratory Rate 18 Blood Pressure 106/61 110/70 Pulse Oximetry 97 98 Oxygen Delivery Oxygen Flow Rate Fraction of Inspired Oxygen Intake/Output Intake/Output: Intake & Output 03/06/24 03/07/24 03/08/24 03/09/24 23:59 23:59 23:59 23:59 Intake Total 1595.5 1710 1170 550 Output Total 1150 3150 1400 400 Balance 445.5 -1440 -230 150 Meds/Results Medications: Active Medications Generic Name Dose Route Start Last Admin Trade Name Freq PRN Reason Stop Dose Admin Acetaminophen 650 mg 03/04/24 08:53 03/05/24 14:41 Acetaminophen 325 Mg Tablet PO 650 mg Q6H PRN Administration Mild Pain (1-3) or Fever Albuterol/Ipratropium 3 ml 03/06/24 14:00 03/09/24 07:25 Ipratropium 0.5 Mg/Albuterol Sulfate 2.5 Mg Ampul.Neb 3 Ml INHALATION 3 ml Q6HRT BONY Administration Alteplase, Recombinant 2 mg 03/08/24 12:00 03/08/24 12:40 Alteplase 2 Mg Vial (Cathflo) IV PUSH 2 mg ONCE PRN Administration Line Occlusion Aspirin 81 mg 03/04/24 09:00 03/09/24 09:41 Aspirin 81 Mg Enteric Tablet PO 81 mg DAILY BONY Administration Atorvastatin Calcium 40 mg 03/04/24 09:00 03/09/24 09:40 Atorvastatin 40 Mg Tablet PO 40 mg DAILY BONY Administration Bumetanide 1 mg 03/08/24 09:00 03/09/24 09:40 Bumetanide Inj 1 Mg/4 Ml Vial IV PUSH 1 mg QAM BONY Administration Clopidogrel Bisulfate 75 mg 03/04/24 09:00 03/09/24 09:40 Clopidogrel Bisulfate 75 Mg Tablet PO 75 mg DAILY BONY Administration Dextrose 12.5 gm 03/04/24 09:24 Dextrose 50% 25 Gm/50 Ml Syringe IV PUSH PRN PRN Hypoglycemia Protocol Enoxaparin Sodium 30 mg 03/06/24 09:00 03/09/24 09:40 Enoxaparin 30 Mg/0.3 Ml Syringe SUB-Q 30 mg DAILY BONY Administration Glucagon 1 mg 03/04/24 09:24 Glucagon For Inj 1 Mg Vial IM PRN PRN Hypoglycemia Protocol Glucose 15 gm 03/04/24 09:24 Glucose Oral Gel 15 Gm Of Glucse In 37.5 Gm Tube PO PRN PRN Hypoglycemia Protocol Dextrose 1,000 mls @ 100 mls/hr 03/04/24 09:24 Dextrose 5% 1,000 Ml IVPB PRN PRN Hypoglycemia Protocol Cefepime HCl 1 gm in 50 mls @ 100 mls/hr 03/04/24 09:40 03/09/24 09:39 Maxipime 1 Gm/Ns 50 Ml IVPB 100 mls/hr Q12HR BONY Administration Insulin Aspart 3 - 6 units 03/08/24 08:00 03/09/24 09:33 Insulin Aspart (*Bkc) 100 Units/Ml SUB-Q Not Given TIDWM [facility] Protocol Insulin Glargine 15 units 03/05/24 10:00 03/09/24 09:41 Insulin Glargine (*Bkc) 100 Units/Ml SUB-Q 15 units QAM BONY Administration Metolazone 5 mg 03/09/24 09:47 Metolazone 5 Mg Tablet PO 03/09/24 09:48 ONCE ONE Metoprolol Succinate 12.5 mg 03/07/24 11:25 03/09/24 09:40 Metoprolol Succinate Ext Rel 12.5 Mg Tabcr PO 12.5 mg QAM BONY Administration Ondansetron HCl 4 mg 03/04/24 10:15 03/04/24 10:16 Ondansetron Inj 4 Mg/2 Ml Vial IV PUSH 4 mg Q4H PRN Administration Nausea And Vomiting Pantoprazole Sodium 40 mg 03/08/24 09:00 03/09/24 09:40 Pantoprazole 40 Mg Tablet PO 40 mg QAM BONY Administration Sodium Chloride 10 ml 03/04/24 14:00 03/09/24 05:51 Central Line Flush IV PUSH 10 ml Q8HR BONY Administration Sodium Chloride 10 ml 03/04/24 12:31 Central Line Flush IV PUSH PRN PRN with TPN bag changes Sodium Chloride 20 ml 03/04/24 12:31 Central Line Flush IV PUSH PRN PRN after blood draws Sodium Chloride 1 spray 03/07/24 17:44 Saline 0.65% Guillermo Soln 44 Ml Btl NASAL Q6HR PRN congestion Radiology Results: ITS Impressions Renal Ultrasound 03/04/24 12:01 IMPRESSION: 1. Mild atrophy of right kidney. No hydronephrosis. Chest X-Ray 03/09/24 07:21 Impression: Patchy airspace disease and extensive interstitial prominence unchanged. Correlate for pulmonary edema, pneumonia, and/or chronic interstitial disease. Small bilateral pleural effusions. Lentiform density at the lateral left lung, which could reflect loculated effu todd. Labs Labs: Laboratory Results - last 24 hr 03/08/24 03/08/24 03/08/24 11:30 15:49 20:03 WBC RBC Hgb Hct MCV MCH MCHC RDW Plt Count MPV Sodium Potassium Chloride Carbon Dioxide Anion Gap BUN Creatinine Estim Creat Clear Calc Estimated GFR Glucose POC Capillary Glucose 185 H 273 H 141 H Calcium Magnesium Total Bilirubin AST ALT Alkaline Phosphatase Total Creatine Kinase Total Protein Albumin 03/09/24 03/09/24 04:11 07:38 WBC 11.2 H RBC 2.94 L Hgb 8.8 L Hct 26.2 L MCV 89.1 MCH 29.9 MCHC 33.6 RDW 14.6 H Plt Count 133 L MPV 10.8 H Sodium 135 L Potassium 3.4 Chloride 98 Carbon Dioxide 33 H Anion Gap 4 BUN 29 H Creatinine 1.50 H Estim Creat Clear Calc 18 Estimated GFR 33 L Glucose 123 H POC Capillary Glucose 131 H Calcium 8.3 L Magnesium 1.8 Total Bilirubin 1.0 AST 129 H ALT 416 H Alkaline Phosphatase 94 Total Creatine Kinase 141 H Total Protein 7.0 Albumin 3.3 L
--- NOTE | 2024-03-09 09:55 | P.PNNP_ITS ---
Progress Note: A&P Assessment and Plan (1) Acute kidney injury: Code(s): N17.9 - Acute kidney failure, unspecified Status: Acute Assessment and Plan: * as noted by trend of labs since admission * suspect multifactorial etiology: * rhabdomyolysis * shock/homodynamic instability * sepsis/infection (?) * contrast exposure (cardiac catheterization) * BP medications prior to admission (losartan) * underlying cardiomyopathy * evaluation to date noted: * renal ultrasound with right renal atrophy but on obstruction * urine electrolytes prerenal (suspect more indicative of cardiomyopathy than volume depletion) * urine eosinophils negative * CPK downtrending * no significant proteinuria * continue diuretics as tolerated * monitor trend of repeat labs and UOP (2) Chronic kidney disease, stage 3: Code(s): N18.30 - Chronic kidney disease, stage 3 unspecified Status: Chronic Assessment and Plan: * baseline creatinine seems to run ~ 1.0 - 1.6mg/dl in the last year or so * this causes her to fluctuate between CKD stage 3A and stage 3B * presumably secondary to HTN, DM, vascular disease, and age-related change (3) STEMI (ST elevation myocardial infarction): Code(s): I21.3 - ST elevation (STEMI) myocardial infarction of unspecified site Status: Acute Assessment and Plan: * s/p stent placement in circumflex with residual thrombus * Cardiology following * on ASA/statin/plavix * evidence of cardiomyopathy by Echo * diuresis as tolerated (4) Shock: Code(s): R57.9 - Shock, unspecified Status: Acute Assessment and Plan: * resolved * suspect a combination of cardiogenic and sepsis * weaned off vasopressor support * follow culture data * wean antibiotics (5) Anemia: Code(s): D64.9 - Anemia, unspecified Status: Acute Assessment and Plan: * PRBC transfusion per protocol * related to JAE, CKD, and acute illness * anemia studies c/w with iron deficiency * follow H/H (6) Stage 4 lung cancer: Code(s): C34.90 - Malignant neoplasm of unspecified part of unspecified bronchus or lung Status: Chronic Assessment and Plan: * known diagnosis * receiving chemotherapy as an outpatient (7) Diabetes: Code(s): E11.9 - Type 2 diabetes mellitus without complications Status: Acute Assessment and Plan: * follow accu-cheks * glycemic control per hospitalist Will continue to follow.. Subjective Date/time seen: 03/09/24 09:55 Interval history: Follow-up for acute kidney injury/acute renal failure on chronic kidney disease. Breathing seems to be doing better in general with ongoing therapy/int erventions; no overnight events or earlier this morning; renal function remains relatively stable as well. Exam Narrative: General: frail and elderly female in NAD Heart: normal S1 and S2; no rub Lungs: coarse breath sounds Abdomen: soft, nontender, nondistended, positive bowel sounds Extremities: no cyanosis or clubbing; no edema Skin: warm and intact Objective Data Vital Signs Vital Signs: Vital Signs Temp Pulse Resp BP Pulse Ox O2 Del Method O2 Flow Rate 03/09/24 09:40 97.6 F 96 16 108/64 100 03/09/24 09:37 103 H 110/70 98 03/09/24 08:00 97.6 F 65 18 106/61 97 03/09/24 07:33 89 20 03/09/24 07:25 88 20 03/09/24 07:25 98 High Flow Nasal Cannula 6 03/09/24 05:40 95 03/09/24 04:00 94 18 96 High Flow Nasal Cannula 6 03/09/24 04:00 94 03/09/24 02:00 102 H 03/09/24 03:00 94 18 03/09/24 02:50 93 18 03/09/24 04:18 98.1 F 98 18 107/60 96 03/09/24 00:14 99.2 F 76 18 107/63 95 03/09/24 00:00 104 H 18 95 High Flow Nasal Cannula 6 03/09/24 00:00 104 H 03/08/24 21:00 115 H 18 90 High Flow Nasal Cannula 6 03/08/24 21:38 115 H 03/08/24 20:00 105 H 18 92 High Flow Nasal Cannula 4 03/08/24 20:00 105 H 03/08/24 20:33 97.6 F 105 H 18 112/64 93 03/08/24 20:27 104 H 20 03/08/24 20:20 103 H 95 High Flow Nasal Cannula 6 03/08/24 20:18 103 H 20 03/08/24 18:14 94 High Flow Nasal Cannula 4 03/08/24 18:00 102 H 03/08/24 16:00 96 High Flow Nasal Cannula 5 03/08/24 16:00 101 H 03/08/24 15:46 98.1 F 112 H 18 115/69 96 03/08/24 14:00 110 H 03/08/24 13:59 104 H 20 03/08/24 13:48 104 H 20 Intake/Output Intake/Output: Intake & Output 03/06/24 03/07/24 03/08/24 03/09/24 23:59 23:59 23:59 23:59 Intake Total 1595.5 1710 1170 1030 Output Total 1150 3150 1400 900 Balance 445.5 -7904 -230 130 Meds/Results Medications: Active Medications Generic Name Dose Route Start Last Admin Trade Name Freq PRN Reason Stop Dose Admin Acetaminophen 650 mg 03/04/24 08:53 03/05/24 14:41 Acetaminophen 325 Mg Tablet PO 650 mg Q6H PRN Administration Mild Pain (1-3) or Fever Albuterol/Ipratropium 3 ml 03/06/24 14:00 03/09/24 13:31 Ipratropium 0.5 Mg/Albuterol Sulfate 2.5 Mg Ampul.Neb 3 Ml INHALATION 3 ml Q6HRT BONY Administration Alteplase, Recombinant 2 mg 03/08/24 12:00 03/08/24 12:40 Alteplase 2 Mg Vial (Cathflo) IV PUSH 2 mg ONCE PRN Administration Line Occlusion Aspirin 81 mg 03/04/24 09:00 03/09/24 09:41 Aspirin 81 Mg Enteric Tablet PO 81 mg DAILY BONY Administration Atorvastatin Calcium 40 mg 03/04/24 09:00 03/09/24 09:40 Atorvastatin 40 Mg Tablet PO 40 mg DAILY BONY Administration Bumetanide 1 mg 03/08/24 09:00 03/09/24 09:40 Bumetanide Inj 1 Mg/4 Ml Vial IV PUSH 1 mg QAM BONY Administration Clopidogrel Bisulfate 75 mg 03/04/24 09:00 03/09/24 09:40 Clopidogrel Bisulfate 75 Mg Tablet PO 75 mg DAILY BONY Administration Lidocaine HCl 30 ml/ Al Hydrox 0 ml 03/09/24 13:00 03/09/24 12:58 /Mg Hydrox/Simethicone 30 ml/ PO 5 ml Diphenhydramine HCl 75 mg Q4HWA BONY Administration Dextrose 12.5 gm 03/04/24 09:24 Dextrose 50% 25 Gm/50 Ml Syringe IV PUSH PRN PRN Hypoglycemia Protocol Enoxaparin Sodium 30 mg 03/06/24 09:00 03/09/24 09:40 Enoxaparin 30 Mg/0.3 Ml Syringe SUB-Q 30 mg DAILY BONY Administration Glucagon 1 mg 03/04/24 09:24 Glucagon For Inj 1 Mg Vial IM PRN PRN Hypoglycemia Protocol Glucose 15 gm 03/04/24 09:24 Glucose Oral Gel 15 Gm Of Glucse In 37.5 Gm Tube PO PRN PRN Hypoglycemia Protocol Dextrose 1,000 mls @ 100 mls/hr 03/04/24 09:24 Dextrose 5% 1,000 Ml IVPB PRN PRN Hypoglycemia Protocol Cefepime HCl 1 gm in 50 mls @ 100 mls/hr 03/04/24 09:40 03/09/24 09:39 Maxipime 1 Gm/Ns 50 Ml IVPB 100 mls/hr Q12HR BONY Administration Insulin Aspart 3 - 6 units 03/08/24 08:00 03/09/24 12:04 Insulin Aspart (*Bkc) 100 Units/Ml SUB-Q Not Given TIDWM [facility] Protocol Insulin Glargine 15 units 03/05/24 10:00 03/09/24 09:41 Insulin Glargine (*Bkc) 100 Units/Ml SUB-Q 15 units QAM BONY Administration Losartan Potassium 12.5 mg 03/09/24 09:50 03/09/24 12:43 Losartan Potassium 12.5 Mg Tablet PO Not Given DAILY BONY Metoprolol Succinate 12.5 mg 03/07/24 11:25 03/09/24 09:40 Metoprolol Succinate Ext Rel 12.5 Mg Tabcr PO 12.5 mg QAM BONY Administration Ondansetron HCl 4 mg 03/04/24 10:15 03/04/24 10:16 Ondansetron Inj 4 Mg/2 Ml Vial IV PUSH 4 mg Q4H PRN Administration Nausea And Vomiting Pantoprazole Sodium 40 mg 03/08/24 09:00 03/09/24 09:40 Pantoprazole 40 Mg Tablet PO 40 mg QAM BONY Administration Sodium Chloride 10 ml 03/04/24 14:00 03/09/24 05:51 Central Line Flush IV PUSH 10 ml Q8HR BONY Administration Sodium Chloride 10 ml 03/04/24 12:31 Central Line Flush IV PUSH PRN PRN with TPN bag changes Sodium Chloride 20 ml 03/04/24 12:31 Central Line Flush IV PUSH PRN PRN after blood draws Sodium Chloride 1 spray 03/07/24 17:44 Saline 0.65% Guillermo Soln 44 Ml Btl NASAL Q6HR PRN congestion Radiology Results: ITS Impressions Renal Ultrasound 03/04/24 12:01 IMPRESSION: 1. Mild atrophy of right kidney. No hydronephrosis. Chest X-Ray 03/09/24 07:21 Impression: Patchy airspace disease and extensive interstitial prominence unchanged. Correlate for pulmonary edema, pneumonia, and/or chronic interstitial disease. Small bilateral pleural effusions. Lentiform density at the lateral left lung, which could reflect loculated effusion. Labs Labs: Laboratory Tests 03/09/24 04:11 03/09/24 04:11 Calcium 8.3 L Magnesium 1.8 Total Bilirubin 1.0 AST 129 H ALT 416 H Alkaline Phosphatase 94 Total Creatine Kinase 141 H Total Protein 7.0 Albumin 3.3 L
[2024-03-09 11:54] LABS: Glucose Point of Care 171 mg/dl (65-105)
[2024-03-09 12:07] LABS: Hepatitis B Core Ab Total NON-REACTIVE (NON-REACTIVE)
[2024-03-09] MEDS: metOLazone 5 MG TABLET PO (12:52)
[2024-03-09] MEDS: LIDOCAINE HCL 2% PO ×3 (12:58→20:26)
[2024-03-09] MEDS: MAGNESIUM PO ×3 (12:58→20:26)
[2024-03-09] MEDS: ALUMINUM PO ×3 (12:58→20:26)
[2024-03-09] MEDS: [UNRECOGNIZED DRUG - OTHER] PO ×3 (12:58→20:26)
[2024-03-09] MEDS: VISC PO ×3 (12:58→20:26)
[2024-03-09] MEDS: SIMETH PO ×3 (12:58→20:26)
--- NOTE | 2024-03-09 14:54 | PCPTNOTE ---
spoke with Dr. Correia on phone and in person on 03/08/24 about lifting bed rest orders and was agreeable, spoke with RN today and she is removing bedrest order and changing to ambulate with assistance
[2024-03-09] MEDS: INSULIN ASPART (*BKC) 100 UNITS/ML SUB-Q (16:40)
[2024-03-09 17:39] LABS: Glucose Point of Care 209 mg/dl (65-105)
[2024-03-09 20:07] LABS: Glucose Point of Care 255 mg/dl (65-105)
[2024-03-10] VITALS (27 sets, daily range): BP systolic 94–104; BP diastolic 56–63; PULSE 74–115; RESP 16–22; TEMP 36.3–36.8; O2SAT 94–100
[2024-03-10] MEDS: IPRATROPIUM 0.5 MG/ALBUTEROL SULFATE 2.5 MG AMPUL.NEB 3 ML INHALATION ×4 (02:16→20:38)
[2024-03-10] MEDS: MAGNESIUM PO ×5 (04:02→21:36)
[2024-03-10] MEDS: LIDOCAINE HCL 2% PO ×5 (04:02→21:36)
[2024-03-10] MEDS: SIMETH PO ×5 (04:02→21:36)
[2024-03-10] MEDS: [UNRECOGNIZED DRUG - OTHER] PO ×5 (04:02→21:36)
[2024-03-10] MEDS: VISC PO ×5 (04:02→21:36)
[2024-03-10] MEDS: ALUMINUM PO ×5 (04:02→21:36)
[2024-03-10] MEDS: CENTRAL LINE FLUSH 10 ML IV PUSH ×3 (04:03→21:35)
[2024-03-10 04:15] LABS: Basophils Percent Auto 0.3 % (0.2-1.2); Eosinophils Absolute Auto 0.4 K/mm3 (0-0.3); Eosinophils Percent Auto 3.7 % (0-4.4); Hematocrit 27.4 % (37.0-47.0); Hemoglobin 9.1 g/dL (12.0-15.0); Immature Granulocyte Percent A 0.9 % (0-0.5); Lymphocytes Percent Auto 9.6 % (18.3-44.2); Mean Corpuscular HGB Conc 33.2 g/dl (32-36); Mean Corpuscular Hemoglobin 29.3 pg (26-34); Mean Corpuscular Volume 88.1 fl (80-100); Monocytes Absolute Auto 1.7 K/mm3 (0.1-0.6); Monocytes Percent Auto 14.4 % (2.6-8.5); Neutrophils Absolute Auto 8.2 K/mm3 (1.3-6.7); Neutrophils Percent Auto 71.1 % (45.5-73.1); Platelet Count Result 163 k/mm3 (150-375); Red Blood Count 3.11 M/mm3 (4.2-5.4); Red Cell Distribution Width 14.4 % (11.5-14.5); White Blood Count 11.5 K/mm3 (4.5-10.0)
[2024-03-10 04:25] LABS: Alanine Aminotransferase 303 U/L (6-35); Albumin Level 3.5 g/dL (3.5-5.1); Alkaline Phosphatase 101 U/L (38-126); Anion Gap 5 mmol/L (4-12); Aspartate Amino Transferase 101 U/L (14-36); Bilirubin,Total 1.2 mg/dL (0.2-1.3); Blood Urea Nitrogen 31 mg/dL (7-17); Calcium 8.7 mg/dL (8.4-10.2); Carbon Dioxide 35 mmol/L (22-30); Chloride 92 mmol/L (98-107); Creatine Kinase 104 U/L (30-135); Estimated CRCL calculation 17 ml/min; Estimated Glomerular Filt Rate 31; Glucose 140 mg/dL (65-110); Magnesium 1.7 mg/dL (1.6-2.3); Phosphorus 3.6 mg/dL (2.5-4.5); Sodium 132 mmol/L (137-145)
[2024-03-10 07:35] LABS: Glucose Point of Care 178 mg/dl (65-105)
[2024-03-10] MEDS: POTASSIUM CHLORIDE 20 MEQ ER TABLET 40 MEQ PO (08:20)
[2024-03-10] MEDS: ASPIRIN 81 MG ENTERIC TABLET PO (08:20)
[2024-03-10] MEDS: ATORVASTATIN 40 MG TABLET PO (08:20)
[2024-03-10] MEDS: METOPROLOL SUCCINATE EXT REL 12.5 MG TABCR PO (08:20)
[2024-03-10] MEDS: CLOPIDOGREL BISULFATE 75 MG TABLET PO (08:21)
[2024-03-10] MEDS: BUMETANIDE INJ 1 MG/4 ML VIAL IV PUSH (08:21)
[2024-03-10] MEDS: ENOXAPARIN 30 MG/0.3 ML SYRINGE SUB-Q (08:21)
[2024-03-10] MEDS: PANTOPRAZOLE 40 MG TABLET PO (08:21)
[2024-03-10] MEDS: CEFEPIME 1 GM/NS 50 ML 1 GM/50 ML BAG IVPB ×2 (08:22→21:35)
[2024-03-10] MEDS: INSULIN GLARGINE (*BKC) 100 UNITS/ML 15 UNITS SUB-Q (09:21)
--- NOTE | 2024-03-10 11:02 | P.PNNP_ITS ---
Progress Note: A&P Assessment and Plan (1) Acute kidney injury: Code(s): N17.9 - Acute kidney failure, unspecified Status: Acute Assessment and Plan: * as noted by trend of labs since admission * suspect multifactorial etiology: * rhabdomyolysis * shock/homodynamic instability * sepsis/infection (?) * contrast exposure (cardiac catheterization) * BP medications prior to admission (losartan) * underlying cardiomyopathy * evaluation to date noted: * renal ultrasound with right renal atrophy but on obstruction * urine electrolytes prerenal (suspect more indicative of cardiomyopathy than volume depletion) * urine eosinophils negative * CPK downtrending * no significant proteinuria * continue diuretics as tolerated * monitor trend of repeat labs and UOP (2) Chronic kidney disease, stage 3: Code(s): N18.30 - Chronic kidney disease, stage 3 unspecified Status: Chronic Assessment and Plan: * baseline creatinine seems to run ~ 1.0 - 1.6mg/dl in the last year or so * this causes her to fluctuate between CKD stage 3A and stage 3B * presumably secondary to HTN, DM, vascular disease, and age-related change (3) STEMI (ST elevation myocardial infarction): Code(s): I21.3 - ST elevation (STEMI) myocardial infarction of unspecified site Status: Acute Assessment and Plan: * s/p stent placement in circumflex with residual thrombus * Cardiology following * on ASA/statin/plavix * evidence of cardiomyopathy by Echo * diuresis as tolerated (on oral bumex) (4) Shock: Code(s): R57.9 - Shock, unspecified Status: Acute Assessment and Plan: * resolved * suspect a combination of cardiogenic and sepsis * weaned off vasopressor support * follow culture data * wean antibiotics (5) Anemia: Code(s): D64.9 - Anemia, unspecified Status: Acute Assessment and Plan: * PRBC transfusion per protocol * related to JAE, CKD, and acute illness * anemia studies c/w with iron deficiency * follow H/H (6) Stage 4 lung cancer: Code(s): C34.90 - Malignant neoplasm of unspecified part of unspecified bronchus or lung Status: Chronic Assessment and Plan: * known diagnosis * receiving chemotherapy as an outpatient (7) Diabetes: Code(s): E11.9 - Type 2 diabetes mellitus without complications Status: Acute Assessment and Plan: * follow accu-cheks * glycemic control per hospitalist Will continue to follow.. Subjective Date/time seen: 03/10/24 11:02 Interval history: Follow-up for acute kidney injury/acute renal failure on chronic kidney disease. Continues to make slow and steady improvement in breathing/respiratory status with ongoing supportive therapy; oxygen requirements appear to be slowly imp roving as well; no apparent distress noted. Exam 2 Narrative: General: frail and elderly female in NAD Heart: normal S1 and S2; no rub Lungs: coarse breath sounds Abdomen: soft, nontender, nondistended, positive bowel sounds Extremities: no cyanosis or clubbing; no edema Skin: no rash Objective Data Vital Signs Vital Signs: Vital Signs Temp Pulse Resp BP Pulse Ox O2 Del Method O2 Flow Rate 03/10/24 10:00 115 H 03/10/24 08:00 103 H 03/10/24 07:36 98.2 F 107 H 16 104/58 L 96 03/10/24 07:15 89 18 03/10/24 07:05 90 18 03/10/24 07:05 90 18 94 Nasal Cannula 3 03/10/24 06:00 88 03/10/24 04:00 98 20 100 High Flow Nasal Cannula 3 03/10/24 04:00 98 03/10/24 04:16 98.1 F 95 20 102/63 100 03/10/24 02:00 96 03/10/24 02:27 86 20 03/10/24 02:16 89 20 03/10/24 00:00 92 20 99 High Flow Nasal Cannula 3 03/10/24 00:00 92 03/09/24 22:00 92 03/09/24 23:23 98.1 F 97 20 101/58 L 99 03/09/24 20:00 96 20 96 High Flow Nasal Cannula 3 03/09/24 20:00 96 03/09/24 20:48 96 20 03/09/24 20:34 96 3 03/09/24 20:33 92 20 03/09/24 20:06 98.1 F 96 20 110/63 100 03/09/24 16:00 96 Nasal Cannula 3 03/09/24 18:00 94 03/09/24 16:00 101 H 03/09/24 15:58 98.1 F 101 H 16 101/61 96 03/09/24 15:15 Nasal Cannula 3 03/09/24 14:57 Nasal Cannula 3 Intake/Output Intake/Output: Intake & Output 03/07/24 03/08/24 03/09/24 03/10/24 23:59 23:59 23:59 23:59 Intake Total 1710 1170 1130 610 Output Total 3150 1400 1750 900 Balance -1440 -230 -620 -290 Meds/Results Medications: Active Medications Generic Name Dose Route Start Last Admin Trade Name Freq PRN Reason Stop Dose Admin Acetaminophen 650 mg 03/04/24 08:53 03/05/24 14:41 Acetaminophen 325 Mg Tablet PO 650 mg Q6H PRN Administration Mild Pain (1-3) or Fever Albuterol/Ipratropium 3 ml 03/06/24 14:00 03/10/24 13:00 Ipratropium 0.5 Mg/Albuterol Sulfate 2.5 Mg Ampul.Neb 3 Ml INHALATION 3 ml Q6HRT BONY Administration Alteplase, Recombinant 2 mg 03/08/24 12:00 03/08/24 12:40 Alteplase 2 Mg Vial (Cathflo) IV PUSH 2 mg ONCE PRN Administration Line Occlusion Aspirin 81 mg 03/04/24 09:00 03/10/24 08:20 Aspirin 81 Mg Enteric Tablet PO 81 mg DAILY BONY Administration Atorvastatin Calcium 40 mg 03/04/24 09:00 03/10/24 08:20 Atorvastatin 40 Mg Tablet PO 40 mg DAILY BONY Administration Bisacodyl 5 mg 03/09/24 13:51 Bisacodyl 5 Mg Tablet Ec PO QAM PRN Constipation Bumetanide 1 mg 03/11/24 09:00 Bumetanide 1 Mg Tablet PO DAILY BONY Clopidogrel Bisulfate 75 mg 03/04/24 09:00 03/10/24 08:21 Clopidogrel Bisulfate 75 Mg Tablet PO 75 mg DAILY BONY Administration Lidocaine HCl 30 ml/ Al Hydrox 0 ml 03/09/24 13:00 03/10/24 13:10 /Mg Hydrox/Simethicone 30 ml/ PO 30 ml Diphenhydramine HCl 75 mg Q4HWA BONY Administration Dextrose 12.5 gm 03/04/24 09:24 Dextrose 50% 25 Gm/50 Ml Syringe IV PUSH PRN PRN Hypoglycemia Protocol Glucagon 1 mg 03/04/24 09:24 Glucagon For Inj 1 Mg Vial IM PRN PRN Hypoglycemia Protocol Glucose 15 gm 03/04/24 09:24 Glucose Oral Gel 15 Gm Of Glucse In 37.5 Gm Tube PO PRN PRN Hypoglycemia Protocol Dextrose 1,000 mls @ 100 mls/hr 03/04/24 09:24 Dextrose 5% 1,000 Ml IVPB PRN PRN Hypoglycemia Protocol Cefepime HCl 1 gm in 50 mls @ 100 mls/hr 03/04/24 09:40 03/10/24 13:10 Maxipime 1 Gm/Ns 50 Ml IVPB Infused Q12HR BONY Infusion Insulin Aspart 3 - 6 units 03/08/24 08:00 03/10/24 11:47 Insulin Aspart (*Bkc) 100 Units/Ml SUB-Q 5 units TIDWM BONY Administration Protocol Insulin Glargine 15 units 03/05/24 10:00 03/10/24 09:21 Insulin Glargine (*Bkc) 100 Units/Ml SUB-Q 15 units QAM BONY Administration Losartan Potassium 12.5 mg 03/09/24 09:50 03/09/24 12:43 Losartan Potassium 12.5 Mg Tablet PO Not Given DAILY BONY Metoprolol Succinate 12.5 mg 03/07/24 11:25 03/10/24 08:20 Metoprolol Succinate Ext Rel 12.5 Mg Tabcr PO 12.5 mg QAM BONY Administration Ondansetron HCl 4 mg 03/04/24 10:15 03/04/24 10:16 Ondansetron Inj 4 Mg/2 Ml Vial IV PUSH 4 mg Q4H PRN Administration Nausea And Vomiting Pantoprazole Sodium 40 mg 03/08/24 09:00 03/10/24 08:21 Pantoprazole 40 Mg Tablet PO 40 mg QAM BONY Administration Polyethylene Glycol 17 gm 03/10/24 11:21 03/10/24 11:46 Polyethylene Glycol 3350 17 Gm Powd.Pack PO 17 gm QAM PRN Administration Constipation Sodium Chloride 10 ml 03/04/24 14:00 03/10/24 13:10 Central Line Flush IV PUSH 10 ml Q8HR BONY Administration Sodium Chloride 10 ml 03/04/24 12:31 Central Line Flush IV PUSH PRN PRN with TPN bag changes Sodium Chloride 20 ml 03/04/24 12:31 Central Line Flush IV PUSH PRN PRN after blood draws Sodium Chloride 1 spray 03/07/24 17:44 Saline 0.65% Guillermo Soln 44 Ml Btl NASAL Q6HR PRN congestion Radiology Results: ITS Impressions Renal Ultrasound 03/04/24 12:01 IMPRESSION: 1. Mild atrophy of right kidney. No hydronephrosis. Chest X-Ray 03/09/24 07:21 Impression: Patchy airspace disease and extensive interstitial prominence unchanged. Correlate for pulmonary edema, pneumonia, and/or chronic interstitial disease. Small bilateral pleural effusions. Lentiform density at the lateral left lung, which could reflect loculated effusion. Labs Labs: Laboratory Tests 03/10/24 04:01 03/10/24 04:00 Calcium 8.7 Phosphorus 3.6 Magnesium 1.7 Total Bilirubin 1.2 AST 101 H ALT 303 H Alkaline Phosphatase 101 Total Creatine Kinase 104 Total Protein 7.0 Albumin 3.5 Microbiology 03/04/24 11:08 Blood Blood Culture - Final 03/04/24 10:55 Blood Blood Culture - Final
[2024-03-10 11:39] LABS: Glucose Point of Care 301 mg/dl (65-105)
--- NOTE | 2024-03-10 11:42 | P.PNCA_ITS ---
Progress Note: A&P Assessment and Plan (1) Stage 4 lung cancer: Code(s): C34.90 - Malignant neoplasm of unspecified part of unspecified bronchus or lung Status: Acute (2) ST elevation myocardial infarct involv left circumflex coronary artery: Code(s): I21.21 - ST elevation (STEMI) myocardial infarction involving left circumflex coronary artery Status: Acute Plan 83-year-old lady with: Newly diagnosed coronary artery disease presenting with acute ST-elevation VA due to acute obstruction of the proximal circumflex which was treated s uccessfully with emergency PCI as detailed in the chart. That was complicated by complete heart block that transiently required placement of temporary transvenous pacemaker wire. She has done well and has recovered successfully. She appears to be euvolemic at this time I am going to stop the intravenous Bumex and switch to oral diuretics starting tomorrow. She should be progressively ambulated and probably can be discharged in a couple of days from now. She also has the unfortunate concurrent diagnosis of non-small cell lung cancer. Ronnie Calhoun MD [facility] Subjective Date/time seen: date of service:03/10/24 11:42 Interval history: Reason for visit: STEMI HPI: 83-year-old female with a past medical history significant for lung cancer, hypertension, diabetes who was brought by EMS to the ED with sudden onset chest pain, shortness of breath, diaphoresis, pale looking. She was found to have an inferoposterior STEMI with a complete heart block. She was directly taken to the lab after discussing the risks, benefits and alternatives of the procedure with her. We also discussed the goals of care with her in light of lung malignancy. She wanted to proceed. She was taken to the photo lab technician and VINICIUS was placed in the proximal LCX. There is some residual thrombus in the mid LCX artery. Placed a temporary pacemaker through the right femoral vein and currently she is being paced at a rate of 100 beats per minute, output of 10 and sensitivity of 5. Post PCI she denied any chest pain and will be transferred to the ICU to help with further management. Date of service 03/05: Denies chest pain and dyspnea today. Date of service 03/06: No chest pain. Tele with sinus tachycardia with first degree AV block. Not requiring transvenous pacer. Off of pressors. Hgb 6.8, getting blood transfusion. Date of service 03/07: Feeling better today. Still requiring supplemental oxygen. Diuresed well with Lasix yesterday, given dose of Bumex this morning. Date of service 03/08: Diuresed well yesterday. Feeling a bit better. Still requiring oxygen. Date of service 03/09: Remains on oxygen. CXR this morning shows patchy airspace disease and extensive interstitial prominence unchanged, small bilateral pleural effusions, lentiform density at the lateral left lung. Patient reports she has not had a bowel movement since admission. Feels like her throat is sore. Wants to move around more. Date of service 03/10/2024: Patient is supine in bed visiting with family comfortable cooperative offers no complaints. Long conversation with them today about the importance of adherence to dual anti-platelet therapy. Denies any shortness of breath at this time and is grateful for the care that she received upon admission. Exam Narrative: GENERAL: ill-appearing, in acute distress, tachypneic, bradycardic, jessie arrest HEAD: [Normocephalic, atraumatic.] EYES: [PERRLA and EOMI.] ENT: Nares clear, no rhinorrhea or epistaxis. Mucous membranes moist. NECK: Supple. CHEST: coarse breath sounds, accessory muscle use for respiration HEART: palpable bilateral radial pulses with mechanical capture intermittently on the watch crystal molder, 2+ symmetric, no edema peripherally. ABDOMEN: [Soft, nondistended], [nontender], [No rigidity or guarding] EXTREMITIES: Normal range of motion. [No edema.] SKIN: Warm, dry, no rash. NEURO: [No focal deficits]. Intermittently awake and alert x4, when captures failed she is more lethargic but able to answer questions Const: General: comfortable and no acute distress Other: Ill appearing female HENMT: Mouth: Yes moist mucous membranes Eyes: General: appearance normal, both eyes and all related structures Sclera: sclerae normal EOM: EOMs intact bilaterally Neck: Neck: no JVD Resp: Effort & Inspection: normal respiratory effort Auscultation: clear to auscultation bilaterally Other: On supplemental oxygen Cardio: Rate: regular rate Rhythm: regular rhythm Heart sounds: no murmurs Neuro: Speech: normal speech Extrem: Other: right groin dressing is dry and intact. no palpable hematoma. TVP in place Psych: Mental Status: mental status grossly normal Affect: normal affect Objective Data Vital Signs Vital Signs: Vital Signs - 24 hr 03/09/24 12:00 03/09/24 12:55 03/09/24 13:31 Temperature Pulse Rate Respiratory Rate Blood Pressure Pulse Oximetry 100 100 97 Oxygen Delivery High Flow Nasal Cannula High Flow Nasal Cannula High Flow Nasal Cannula Oxygen Flow Rate 5 4 4 Fraction of Inspired Oxygen 03/09/24 13:31 03/09/24 13:43 03/09/24 12:00 Temperature Pulse Rate 90 96 95 Respiratory Rate 20 20 Blood Pressure Pulse Oximetry Oxygen Delivery Oxygen Flow Rate Fraction of Inspired Oxygen 03/09/24 14:00 03/09/24 14:57 03/09/24 15:15 Temperature Pulse Rate 95 Respiratory Rate Blood Pressure Pulse Oximetry Oxygen Delivery Nasal Cannula Nasal Cannula Oxygen Flow Rate 3 3 Fraction of Inspired Oxygen 03/09/24 15:58 03/09/24 16:00 03/09/24 18:00 Temperature 36.7 C Pulse Rate 101 H 101 H 94 Respiratory Rate 16 Blood Pressure 101/61 Pulse Oximetry 96 Oxygen Delivery Oxygen Flow Rate Fraction of Inspired Oxygen 03/09/24 16:00 03/09/24 20:06 03/09/24 20:33 Temperature 36.7 C Pulse Rate 96 92 Respiratory Rate 20 20 Blood Pressure 110/63 Pulse Oximetry 96 100 Oxygen Delivery Nasal Cannula Oxygen Flow Rate 3 Fraction of Inspired Oxygen 03/09/24 20:34 03/09/24 20:48 03/09/24 20:00 Temperature Pulse Rate 96 96 Respiratory Rate 20 Blood Pressure Pulse Oximetry 96 Oxygen Delivery Oxygen Flow Rate 3 Fraction of Inspired Oxygen 03/09/24 20:00 03/09/24 23:23 03/09/24 22:00 Temperature 36.7 C Pulse Rate 96 97 92 Respiratory Rate 20 20 Blood Pressure 101/58 L Pulse Oximetry 96 99 Oxygen Delivery High Flow Nasal Cannula Oxygen Flow Rate 3 Fraction of Inspired Oxygen 50 03/10/24 00:00 03/10/24 00:00 03/10/24 02:16 Temperature Pulse Rate 92 92 89 Respiratory Rate 20 20 Blood Pressure Pulse Oximetry 99 Oxygen Delivery High Flow Nasal Cannula Oxygen Flow Rate 3 Fraction of Inspired Oxygen 50 03/10/24 02:27 03/10/24 02:00 03/10/24 04:16 Temperature 36.7 C Pulse Rate 86 96 95 Respiratory Rate 20 20 Blood Pressure 102/63 Pulse Oximetry 100 Oxygen Delivery Oxygen Flow Rate Fraction of Inspired Oxygen 03/10/24 04:00 03/10/24 04:00 03/10/24 06:00 Temperature Pulse Rate 98 98 88 Respiratory Rate 20 Blood Pressure Pulse Oximetry 100 Oxygen Delivery High Flow Nasal Cannula Oxygen Flow Rate 3 Fraction of Inspired Oxygen 50 03/10/24 07:05 03/10/24 07:05 03/10/24 07:15 Temperature Pulse Rate 90 90 89 Respiratory Rate 18 18 18 Blood Pressure Pulse Oximetry 94 Oxygen Delivery Nasal Cannula Oxygen Flow Rate 3 Fraction of Inspired Oxygen 03/10/24 07:36 03/10/24 08:00 03/10/24 10:00 Temperature 36.8 C Pulse Rate 107 H 103 H 115 H Respiratory Rate 16 Blood Pressure 104/58 L Pulse Oximetry 96 Oxygen Delivery Oxygen Flow Rate Fraction of Inspired Oxygen Intake/Output Intake/Output: Intake & Output 03/07/24 03/08/24 03/09/24 03/10/24 23:59 23:59 23:59 23:59 Intake Total 1710 1170 1130 440 Output Total 3150 1400 1750 900 Balance -1440 -230 -620 -460 Meds/Results Medications: Active Medications Generic Name Dose Route Start Last Admin Trade Name Freq PRN Reason Stop Dose Admin Acetaminophen 650 mg 03/04/24 08:53 03/05/24 14:41 Acetaminophen 325 Mg Tablet PO 650 mg Q6H PRN Administration Mild Pain (1-3) or Fever Albuterol/Ipratropium 3 ml 03/06/24 14:00 03/10/24 07:03 Ipratropium 0.5 Mg/Albuterol Sulfate 2.5 Mg Ampul.Neb 3 Ml INHALATION 3 ml Q6HRT BONY Administration Alteplase, Recombinant 2 mg 03/08/24 12:00 03/08/24 12:40 Alteplase 2 Mg Vial (Cathflo) IV PUSH 2 mg ONCE PRN Administration Line Occlusion Aspirin 81 mg 03/04/24 09:00 03/10/24 08:20 Aspirin 81 Mg Enteric Tablet PO 81 mg DAILY BONY Administration Atorvastatin Calcium 40 mg 03/04/24 09:00 03/10/24 08:20 Atorvastatin 40 Mg Tablet PO 40 mg DAILY BONY Administration Bisacodyl 5 mg 03/09/24 13:51 Bisacodyl 5 Mg Tablet Ec PO QAM PRN Constipation Bumetanide 1 mg 03/11/24 09:00 Bumetanide 1 Mg Tablet PO DAILY BONY Clopidogrel Bisulfate 75 mg 03/04/24 09:00 03/10/24 08:21 Clopidogrel Bisulfate 75 Mg Tablet PO 75 mg DAILY BONY Administration Lidocaine HCl 30 ml/ Al Hydrox 0 ml 03/09/24 13:00 03/10/24 08:22 /Mg Hydrox/Simethicone 30 ml/ PO 30 ml Diphenhydramine HCl 75 mg Q4HWA BONY Administration Dextrose 12.5 gm 03/04/24 09:24 Dextrose 50% 25 Gm/50 Ml Syringe IV PUSH PRN PRN Hypoglycemia Protocol Glucagon 1 mg 03/04/24 09:24 Glucagon For Inj 1 Mg Vial IM PRN PRN Hypoglycemia Protocol Glucose 15 gm 03/04/24 09:24 Glucose Oral Gel 15 Gm Of Glucse In 37.5 Gm Tube PO PRN PRN Hypoglycemia Protocol Dextrose 1,000 mls @ 100 mls/hr 03/04/24 09:24 Dextrose 5% 1,000 Ml IVPB PRN PRN Hypoglycemia Protocol Cefepime HCl 1 gm in 50 mls @ 100 mls/hr 03/04/24 09:40 03/10/24 08:22 Maxipime 1 Gm/Ns 50 Ml IVPB 100 mls/hr Q12HR BONY Administration Insulin Aspart 3 - 6 units 03/08/24 08:00 03/10/24 08:17 Insulin Aspart (*Bkc) 100 Units/Ml SUB-Q Not Given TIDWM [facility] Protocol Insulin Glargine 15 units 03/05/24 10:00 03/10/24 09:21 Insulin Glargine (*Bkc) 100 Units/Ml SUB-Q 15 units QAM BONY Administration Losartan Potassium 12.5 mg 03/09/24 09:50 03/09/24 12:43 Losartan Potassium 12.5 Mg Tablet PO Not Given DAILY BONY Metoprolol Succinate 12.5 mg 03/07/24 11:25 03/10/24 08:20 Metoprolol Succinate Ext Rel 12.5 Mg Tabcr PO 12.5 mg QAM BONY Administration Ondansetron HCl 4 mg 03/04/24 10:15 03/04/24 10:16 Ondansetron Inj 4 Mg/2 Ml Vial IV PUSH 4 mg Q4H PRN Administration Nausea And Vomiting Pantoprazole Sodium 40 mg 03/08/24 09:00 03/10/24 08:21 Pantoprazole 40 Mg Tablet PO 40 mg QAM BONY Administration Polyethylene Glycol 17 gm 03/10/24 11:21 Polyethylene Glycol 3350 17 Gm Powd.Pack PO QAM PRN Constipation Sodium Chloride 10 ml 03/04/24 14:00 03/10/24 04:03 Central Line Flush IV PUSH 10 ml Q8HR BONY Administration Sodium Chloride 10 ml 03/04/24 12:31 Central Line Flush IV PUSH PRN PRN with TPN bag changes Sodium Chloride 20 ml 03/04/24 12:31 Central Line Flush IV PUSH PRN PRN after blood draws Sodium Chloride 1 spray 03/07/24 17:44 Saline 0.65% Guillermo Soln 44 Ml Btl NASAL Q6HR PRN congestion Radiology Results: ITS Impressions Renal Ultrasound 03/04/24 12:01 IMPRESSION: 1. Mild atrophy of right kidney. No hydronephrosis. Chest X-Ray 03/09/24 07:21 Impression: Patchy airspace disease and extensive interstitial prominence unchanged. Correlate for pulmonary edema, pneumonia, and/or chronic interstitial disease. Small bilateral pleural effusions. Lentiform density at the lateral left lung, which could reflect loculated effusion. Labs Labs: Laboratory Results - last 24 hr 03/06/24 03/09/24 03/09/24 04:59 11:23 15:44 WBC RBC Hgb Hct MCV MCH MCHC RDW Plt Count MPV Immature Gran % (Auto) Neut % (Auto) Lymph % (Auto) [place] % (Auto) Eos % (Auto) Baso % (Auto) Lymph # (Auto) [place] # (Auto) Eos # (Auto) Baso # (Auto) Abs Immat Gran (auto) Absolute Neuts (auto) Absolute Nucleated RBC Nucleated RBC % Sodium Potassium Chloride Carbon Dioxide Anion Gap BUN Creatinine Estim Creat Clear Calc Estimated GFR Glucose POC Capillary Glucose 171 H 209 H Calcium Phosphorus Magnesium Total Bilirubin AST ALT Alkaline Phosphatase Total Creatine Kinase Total Protein Albumin Hep B Core Total Ab Non-reactive 03/09/24 03/10/24 03/10/24 19:31 04:00 04:01 WBC 11.5 H RBC 3.11 L Hgb 9.1 L Hct 27.4 L MCV 88.1 MCH 29.3 MCHC 33.2 RDW 14.4 Plt Count 163 MPV 11.0 H Immature Gran % (Auto) 0.9 H Neut % (Auto) 71.1 Lymph % (Auto) 9.6 L [place] % (Auto) 14.4 H Eos % (Auto) 3.7 Baso % (Auto) 0.3 Lymph # (Auto) 1.10 [place] # (Auto) 1.7 H Eos # (Auto) 0.4 H Baso # (Auto) 0.0 Abs Immat Gran (auto) 0.10 H Absolute Neuts (auto) 8.2 H Absolute Nucleated RBC 0.000 Nucleated RBC % 0.0 Sodium 132 L Potassium 3.0 L Chloride 92 L Carbon Dioxide 35 H Anion Gap 5 BUN 31 H Creatinine 1.60 H Estim Creat Clear Calc 17 Estimated GFR 31 L Glucose 140 H POC Capillary Glucose 255 H Calcium 8.7 Phosphorus 3.6 Magnesium 1.7 Total Bilirubin 1.2 AST 101 H ALT 303 H Alkaline Phosphatase 101 Total Creatine Kinase 104 Total Protein 7.0 Albumin 3.5 Hep B Core Total Ab 03/10/24 03/10/24 07:30 11:29 WBC RBC Hgb Hct MCV MCH MCHC RDW Plt Count MPV Immature Gran % (Auto) Neut % (Auto) Lymph % (Auto) [place] % (Auto) Eos % (Auto) Baso % (Auto) Lymph # (Auto) [place] # (Auto) Eos # (Auto) Baso # (Auto) Abs Immat Gran (auto) Absolute Neuts (auto) Absolute Nucleated RBC Nucleated RBC % Sodium Potassium Chloride Carbon Dioxide Anion Gap BUN Creatinine Estim Creat Clear Calc Estimated GFR Glucose POC Capillary Glucose 178 H 301 H Calcium Phosphorus Magnesium Total Bilirubin AST ALT Alkaline Phosphatase Total Creatine Kinase Total Protein Albumin Hep B Core Total Ab
[2024-03-10] MEDS: polyethylene glycoL 3350 17 GM POWD.PACK PO (11:46)
[2024-03-10] MEDS: INSULIN ASPART (*BKC) 100 UNITS/ML SUB-Q (11:47)
--- NOTE | 2024-03-10 12:43 | P.PNIM_ITS ---
Progress Note: A&P Assessment and Plan (1) Acute respiratory failure with hypoxia: Code(s): J96.01 - Acute respiratory failure with hypoxia Status: Acute Assessment and Plan: Patient to continues to have a high oxygen requirement initially 15 liters/minute, slowly down to 3 liter/minute * X-ray with extensive bilateral pulmonary consolidation and ground-glass opacities and small pleural effusions. * Continue diuretics and empiric antibiotics cefepime day 7 given low-grade fever and leukocytosis. * continue iv abx watch cultures Leukocytosis improving On Bumex 1 mg IV daily which has been switched to oral Home oxygen evaluation in a.m. (2) Acute on chronic kidney failure: Code(s): N17.9 - Acute kidney failure, unspecified; N18.9 - Chronic kidney disease, unspecified Status: Resolved Assessment and Plan: Chronic kidney disease stage IIIA to 3B with baseline creatinine ranging between 1.0 and 1.6 in the last year. Increased creatinine all the way to 2.2 now slowly getting back to baseline (3) Ischemic cardiomyopathy: Code(s): I25.5 - Ischemic cardiomyopathy Status: Acute Assessment and Plan: Echo showed normal LV size with mildly reduced systolic function with an estimated EF of 40 to 45%. * continue to diuresis with iv lasix (4) ST elevation myocardial infarct involv left circumflex coronary artery: Code(s): I21.21 - ST elevation (STEMI) myocardial infarction involving left circumflex coronary artery Status: Acute Assessment and Plan: Presenting with inferior-posterior STEMI due to 100% occluded proximal circumflex. * Angioplasty/stent to 100% thrombotic occluded proximal left circumflex on 03/04/2024. * Residual recalcitrant thrombus in the mid left circumflex with COLLETTE 1 to 2 flow. * Received eptifibatide and heparin infusions post cardiac catheterization. * Continue aspirin, clopidogrel, and statin per Cardiology. (5) Transaminitis: Code(s): R74.01 - Elevation of levels of liver transaminase levels Status: Acute Assessment and Plan: LFTs were normal on presentation but AST and ALT increased to as high as 2363 and 1224 respectively. Continue to monitor LFTs has been improving (6) Type 2 diabetes mellitus: Code(s): E11.9 - Type 2 diabetes mellitus without complications Status: Acute Assessment and Plan: * hbaic is 7 * can use insulin in hospital and dc on oral hypoglycemics (7) Stage 4 lung cancer: Code(s): C34.90 - Malignant neoplasm of unspecified part of unspecified bronchus or lung Status: Acute Assessment and Plan: Recently diagnosed and receiving treatment at [facility]. (8) Complete heart block: Code(s): I44.2 - Atrioventricular block, complete Status: Resolved Assessment and Plan: Patient was in third-degree heart block on arrival to the ED treated with transcutaneous pacing and dopamine. * Temporary pacemaker placed at time of cardiac catheterization on 03/04/2024. * Transvenous pacer removed at bedside in the morning of 03/06/2024. (9) Cardiogenic shock: Code(s): R57.0 - Cardiogenic shock Status: Resolved Assessment and Plan: weaned off vasopressors doing well on the floor Plan dvt prop: lovenox Subjective Date/time seen: 03/10/24 12:43 Interval history: No overnight events. Work with therapy yesterday. Feels tired today. Oxygen requirement down to 3 L. Review of Systems Review of Systems: All systems reviewed & are unremarkable except as noted in HPI and below (HPI) Exam Narrative: General: Well-appearing female. Not in acute distress Respiratory: Currently on 3 L high-flow. Diminished breath sounds bilaterally no wheezes Cardiovascular: Regular rate and rhythm with normal S1-S2. Gastrointestinal: Abdomen is soft, nontender, and nondistended with positive bowel sounds. Skin: Warm and dry. No rash or lesions on limited exam. Extremities: No cyanosis, clubbing, or edema. Neurological: Alert. Cranial nerves 2-12 are grossly intact. No gross focal deficits to casual conversation. Psychiatric: Pleasant and cooperative with normal mood and affect. Objective Data Vital Signs Vital Signs: Vital Signs - 24 hr 03/09/24 12:55 03/09/24 13:31 03/09/24 13:31 Temperature Pulse Rate 90 Respiratory Rate 20 Blood Pressure Pulse Oximetry 100 97 Oxygen Delivery High Flow Nasal Cannula High Flow Nasal Cannula Oxygen Flow Rate 4 4 Fraction of Inspired Oxygen 03/09/24 13:43 03/09/24 14:00 03/09/24 14:57 Temperature Pulse Rate 96 95 Respiratory Rate 20 Blood Pressure Pulse Oximetry Oxygen Delivery Nasal Cannula Oxygen Flow Rate 3 Fraction of Inspired Oxygen 03/09/24 15:15 03/09/24 15:58 03/09/24 16:00 Temperature 98.1 F Pulse Rate 101 H 101 H Respiratory Rate 16 Blood Pressure 101/61 Pulse Oximetry 96 Oxygen Delivery Nasal Cannula Oxygen Flow Rate 3 Fraction of Inspired Oxygen 03/09/24 18:00 03/09/24 16:00 03/09/24 20:06 Temperature 98.1 F Pulse Rate 94 96 Respiratory Rate 20 Blood Pressure 110/63 Pulse Oximetry 96 100 Oxygen Delivery Nasal Cannula Oxygen Flow Rate 3 Fraction of Inspired Oxygen 03/09/24 20:33 03/09/24 20:34 03/09/24 20:48 Temperature Pulse Rate 92 96 Respiratory Rate 20 20 Blood Pressure Pulse Oximetry 96 Oxygen Delivery Oxygen Flow Rate 3 Fraction of Inspired Oxygen 03/09/24 20:00 03/09/24 20:00 03/09/24 23:23 Temperature 98.1 F Pulse Rate 96 96 97 Respiratory Rate 20 20 Blood Pressure 101/58 L Pulse Oximetry 96 99 Oxygen Delivery High Flow Nasal Cannula Oxygen Flow Rate 3 Fraction of Inspired Oxygen 50 03/09/24 22:00 03/10/24 00:00 03/10/24 00:00 Temperature Pulse Rate 92 92 92 Respiratory Rate 20 Blood Pressure Pulse Oximetry 99 Oxygen Delivery High Flow Nasal Cannula Oxygen Flow Rate 3 Fraction of Inspired Oxygen 50 03/10/24 02:16 03/10/24 02:27 03/10/24 02:00 Temperature Pulse Rate 89 86 96 Respiratory Rate 20 20 Blood Pressure Pulse Oximetry Oxygen Delivery Oxygen Flow Rate Fraction of Inspired Oxygen 03/10/24 04:16 03/10/24 04:00 03/10/24 04:00 Temperature 98.1 F Pulse Rate 95 98 98 Respiratory Rate 20 20 Blood Pressure 102/63 Pulse Oximetry 100 100 Oxygen Delivery High Flow Nasal Cannula Oxygen Flow Rate 3 Fraction of Inspired Oxygen 50 03/10/24 06:00 03/10/24 07:05 03/10/24 07:05 Temperature Pulse Rate 88 90 90 Respiratory Rate 18 18 Blood Pressure Pulse Oximetry 94 Oxygen Delivery Nasal Cannula Oxygen Flow Rate 3 Fraction of Inspired Oxygen 03/10/24 07:15 03/10/24 07:36 03/10/24 08:00 Temperature 98.2 F Pulse Rate 89 107 H 103 H Respiratory Rate 18 16 Blood Pressure 104/58 L Pulse Oximetry 96 Oxygen Delivery Oxygen Flow Rate Fraction of Inspired Oxygen 03/10/24 10:00 03/10/24 11:46 Temperature 97.9 F Pulse Rate 115 H 95 Respiratory Rate 18 Blood Pressure 100/60 Pulse Oximetry 100 Oxygen Delivery Oxygen Flow Rate Fraction of Inspired Oxygen Intake/Output Intake/Output: Intake & Output 03/07/24 03/08/24 03/09/24 03/10/24 23:59 23:59 23:59 23:59 Intake Total 1710 1170 1130 440 Output Total 3150 1400 1750 900 Balance -1440 -230 -620 -460 Meds/Results Medications: Active Medications Generic Name Dose Route Start Last Admin Trade Name Freq PRN Reason Stop Dose Admin Acetaminophen 650 mg 03/04/24 08:53 03/05/24 14:41 Acetaminophen 325 Mg Tablet PO 650 mg Q6H PRN Administration Mild Pain (1-3) or Fever Albuterol/Ipratropium 3 ml 03/06/24 14:00 03/10/24 07:03 Ipratropium 0.5 Mg/Albuterol Sulfate 2.5 Mg Ampul.Neb 3 Ml INHALATION 3 ml Q6HRT BONY Administration Alteplase, Recombinant 2 mg 03/08/24 12:00 03/08/24 12:40 Alteplase 2 Mg Vial (Cathflo) IV PUSH 2 mg ONCE PRN Administration Line Occlusion Aspirin 81 mg 03/04/24 09:00 03/10/24 08:20 Aspirin 81 Mg Enteric Tablet PO 81 mg DAILY BONY Administration Atorvastatin Calcium 40 mg 03/04/24 09:00 03/10/24 08:20 Atorvastatin 40 Mg Tablet PO 40 mg DAILY BONY Administration Bisacodyl 5 mg 03/09/24 13:51 Bisacodyl 5 Mg Tablet Ec PO QAM PRN Constipation Bumetanide 1 mg 03/11/24 09:00 Bumetanide 1 Mg Tablet PO DAILY BONY Clopidogrel Bisulfate 75 mg 03/04/24 09:00 03/10/24 08:21 Clopidogrel Bisulfate 75 Mg Tablet PO 75 mg DAILY BONY Administration Lidocaine HCl 30 ml/ Al Hydrox 0 ml 03/09/24 13:00 03/10/24 08:22 /Mg Hydrox/Simethicone 30 ml/ PO 30 ml Diphenhydramine HCl 75 mg Q4HWA BONY Administration Dextrose 12.5 gm 03/04/24 09:24 Dextrose 50% 25 Gm/50 Ml Syringe IV PUSH PRN PRN Hypoglycemia Protocol Glucagon 1 mg 03/04/24 09:24 Glucagon For Inj 1 Mg Vial IM PRN PRN Hypoglycemia Protocol Glucose 15 gm 03/04/24 09:24 Glucose Oral Gel 15 Gm Of Glucse In 37.5 Gm Tube PO PRN PRN Hypoglycemia Protocol Dextrose 1,000 mls @ 100 mls/hr 03/04/24 09:24 Dextrose 5% 1,000 Ml IVPB PRN PRN Hypoglycemia Protocol Cefepime HCl 1 gm in 50 mls @ 100 mls/hr 03/04/24 09:40 03/10/24 08:22 Maxipime 1 Gm/Ns 50 Ml IVPB 100 mls/hr Q12HR BONY Administration Insulin Aspart 3 - 6 units 03/08/24 08:00 03/10/24 11:47 Insulin Aspart (*Bkc) 100 Units/Ml SUB-Q 5 units TIDWM BONY Administration Protocol Insulin Glargine 15 units 03/05/24 10:00 03/10/24 09:21 Insulin Glargine (*Bkc) 100 Units/Ml SUB-Q 15 units QAM BONY Administration Losartan Potassium 12.5 mg 03/09/24 09:50 03/09/24 12:43 Losartan Potassium 12.5 Mg Tablet PO Not Given DAILY [facility]1983 Metoprolol Succinate 12.5 mg 03/07/24 11:25 03/10/24 08:20 Metoprolol Succinate Ext Rel 12.5 Mg Tabcr PO 12.5 mg QAM BONY Administration Ondansetron HCl 4 mg 03/04/24 10:15 03/04/24 10:16 Ondansetron Inj 4 Mg/2 Ml Vial IV PUSH 4 mg Q4H PRN Administration Nausea And Vomiting Pantoprazole Sodium 40 mg 03/08/24 09:00 03/10/24 08:21 Pantoprazole 40 Mg Tablet PO 40 mg QAM BONY Administration Polyethylene Glycol 17 gm 03/10/24 11:21 03/10/24 11:46 Polyethylene Glycol 3350 17 Gm Powd.Pack PO 17 gm QAM PRN Administration Constipation Sodium Chloride 10 ml 03/04/24 14:00 03/10/24 04:03 Central Line Flush IV PUSH 10 ml Q8HR BONY Administration Sodium Chloride 10 ml 03/04/24 12:31 Central Line Flush IV PUSH PRN PRN with TPN bag changes Sodium Chloride 20 ml 03/04/24 12:31 Central Line Flush IV PUSH PRN PRN after blood draws Sodium Chloride 1 spray 03/07/24 17:44 Saline 0.65% Guillermo Soln 44 Ml Btl NASAL Q6HR PRN congestion Radiology Results: ITS Impressions Renal Ultrasound 03/04/24 12:01 IMPRESSION: 1. Mild atrophy of right kidney. No hydronephrosis. Chest X-Ray 03/09/24 07:21 Impression: Patchy airspace disease and extensive interstitial prominence unchanged. Correlate for pulmonary edema, pneumonia, and/or chronic interstitial disease. Small bilateral pleural effusions. Lentiform density at the lateral left lung, which could reflect loculated effusion. Labs Labs: Laboratory Results - last 24 hr 03/09/24 03/09/24 03/10/24 15:44 19:31 04:00 WBC RBC Hgb Hct MCV MCH MCHC RDW Plt Count MPV Immature Gran % (Auto) Neut % (Auto) Lymph % (Auto) [place] % (Auto) Eos % (Auto) Baso % (Auto) Lymph # (Auto) [place] # (Auto) Eos # (Auto) Baso # (Auto) Abs Immat Gran (auto) Absolute Neuts (auto) Absolute Nucleated RBC Nucleated RBC % Sodium 132 L Potassium 3.0 L Chloride 92 L Carbon Dioxide 35 H Anion Gap 5 BUN 31 H Creatinine 1.60 H Estim Creat Clear Calc 17 Estimated GFR 31 L Glucose 140 H POC Capillary Glucose 209 H 255 H Calcium 8.7 Phosphorus 3.6 Magnesium 1.7 Total Bilirubin 1.2 AST 101 H ALT 303 H Alkaline Phosphatase 101 Total Creatine Kinase 104 Total Protein 7.0 Albumin 3.5 03/10/24 03/10/24 03/10/24 04:01 07:30 11:29 WBC 11.5 H RBC 3.11 L Hgb 9.1 L Hct 27.4 L MCV 88.1 MCH 29.3 MCHC 33.2 RDW 14.4 Plt Count 163 MPV 11.0 H Immature Gran % (Auto) 0.9 H Neut % (Auto) 71.1 Lymph % (Auto) 9.6 L [place] % (Auto) 14.4 H Eos % (Auto) 3.7 Baso % (Auto) 0.3 Lymph # (Auto) 1.10 [place] # (Auto) 1.7 H Eos # (Auto) 0.4 H Baso # (Auto) 0.0 Abs Immat Gran (auto) 0.10 H Absolute Neuts (auto) 8.2 H Absolute Nucleated RBC 0.000 Nucleated RBC % 0.0 Sodium Potassium Chloride Carbon Dioxide Anion Gap BUN Creatinine Estim Creat Clear Calc Estimated GFR Glucose POC Capillary Glucose 178 H 301 H Calcium Phosphorus Magnesium Total Bilirubin AST ALT Alkaline Phosphatase Total Creatine Kinase Total Protein Albumin
--- NOTE | 2024-03-10 14:13 | PHAR ---
HOME MED Osimertinib [Tagrisso] 80 mg Tablet; TAKE ONE TABLET BY MOUTH EVERY DAY. VERIFIED BY PHARMACY.
[2024-03-10 15:37] LABS: Glucose Point of Care 170 mg/dl (65-105)
[2024-03-10 19:51] LABS: Glucose Point of Care 228 mg/dl (65-105)
[2024-03-11] VITALS (30 sets, daily range): BP systolic 93–108; BP diastolic 59–64; PULSE 87–125; RESP 16–22; TEMP 36.3–36.8; O2SAT 91–98
[2024-03-11] MEDS: IPRATROPIUM 0.5 MG/ALBUTEROL SULFATE 2.5 MG AMPUL.NEB 3 ML INHALATION ×4 (02:11→20:08)
[2024-03-11] MEDS: MAGNESIUM PO ×3 (05:28→21:14)
[2024-03-11] MEDS: ALUMINUM PO ×3 (05:28→21:14)
[2024-03-11] MEDS: LIDOCAINE HCL 2% PO ×3 (05:28→21:14)
[2024-03-11] MEDS: [UNRECOGNIZED DRUG - OTHER] PO ×3 (05:28→21:14)
[2024-03-11] MEDS: SIMETH PO ×3 (05:28→21:14)
[2024-03-11] MEDS: VISC PO ×3 (05:28→21:14)
[2024-03-11] MEDS: CENTRAL LINE FLUSH 10 ML IV PUSH ×3 (05:29→21:15)
[2024-03-11 05:47] LABS: Estimated CRCL calculation 14 ml/min; Estimated Glomerular Filt Rate 25
[2024-03-11] MEDS: BUMETANIDE 1 MG TABLET PO (08:15)
[2024-03-11] MEDS: ACETAMINOPHEN 325 MG TABLET 650 MG PO (08:15)
[2024-03-11] MEDS: ASPIRIN 81 MG ENTERIC TABLET PO (08:15)
[2024-03-11 08:16] LABS: Glucose Point of Care 153 mg/dl (65-105)
[2024-03-11] MEDS: ATORVASTATIN 40 MG TABLET PO (08:16)
[2024-03-11] MEDS: CLOPIDOGREL BISULFATE 75 MG TABLET PO (08:16)
[2024-03-11] MEDS: METOPROLOL SUCCINATE EXT REL 12.5 MG TABCR PO (08:16)
[2024-03-11] MEDS: PANTOPRAZOLE 40 MG TABLET PO (08:16)
[2024-03-11] MEDS: CEFEPIME 1 GM/NS 50 ML 1 GM/50 ML BAG IVPB (08:21)
[2024-03-11] MEDS: INSULIN GLARGINE (*BKC) 100 UNITS/ML 15 UNITS SUB-Q (08:21)
[2024-03-11 09:04] LABS: Alanine Aminotransferase 237 U/L (6-35); Albumin Level 3.7 g/dL (3.5-5.1); Alkaline Phosphatase 106 U/L (38-126); Anion Gap 7 mmol/L (4-12); Aspartate Amino Transferase 91 U/L (14-36); Blood Urea Nitrogen 34 mg/dL (7-17); Calcium 9.1 mg/dL (8.4-10.2); Carbon Dioxide 34 mmol/L (22-30); Chloride 92 mmol/L (98-107); Estimated CRCL calculation 14 ml/min; Estimated Glomerular Filt Rate 25; Glucose 128 mg/dL (65-110); Magnesium 1.9 mg/dL (1.6-2.3); Potassium 3.4 mmol/L (3.4-5.0); Sodium 133 mmol/L (137-145)
--- NOTE | 2024-03-11 10:21 | P.PNNP_ITS ---
Progress Note: A&P Assessment and Plan (1) Acute kidney injury: Code(s): N17.9 - Acute kidney failure, unspecified Status: Acute Assessment and Plan: * as noted by trend of labs since admission * suspect multifactorial etiology: * rhabdomyolysis * shock/homodynamic instability * sepsis/infection (?) * contrast exposure (cardiac catheterization) * BP medications prior to admission (losartan) * underlying cardiomyopathy * evaluation to date noted: * renal ultrasound with right renal atrophy but on obstruction * urine electrolytes prerenal (suspect more indicative of cardiomyopathy than volume depletion) * urine eosinophils negative * CPK downtrending * no significant proteinuria * continue diuretics as tolerated * monitor trend of repeat labs and UOP (2) Chronic kidney disease, stage 3: Code(s): N18.30 - Chronic kidney disease, stage 3 unspecified Status: Chronic Assessment and Plan: * baseline creatinine seems to run ~ 1.0 - 1.6mg/dl in the last year or so * this causes her to fluctuate between CKD stage 3A and stage 3B * presumably secondary to HTN, DM, vascular disease, and age-related change (3) STEMI (ST elevation myocardial infarction): Code(s): I21.3 - ST elevation (STEMI) myocardial infarction of unspecified site Status: Acute Assessment and Plan: * s/p stent placement in circumflex with residual thrombus * Cardiology following * on ASA/statin/plavix * evidence of cardiomyopathy by Echo * diuresis as tolerated (on oral bumex) (4) Shock: Code(s): R57.9 - Shock, unspecified Status: Acute Assessment and Plan: * resolved * suspect a combination of cardiogenic and sepsis * weaned off vasopressor support * follow culture data * wean antibiotics (5) Anemia: Code(s): D64.9 - Anemia, unspecified Status: Acute Assessment and Plan: * PRBC transfusion per protocol * related to JAE, CKD, and acute illness * anemia studies c/w with iron deficiency * follow H/H (6) Stage 4 lung cancer: Code(s): C34.90 - Malignant neoplasm of unspecified part of unspecified bronchus or lung Status: Chronic Assessment and Plan: * known diagnosis * receiving chemotherapy as an outpatient (7) Diabetes: Code(s): E11.9 - Type 2 diabetes mellitus without complications Status: Acute Assessment and Plan: * follow accu-cheks * glycemic control per hospitalist Will continue to follow.. Subjective Date/time seen: 03/11/24 10:21 Interval history: Follow-up for acute kidney injury/acute renal failure on chronic kidney disease. Appears to be doing reasonably well at the time of my visit; has been getting out of bed and ambulating as tolerated; still requiring supplemental oxygen; renal function/creatinine a tad worse by AM labs; no apparent distress. Exam Narrative: General: frail and elderly female in NAD Heart: normal S1 and S2; no rub Lungs: coarse breath sounds Abdomen: soft, nontender, nondistended, positive bowel sounds Extremities: no cyanosis or clubbing; no edema Skin: no nodules Objective Data Vital Signs Vital Signs: Vital Signs Temp Pulse Resp BP Pulse Ox O2 Del Method O2 Flow Rate 03/11/24 08:20 96 Room Air 03/11/24 07:45 95 Nasal Cannula 1 03/11/24 07:28 97.9 F 125 H 22 H 94/64 L 93 03/11/24 07:24 104 H 20 03/11/24 07:12 108 H 20 03/11/24 07:12 97 Nasal Cannula 2 03/11/24 06:00 103 H 03/11/24 04:00 96 03/11/24 04:00 97 Nasal Cannula 2 03/11/24 03:56 97.4 F L 93 18 102/59 L 96 03/11/24 02:00 87 03/11/24 02:22 93 16 03/10/24 20:50 99 18 03/11/24 02:12 93 16 03/11/24 00:00 97 Nasal Cannula 2 03/11/24 00:00 91 03/10/24 22:00 96 03/10/24 20:00 93 03/10/24 23:57 97.4 F L 92 20 94/56 L 97 03/10/24 20:00 97 Nasal Cannula 2 03/10/24 20:42 98 Nasal Cannula 3 03/10/24 20:40 97 18 03/10/24 20:16 97.4 F L 94 20 96/58 L 97 03/10/24 18:00 94 03/10/24 16:00 93 03/10/24 15:27 97.3 F L 98 22 H 97/56 L 96 03/10/24 14:00 96 03/10/24 13:25 Nasal Cannula 3 03/10/24 13:15 76 18 03/10/24 13:05 74 18 03/10/24 12:00 97 03/10/24 11:46 97.9 F 95 18 100/60 100 Intake/Output Intake/Output: Intake & Output 03/08/24 03/09/24 03/10/24 03/11/24 23:59 23:59 23:59 23:59 Intake Total 1170 1130 610 400 Output Total 1400 1750 1200 490 Balance -230 -620 -590 -90 Meds/Results Medications: Active Medications Generic Name Dose Route Start Last Admin Trade Name Freq PRN Reason Stop Dose Admin Acetaminophen 650 mg 03/04/24 08:53 03/11/24 08:15 Acetaminophen 325 Mg Tablet PO 650 mg Q6H PRN Administration Mild Pain (1-3) or Fever Albuterol/Ipratropium 3 ml 03/06/24 14:00 03/11/24 07:12 Ipratropium 0.5 Mg/Albuterol Sulfate 2.5 Mg Ampul.Neb 3 Ml INHALATION 3 ml Q6HRT BONY Administration Alteplase, Recombinant 2 mg 03/08/24 12:00 03/08/24 12:40 Alteplase 2 Mg Vial (Cathflo) IV PUSH 2 mg ONCE PRN Administration Line Occlusion Aspirin 81 mg 03/04/24 09:00 03/11/24 08:15 Aspirin 81 Mg Enteric Tablet PO 81 mg DAILY BONY Administration Atorvastatin Calcium 40 mg 03/04/24 09:00 03/11/24 08:16 Atorvastatin 40 Mg Tablet PO 40 mg DAILY BONY Administration Bisacodyl 5 mg 03/09/24 13:51 Bisacodyl 5 Mg Tablet Ec PO QAM PRN Constipation Bumetanide 1 mg 03/11/24 09:00 03/11/24 08:15 Bumetanide 1 Mg Tablet PO 1 mg DAILY BONY Administration Clopidogrel Bisulfate 75 mg 03/04/24 09:00 03/11/24 08:16 Clopidogrel Bisulfate 75 Mg Tablet PO 75 mg DAILY BONY Administration Lidocaine HCl 30 ml/ Al Hydrox 0 ml 03/09/24 13:00 03/11/24 08:14 /Mg Hydrox/Simethicone 30 ml/ PO 30 ml Diphenhydramine HCl 75 mg Q4HWA BONY Administration Dextrose 12.5 gm 03/04/24 09:24 Dextrose 50% 25 Gm/50 Ml Syringe IV PUSH PRN PRN Hypoglycemia Protocol Glucagon 1 mg 03/04/24 09:24 Glucagon For Inj 1 Mg Vial IM PRN PRN Hypoglycemia Protocol Glucose 15 gm 03/04/24 09:24 Glucose Oral Gel 15 Gm Of Glucse In 37.5 Gm Tube PO PRN PRN Hypoglycemia Protocol Dextrose 1,000 mls @ 100 mls/hr 03/04/24 09:24 Dextrose 5% 1,000 Ml IVPB PRN PRN Hypoglycemia Protocol Cefepime HCl 1 gm in 50 mls @ 100 mls/hr 03/04/24 09:40 03/11/24 08:21 Maxipime 1 Gm/Ns 50 Ml IVPB 100 mls/hr Q12HR BONY Administration Insulin Aspart 3 - 6 units 03/08/24 08:00 03/11/24 08:21 Insulin Aspart (*Bkc) 100 Units/Ml SUB-Q Not Given TIDWM BONY Protocol Insulin Glargine 15 units 03/05/24 10:00 03/11/24 08:21 Insulin Glargine (*Bkc) 100 Units/Ml SUB-Q 15 units QAM BONY Administration Losartan Potassium 12.5 mg 03/09/24 09:50 03/09/24 12:43 Losartan Potassium 12.5 Mg Tablet PO Not Given DAILY BONY Metoprolol Succinate 12.5 mg 03/07/24 11:25 03/11/24 08:16 Metoprolol Succinate Ext Rel 12.5 Mg Tabcr PO 12.5 mg QAM BONY Administration Osimertinib [ 80 mg 03/10/24 15:00 03/11/24 08:16 Tagrisso] 80 Mg PO 04/09/24 14:59 80 mg Tablet DAILY BONY Administration Ondansetron HCl 4 mg 03/04/24 10:15 03/04/24 10:16 Ondansetron Inj 4 Mg/2 Ml Vial IV PUSH 4 mg Q4H PRN Administration Nausea And Vomiting Pantoprazole Sodium 40 mg 03/08/24 09:00 03/11/24 08:16 Pantoprazole 40 Mg Tablet PO 40 mg QAM BONY Administration Polyethylene Glycol 17 gm 03/10/24 11:21 03/10/24 11:46 Polyethylene Glycol 3350 17 Gm Powd.Pack PO 17 gm QAM PRN Administration Constipation Sodium Chloride 10 ml 03/04/24 14:00 03/11/24 05:29 Central Line Flush IV PUSH 10 ml Q8HR BONY Administration Sodium Chloride 10 ml 03/04/24 12:31 Central Line Flush IV PUSH PRN PRN with TPN bag changes Sodium Chloride 20 ml 03/04/24 12:31 Central Line Flush IV PUSH PRN PRN after blood draws Sodium Chloride 1 spray 03/07/24 17:44 Saline 0.65% Guillermo Soln 44 Ml Btl NASAL Q6HR PRN congestion Radiology Results: ITS Impressions Renal Ultrasound 03/04/24 12:01 IMPRESSION: 1. Mild atrophy of right kidney. No hydronephrosis. Chest X-Ray 03/09/24 07:21 Impression: Patchy airspace disease and extensive interstitial prominence unchanged. Correlate for pulmonary edema, pneumonia, and/or chronic interstitial disease. Small bilateral pleural effusions. Lentiform density at the lateral left lung, which could reflect loculated effusion. Labs Labs: Laboratory Tests 03/10/24 04:01 03/11/24 05:22 Calcium 9.1 Magnesium 1.9 Total Bilirubin 1.0 AST 91 H ALT 237 H Alkaline Phosphatase 106 Total Protein 7.0 Albumin 3.7
--- NOTE | 2024-03-11 10:24 | P.PNCA_ITS ---
Progress Note: A&P Assessment and Plan (1) Ischemic cardiomyopathy: Code(s): I25.5 - Ischemic cardiomyopathy Status: Acute (2) STEMI (ST elevation myocardial infarction): Code(s): I21.3 - ST elevation (STEMI) myocardial infarction of unspecified site Status: Acute (3) Stage 4 lung cancer: Code(s): C34.90 - Malignant neoplasm of unspecified part of unspecified bronchus or lung Status: Acute Plan 83-year-old lady with: Newly diagnosed coronary artery disease presenting with acute ST segment elevation PR. She underwent emergency revascularization with stenting of her circumflex as described in the chart. She has recovered from this remarkably we ll. She is on appropriate guideline directed medical therapy and is asymptomatic. From cardiac perspective she is able to be discharged. She does have family/ son and daughter who will be with her at home for her safety/well- being. following discharge I will arrange for timely follow-up in our office regarding her coronary disease/infarction. She has oncology follow-up elsewhere regarding her lung cancer. Ronnie Calhoun MD [facility] Subjective Date/time seen: date of service:03/11/24 10:24 Interval history: Reason for visit: STEMI HPI: 83-year-old female with a past medical history significant for lung cancer, hypertension, diabetes who was brought by EMS to the ED with sudden onset chest pain, shortness of breath, diaphoresis, pale looking. She was found to have an inferoposterior STEMI with a complete heart block. She was directly taken to the lab after discussing the risks, benefits and alternatives of the procedure with her. We also discussed the goals of care with her in light of lung malignancy. She wanted to proceed. She was taken to the dental laboratory technician apprentice and VINICIUS was placed in the proximal LCX. There is some residual thrombus in the mid LCX artery. Placed a temporary pacemaker through the right femoral vein and currently she is being paced at a rate of 100 beats per minute, output of 10 and sensitivity of 5. Post PCI she denied any chest pain and will be transferred to the ICU to help with further management. Date of service 03/05: Denies chest pain and dyspnea today. Date of service 03/06: No chest pain. Tele with sinus tachycardia with first degree AV block. Not requiring transvenous pacer. Off of pressors. Hgb 6.8, getting blood transfusion. Date of service 03/07: Feeling better today. Still requiring supplemental oxygen. Diuresed well with Lasix yesterday, given dose of Bumex this morning. Date of service 03/08: Diuresed well yesterday. Feeling a bit better. Still requiring oxygen. Date of service 03/09: Remains on oxygen. CXR this morning shows patchy airspace disease and extensive interstitial prominence unchanged, small bilateral pleural effusions, lentiform density at the lateral left lung. Patient reports she has not had a bowel movement since admission. Feels like her throat is sore. Wants to move around more. Date of service 03/10/2024: Patient is supine in bed visiting with family comfortable cooperative offers no complaints. Long conversation with them today about the importance of adherence to dual anti-platelet therapy. Denies any shortness of breath at this time and is grateful for the care that she received upon admission. Date of service 03/11/2024: Patient is asymptomatic visiting family again has no cardiovascular complaints at all. Was ambulating yesterday and earlier today with assistance. Patient is hopeful of being discharged. Exam Narrative: GENERAL: ill-appearing, in acute distress, tachypneic, bradycardic, jessie arrest HEAD: [Normocephalic, atraumatic.] EYES: [PERRLA and EOMI.] ENT: Nares clear, no rhinorrhea or epistaxis. Mucous membranes moist. NECK: Supple. CHEST: coarse breath sounds, accessory muscle use for respiration HEART: palpable bilateral radial pulses with mechanical capture intermittently on the cardiac rehabilitation specialist, 2+ symmetric, no edema peripherally. ABDOMEN: [Soft, nondistended], [nontender], [No rigidity or guarding] EXTREMITIES: Normal range of motion. [No edema.] SKIN: Warm, dry, no rash. NEURO: [No focal deficits]. Intermittently awake and alert x4, when captures failed she is more lethargic but able to answer questions Const: General: comfortable and no acute distress Other: Ill appearing female HENMT: Mouth: Yes moist mucous membranes Eyes: General: appearance normal, both eyes and all related structures Sclera: sclerae normal EOM: EOMs intact bilaterally Neck: Neck: no JVD Resp: Effort & Inspection: normal respiratory effort Auscultation: clear to auscultation bilaterally Other: On supplemental oxygen Cardio: Rate: regular rate Rhythm: regular rhythm Heart sounds: no murmurs Neuro: Speech: normal speech Extrem: Other: right groin dressing is dry and intact. no palpable hematoma. TVP in place Psych: Mental Status: mental status grossly normal Affect: normal affect Objective Data Vital Signs Vital Signs: Vital Signs - 24 hr 03/10/24 11:46 03/10/24 12:00 03/10/24 13:05 Temperature 36.6 C Pulse Rate 95 97 74 Respiratory Rate 18 18 Blood Pressure 100/60 Pulse Oximetry 100 Oxygen Delivery Oxygen Flow Rate 03/10/24 13:15 03/10/24 13:25 03/10/24 14:00 Temperature Pulse Rate 76 96 Respiratory Rate 18 Blood Pressure Pulse Oximetry Oxygen Delivery Nasal Cannula Oxygen Flow Rate 3 03/10/24 15:27 03/10/24 16:00 03/10/24 18:00 Temperature 36.3 C L Pulse Rate 98 93 94 Respiratory Rate 22 H Blood Pressure 97/56 L Pulse Oximetry 96 Oxygen Delivery Oxygen Flow Rate 03/10/24 20:16 03/10/24 20:40 03/10/24 20:42 Temperature 36.3 C L Pulse Rate 94 97 Respiratory Rate 20 18 Blood Pressure 96/58 L Pulse Oximetry 97 98 Oxygen Delivery Nasal Cannula Oxygen Flow Rate 3 03/10/24 20:00 03/10/24 23:57 03/10/24 20:00 Temperature 36.3 C L Pulse Rate 92 93 Respiratory Rate 20 Blood Pressure 94/56 L Pulse Oximetry 97 97 Oxygen Delivery Nasal Cannula Oxygen Flow Rate 2 03/10/24 22:00 03/11/24 00:00 03/11/24 00:00 Temperature Pulse Rate 96 91 Respiratory Rate Blood Pressure Pulse Oximetry 97 Oxygen Delivery Nasal Cannula Oxygen Flow Rate 2 03/11/24 02:12 03/10/24 20:50 03/11/24 02:22 Temperature Pulse Rate 93 99 93 Respiratory Rate 16 18 16 Blood Pressure Pulse Oximetry Oxygen Delivery Oxygen Flow Rate 03/11/24 02:00 03/11/24 03:56 03/11/24 04:00 Temperature 36.3 C L Pulse Rate 87 93 Respiratory Rate 18 Blood Pressure 102/59 L Pulse Oximetry 96 97 Oxygen Delivery Nasal Cannula Oxygen Flow Rate 2 03/11/24 04:00 03/11/24 06:00 03/11/24 07:12 Temperature Pulse Rate 96 103 H Respiratory Rate Blood Pressure Pulse Oximetry 97 Oxygen Delivery Nasal Cannula Oxygen Flow Rate 2 03/11/24 07:12 03/11/24 07:24 03/11/24 07:28 Temperature 36.6 C Pulse Rate 108 H 104 H 125 H Respiratory Rate 20 20 22 H Blood Pressure 94/64 L Pulse Oximetry 93 Oxygen Delivery Oxygen Flow Rate 03/11/24 07:45 03/11/24 08:20 Temperature Pulse Rate Respiratory Rate Blood Pressure Pulse Oximetry 95 96 Oxygen Delivery Nasal Cannula Room Air Oxygen Flow Rate 1 Intake/Output Intake/Output: Intake & Output 03/08/24 03/09/24 03/10/24 03/11/24 23:59 23:59 23:59 23:59 Intake Total 1170 1130 610 400 Output Total 1400 1750 1200 490 Balance -230 -620 -590 -90 Meds/Results Medications: Active Medications Generic Name Dose Route Start Last Admin Trade Name Freq PRN Reason Stop Dose Admin Acetaminophen 650 mg 03/04/24 08:53 03/11/24 08:15 Acetaminophen 325 Mg Tablet PO 650 mg Q6H PRN Administration Mild Pain (1-3) or Fever Albuterol/Ipratropium 3 ml 03/06/24 14:00 03/11/24 07:12 Ipratropium 0.5 Mg/Albuterol Sulfate 2.5 Mg Ampul.Neb 3 Ml INHALATION 3 ml Q6HRT BONY Administration Alteplase, Recombinant 2 mg 03/08/24 12:00 03/08/24 12:40 Alteplase 2 Mg Vial (Cathflo) IV PUSH 2 mg ONCE PRN Administration Line Occlusion Aspirin 81 mg 03/04/24 09:00 03/11/24 08:15 Aspirin 81 Mg Enteric Tablet PO 81 mg DAILY BONY Administration Atorvastatin Calcium 40 mg 03/04/24 09:00 03/11/24 08:16 Atorvastatin 40 Mg Tablet PO 40 mg DAILY BONY Administration Bisacodyl 5 mg 03/09/24 13:51 Bisacodyl 5 Mg Tablet Ec PO QAM PRN Constipation Bumetanide 1 mg 03/11/24 09:00 03/11/24 08:15 Bumetanide 1 Mg Tablet PO 1 mg DAILY BONY Administration Clopidogrel Bisulfate 75 mg 03/04/24 09:00 03/11/24 08:16 Clopidogrel Bisulfate 75 Mg Tablet PO 75 mg DAILY BONY Administration Lidocaine HCl 30 ml/ Al Hydrox 0 ml 03/09/24 13:00 03/11/24 08:14 /Mg Hydrox/Simethicone 30 ml/ PO 30 ml Diphenhydramine HCl 75 mg Q4HWA BONY Administration Dextrose 12.5 gm 03/04/24 09:24 Dextrose 50% 25 Gm/50 Ml Syringe IV PUSH PRN PRN Hypoglycemia Protocol Glucagon 1 mg 03/04/24 09:24 Glucagon For Inj 1 Mg Vial IM PRN PRN Hypoglycemia Protocol Glucose 15 gm 03/04/24 09:24 Glucose Oral Gel 15 Gm Of Glucse In 37.5 Gm Tube PO PRN PRN Hypoglycemia Protocol Dextrose 1,000 mls @ 100 mls/hr 03/04/24 09:24 Dextrose 5% 1,000 Ml IVPB PRN PRN Hypoglycemia Protocol Cefepime HCl 1 gm in 50 mls @ 100 mls/hr 03/04/24 09:40 03/11/24 08:21 Maxipime 1 Gm/Ns 50 Ml IVPB 100 mls/hr Q12HR BONY Administration Insulin Aspart 3 - 6 units 03/08/24 08:00 03/11/24 08:21 Insulin Aspart (*Bkc) 100 Units/Ml SUB-Q Not Given TIDWM BONY Protocol Insulin Glargine 15 units 03/05/24 10:00 03/11/24 08:21 Insulin Glargine (*Bkc) 100 Units/Ml SUB-Q 15 units QAM BONY Administration Losartan Potassium 12.5 mg 03/09/24 09:50 03/09/24 12:43 Losartan Potassium 12.5 Mg Tablet PO Not Given DAILY BONY Metoprolol Succinate 12.5 mg 03/07/24 11:25 03/11/24 08:16 Metoprolol Succinate Ext Rel 12.5 Mg Tabcr PO 12.5 mg QAM BONY Administration Osimertinib [ 80 mg 03/10/24 15:00 03/11/24 08:16 Tagrisso] 80 Mg PO 04/09/24 14:59 80 mg Tablet DAILY BONY Administration Ondansetron HCl 4 mg 03/04/24 10:15 03/04/24 10:16 Ondansetron Inj 4 Mg/2 Ml Vial IV PUSH 4 mg Q4H PRN Administration Nausea And Vomiting Pantoprazole Sodium 40 mg 03/08/24 09:00 03/11/24 08:16 Pantoprazole 40 Mg Tablet PO 40 mg QAM BONY Administration Polyethylene Glycol 17 gm 03/10/24 11:21 03/10/24 11:46 Polyethylene Glycol 3350 17 Gm Powd.Pack PO 17 gm QAM PRN Administration Constipation Sodium Chloride 10 ml 03/04/24 14:00 03/11/24 05:29 Central Line Flush IV PUSH 10 ml Q8HR BONY Administration Sodium Chloride 10 ml 03/04/24 12:31 Central Line Flush IV PUSH PRN PRN with TPN bag changes Sodium Chloride 20 ml 03/04/24 12:31 Central Line Flush IV PUSH PRN PRN after blood draws Sodium Chloride 1 spray 03/07/24 17:44 Saline 0.65% Guillermo Soln 44 Ml Btl NASAL Q6HR PRN congestion Radiology Results: ITS Impressions Renal Ultrasound 03/04/24 12:01 IMPRESSION: 1. Mild atrophy of right kidney. No hydronephrosis. Chest X-Ray 03/09/24 07:21 Impression: Patchy airspace disease and extensive interstitial prominence unchanged. Correlate for pulmonary edema, pneumonia, and/or chronic interstitial disease. Small bilateral pleural effusions. Lentiform density at the lateral left lung, which could reflect loculated effusion. Labs Labs: Laboratory Results - last 24 hr 03/10/24 03/10/24 03/10/24 11:29 15:15 19:48 Sodium Potassium Chloride Carbon Dioxide Anion Gap BUN Creatinine Estim Creat Clear Calc Estimated GFR Glucose POC Capillary Glucose 301 H 170 H 228 H Calcium Magnesium Total Bilirubin AST ALT Alkaline Phosphatase Total Protein Albumin 03/11/24 03/11/24 03/11/24 05:22 05:22 05:22 Sodium 133 L Potassium 3.4 Chloride 92 L Carbon Dioxide 34 H Anion Gap 7 BUN 34 H Creatinine 1.90 H 1.90 H Estim Creat Clear Calc 14 14 Estimated GFR 25 L Glucose POC Capillary Glucose Calcium Magnesium Total Bilirubin AST ALT Alkaline Phosphatase Total Protein Albumin 03/11/24 03/11/24 05:22 07:32 Sodium Potassium Chloride Carbon Dioxide Anion Gap BUN Creatinine Estim Creat Clear Calc Estimated GFR 25 L Glucose 128 H POC Capillary Glucose 153 H Calcium 9.1 Magnesium 1.9 Total Bilirubin 1.0 AST 91 H ALT 237 H Alkaline Phosphatase 106 Total Protein 7.0 Albumin 3.7
[2024-03-11 11:46] LABS: Glucose Point of Care 286 mg/dl (65-105)
--- NOTE | 2024-03-11 11:48 | P.PNIM_ITS ---
Progress Note: A&P Assessment and Plan (1) Acute respiratory failure with hypoxia: Code(s): J96.01 - Acute respiratory failure with hypoxia Status: Acute Assessment and Plan: Patient to continues to have a high oxygen requirement initially 15 liters/minute, slowly down to 3 liter/minute * X-ray with extensive bilateral pulmonary consolidation and ground-glass opacities and small pleural effusions. * Continue diuretics and empiric antibiotics cefepime day 7 given low-grade fever and leukocytosis. * continue iv abx watch cultures Leukocytosis improving On Bumex 1 mg IV daily which has been switched to oral Home oxygen evaluation . Off oxygen now (2) Acute on chronic kidney failure: Code(s): N17.9 - Acute kidney failure, unspecified; N18.9 - Chronic kidney disease, unspecified Status: Resolved Assessment and Plan: Chronic kidney disease stage IIIA to 3B with baseline creatinine ranging between 1.0 and 1.6 in the last year. Increased creatinine all the way to 2.2 now slowly getting back to baseline Will hold Bumex the already received a dose today (3) Ischemic cardiomyopathy: Code(s): I25.5 - Ischemic cardiomyopathy Status: Acute Assessment and Plan: Echo showed normal LV size with mildly reduced systolic function with an estimated EF of 40 to 45%. * continue to diuresis with iv lasix which has been switched to oral (4) ST elevation myocardial infarct involv left circumflex coronary artery: Code(s): I21.21 - ST elevation (STEMI) myocardial infarction involving left circumflex coronary artery Status: Acute Assessment and Plan: Presenting with inferior-posterior STEMI due to 100% occluded proximal circumflex. * Angioplasty/stent to 100% thrombotic occluded proximal left circumflex on 03/04/2024. * Residual recalcitrant thrombus in the mid left circumflex with COLLETTE 1 to 2 flow. * Received eptifibatide and heparin infusions post cardiac catheterization. * Continue aspirin, clopidogrel, and statin per Cardiology. (5) Transaminitis: Code(s): R74.01 - Elevation of levels of liver transaminase levels Status: Acute Assessment and Plan: LFTs were normal on presentation but AST and ALT increased to as high as 2363 and 1224 respectively. Continue to monitor LFTs has been improving (6) Type 2 diabetes mellitus: Code(s): E11.9 - Type 2 diabetes mellitus without complications Status: Acute Assessment and Plan: * hbaic is 7 * can use insulin in hospital and dc on oral hypoglycemics (7) Stage 4 lung cancer: Code(s): C34.90 - Malignant neoplasm of unspecified part of unspecified bronchus or lung Status: Acute Assessment and Plan: Recently diagnosed and receiving treatment at [facility]. (8) Complete heart block: Code(s): I44.2 - Atrioventricular block, complete Status: Resolved Assessment and Plan: Patient was in third-degree heart block on arrival to the ED treated with transcutaneous pacing and dopamine. * Temporary pacemaker placed at time of cardiac catheterization on 03/04/2024. * Transvenous pacer removed at bedside in the morning of 03/06/2024. (9) Cardiogenic shock: Code(s): R57.0 - Cardiogenic shock Status: Resolved Assessment and Plan: weaned off vasopressors doing well on the floor Plan dvt prop: lovenox Subjective Date/time seen: 03/11/24 11:48 Interval history: She is off oxygen today. Blood pressure borderline with mild tachycardia noted earlier today. No other complaints. Labs reviewed. Review of Systems Review of Systems: All systems reviewed & are unremarkable except as noted in HPI and below (HPI) Exam Narrative: General: Well-appearing female. Not in acute distress Respiratory: Currently on 3 L high-flow. Diminished breath sounds bilaterally no wheezes Cardiovascular: Regular rate and rhythm with normal S1-S2. Gastrointestinal: Abdomen is soft, nontender, and nondistended with positive bowel sounds. Skin: Warm and dry. No rash or lesions on limited exam. Extremities: No cyanosis, clubbing, or edema. Neurological: Alert. Cranial nerves 2-12 are grossly intact. No gross focal deficits to casual conversation. Psychiatric: Pleasant and cooperative with normal mood and affect. Objective Data Vital Signs Vital Signs: Vital Signs - 24 hr 03/10/24 12:00 03/10/24 13:05 03/10/24 13:15 Temperature Pulse Rate 97 74 76 Respiratory Rate 18 18 Blood Pressure Pulse Oximetry Oxygen Delivery Oxygen Flow Rate 03/10/24 13:25 03/10/24 14:00 03/10/24 15:27 Temperature 97.3 F L Pulse Rate 96 98 Respiratory Rate 22 H Blood Pressure 97/56 L Pulse Oximetry 96 Oxygen Delivery Nasal Cannula Oxygen Flow Rate 3 03/10/24 16:00 03/10/24 18:00 03/10/24 20:16 Temperature 97.4 F L Pulse Rate 93 94 94 Respiratory Rate 20 Blood Pressure 96/58 L Pulse Oximetry 97 Oxygen Delivery Oxygen Flow Rate 03/10/24 20:40 03/10/24 20:42 03/10/24 20:00 Temperature Pulse Rate 97 Respiratory Rate 18 Blood Pressure Pulse Oximetry 98 97 Oxygen Delivery Nasal Cannula Nasal Cannula Oxygen Flow Rate 3 2 03/10/24 23:57 03/10/24 20:00 03/10/24 22:00 Temperature 97.4 F L Pulse Rate 92 93 96 Respiratory Rate 20 Blood Pressure 94/56 L Pulse Oximetry 97 Oxygen Delivery Oxygen Flow Rate 03/11/24 00:00 03/11/24 00:00 03/11/24 02:12 Temperature Pulse Rate 91 93 Respiratory Rate 16 Blood Pressure Pulse Oximetry 97 Oxygen Delivery Nasal Cannula Oxygen Flow Rate 2 03/10/24 20:50 03/11/24 02:22 03/11/24 02:00 Temperature Pulse Rate 99 93 87 Respiratory Rate 18 16 Blood Pressure Pulse Oximetry Oxygen Delivery Oxygen Flow Rate 03/11/24 03:56 03/11/24 04:00 03/11/24 04:00 Temperature 97.4 F L Pulse Rate 93 96 Respiratory Rate 18 Blood Pressure 102/59 L Pulse Oximetry 96 97 Oxygen Delivery Nasal Cannula Oxygen Flow Rate 2 03/11/24 06:00 03/11/24 07:12 03/11/24 07:12 Temperature Pulse Rate 103 H 108 H Respiratory Rate 20 Blood Pressure Pulse Oximetry 97 Oxygen Delivery Nasal Cannula Oxygen Flow Rate 2 03/11/24 07:24 03/11/24 07:28 03/11/24 07:45 Temperature 97.9 F Pulse Rate 104 H 125 H Respiratory Rate 20 22 H Blood Pressure 94/64 L Pulse Oximetry 93 95 Oxygen Delivery Nasal Cannula Oxygen Flow Rate 1 03/11/24 08:20 03/11/24 11:19 Temperature 98 F Pulse Rate 103 H Respiratory Rate 18 Blood Pressure 93/64 L Pulse Oximetry 96 94 Oxygen Delivery Room Air Oxygen Flow Rate Intake/Output Intake/Output: Intake & Output 03/08/24 03/09/24 03/10/24 03/11/24 23:59 23:59 23:59 23:59 Intake Total 1170 1130 610 450 Output Total 1400 1750 1200 490 Balance -230 -620 -590 -40 Meds/Results Medications: Active Medications Generic Name Dose Route Start Last Admin Trade Name Freq PRN Reason Stop Dose Admin Acetaminophen 650 mg 03/04/24 08:53 03/11/24 08:15 Acetaminophen 325 Mg Tablet PO 650 mg Q6H PRN Administration Mild Pain (1-3) or Fever Albuterol/Ipratropium 3 ml 03/06/24 14:00 03/11/24 07:12 Ipratropium 0.5 Mg/Albuterol Sulfate 2.5 Mg Ampul.Neb 3 Ml INHALATION 3 ml Q6HRT BONY Administration Alteplase, Recombinant 2 mg 03/08/24 12:00 03/08/24 12:40 Alteplase 2 Mg Vial (Cathflo) IV PUSH 2 mg ONCE PRN Administration Line Occlusion Aspirin 81 mg 03/04/24 09:00 03/11/24 08:15 Aspirin 81 Mg Enteric Tablet PO 81 mg DAILY BONY Administration Atorvastatin Calcium 40 mg 03/04/24 09:00 03/11/24 08:16 Atorvastatin 40 Mg Tablet PO 40 mg DAILY BONY Administration Bisacodyl 5 mg 03/09/24 13:51 Bisacodyl 5 Mg Tablet Ec PO QAM PRN Constipation Bumetanide 1 mg 03/11/24 09:00 03/11/24 08:15 Bumetanide 1 Mg Tablet PO 1 mg DAILY BONY Administration Clopidogrel Bisulfate 75 mg 03/04/24 09:00 03/11/24 08:16 Clopidogrel Bisulfate 75 Mg Tablet PO 75 mg DAILY BONY Administration Lidocaine HCl 30 ml/ Al Hydrox 0 ml 03/09/24 13:00 03/11/24 11:46 /Mg Hydrox/Simethicone 30 ml/ PO Not Given Diphenhydramine HCl 75 mg Q4HWA [facility] Dextrose 12.5 gm 03/04/24 09:24 Dextrose 50% 25 Gm/50 Ml Syringe IV PUSH PRN PRN Hypoglycemia Protocol Glucagon 1 mg 03/04/24 09:24 Glucagon For Inj 1 Mg Vial IM PRN PRN Hypoglycemia Protocol Glucose 15 gm 03/04/24 09:24 Glucose Oral Gel 15 Gm Of Glucse In 37.5 Gm Tube PO PRN PRN Hypoglycemia Protocol Dextrose 1,000 mls @ 100 mls/hr 03/04/24 09:24 Dextrose 5% 1,000 Ml IVPB PRN PRN Hypoglycemia Protocol Cefepime HCl 1 gm in 50 mls @ 100 mls/hr 03/04/24 09:40 03/11/24 11:25 Maxipime 1 Gm/Ns 50 Ml IVPB Infused Q12HR BONY Infusion Insulin Aspart 3 - 6 units 03/08/24 08:00 03/11/24 08:21 Insulin Aspart (*Bkc) 100 Units/Ml SUB-Q Not Given TIDWM [facility] Protocol Insulin Glargine 15 units 03/05/24 10:00 03/11/24 08:21 Insulin Glargine (*Bkc) 100 Units/Ml SUB-Q 15 units QAM BONY Administration Losartan Potassium 12.5 mg 03/09/24 09:50 03/09/24 12:43 Losartan Potassium 12.5 Mg Tablet PO Not Given DAILY BONY Metoprolol Succinate 12.5 mg 03/07/24 11:25 03/11/24 08:16 Metoprolol Succinate Ext Rel 12.5 Mg Tabcr PO 12.5 mg QAM BONY Administration Osimertinib [ 80 mg 03/10/24 15:00 03/11/24 08:16 Tagrisso] 80 Mg PO 04/09/24 14:59 80 mg Tablet DAILY BONY Administration Ondansetron HCl 4 mg 03/04/24 10:15 03/04/24 10:16 Ondansetron Inj 4 Mg/2 Ml Vial IV PUSH 4 mg Q4H PRN Administration Nausea And Vomiting Pantoprazole Sodium 40 mg 03/08/24 09:00 03/11/24 08:16 Pantoprazole 40 Mg Tablet PO 40 mg QAM BONY Administration Polyethylene Glycol 17 gm 03/10/24 11:21 03/10/24 11:46 Polyethylene Glycol 3350 17 Gm Powd.Pack PO 17 gm QAM PRN Administration Constipation Sodium Chloride 10 ml 03/04/24 14:00 03/11/24 05:29 Central Line Flush IV PUSH 10 ml Q8HR BONY Administration Sodium Chloride 10 ml 03/04/24 12:31 Central Line Flush IV PUSH PRN PRN with TPN bag changes Sodium Chloride 20 ml 03/04/24 12:31 Central Line Flush IV PUSH PRN PRN after blood draws Sodium Chloride 1 spray 03/07/24 17:44 Saline 0.65% Guillermo Soln 44 Ml Btl NASAL Q6HR PRN congestion Radiology Results: ITS Impressions Renal Ultrasound 03/04/24 12:01 IMPRESSION: 1. Mild atrophy of right kidney. No hydronephrosis. Chest X-Ray 03/09/24 07:21 Impression: Patchy airspace disease and extensive interstitial prominence unchanged. Correlate for pulmonary edema, pneumonia, and/or chronic interstitial disease. Small bilateral pleural effusions. Lentiform density at the lateral left lung, which could reflect loculated effusion. Labs Labs: Laboratory Results - last 24 hr 03/10/24 03/10/24 03/11/24 15:15 19:48 05:22 Sodium 133 L Potassium 3.4 Chloride 92 L Carbon Dioxide 34 H Anion Gap 7 BUN 34 H Creatinine 1.90 H Estim Creat Clear Calc Estimated GFR Glucose POC Capillary Glucose 170 H 228 H Calcium Magnesium Total Bilirubin AST ALT Alkaline Phosphatase Total Protein Albumin 03/11/24 03/11/24 03/11/24 05:22 05:22 05:22 Sodium Potassium Chloride Carbon Dioxide Anion Gap BUN Creatinine 1.90 H Estim Creat Clear Calc 14 14 Estimated GFR 25 L 25 L Glucose 128 H POC Capillary Glucose Calcium 9.1 Magnesium 1.9 Total Bilirubin 1.0 AST 91 H ALT 237 H Alkaline Phosphatase 106 Total Protein 7.0 Albumin 3.7 03/11/24 03/11/24 07:32 11:18 Sodium Potassium Chloride Carbon Dioxide Anion Gap BUN Creatinine Estim Creat Clear Calc Estimated GFR Glucose POC Capillary Glucose 153 H 286 H Calcium Magnesium Total Bilirubin AST ALT Alkaline Phosphatase Total Protein Albumin
[2024-03-11] MEDS: INSULIN ASPART (*BKC) 100 UNITS/ML SUB-Q (12:17)
[2024-03-11 17:39] LABS: Glucose Point of Care 150 mg/dl (65-105)
[2024-03-11 20:32] LABS: Glucose Point of Care 176 mg/dl (65-105)
[2024-03-12] VITALS (15 sets, daily range): BP systolic 99–106; BP diastolic 54–66; PULSE 91–122; RESP 18–20; TEMP 36.4–36.6; O2SAT 94–99
[2024-03-12] MEDS: IPRATROPIUM 0.5 MG/ALBUTEROL SULFATE 2.5 MG AMPUL.NEB 3 ML INHALATION ×2 (03:07→08:04)
[2024-03-12] MEDS: CENTRAL LINE FLUSH 10 ML IV PUSH (05:43)
[2024-03-12] MEDS: CENTRAL LINE FLUSH 20 ML IV PUSH (05:43)
[2024-03-12 06:04] LABS: Basophils Absolute Auto 0.1 K/mm3 (0.0-0.1); Basophils Percent Auto 0.5 % (0.2-1.2); Eosinophils Absolute Auto 0.4 K/mm3 (0-0.3); Eosinophils Percent Auto 3.4 % (0-4.4); Hematocrit 28.6 % (37.0-47.0); Hemoglobin 9.6 g/dL (12.0-15.0); Immature Granulocyte Absolute 0.17 K/mm3 (0.00-0.031); Immature Granulocyte Percent A 1.3 % (0-0.5); Lymphocytes Absolute Auto 1.45 K/mm3 (0.9-3.2); Lymphocytes Percent Auto 11.4 % (18.3-44.2); Mean Corpuscular HGB Conc 33.6 g/dl (32-36); Mean Corpuscular Hemoglobin 30.1 pg (26-34); Mean Corpuscular Volume 89.7 fl (80-100); Mean Platelet Volume 10.9 fl (7.4-10.4); Monocytes Absolute Auto 1.7 K/mm3 (0.1-0.6); Neutrophils Percent Auto 70.4 % (45.5-73.1); Platelet Count Result 201 k/mm3 (150-375); Red Blood Count 3.19 M/mm3 (4.2-5.4); Red Cell Distribution Width 14.1 % (11.5-14.5); White Blood Count 12.7 K/mm3 (4.5-10.0)
[2024-03-12] MEDS: ACETAMINOPHEN 325 MG TABLET 650 MG PO (06:04)
[2024-03-12 06:18] LABS: Alanine Aminotransferase 170 U/L (6-35); Albumin Level 3.6 g/dL (3.5-5.1); Alkaline Phosphatase 111 U/L (38-126); Anion Gap 7 mmol/L (4-12); Aspartate Amino Transferase 66 U/L (14-36); Blood Urea Nitrogen 40 mg/dL (7-17); Calcium 8.7 mg/dL (8.4-10.2); Carbon Dioxide 34 mmol/L (22-30); Chloride 92 mmol/L (98-107); Estimated CRCL calculation 12 ml/min; Estimated Glomerular Filt Rate 21; Glucose 138 mg/dL (65-110); Magnesium 1.9 mg/dL (1.6-2.3); Potassium 3.1 mmol/L (3.4-5.0); Sodium 133 mmol/L (137-145)
[2024-03-12] MEDS: [UNRECOGNIZED DRUG - OTHER] PO (06:25)
[2024-03-12] MEDS: LIDOCAINE HCL 2% PO (06:25)
[2024-03-12] MEDS: VISC PO (06:25)
[2024-03-12] MEDS: ALUMINUM PO (06:25)
[2024-03-12] MEDS: MAGNESIUM PO (06:25)
[2024-03-12] MEDS: SIMETH PO (06:25)
[2024-03-12 07:29] LABS: Glucose Point of Care 159 mg/dl (65-105)
[2024-03-12] MEDS: ATORVASTATIN 40 MG TABLET PO (08:44)
[2024-03-12] MEDS: PANTOPRAZOLE 40 MG TABLET PO (08:44)
[2024-03-12] MEDS: CLOPIDOGREL BISULFATE 75 MG TABLET PO (08:45)
[2024-03-12] MEDS: ASPIRIN 81 MG ENTERIC TABLET PO (08:45)
[2024-03-12] MEDS: METOPROLOL SUCCINATE EXT REL 12.5 MG TABCR PO (08:45)
[2024-03-12] MEDS: polyethylene glycoL 3350 17 GM POWD.PACK PO (08:48)
[2024-03-12] MEDS: INSULIN GLARGINE (*BKC) 100 UNITS/ML 15 UNITS SUB-Q (08:50)
[2024-03-12] MEDS: POTASSIUM CHLORIDE 20 MEQ ER TABLET 40 MEQ PO (09:02)
--- NOTE | 2024-03-12 10:06 | HOMEO2EVAL ---
Evaluation was performed at [facility] Home Oxygen Evaluation RC: Home Oxygen (O2) Evaluation Start: 03/11/24 07:21 Freq: ONCE Status: Active Protocol: RPE Activity Type Activity Date Activity User E-sign Co-sign Detail Recorded Client Recorded Date Recorded By Document 03/12/24 09:57 TONY [id number] 03/12/24 10:06 TONY Document 03/12/24 10:02 TONY [id number] 03/12/24 10:06 TONY 03/12/24 03/12/24 09:57 10:02 Home O2 Evaluation [Oxygen] -Test Phase Resting Exercise -Oxygen Delivery Room Air Room Air [Pulse Oximetry] -Pulse Oximetry (90-100 %) 94 96 [Pulse Rate] -Pulse Rate (60-100 beats/min) 115 H 122 H [Evaluation] -Activity Tolerance Good Good [Exercise] -Ambulation Distance (feet) 200 -Ambulation Distance (meters) 60.95 [Charges] -Evaluation Charges O2 Evaluation by Pulmonary
--- NOTE | 2024-03-12 10:09 | PM.DS ---
DS: Admitting Diagnosis Discharge Date 03/12/2024 Admitting Diagnosis STEMI DS: Discharge Diagnosis Discharge Diagnosis (1) ST elevation myocardial infarct involv left circumflex coronary artery: Code(s): I21.21 - ST elevation (STEMI) myocardial infarction involving left circumflex coronary artery Status: Acute Assessment and Plan: Presenting with inferior-posterior STEMI. She is now s/p PCI/angioplasty + VINICIUS to the proximal LCX. Residual recalcitrant thrombus in the mid left circumflex with COLLETTE 1 to 2 flow. Received eptifibatide and heparin infusions post cardiac catheterization. Continue DAPT with ASA indefinitely, plavix for one year Continue high intensity statin Cardiac rehab referral Continue aggressive risk factor modification for CAD (2) Ischemic cardiomyopathy: Code(s): I25.5 - Ischemic cardiomyopathy Status: Acute Assessment and Plan: EF 40-45% Not in decompensated heart failure Continue losartan, ToprolXL CHF counseling (3) Complete heart block: Code(s): I44.2 - Atrioventricular block, complete Status: Resolved Assessment and Plan: Managed with transvenous pacing and dopamine. This is now resolved. (4) Stage 4 lung cancer: Code(s): C34.90 - Malignant neoplasm of unspecified part of unspecified bronchus or lung Status: Acute Assessment and Plan: Outpatient follow up DS: Summary Hospital Course Hospital Course: Presented on 03/04/2024 with chest pain and shortness of breath. She was found to have inferoposterior acute PR and was taken emergently to the [facility] for coronary angiogram and PCI. VINICIUS was placed in the proximal LCX with some residual thrombus in the mid LCX artery. Temporary pacemaker was placed through the right femoral vein because of complete heart block. Her hospitalization was prolonged due to cardiogenic shock, respiratory failure, anemia. She is now off pressor support and oxygen has been weaned as well. Her echocardiogram showed reduced LV function with EF 40-45% and moderate MR. She was placed on appropriate guideline directed medical therapy when her blood pressure stabilized. Time Spent with Patient Time attestation: Total time spent providing and/or coordinating discharge services: Exam Const: General: comfortable and no acute distress HENMT: Mouth: Yes moist mucous membranes Eyes: General: appearance normal, both eyes and all related structures Sclera: sclerae normal EOM: EOMs intact bilaterally Neck: Neck: no JVD Resp: Effort & Inspection: normal respiratory effort Auscultation: clear to auscultation bilaterally Cardio: Rate: regular rate Rhythm: regular rhythm Heart sounds: no murmurs Neuro: Speech: normal speech Extrem: Other: right groin no palpable hematoma. Psych: Mental Status: mental status grossly normal Affect: normal affect DS: Data Data Completed and Pending Labs on day of discharge: Labs from last 24 hours 03/12/24 03/12/24 03/11/24 07:25 05:49 20:30 WBC 12.7 H RBC 3.19 L Hgb 9.6 L Hct 28.6 L MCV 89.7 MCH 30.1 MCHC 33.6 RDW 14.1 Plt Count 201 MPV 10.9 H Immature Gran % (Auto) 1.3 H Neut % (Auto) 70.4 Lymph % (Auto) 11.4 L [place] % (Auto) 13.0 H Eos % (Auto) 3.4 Baso % (Auto) 0.5 Lymph # (Auto) 1.45 [place] # (Auto) 1.7 H Eos # (Auto) 0.4 H Baso # (Auto) 0.1 Abs Immat Gran (auto) 0.17 H Absolute Neuts (auto) 9.0 H Absolute Nucleated RBC 0.000 Nucleated RBC % 0.0 Sodium 133 L Potassium 3.1 L Chloride 92 L Carbon Dioxide 34 H Anion Gap 7 BUN 40 H Creatinine 2.20 H Estim Creat Clear Calc 12 Estimated GFR 21 L Glucose 138 H POC Capillary Glucose 159 H 176 H Calcium 8.7 Magnesium 1.9 Total Bilirubin 1.0 AST 66 H ALT 170 H Alkaline Phosphatase 111 Total Protein 7.0 Albumin 3.6 03/11/24 03/11/24 16:26 11:18 WBC RBC Hgb Hct MCV MCH MCHC RDW Plt Count MPV Immature Gran % (Auto) Neut % (Auto) Lymph % (Auto) [place] % (Auto) Eos % (Auto) Baso % (Auto) Lymph # (Auto) [place] # (Auto) Eos # (Auto) Baso # (Auto) Abs Immat Gran (auto) Absolute Neuts (auto) Absolute Nucleated RBC Nucleated RBC % Sodium Potassium Chloride Carbon Dioxide Anion Gap BUN Creatinine Estim Creat Clear Calc Estimated GFR Glucose POC Capillary Glucose 150 H 286 H Calcium Magnesium Total Bilirubin AST ALT Alkaline Phosphatase Total Protein Albumin Discharge Plan Discharge Consulting providers: Deepak Johnson; Robert Zafar; Verena Sanders; Zana Knight; Ronnie Calhoun; Peña Starks; Norah Correia; Nadege Ragyoza; Juan Jose Koroma; Chicho Feliciano; Brock Mcdaniels V.; Ugo Odonnell; Sonny Clark Patient Disposition: Home Health Service Activity: may shower Diet: heart healthy Wound Care Instructions: other - see discharge instructions Discharge Instructions: [facility] [address] [place] [address] DISCHARGE INSTRUCTIONS - POST PCI Activity 1. No driving until 03/14/2024. 2. No lifting, pushing or pulling more than 10 pounds for 1 week. 3. No strenuous exercise or activity (including sexual activity) until you are released to do so. 4. May shower but no tub baths or swimming pool for 1 week. Avoid hot tubs. Medications DO NOT STOP YOUR MEDICATIONS ONLY YOUR EXPENDITURE REQUISITION CLERK CAN STOP THE FOLLOWING MEDICATIONS - PLEASE CALL THE OFFICE WITH QUESTIONS. *Aspirin *Clopidogrel (Plavix) *Atorvastatin *Losartan *Metoprolol Important Reminders 1. Keep your stent card in your wallet at all times 2. Follow a heart healthy diet paying extra attention to cholesterol and fats. 3. Stay hydrated. 4. If you have chest pain unrelieved by rest or nitroglycerin (if prescribed) call 911 immediately. 5. If you miss one dose of Brilinta (if prescribed) take a tablet at the next time due. If you miss 2 doses take a tablet when you remember and resume at the next time due. *For any other questions please call the office at [phone]. Office hours are 8AM 4:30PM Tuesday through Tuesday. Per Care Coordination: [facility] will contact you prior to their first visit. [facility] will follow for RN and PT/OT eval and treat. [facility] can be contacted at [phone]. Patient Instructions: Antibiotic Form, Clopidogrel (By mouth), Heart Attack (GEN), Heart Healthy Diet (GEN), Lyn Catheter Placement and Care (GEN), Acute Coronary Syndrome (GEN), Cardiac Rehabilitation (GEN), Removal of a Central Line, PICC, or Midline Catheter (DC), Left Heart Catheterization (GEN) Stand Alone Forms: General Discharge Information Follow-up/Referrals: Faustina eRid, DAGO [Advanced Practice Nurse] - Sonja,DO Gerardo [Primary Care Provider] - 1 Week Discharge Medications: New aspirin 81 mg Tablet,Delayed Release (Dr/Ec) 81 mg PO DAILY Qty: 90 3RF atorvastatin 40 mg Tablet 40 mg PO DAILY Qty: 90 3RF clopidogrel 75 mg Tablet 75 mg PO DAILY Qty: 90 3RF pantoprazole 40 mg Tablet,Delayed Release (Dr/Ec) 40 mg PO QAM 30 Days Qty: 30 0RF losartan 25 mg tablet 12.5 mg PO DAILY Qty: 14 3RF metoprolol succinate [Toprol XL] 25 mg tablet extended release 24 hr 12.5 mg PO DAILY Qty: 14 3RF Continued (DME) OneTouch Ultra Test Strip MISCELLANEOUS pantoprazole 20 mg tablet,delayed release (DR/EC) 20 mg PO DAILY metformin 500 mg tablet extended release 24 hr 500 mg PO BID calcium 600 mg Capsule 600 mg PO DAILY alendronate 70 mg Tablet 70 mg PO WEEKLY cyanocobalamin (vitamin B-12) [Vitamin B-12] 1,000 mcg Tablet 1,000 mcg PO DAILY amlodipine 5 mg tablet 5 mg PO DAILY ywvbwjvbvmxk-Yy-iadc-minerals Tablet 1 tablet PO DAILY cholecalciferol (vitamin D3) [Vitamin D3] 25 mcg (1,000 unit) Tablet 25 mcg PO DAILY krill oil 500 mg Capsule 500 mg PO DAILY acidophilus-pectin, citrus 100 million cell-10 mg Capsule 1 cap PO DAILY Tagrisso 80 mg Tablet 80 mg PO DAILY Discontinued losartan 100 mg tablet 100 mg PO DAILY rosuvastatin 10 mg tablet 10 mg PO HS aspirin 81 mg Tablet 81 mg PO DAILY Date of admission: 03/04/24 06:33 Primary Care Provider: Sonja,Gerardo Admitting Provider: Evonne Pinzon Attending physician on admission: Faustina Reid Condition: Stable
--- NOTE | 2024-03-12 11:20 | P.PNIM_ITS ---
Progress Note: A&P Assessment and Plan (1) Acute respiratory failure with hypoxia: Code(s): J96.01 - Acute respiratory failure with hypoxia Status: Acute Assessment and Plan: Patient to continues to have a high oxygen requirement initially 15 liters/minute, slowly down to 3 liter/minute * X-ray with extensive bilateral pulmonary consolidation and ground-glass opacities and small pleural effusions. * Continue diuretics and empiric antibiotics cefepime day 7 given low-grade fever and leukocytosis. * continue iv abx watch cultures Leukocytosis improving On Bumex 1 mg IV daily which has been switched to oral Home oxygen evaluation . Off oxygen now (2) Acute on chronic kidney failure: Code(s): N17.9 - Acute kidney failure, unspecified; N18.9 - Chronic kidney disease, unspecified Status: Resolved Assessment and Plan: Chronic kidney disease stage IIIA to 3B with baseline creatinine ranging between 1.0 and 1.6 in the last year. Increased creatinine all the way to 2.2 now slowly getting back to baseline Bumex held. Creatinine went 2.2 today (3) Ischemic cardiomyopathy: Code(s): I25.5 - Ischemic cardiomyopathy Status: Acute Assessment and Plan: Echo showed normal LV size with mildly reduced systolic function with an estimated EF of 40 to 45%. * continue to diuresis with iv lasix which has been switched to oral which is currently on hold due to euvolemic status slight bump in creatinine (4) ST elevation myocardial infarct involv left circumflex coronary artery: Code(s): I21.21 - ST elevation (STEMI) myocardial infarction involving left circumflex coronary artery Status: Acute Assessment and Plan: Presenting with inferior-posterior STEMI due to 100% occluded proximal circumflex. * Angioplasty/stent to 100% thrombotic occluded proximal left circumflex on 03/04/2024. * Residual recalcitrant thrombus in the mid left circumflex with COLLETTE 1 to 2 flow. * Received eptifibatide and heparin infusions post cardiac catheterization. * Continue aspirin, clopidogrel, and statin per Cardiology. (5) Transaminitis: Code(s): R74.01 - Elevation of levels of liver transaminase levels Status: Acute Assessment and Plan: LFTs were normal on presentation but AST and ALT increased to as high as 2363 and 1224 respectively. Continue to monitor LFTs has been improving (6) Type 2 diabetes mellitus: Code(s): E11.9 - Type 2 diabetes mellitus without complications Status: Acute Assessment and Plan: * hbaic is 7 * can use insulin in hospital and dc on oral hypoglycemics (7) Stage 4 lung cancer: Code(s): C34.90 - Malignant neoplasm of unspecified part of unspecified bronchus or lung Status: Acute Assessment and Plan: Recently diagnosed and receiving treatment at [facility]. (8) Complete heart block: Code(s): I44.2 - Atrioventricular block, complete Status: Resolved Assessment and Plan: Patient was in third-degree heart block on arrival to the ED treated with transcutaneous pacing and dopamine. * Temporary pacemaker placed at time of cardiac catheterization on 03/04/2024. * Transvenous pacer removed at bedside in the morning of 03/06/2024. (9) Cardiogenic shock: Code(s): R57.0 - Cardiogenic shock Status: Resolved Assessment and Plan: weaned off vasopressors doing well on the floor Plan dvt prop: lovenox Subjective Date/time seen: 03/12/24 11:20 Interval history: Patient wants to go home today. She has remained off oxygen denies any leg swelling or leg pain. No shortness of breath or chest pain. No cough. Review of Systems Review of Systems: All systems reviewed & are unremarkable except as noted in HPI and below (HPI) Exam Narrative: General: Well-appearing female. Not in acute distress Respiratory: Currently on 3 L high-flow. Diminished breath sounds bilaterally no wheezes Cardiovascular: Mildly tachycardic with normal S1-S2. Gastrointestinal: Abdomen is soft, nontender, and nondistended with positive bowel sounds. Skin: Warm and dry. No rash or lesions on limited exam. Extremities: No cyanosis, clubbing, or edema. Neurological: Alert. Cranial nerves 2-12 are grossly intact. No gross focal deficits to casual conversation. Psychiatric: Pleasant and cooperative with normal mood and affect. Objective Data Vital Signs Vital Signs: Vital Signs - 24 hr 03/11/24 12:00 03/11/24 11:30 03/11/24 13:56 Temperature Pulse Rate 112 H Respiratory Rate Blood Pressure Pulse Oximetry 95 98 Oxygen Delivery Room Air Room Air Fraction of Inspired Oxygen 03/11/24 13:56 03/11/24 14:06 03/11/24 14:00 Temperature Pulse Rate 92 92 96 Respiratory Rate 20 20 Blood Pressure Pulse Oximetry Oxygen Delivery Fraction of Inspired Oxygen 03/11/24 16:00 03/11/24 16:00 03/11/24 18:00 Temperature 98.2 F Pulse Rate 106 H 94 88 Respiratory Rate 18 Blood Pressure 99/59 L Pulse Oximetry 95 Oxygen Delivery Fraction of Inspired Oxygen 03/11/24 19:06 03/11/24 20:08 03/11/24 20:08 Temperature 98.1 F Pulse Rate 92 96 Respiratory Rate 16 20 Blood Pressure 108/62 Pulse Oximetry 94 91 Oxygen Delivery Room Air Fraction of Inspired Oxygen 03/11/24 20:15 03/11/24 20:20 03/11/24 23:41 Temperature 98.3 F Pulse Rate 90 92 95 Respiratory Rate 20 16 18 Blood Pressure 104/62 Pulse Oximetry 94 95 Oxygen Delivery Room Air Fraction of Inspired Oxygen 03/11/24 23:40 03/11/24 20:00 03/11/24 22:00 Temperature Pulse Rate 95 93 92 Respiratory Rate 18 Blood Pressure Pulse Oximetry 95 Oxygen Delivery Room Air Fraction of Inspired Oxygen 03/12/24 00:00 03/12/24 03:07 03/12/24 03:14 Temperature Pulse Rate 93 96 97 Respiratory Rate 18 20 Blood Pressure Pulse Oximetry Oxygen Delivery Fraction of Inspired Oxygen 03/12/24 04:00 03/12/24 02:00 03/12/24 04:00 Temperature 97.9 F Pulse Rate 91 94 91 Respiratory Rate 18 18 Blood Pressure 106/54 L Pulse Oximetry 99 99 Oxygen Delivery Room Air Fraction of Inspired Oxygen 03/12/24 08:04 03/12/24 08:04 03/12/24 04:00 Temperature Pulse Rate 94 100 Respiratory Rate 20 Blood Pressure Pulse Oximetry 96 Oxygen Delivery Room Air Fraction of Inspired Oxygen 21 03/12/24 06:00 03/12/24 08:20 03/12/24 08:00 Temperature 97.8 F Pulse Rate 106 H 108 H 96 Respiratory Rate 20 18 Blood Pressure 99/66 L Pulse Oximetry 94 Oxygen Delivery Fraction of Inspired Oxygen 03/12/24 08:45 03/12/24 08:45 03/12/24 09:57 Temperature Pulse Rate 114 H 114 H 115 H Respiratory Rate Blood Pressure Pulse Oximetry 94 Oxygen Delivery Room Air Fraction of Inspired Oxygen 03/12/24 10:02 03/12/24 10:00 Temperature Pulse Rate 122 H 107 H Respiratory Rate Blood Pressure Pulse Oximetry 96 Oxygen Delivery Room Air Fraction of Inspired Oxygen Intake/Output Intake/Output: Intake & Output 03/09/24 03/10/24 03/11/24 03/12/24 23:59 23:59 23:59 23:59 Intake Total 1130 610 750 240 Output Total 1750 1200 490 325 Balance -620 -632 260 -85 Meds/Results Medications: Active Medications Generic Name Dose Route Start Last Admin Trade Name Freq PRN Reason Stop Dose Admin Acetaminophen 650 mg 03/04/24 08:53 03/12/24 06:04 Acetaminophen 325 Mg Tablet PO 650 mg Q6H PRN Administration Mild Pain (1-3) or Fever Albuterol/Ipratropium 3 ml 03/06/24 14:00 03/12/24 08:04 Ipratropium 0.5 Mg/Albuterol Sulfate 2.5 Mg Ampul.Neb 3 Ml INHALATION 3 ml Q6HRT BONY Administration Alteplase, Recombinant 2 mg 03/08/24 12:00 03/08/24 12:40 Alteplase 2 Mg Vial (Cathflo) IV PUSH 2 mg ONCE PRN Administration Line Occlusion Aspirin 81 mg 03/04/24 09:00 03/12/24 08:45 Aspirin 81 Mg Enteric Tablet PO 81 mg DAILY BONY Administration Atorvastatin Calcium 40 mg 03/04/24 09:00 03/12/24 08:44 Atorvastatin 40 Mg Tablet PO 40 mg DAILY BONY Administration Bisacodyl 5 mg 03/09/24 13:51 Bisacodyl 5 Mg Tablet Ec PO QAM PRN Constipation Bumetanide 1 mg 03/11/24 09:00 03/11/24 08:15 Bumetanide 1 Mg Tablet PO 1 mg DAILY BONY Administration Clopidogrel Bisulfate 75 mg 03/04/24 09:00 03/12/24 08:45 Clopidogrel Bisulfate 75 Mg Tablet PO 75 mg DAILY BONY Administration Lidocaine HCl 30 ml/ Al Hydrox 0 ml 03/09/24 13:00 03/12/24 06:25 /Mg Hydrox/Simethicone 30 ml/ PO 5 ml Diphenhydramine HCl 75 mg Q4HWA BONY Administration Dextrose 12.5 gm 03/04/24 09:24 Dextrose 50% 25 Gm/50 Ml Syringe IV PUSH PRN PRN Hypoglycemia Protocol Glucagon 1 mg 03/04/24 09:24 Glucagon For Inj 1 Mg Vial IM PRN PRN Hypoglycemia Protocol Glucose 15 gm 03/04/24 09:24 Glucose Oral Gel 15 Gm Of Glucse In 37.5 Gm Tube PO PRN PRN Hypoglycemia Protocol Dextrose 1,000 mls @ 100 mls/hr 03/04/24 09:24 Dextrose 5% 1,000 Ml IVPB PRN PRN Hypoglycemia Protocol Insulin Aspart 3 - 6 units 03/08/24 08:00 03/12/24 08:43 Insulin Aspart (*Bkc) 100 Units/Ml SUB-Q Not Given TIDWM [facility] Protocol Insulin Glargine 15 units 03/05/24 10:00 03/12/24 08:50 Insulin Glargine (*Bkc) 100 Units/Ml SUB-Q 15 units QAM [facility] Administration Losartan Potassium 12.5 mg 03/09/24 09:50 03/09/24 12:43 Losartan Potassium 12.5 Mg Tablet PO Not Given DAILY BONY Metoprolol Succinate 12.5 mg 03/07/24 11:25 03/12/24 08:45 Metoprolol Succinate Ext Rel 12.5 Mg Tabcr PO 12.5 mg QAM [facility] Administration Osimertinib [ 80 mg 03/10/24 15:00 03/12/24 08:46 Tagrisso] 80 Mg PO 04/09/24 14:59 80 mg Tablet DAILY BONY Administration Ondansetron HCl 4 mg 03/04/24 10:15 03/04/24 10:16 Ondansetron Inj 4 Mg/2 Ml Vial IV PUSH 4 mg Q4H PRN Administration Nausea And Vomiting Pantoprazole Sodium 40 mg 03/08/24 09:00 03/12/24 08:44 Pantoprazole 40 Mg Tablet PO 40 mg QAM BONY Administration Polyethylene Glycol 17 gm 03/10/24 11:21 03/12/24 08:48 Polyethylene Glycol 3350 17 Gm Powd.Pack PO 17 gm QAM PRN Administration Constipation Sodium Chloride 10 ml 03/04/24 14:00 03/12/24 05:43 Central Line Flush IV PUSH 10 ml Q8HR BONY Administration Sodium Chloride 10 ml 03/04/24 12:31 Central Line Flush IV PUSH PRN PRN with TPN bag changes Sodium Chloride 20 ml 03/04/24 12:31 03/12/24 05:43 Central Line Flush IV PUSH 20 ml PRN PRN Administration after blood draws Sodium Chloride 1 spray 03/07/24 17:44 Saline 0.65% Guillermo Soln 44 Ml Btl NASAL Q6HR PRN congestion Radiology Results: ITS Impressions Renal Ultrasound 03/04/24 12:01 IMPRESSION: 1. Mild atrophy of right kidney. No hydronephrosis. Chest X-Ray 03/09/24 07:21 Impression: Patchy airspace disease and extensive interstitial prominence unchanged. Correlate for pulmonary edema, pneumonia, and/or chronic interstitial disease. Small bilateral pleural effusions. Lentiform density at the lateral left lung, which could reflect loculated effusion. Labs Labs: Laboratory Results - last 24 hr 03/11/24 03/11/24 03/11/24 11:18 16:26 20:30 WBC RBC Hgb Hct MCV MCH MCHC RDW Plt Count MPV Immature Gran % (Auto) Neut % (Auto) Lymph % (Auto) [place] % (Auto) Eos % (Auto) Baso % (Auto) Lymph # (Auto) [place] # (Auto) Eos # (Auto) Baso # (Auto) Abs Immat Gran (auto) Absolute Neuts (auto) Absolute Nucleated RBC Nucleated RBC % Sodium Potassium Chloride Carbon Dioxide Anion Gap BUN Creatinine Estim Creat Clear Calc Estimated GFR Glucose POC Capillary Glucose 286 H 150 H 176 H Calcium Magnesium Total Bilirubin AST ALT Alkaline Phosphatase Total Protein Albumin 03/12/24 03/12/24 05:49 07:25 WBC 12.7 H RBC 3.19 L Hgb 9.6 L Hct 28.6 L MCV 89.7 MCH 30.1 MCHC 33.6 RDW 14.1 Plt Count 201 MPV 10.9 H Immature Gran % (Auto) 1.3 H Neut % (Auto) 70.4 Lymph % (Auto) 11.4 L [place] % (Auto) 13.0 H Eos % (Auto) 3.4 Baso % (Auto) 0.5 Lymph # (Auto) 1.45 [place] # (Auto) 1.7 H Eos # (Auto) 0.4 H Baso # (Auto) 0.1 Abs Immat Gran (auto) 0.17 H Absolute Neuts (auto) 9.0 H Absolute Nucleated RBC 0.000 Nucleated RBC % 0.0 Sodium 133 L Potassium 3.1 L Chloride 92 L Carbon Dioxide 34 H Anion Gap 7 BUN 40 H Creatinine 2.20 H Estim Creat Clear Calc 12 Estimated GFR 21 L Glucose 138 H POC Capillary Glucose 159 H Calcium 8.7 Magnesium 1.9 Total Bilirubin 1.0 AST 66 H ALT 170 H Alkaline Phosphatase 111 Total Protein 7.0 Albumin 3.6
[2024-03-12 11:41] LABS: Glucose Point of Care 233 mg/dl (65-105)
[2024-03-12] MEDS: INSULIN ASPART (*BKC) 100 UNITS/ML SUB-Q (11:42)
--- NOTE | 2024-03-12 14:22 | PC.NURSE ---
Discharged instructions discussed with pt and family; meds-to-bed given to pt - pt home medication Tagrisso returned to pt- pt and family verbalized discharge instructions including importance of taking medications as prescribed by
--- NOTE | 2024-03-12 14:26 | PC.NURSE ---
stent card given to pt and she placed in [facility]
== END 2024-03-12 14:30 | disposition home health service (06) | DRG 321 ==
LOC: ANHED 06:37 → ANHICU 06:45 → ANHIMU 03-10 01:02
PROVIDERS: Internal Medicine; Internal Medicine Nephrology; Physician Assistant; Admitting Provider Internal Medicine Interventional Cardiology; Emergency Provider Student in an Organized Health Care Education/Training Program; PCP Student in an Organized Health Care Education/Training Program; Visit Provider Nurse Practitioner
PROC: 4A023N7 Measurement of Cardiac Sampling and Pressure, Left Heart, Percutaneous Approach (ICD-10-PCS; CPT 93452; principal; 2024-03-04 06:20)
PROC: 027034Z Dilation of Coronary Artery, One Artery with Drug-eluting Intraluminal Device, Percutaneous Approach (ICD-10-PCS; 2024-03-04 06:20)
PROC: 027034Z Dilation of Coronary Artery, One Artery with Drug-eluting Intraluminal Device, Percutaneous Approach (ICD-10-PCS; CPT 33210; 2024-03-04 06:20)
DX: I21.21 ST elevation (STEMI) myocardial infarction involving left circumflex coronary artery (principal); A41.9 Sepsis, unspecified organism; R57.0 Cardiogenic shock; J96.01 Acute respiratory failure with hypoxia; I44.2 Atrioventricular block, complete; C34.90 Malignant neoplasm of unspecified part of unspecified bronchus or lung; N17.9 Acute kidney failure, unspecified; M62.82 Rhabdomyolysis; I13.0 Hypertensive heart and chronic kidney disease with heart failure and stage 1 through stage 4 chronic kidney disease, or unspecified chronic kidney disease; N18.31 Chronic kidney disease, stage 3a; I25.5 Ischemic cardiomyopathy; I10 Essential (primary) hypertension; E11.22 Type 2 diabetes mellitus with diabetic chronic kidney disease; N18.9 Chronic kidney disease, unspecified; I25.10 Atherosclerotic heart disease of native coronary artery without angina pectoris; G47.33 Obstructive sleep apnea (adult) (pediatric); F41.9 Anxiety disorder, unspecified; D64.9 Anemia, unspecified; M81.0 Age-related osteoporosis without current pathological fracture
CPT/HCPCS: 33210; 36415; 36430; 36569; 36600; 71045; 76775; 80048; 80053; 80061; 80202; 81001; 81050; 82375; 82550; 82565; 82570; 82805; 82948; 83036; 83050; 83540; 83550; 83605; 83690; 83735; 83874; 84100; 84145; 84156; 84300; 84443; 84484; 84540; 85014; 85018; 85025; 85027; 85055; 85610; 85730; 85999; 86140; 86704; 86706; 86850; 86900; 86901; 86923; 87040; 87340; 87636; 87641; 93005; 93306; 93458; 94618; 94640; 96374; 96375; 97161; 97165; 97530; 97535; 99285; A9270; C1725; C1751; C1769; C1874; C1887; C1894; C9606; J0461; J0612; J0692; J1265; J1327; J1644; J1650; J1815; J1939; J1940; J2003; J2250; J2310; J2405; J2470; J2997; J3010; J3370; J3475; J7040; J7050; J7060; J7120; P9016

== ENCOUNTER 2024-03-19 13:10 | Outpatient (NON) | payer MEDICARE, SELFPAY ==
[2024-03-19 14:12] LABS: Anion Gap 14 mmol/L (4-12); Blood Urea Nitrogen 37 mg/dL (7-17); Calcium 9.1 mg/dL (8.4-10.2); Carbon Dioxide 22 mmol/L (22-30); Chloride 98 mmol/L (98-107); Estimated Glomerular Filt Rate 17; Glucose 114 mg/dL (65-110); Potassium 3.5 mmol/L (3.4-5.0); Sodium 134 mmol/L (137-145)
== END 2024-03-19 13:11 | disposition home or self-care (01) ==
LOC: HOME HLTH 13:16
PROVIDERS: PCP Student in an Organized Health Care Education/Training Program; Visit Provider Internal Medicine
DX: N18.30 Chronic kidney disease, stage 3 unspecified (principal)
CPT/HCPCS: 80048

== ENCOUNTER 2024-04-09 08:01 | Inpatient (IN) | payer MEDICARE, SELFPAY ==
[2024-04-09] VITALS (17 sets, daily range): BP systolic 112–137; BP diastolic 55–75; PULSE 80–97; RESP 18–26; TEMP 36.3–37; O2SAT 82–100; BMI 17.7
--- NOTE | ~2024-04-09 | MR_ITS ---
EXAMINATION: MR brain/brain stem wo/w con DATE: 04/10/2024 15:28 INDICATION: Syncope. TECHNIQUE: Magnetic resonance imaging (MRI) of the brain and brainstem was performed without and with 8 mL MultiHance intravenous contrast. COMPARISON: Head CT 04/09/2024 FINDINGS: There are acute and subacute infarcts in the right frontal and parietal deep white matter. There is an acute infarct in the left frontoparietal jay radiata. There are old blood products in left cerebellum. There are old infarcts in the right frontal, temporal, and occipital lobes and right cerebellum. 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 There are scattered area s of nonspecific increased T2-weighted signal intensity in the cerebral white matter. There is no abn ormal mass lesion. The ventricles are normal in size. There are likely changes of ocular lens replace ment surgeries. The mastoid air cells are normal. The paranasal sinuses are clear. IMPRESSION: 1. Acute and subacute infarcts in the right frontal and parietal deep white matter. Acute infarct in the left frontoparietal jay radiata. 2. Old infarcts in the right frontal, temporal, and occipital lobes and right cerebellum. 3. Moderate nonspecific cerebral white matter disease, which likely represents chronic small vessel i schemic disease. Reviewed, dictated and finalized at location A. INSPECTOR IMPRESSION: 1. Acute and subacute infarcts in the right frontal and parietal deep white mat ter. Acute infarct in the left frontoparietal jay radiata. 2. Old infarcts in the right frontal, temporal, and occipital lobes and right c erebellum. 3. Moderate nonspecific cerebral white matter disease, which likely represents chronic small vessel ischemic disease.
--- NOTE | ~2024-04-09 | MR_ITS ---
EXAMINATION: MRA brain wo con DATE: 04/10/2024 15:13 INDICATION: Syncope. Acute stroke. TECHNIQUE: Magnetic resonance angiography (MRA) of the brain was performed without intravenous contra st with T1-weighted SPGR by the 3D [id number] technique. Maximum intensity projection 3D-reconstr uctions were obtained. COMPARISON: None. FINDINGS: Left vertebral artery is dominant. There is no significant stenosis of basilar artery or the posterio r cerebral arteries. There is no significant stenosis of the intracranial internal carotid arteries o r anterior or middle cerebral arteries. Anterior communicating artery is normal. The posterior commun icating arteries are normal. There is no aneurysm. IMPRESSION: 1. Normal MRA. Reviewed, dictated and finalized at location A. E UTILITY WORKER IMPRESSION: 1. Normal MRA.
--- NOTE | ~2024-04-09 | CT_ITS ---
EXAMINATION: CT brain wo con DATE: 04/09/2024 09:21 INDICATION: Unresponsive episode TECHNIQUE: Computed tomography (CT) of the head was performed without intravenous contrast. Sagittal and coronal reconstructions were performed. The mA was adjusted according to patient size. Iterative reconstruction technique was employed. The dose-length product was 681.00 mGy-cm. COMPARISON: head CT dated 07/30/20 FINDINGS: Small focus of increased attenuation along the surface of a sulcus in the posterior right frontal reg ion which could represent either a small thrombosed vessel or minimal subarachnoid hemorrhage. There appears to be tiny focus of decreased haider matter attenuation along side the focus of increased densi ty suspicious for small acute infarct and which along with the relatively linear configuration of inc reased density would favor thrombosed vessel. There is mild scattered white matter hypoattenuation co nsistent with chronic small vessel ischemic disease. No abnormal extra axial fluid collection. Symme tric prominence of the sulci consistent with mild age-appropriate diffuse cerebral volume loss. Vent ricles are normal and symmetric. No mass/mass effect. Changes of bilateral intraocular lens replaceme nt. The orbits and mastoid air cells are normal. Small amount of dependently layering mucus in the ri ght sphenoid sinus. IMPRESSION: 1. Small relatively linear region of increased density along side a small focus of loss of haider-white matter density along a sulcus in the posterior right frontal lobe suspicious for a thrombosed vessel and immediately adjacent small infarct. Differential however would include a small focus of subarach noid hemorrhage. Dr. Starks discussed these findings with Dr. Hampton at 9:30 AM. Reviewed, dictated and finalized at location B. HOLOGY ASSISTANT IMPRESSION: 1. Small relatively linear region of increased density along side a small focus of loss of haider-white matter density along a sulcus in the posterior right fro ntal lobe suspicious for a thrombosed vessel and immediately adjacent small inf arct. Differential however would include a small focus of subarachnoid hemorrha ge. Dr. Starks discussed these findings with Dr. Hampton at 9:30 AM.
--- NOTE | ~2024-04-09 | MR_ITS ---
EXAMINATION: MRA neck wo con DATE: 04/10/2024 15:19 INDICATION: Acute stroke. Syncope. TECHNIQUE: Magnetic resonance angiography (MRA) of the neck was performed without intravenous contras t. Sequences included axial 2D-time of flight T1-weighted FSPGR, axial Inhance, and coronal T1-weight ed FSPGR without intravenous contrast. COMPARISON: CT neck 10/02/2020, head CT 04/09/2024 FINDINGS: Left vertebral artery is dominant. There is no significant stenosis of the vertebral arteries. There is plaque in the proximal internal carotid arteries. There is 0% stenosis of the proximal right inte rnal carotid artery relative to normal distal artery lumen diameter (NASCET criteria). There is 0% s tenosis of the proximal left internal carotid artery relative to normal distal artery lumen diameter. IMPRESSION: 1. 0% stenosis of the proximal internal carotid arteries relative to normal distal artery lumen diame ters (NASCET criteria). Reviewed, dictated and finalized at location A. TRICAL ENGINEERING DIRECTOR IMPRESSION: 1. 0% stenosis of the proximal internal carotid arteries relative to normal dis felisa artery lumen diameters (NASCET criteria).
--- NOTE | ~2024-04-09 | XR_ITS ---
MODIFIED ESOPHAGRAM HISTORY: Stroke TECHNIQUE: Modified barium esophagram was performed on 04/12/2024. I administered fluoroscopy and per formed the exam with speech pathologist. Patient was seated for lateral fluoroscopic imaging for ing estion of thin liquids, pudding, solids and quantified amounts, followed by thin liquids in uncontrol led amounts. This was recorded on tape. A single fluoroscopic spot image was also recorded. The DAP f or this procedure was 1.482 Gycm2. The amount of fluoroscopy time used during this procedure was 2.1 minutes. FINDINGS: Oral stage: Adequate function. Pharyngeal stage: There is reduced laryngeal elevation. There is transient/flash laryngeal penetratio n of trace amount of thin liquids without aspiration. Cervical/esophageal stage: Adequate function. IMPRESSION: Trace amount of transient/flash laryngeal penetration without aspiration. Please correla te with speech pathologist findings and specific feeding recommendations. Reviewed, dictated and finalized at location B. ING AND UNLOADING SUPERVISOR IMPRESSION: Trace amount of transient/flash laryngeal penetration without aspir ation. Please correlate with speech pathologist findings and specific feeding recommendations.
--- NOTE | ~2024-04-09 | XR_ITS ---
EXAMINATION: XR chest 1V portable DATE: 04/09/2024 08:49 INDICATION: Weakness. TECHNIQUE: frontal view of the chest was obtained. COMPARISON: 03/09/2024 FINDINGS: Mild left apical pleural-parenchymal scarring. Thin linear opacities at the bilateral lower lung zone s consistent with atelectasis/scarring. There is blunting at the bilateral costophrenic angles consis tent with very small bilateral pleural effusions. Heart size is normal. Possible hiatal hernia versus tortuous distal thoracic aorta. IMPRESSION: 1. There are small bilateral bilateral pleural effusions and linear discoid atelectasis/scarring at t he bilateral lower lung zones. Reviewed, dictated and finalized at location B. [employer] IMPRESSION: 1. There are small bilateral bilateral pleural effusions and linear discoid ate lectasis/scarring at the bilateral lower lung zones.
--- NOTE | 2024-04-09 08:04 | ECG_ITS ---
Test Date: 2024-04-09 08:07:11 Measurements Intervals [place] Rate: 87 P: 63 ID: [id number] QRS: 7 QRSD: 91 T: 67 QT: 333 QTc: 403 Interpretive Statements SINUS RHYTHM WITH OCCASIONAL VENTRICULAR PREMATURE COMPLEXES LOW QRS VOLTAGE IN LIMB LEADS CONSIDER INFERIOR INFARCT, AGE INDETERMINATE NONSPECIFIC ST & T-WAVE ABNORMALITY- ANTEROLAT/HIGH LAT LEADS BASELINE ARTIFACT- II, III, AVR, AVL, AVF ABNORMAL ECG Compared to ECG 03/05/2024 12:40:31 HEART RATE HAS DECREASED Electronically Signed On 04-09-2024 08:12:22 [employer] by Jacob Ferrara D.O.
[2024-04-09 08:34] LABS: Basophils Percent Auto 0.5 % (0.2-1.2); Eosinophils Percent Auto 0.5 % (0-4.4); Hematocrit 29.8 % (37.0-47.0); Immature Granulocyte Absolute 0.01 K/mm3 (0.00-0.031); Immature Granulocyte Percent A 0.1 % (0-0.5); Lymphocytes Percent Auto 19.8 % (18.3-44.2); Mean Corpuscular HGB Conc 33.6 g/dl (32-36); Mean Corpuscular Hemoglobin 27.9 pg (26-34); Mean Corpuscular Volume 83.2 fl (80-100); Mean Platelet Volume 11.6 fl (7.4-10.4); Monocytes Absolute Auto 1.2 K/mm3 (0.1-0.6); Monocytes Percent Auto 15.3 % (2.6-8.5); Neutrophils Absolute Auto 4.8 K/mm3 (1.3-6.7); Neutrophils Percent Auto 63.8 % (45.5-73.1); Platelet Count Result 273 k/mm3 (150-375); Red Blood Count 3.58 M/mm3 (4.2-5.4); Red Cell Distribution Width 14.3 % (11.5-14.5); White Blood Count 7.6 K/mm3 (4.5-10.0)
[2024-04-09] MEDS: ONDANSETRON INJ 4 MG/2 ML VIAL IV PUSH (08:37)
--- NOTE | 2024-04-09 08:59 | ED.GENADULT ---
HPI - General Adult General Chief complaint: Weakness <Gilma Pearson PA-C - Last Filed: 04/09/24 19:23> Stated complaint: weakness <Gilma Pearson PA-C - Last Filed: 04/09/24 19:23> Time Seen by Provider: 04/09/24 08:54 <Gilma Pearson PA-C - Last Filed: 04/09/24 19:23> Source: patient, family and old records reviewed <Gilma Pearson PA-C - Last Filed: 04/09/24 19:23> Mode of arrival: EMS <Gilma Pearson PA-C - Last Filed: 04/09/24 19:23> Limitations: no limitations <Gilma Pearson PA-C - Last Filed: 04/09/24 19:23> History of Present Illness HPI narrative: Patient is an 83-year-old female who presents the ED via EMS with report of weakness and syncope. Family at bedside assisted in providing information. Reports patient had a syncopal episode while on the toilet this morning. Became completely limp and unresponsive. Patient did feel like she needed to have a bowel movement at that time. She did not fall off the toilet or hit her head. EMS was then called. Patient was alert oriented x3 upon their arrival. Patient reports she has been feeling increasingly weak for the last 1 week. Has had decreased p.o. intake. She has been recently admitted several times for similar symptoms, has also recently received a stent for a STEMI. Sees Dr. Koroma. Was also recently diagnosed with lung cancer. Currently on oral chemotherapy pill. Sees Dr. Holbrook with [facility]. Patient denies current chest pain, shortness of breath. She was noted to be hypoxic in the ED into the mid 80s and was placed on 2 L nasal cannula. Denies previous oxygen requirement. Denies recent abdominal pain, diarrhea, cough, fevers. <SOPHY Covarrubias Last Filed: 04/09/24 19:23> Related Data Home medications: Home Medications Medication Instructions Recorded Confirmed blood sugar diagnostic (OneTouch 03/04/24 04/09/24 Ultra Test strips) metformin 500 mg tablet,extended 500 mg PO BID 10/13/24 11/18/24 release 24 hr acidophilus 100 million 1 cap PO DAILY 03/05/24 04/09/24 cell-pectin, citrus 10 mg capsule amlodipine 5 mg tablet 5 mg PO DAILY 03/05/24 04/09/24 calcium 600 mg capsule 600 mg PO DAILY 03/05/24 04/09/24 cholecalciferol (vitamin D3) 25 25 mcg PO DAILY 03/05/24 04/09/24 mcg (1,000 unit) tablet (Vitamin D3) cyanocobalamin (vitamin B-12) 1,000 mcg PO DAILY 03/05/24 04/09/24 1,000 mcg tablet (Vitamin B-12) krill oil 500 mg capsule 500 mg PO DAILY 03/05/24 04/09/24 seucklponxjj-Sr-qdts-minerals 1 tablet PO DAILY 03/05/24 04/09/24 osimertinib 80 mg tablet (Tagrisso) 80 mg PO DAILY 03/10/24 04/09/24 clopidogrel 75 mg tablet 75 mg PO HS 04/09/24 04/09/24 <Gilma Pearson PA-C - Last Filed: 04/09/24 19:23> Allergies/adverse reactions: Allergies Allergy/AdvReac Type Severity Reaction Status Date / Time codeine Allergy Nausea and Verified 03/04/24 06:11 Vomiting erythromycin base Allergy Rash Verified 03/04/24 06:11 escitalopram [From Lexapro] Allergy Nausea and Verified 03/04/24 06:11 Vomiting <Gilma Pearson PA-C - Last Filed: 04/09/24 19:23> Review of Systems Review of Systems: All systems reviewed & are unremarkable except as noted in HPI. <Gilma Pearson PA-C - Last Filed: 04/09/24 19:23> All systems reviewed & are unremarkable except as noted in HPI and below <Gilma Pearson PA-C - Last Filed: 04/09/24 19:23> [facility] Past Medical History Medical History: Medical History Anxiety Chronic kidney disease, stage 3 Coronary artery disease Gastroesophageal reflux disease Hypertension Obstructive sleep apnea Osteoporosis ST elevation myocardial infarction (STEMI) (03/04/24) inferior-posterior STEMI status post PTCA/stent to the proximal left circumflex with residual recalcitrant thrombus and mid left circumflex with COLLETTE 1 to 2 flow Stage 4 lung cancer Type 2 diabetes mellitus <Gilma Pearson PA-C - Last Filed: 04/09/24 19:23> Surgical History Surgical History: Surgical History History of cardiac catheterization (03/04/24) History of coronary angioplasty with insertion of stent (03/04/24) angioplasty/stent to proximal left circumflex <Gilma Pearson PA-C - Last Filed: 04/09/24 19:23> Social History Social History: Social History Social History: Surrogate medical decision maker: Code status: Do not resuscitate. Smoking status: Never smoker Second hand tobacco smoke exposure: No Alcohol intake: never Substance use: never Substance use type: does not use Do You Feel Safe in your Home?: Yes Lack of Transportation: No Lack of Food: Never True Current Housing: I Have Housing Concerned About Future Housing: No Difficulty Paying Gas/Electric Bills: No Difficulty Paying for Meds: No Currently Unemployed: No Education: High School Diploma/GED Difficulty w/ Childcare or Family Care: No Spiritual care concerns: Yes <Gilma Pearson PA-C - Last Filed: 04/09/24 19:23> Exam Narrative: GENERAL: Ill appearing, thin, non-toxic, in no acute distress. HEAD: Normocephalic, atraumatic. ENT: MMs very dry. RESPIRATORY: Airway patent, respirations nonlabored. Clear to auscultation bilaterally, no rales, rhonchi, wheezing. on 2L NC. CARDIOVASCULAR: Regular rate and rhythm without murmurs, rubs, or gallops. ABDOMINAL: Soft, no significant tenderness throughout abdomen, nondistended. Normoactive BS. MUSCULOSKELETAL: Moves all extremities. No gross deformities. SKIN: Warm, dry, normal color. NEURO: A&O X3. Able to answer all questions and follow commands. Speech clear. Cranial nerves II-XII grossly intact. Steady gait. No ataxic movements. No focal deficits. Equal product mgmt dev manager strength bilaterally. Able to move all extremities equally. PSYCHIATRIC: Appropriate mood and affect. Normal interaction. <Gilma Pearson PA-C - Last Filed: 04/09/24 19:23> Course SALES AND SUPPORT CENTER AGENT/PA Physician Supervision For this patient encounter, I reviewed the SALES AND SUPPORT CENTER AGENT or PA documentation, treatment plan, and medical decision making; and I had [id number] time with this patient. <Imer Hampton MD - Last Filed: 04/09/24 17:44> Vital Signs Vital signs: Vital Signs Temperature 97.6 F 04/09/24 08:05 Pulse Rate 84 04/09/24 08:05 Respiratory Rate 24 H 04/09/24 08:05 Blood Pressure 118/58 L 04/09/24 08:05 Pulse Oximetry 100 04/09/24 08:05 Oxygen Delivery Room Air 04/09/24 08:05 Temperature 97.3 F L 04/09/24 16:00 Pulse Rate 82 04/09/24 17:59 Respiratory Rate 18 04/09/24 16:00 Blood Pressure 126/62 04/09/24 16:00 Pulse Oximetry 100 04/09/24 16:00 Oxygen Delivery Room Air 04/09/24 16:00 Oxygen Flow Rate 2 04/09/24 09:10 <Gilma Pearson PA-C - Last Filed: 04/09/24 19:23> Vital Signs Temperature 97.6 F 04/09/24 08:05 Pulse Rate 84 04/09/24 08:05 Respiratory Rate 24 H 04/09/24 08:05 Blood Pressure 118/58 L 04/09/24 08:05 Pulse Oximetry 100 04/09/24 08:05 Oxygen Delivery Room Air 04/09/24 08:05 Temperature 97.3 F L 04/09/24 16:00 Pulse Rate 82 04/09/24 17:59 Respiratory Rate 18 04/09/24 16:00 Blood Pressure 126/62 04/09/24 16:00 Pulse Oximetry 100 04/09/24 16:00 Oxygen Delivery Room Air 04/09/24 16:00 Oxygen Flow Rate 2 04/09/24 09:10 <Imer Hampton MD - Last Filed: 04/09/24 17:44> Medical Decision Making MDM Narrative Medical decision making narrative: Patient presented to ED with increased weakness, recent hospitalizations, recent STEMI /diagnosis of lung cancer, decreased p.o. intake, syncopal episode this morning. Vital signs are stable upon arrival. Patient in no acute distress, but does appear slightly ill, very weak. No appreciable focal deficits on exam. Neurologically intact. CBC unremarkable Hyponatremia 123 Chloride low at 73 Bicarb 31 Hypokalemia at 2.8. IV replacement initiated. Mag borderline 1.7. Anion gap of 19. Fluids initiated. BG mildly elevated. JAE with Farm General Manager today of 3.2. Baseline recently more <2. Fluids ongoing. UA clear Viral swabs negative EKG w/ nonspecific ST changes, no acute STEMI Baseline trop elev. Potentially still down trending from recent STEMI vs demand ischemia. Patient denies chest pain at this time. Continue to trend. BNP is markedly elevated to 23,600. Patient does not appear fluid overloaded at this time. Actually appears very dry. Per med rec, she appears to be on 80 mg of Lasix twice daily currently. She does not appear to be on any potassium supplements. Likely contributing to hyperkalemia today. CXR with small makayla pleural effusions CT brain with abnormal findings - possible thrombosed vessel with adjacent infarct vs SAH. Discussed these findings with patient and family. Patient is DNR but would like intervention of possible for CVA or brain bleed. Will discuss with tertiary center. She is on Plavix and aspirin at this time from recent STEMI. Again patient is neurologically intact. No focal deficits. Discussed case with Dr. Horn, Neurology @[facility], will call back after reviewing images. Re-discussed case with Dr. Horn, neurology @ [facility], reviewed images - no indication for transfer at this time, no intervention needed. Even if thrombosed vessel, would not intervene as very tiny and patient asymptomatic. Does not appear consistent with SAH. Looks like if anything incidental petechial hemorrhage. Again, no indication for transfer/emergency neurology/neurosurg eval. Will attempt admission here. Discussed case with [place], [employer] SU[employer] C[employer] AGENT hospitalist, accepted patient for admission. Discussed case with Dr. Hernandez, neurology, agreed with plan, will consult. MRI ordered. Patient unable to undergo CTA imaging at this time due to kidney function. Patient/family in agreement with plan and admission here. <Gilma Pearson PA-C - Last Filed: 04/09/24 19:23> Medical Records Medical records reviewed: Yes I reviewed the external patient's medical records. <Gilma Pearson PA-C - Last Filed: 04/09/24 19:23> Vital Signs Vital Signs: Vital Signs Temperature 97.6 F 04/09/24 08:05 Pulse Rate 84 04/09/24 08:05 Respiratory Rate 24 H 04/09/24 08:05 Blood Pressure 118/58 L 04/09/24 08:05 Pulse Oximetry 100 04/09/24 08:05 Oxygen Delivery Room Air 04/09/24 08:05 Temperature 97.3 F L 04/09/24 16:00 Pulse Rate 82 04/09/24 17:59 Respiratory Rate 18 04/09/24 16:00 Blood Pressure 126/62 04/09/24 16:00 Pulse Oximetry 100 04/09/24 16:00 Oxygen Delivery Room Air 04/09/24 16:00 Oxygen Flow Rate 2 04/09/24 09:10 <Gilma Pearson PA-C - Last Filed: 04/09/24 19:23> Vital Signs Temperature 97.6 F 04/09/24 08:05 Pulse Rate 84 04/09/24 08:05 Respiratory Rate 24 H 04/09/24 08:05 Blood Pressure 118/58 L 04/09/24 08:05 Pulse Oximetry 100 04/09/24 08:05 Oxygen Delivery Room Air 04/09/24 08:05 Temperature 97.3 F L 04/09/24 16:00 Pulse Rate 82 04/09/24 17:59 Respiratory Rate 18 04/09/24 16:00 Blood Pressure 126/62 04/09/24 16:00 Pulse Oximetry 100 04/09/24 16:00 Oxygen Delivery Room Air 04/09/24 16:00 Oxygen Flow Rate 2 04/09/24 09:10 <Imer Hampton MD - Last Filed: 04/09/24 17:44> Lab Data Lab results reviewed: Yes I reviewed the patient's lab results. <Gilma Pearson PA-C - Last Filed: 04/09/24 19:23> Result diagrams: 04/09/24 08:21 04/09/24 16:36 <Gilma Pearson PA-C - Last Filed: 04/09/24 19:23> Labs: Lab Results 04/09/24 04/09/24 04/09/24 Range/Units 08:21 08:21 08:21 WBC 7.6 (4.5-10.0) K/mm3 RBC 3.58 L (4.2-5.4) M/mm3 Hgb 10.0 L (12.0-15.0) g/dL Hct 29.8 L (37.0-47.0) % MCV 83.2 (80-100) fl MCH 27.9 (26-34) pg MCHC 33.6 (32-36) g/dl RDW 14.3 (11.5-14.5) % Plt Count 273 (150-375) k/mm3 MPV 11.6 H (7.4-10.4) fl Immature Gran % (Auto) 0.1 (0-0.5) % Neut % (Auto) 63.8 (45.5-73.1) % Lymph % (Auto) 19.8 (18.3-44.2) % [place] % (Auto) 15.3 H (2.6-8.5) % Eos % (Auto) 0.5 (0-4.4) % Baso % (Auto) 0.5 (0.2-1.2) % Lymph # (Auto) 1.50 (0.9-3.2) K/mm3 [place] # (Auto) 1.2 H (0.1-0.6) K/mm3 Eos # (Auto) 0.0 (0-0.3) K/mm3 Baso # (Auto) 0.0 (0.0-0.1) K/mm3 Abs Immat Gran (auto) 0.01 (0.00-0.031) K/mm3 Absolute Neuts (auto) 4.8 (1.3-6.7) K/mm3 Absolute Nucleated RBC 0.000 (0.0-0.012) K/mm3 Nucleated RBC % 0.0 (0.0-0.2) % Sodium 123 L (137-145) mmol/L Potassium 2.8 L* (3.4-5.0) mmol/L Chloride 73 L (98-107) mmol/L Carbon Dioxide 31 H (22-30) mmol/L Anion Gap 19 H (4-12) mmol/L BUN 89 H D (7-17) mg/dL Creatinine 3.20 H (0.7-1.0) mg/dL Estim Creat Clear Calc 7 ml/min Estimated GFR 14 L (59 - ) Glucose 199 H (65-110) mg/dL Calcium 9.7 (8.4-10.2) mg/dL Magnesium 1.7 Cancelled (1.6-2.3) mg/dL Total Bilirubin 0.9 (0.2-1.3) mg/dL AST 47 H (14-36) U/L ALT 17 (6-35) U/L Alkaline Phosphatase 111 (38-126) U/L Total Creatine Kinase 73 (30-135) U/L Troponin I 0.084 H* (0.000-0.034) ng/mL NT-Pro-B Natriuret Pep 12073 H Cancelled (19.9-100) pg/mL Total Protein 9.0 H (6.3-8.2) g/dL Albumin 4.5 (3.5-5.1) g/dL Lipase 497 H (23-300) U/L Urine Color Yellow (Yellow) Urine Appearance Clear (Clear) Urine pH 5.0 (5.0-9.0) Ur Specific [place] 1.010 (1.001-1.035) Urine Protein Trace (Negative) mg/dL Urine Glucose (UA) Negative (Negative) mg/dL Urine Ketones Negative (Negative) mg/dL Ur Blood (Man) Negative (Negative) Urine Nitrate Negative (Negative) Urine Bilirubin Negative (Negative) Urine Urobilinogen 0.2 (<2.0) mg/dL Add Ur Microanalysis Reviewed Leukocyte Esterase Rfl Negative (Negative) RADHA/UL Urine RBC 0-2 (0-2) /hpf Urine WBC 0-5 (0-3) /hpf Ur Squamous Epith Cells None seen (Few) /hpf Urine Bacteria None seen /hpf Urine Casts 0-2 Influenza A (RT-PCR) (Negative) Influenza B (RT-PCR) (Negative) RSV (RT-PCR) (Negative) SARS-CoV-2 RNA (RT-PCR) (Negative) 04/09/24 Range/Units 09:51 WBC (4.5-10.0) K/mm3 RBC (4.2-5.4) M/mm3 Hgb (12.0-15.0) g/dL Hct (37.0-47.0) % MCV (80-100) fl MCH (26-34) pg MCHC (32-36) g/dl RDW (11.5-14.5) % Plt Count (150-375) k/mm3 MPV (7.4-10.4) fl Immature Gran % (Auto) (0-0.5) % Neut % (Auto) (45.5-73.1) % Lymph % (Auto) (18.3-44.2) % [place] % (Auto) (2.6-8.5) % Eos % (Auto) (0-4.4) % Baso % (Auto) (0.2-1.2) % Lymph # (Auto) (0.9-3.2) K/mm3 [place] # (Auto) (0.1-0.6) K/mm3 Eos # (Auto) (0-0.3) K/mm3 Baso # (Auto) (0.0-0.1) K/mm3 Abs Immat Gran (auto) (0.00-0.031) K/mm3 Absolute Neuts (auto) (1.3-6.7) K/mm3 Absolute Nucleated RBC (0.0-0.012) K/mm3 Nucleated RBC % (0.0-0.2) % Sodium (137-145) mmol/L Potassium (3.4-5.0) mmol/L Chloride (98-107) mmol/L Carbon Dioxide (22-30) mmol/L Anion Gap (4-12) mmol/L BUN (7-17) mg/dL Creatinine (0.7-1.0) mg/dL Estim Creat Clear Calc ml/min Estimated GFR (59 - ) Glucose (65-110) mg/dL Calcium (8.4-10.2) mg/dL Magnesium (1.6-2.3) mg/dL Total Bilirubin (0.2-1.3) mg/dL AST (14-36) U/L ALT (6-35) U/L Alkaline Phosphatase (38-126) U/L Total Creatine Kinase (30-135) U/L Troponin I (0.000-0.034) ng/mL NT-Pro-B Natriuret Pep (19.9-100) pg/mL Total Protein (6.3-8.2) g/dL Albumin (3.5-5.1) g/dL Lipase (23-300) U/L Urine Color (Yellow) Urine Appearance (Clear) Urine pH (5.0-9.0) Ur Specific [place] (1.001-1.035) Urine Protein (Negative) mg/dL Urine Glucose (UA) (Negative) mg/dL Urine Ketones (Negative) mg/dL Ur Blood (Man) (Negative) Urine Nitrate (Negative) Urine Bilirubin (Negative) Urine Urobilinogen (<2.0) mg/dL Add Ur Microanalysis Leukocyte Esterase Rfl (Negative) RADHA/UL Urine RBC (0-2) /hpf Urine WBC (0-3) /hpf Ur Squamous Epith Cells (Few) /hpf Urine Bacteria /hpf Urine Casts Influenza A (RT-PCR) Negative (Negative) Influenza B (RT-PCR) Negative (Negative) RSV (RT-PCR) Negative (Negative) SARS-CoV-2 RNA (RT-PCR) Negative (Negative) <Gilma Pearson PA-C - Last Filed: 04/09/24 19:23> Lab Results 04/09/24 04/09/24 04/09/24 Range/Units 08:21 08:21 08:21 WBC 7.6 (4.5-10.0) K/mm3 RBC 3.58 L (4.2-5.4) M/mm3 Hgb 10.0 L (12.0-15.0) g/dL Hct 29.8 L (37.0-47.0) % MCV 83.2 (80-100) fl MCH 27.9 (26-34) pg MCHC 33.6 (32-36) g/dl RDW 14.3 (11.5-14.5) % Plt Count 273 (150-375) k/mm3 MPV 11.6 H (7.4-10.4) fl Immature Gran % (Auto) 0.1 (0-0.5) % Neut % (Auto) 63.8 (45.5-73.1) % Lymph % (Auto) 19.8 (18.3-44.2) % [place] % (Auto) 15.3 H (2.6-8.5) % Eos % (Auto) 0.5 (0-4.4) % Baso % (Auto) 0.5 (0.2-1.2) % Lymph # (Auto) 1.50 (0.9-3.2) K/mm3 [place] # (Auto) 1.2 H (0.1-0.6) K/mm3 Eos # (Auto) 0.0 (0-0.3) K/mm3 Baso # (Auto) 0.0 (0.0-0.1) K/mm3 Abs Immat Gran (auto) 0.01 (0.00-0.031) K/mm3 Absolute Neuts (auto) 4.8 (1.3-6.7) K/mm3 Absolute Nucleated RBC 0.000 (0.0-0.012) K/mm3 Nucleated RBC % 0.0 (0.0-0.2) % Sodium 123 L (137-145) mmol/L Potassium 2.8 L* (3.4-5.0) mmol/L Chloride 73 L (98-107) mmol/L Carbon Dioxide 31 H (22-30) mmol/L Anion Gap 19 H (4-12) mmol/L BUN 89 H D (7-17) mg/dL Creatinine 3.20 H (0.7-1.0) mg/dL Estim Creat Clear Calc 7 ml/min Estimated GFR 14 L (59 - ) Glucose 199 H (65-110) mg/dL Calcium 9.7 (8.4-10.2) mg/dL Magnesium 1.7 Cancelled (1.6-2.3) mg/dL Total Bilirubin 0.9 (0.2-1.3) mg/dL AST 47 H (14-36) U/L ALT 17 (6-35) U/L Alkaline Phosphatase 111 (38-126) U/L Total Creatine Kinase 73 (30-135) U/L Troponin I 0.084 H* (0.000-0.034) ng/mL NT-Pro-B Natriuret Pep 74362 H Cancelled (19.9-100) pg/mL Total Protein 9.0 H (6.3-8.2) g/dL Albumin 4.5 (3.5-5.1) g/dL Lipase 497 H (23-300) U/L Urine Color Yellow (Yellow) Urine Appearance Clear (Clear) Urine pH 5.0 (5.0-9.0) Ur Specific [place] 1.010 (1.001-1.035) Urine Protein Trace (Negative) mg/dL Urine Glucose (UA) Negative (Negative) mg/dL Urine Ketones Negative (Negative) mg/dL Ur Blood (Man) Negative (Negative) Urine Nitrate Negative (Negative) Urine Bilirubin Negative (Negative) Urine Urobilinogen 0.2 (<2.0) mg/dL Add Ur Microanalysis Reviewed Leukocyte Esterase Rfl Negative (Negative) RADHA/UL Urine RBC 0-2 (0-2) /hpf Urine WBC 0-5 (0-3) /hpf Ur Squamous Epith Cells None seen (Few) /hpf Urine Bacteria None seen /hpf Urine Casts 0-2 Influenza A (RT-PCR) (Negative) Influenza B (RT-PCR) (Negative) RSV (RT-PCR) (Negative) SARS-CoV-2 RNA (RT-PCR) (Negative) 04/09/24 Range/Units 09:51 WBC (4.5-10.0) K/mm3 RBC (4.2-5.4) M/mm3 Hgb (12.0-15.0) g/dL Hct (37.0-47.0) % MCV (80-100) fl MCH (26-34) pg MCHC (32-36) g/dl RDW (11.5-14.5) % Plt Count (150-375) k/mm3 MPV (7.4-10.4) fl Immature Gran % (Auto) (0-0.5) % Neut % (Auto) (45.5-73.1) % Lymph % (Auto) (18.3-44.2) % [place] % (Auto) (2.6-8.5) % Eos % (Auto) (0-4.4) % Baso % (Auto) (0.2-1.2) % Lymph # (Auto) (0.9-3.2) K/mm3 [place] # (Auto) (0.1-0.6) K/mm3 Eos # (Auto) (0-0.3) K/mm3 Baso # (Auto) (0.0-0.1) K/mm3 Abs Immat Gran (auto) (0.00-0.031) K/mm3 Absolute Neuts (auto) (1.3-6.7) K/mm3 Absolute Nucleated RBC (0.0-0.012) K/mm3 Nucleated RBC % (0.0-0.2) % Sodium (137-145) mmol/L Potassium (3.4-5.0) mmol/L Chloride (98-107) mmol/L Carbon Dioxide (22-30) mmol/L Anion Gap (4-12) mmol/L BUN (7-17) mg/dL Creatinine (0.7-1.0) mg/dL Estim Creat Clear Calc ml/min Estimated GFR (59 - ) Glucose (65-110) mg/dL Calcium (8.4-10.2) mg/dL Magnesium (1.6-2.3) mg/dL Total Bilirubin (0.2-1.3) mg/dL AST (14-36) U/L ALT (6-35) U/L Alkaline Phosphatase (38-126) U/L Total Creatine Kinase (30-135) U/L Troponin I (0.000-0.034) ng/mL NT-Pro-B Natriuret Pep (19.9-100) pg/mL Total Protein (6.3-8.2) g/dL Albumin (3.5-5.1) g/dL Lipase (23-300) U/L Urine Color (Yellow) Urine Appearance (Clear) Urine pH (5.0-9.0) Ur Specific [place] (1.001-1.035) Urine Protein (Negative) mg/dL Urine Glucose (UA) (Negative) mg/dL Urine Ketones (Negative) mg/dL Ur Blood (Man) (Negative) Urine Nitrate (Negative) Urine Bilirubin (Negative) Urine Urobilinogen (<2.0) mg/dL Add Ur Microanalysis Leukocyte Esterase Rfl (Negative) RADHA/UL Urine RBC (0-2) /hpf Urine WBC (0-3) /hpf Ur Squamous Epith Cells (Few) /hpf Urine Bacteria /hpf Urine Casts Influenza A (RT-PCR) Negative (Negative) Influenza B (RT-PCR) Negative (Negative) RSV (RT-PCR) Negative (Negative) SARS-CoV-2 RNA (RT-PCR) Negative (Negative) <Imer aHmpton MD - Last Filed: 04/09/24 17:44> Imaging Data Attestation: I personally reviewed and interpreted this imaging study as follows: <Gilma Pearson PA-C - Last Filed: 04/09/24 19:23> Radiologist's impression: ITS Impressions Chest X-Ray 04/09/24 08:54 IMPRESSION: 1. There are small bilateral bilateral pleural effusions and linear discoid atelectasis/scarring at the bilateral lower lung zones. Head CT 04/09/24 09:21 IMPRESSION: 1. Small relatively linear region of increased density along side a small focus of loss of haider-white matter density along a sulcus in the posterior right frontal lobe suspicious for a thrombosed vessel and immediately adjacent small infarct. Differential however would include a small focus of subarachnoid hemorrhage. Dr. Starks discussed these findings with Dr. Hampton at 9:30 AM. <Gilma Pearson PA-C - Last Filed: 04/09/24 19:23> ECG Data EKG #1: Attestation: I personally reviewed and interpreted this ECG as follows: <Gilma Pearson PA-C - Last Filed: 04/09/24 19:23> ECG completion date: 04/09/24 <Gilma Pearson PA-C - Last Filed: 04/09/24 19:23> ECG completion time: 08:07 <Gilma Pearson PA-C - Last Filed: 04/09/24 19:23> EKG Interpretation: normal rate (87), sinus rhythm, PVCs, non-specific ST changes and other (baseline artifact) <SOPHY Covarrubias Last Filed: 04/09/24 19:23> Discharge Plan Discharge Clinical Impression: Syncope and collapse, Acute kidney injury, Hypokalemia, Dehydration, Hyponatremia, Lung cancer, Elevated troponin, Acute hypoxic respiratory failure, Abnormal brain CT <Gilma Pearson PA-C - Last Filed: 04/09/24 19:23> Patient Disposition: Still a Patient <SOPHY Covarrubias Last Filed: 04/09/24 19:23> Condition: Guarded Prognosis <Gilma Pearson PA-C - Last Filed: 04/09/24 19:23>
[2024-04-09 09:02] LABS: Alanine Aminotransferase 17 U/L (6-35); Albumin Level 4.5 g/dL (3.5-5.1); Alkaline Phosphatase 111 U/L (38-126); Anion Gap 19 mmol/L (4-12); Aspartate Amino Transferase 47 U/L (14-36); Bilirubin,Total 0.9 mg/dL (0.2-1.3); Blood Urea Nitrogen 89 mg/dL (7-17); Calcium 9.7 mg/dL (8.4-10.2); Carbon Dioxide 31 mmol/L (22-30); Chloride 73 mmol/L (98-107); Estimated CRCL calculation 7 ml/min; Estimated Glomerular Filt Rate 14; Glucose 199 mg/dL (65-110); Lipase 497 U/L (23-300); Potassium 2.8 mmol/L (3.4-5.0); Sodium 123 mmol/L (137-145)
[2024-04-09 09:07] LABS: Add Urine Microscopic? YES; Appearance Urine Clear (Clear); Bacteria Urine None Seen /hpf; Bilirubin Urine Negative (Negative); Blood Urine Negative (Negative); Color Urine Yellow (Yellow); Glucose Urine UA Negative (Negative); Ketones Urine Negative (Negative); Leukocyte Esterase Ur Negative LEU/UL (Negative); Need Manual Microscopic Reviewed; Nitrate Urine Negative (Negative); Non Pathogenic Casts 0-2; Protein Urine Trace mg/dL (Negative); RBC Urine 0-2 /hpf (0-2); Squamous Epithelial Cell Urine None Seen /hpf (Few); Urobilinogen Urine 0.2 mg/dL (<2.0); WBC Urine 0-5 /hpf (0-3)
[2024-04-09] MEDS: POTASSIUM CHLORIDE INJ 40 MEQ in SODIUM CHLORIDE 0.9% IV 500 ML 130 MEQ IVPB ×2 (09:27→18:10)
[2024-04-09] MEDS: SODIUM CHLORIDE 0.9% IV 1,000 ML 999 ML IV CONT ×2 (09:27→12:12)
[2024-04-09 10:30] LABS: Magnesium 1.7 mg/dL (1.6-2.3)
[2024-04-09 10:49] LABS: Influenza A QL RT-PCR Negative (Negative); Influenza B QL RT-PCR Negative (Negative); RSV RNA, RT-PCR Negative (Negative); SARS-CoV-2 RNA PCR Negative (Negative)
[2024-04-09 10:54] LABS: NT Pro B Type Natriuretic Pept 23600 pg/mL (19.9-100); Troponin I 0.084 ng/mL (0.000-0.034)
--- NOTE | 2024-04-09 11:13 | PC.NURSE ---
attempted to call pts daughter Merna at [phone] per request, per work merna currently stepped off the floor for a bit. Will re attempt.
[2024-04-09 12:06] LABS: Creatine Kinase 73 U/L (30-135)
[2024-04-09] MEDS: MAGNESIUM SULF 2 GM/WATER 50ML 2 GM/50 ML BAG IVPB (12:46)
--- NOTE | 2024-04-09 13:08 | PM.IMHP ---
H&P: HPI History of Present Illness Date/Time: 04/09/24 20:08 Chief Complaint: Generalized weakness, unable to ambulate Narrative: This is an 83-year-old female patient with past medical history of hypertension lung cancer recent STEMI and diabetes who presented to the emergency department with complaints degenerating strength unable to ambulate at home. patient reported having a syncopal episode this morning while using the restroom. Patient reports significant amount of weight loss and inability to eat at home. In the emergency department patient found to be hypoxic and oxygen was applied but she has since been titrated off. Workup in the emergency department showed hyponatremia, hypokalemia, elevated lipase, elevated proBNP and worsening renal failure. Over the last couple of months patient has had steady decline in renal function. Month ago patient was admitted to the hospital for a STEMI went into cardiogenic shock and worsened renal dysfunction. This trend has continued to worsen. emergency department treated dehydration with IV fluid bolus 2 L of normal saline. Recheck of metabolic panel shows slight improvement in JAE but also an abrupt change in sodium level from 123-131. Will recheck sodium again in a few hours to prevent over-correction. Potassium noted to be significantly low and did not improve much after initial treatment so patient received additional oral and IV treatment of hypokalemia. CT scan of the brain showed a small area of concern for thrombosed vessel with small area of infarct verses small area of subarachnoid hemorrhage. ER consulted with Neurology at [place] who reviewed imaging and does not believe this is a subarachnoid hemorrhage. They believe this is a very small thrombosed vessel with very small infarct. MRI ordered but unable to be obtained yet. Neurology and Nephrology consulted. Also discussed case with hospitalist attending . Stress test prior to admission he indicated that we should continue aspirin Plavix and initiate Lovenox for DVT prophylaxis due to thrombosis and lung cancer history. Review of Systems Review of Systems: All systems reviewed & are unremarkable except as noted in HPI and below PMFSH Past Medical History Medical History Anxiety Chronic kidney disease, stage 3 Coronary artery disease Gastroesophageal reflux disease Hypertension Obstructive sleep apnea Osteoporosis ST elevation myocardial infarction (STEMI) (03/04/24) inferior-posterior STEMI status post PTCA/stent to the proximal left circumflex with residual recalcitrant thrombus and mid left circumflex with COLLETTE 1 to 2 flow Stage 4 lung cancer Type 2 diabetes mellitus Surgical History Surgical History History of cardiac catheterization (03/04/24) History of coronary angioplasty with insertion of stent (03/04/24) angioplasty/stent to proximal left circumflex Social History Social History Social History: Surrogate medical decision maker: Code status: Do not resuscitate. Smoking status: Never smoker Second hand tobacco smoke exposure: No Alcohol intake: never Substance use: never Substance use type: does not use Do You Feel Safe in your Home?: Yes Lack of Transportation: No Lack of Food: Never True Current Housing: I Have Housing Concerned About Future Housing: No Difficulty Paying Gas/Electric Bills: No Difficulty Paying for Meds: No Currently Unemployed: No Education: High School Diploma/GED Difficulty w/ Childcare or Family Care: No Spiritual care concerns: Yes Meds Home Medications and Allergies Home Medications Medication Instructions Recorded Confirmed Type blood sugar diagnostic (OneTouch 03/04/24 04/09/24 History Ultra Test strips) metformin 500 mg tablet,extended 500 mg PO BID 03/04/24 04/09/24 History release 24 hr acidophilus 100 million 1 cap PO DAILY 03/05/24 04/09/24 History cell-pectin, citrus 10 mg capsule amlodipine 5 mg tablet 5 mg PO DAILY 03/05/24 04/09/24 History calcium 600 mg capsule 600 mg PO DAILY 03/05/24 04/09/24 History cholecalciferol (vitamin D3) 25 25 mcg PO DAILY 03/05/24 04/09/24 History mcg (1,000 unit) tablet (Vitamin D3) cyanocobalamin (vitamin B-12) 1,000 mcg PO DAILY 03/05/24 04/09/24 History 1,000 mcg tablet (Vitamin B-12) krill oil 500 mg capsule 500 mg PO DAILY 03/05/24 04/09/24 History vedasebglimu-Dy-xyjn-minerals 1 tablet PO DAILY 03/05/24 04/09/24 History aspirin 81 mg tablet,delayed 81 mg PO DAILY #90 tabs 03/08/24 04/09/24 Rx release atorvastatin 40 mg tablet 40 mg PO DAILY #90 tabs 03/08/24 04/09/24 Rx osimertinib 80 mg tablet (Tagrisso) 80 mg PO DAILY 03/10/24 04/09/24 History metoprolol succinate 25 mg 12.5 mg PO DAILY #14 tabs 03/12/24 04/09/24 Rx tablet,extended release 24 hr (Toprol XL) pantoprazole 40 mg tablet,delayed 40 mg PO QAM 30 days #30 tabs 03/12/24 04/09/24 Rx release clopidogrel 75 mg tablet 75 mg PO HS 04/09/24 04/09/24 History Allergies Allergy/AdvReac Type Severity Reaction Status Date / Time codeine Allergy Nausea and Verified 03/04/24 06:11 Vomiting erythromycin base Allergy Rash Verified 03/04/24 06:11 escitalopram [From Lexapro] Allergy Nausea and Verified 03/04/24 06:11 Vomiting Vital Signs Vital Signs - 24 hr 04/09/24 08:05 04/09/24 08:07 04/09/24 09:10 Temperature 36.4 C Pulse Rate 84 86 Respiratory Rate 24 H Blood Pressure 118/58 L Pulse Oximetry 100 82 L Oxygen Delivery Room Air Room Air Oxygen Flow Rate 04/09/24 09:10 04/09/24 09:27 04/09/24 09:30 Temperature Pulse Rate 82 81 Respiratory Rate 23 H 19 Blood Pressure 127/69 137/75 Pulse Oximetry 95 100 100 Oxygen Delivery Nasal Cannula Oxygen Flow Rate 2 04/09/24 10:39 04/09/24 12:20 04/09/24 12:49 Temperature Pulse Rate 81 90 88 Respiratory Rate 21 H 20 24 H Blood Pressure 136/72 121/65 129/73 Pulse Oximetry 96 100 100 Oxygen Delivery Oxygen Flow Rate Exam Narrative: GENERAL: Ill appearing, very thin, in no acute distress. HEAD: Normocephalic, atraumatic. ENT: mucous membranes intact, moist RESPIRATORY: Airway patent, respirations nonlabored. Clear to auscultation bilaterally, no rales, rhonchi, wheezing. CARDIOVASCULAR: Regular rate and rhythm without murmurs, rubs, or gallops. ABDOMINAL: Soft, no significant tenderness throughout abdomen, nondistended. Normoactive BS. MUSCULOSKELETAL: Moves all extremities. No gross deformities. SKIN: Warm, dry, normal color. NEURO: A&O X3. Able to answer all questions and follow commands. Speech clear. Equal fuel island attendant strength bilaterally. Able to move all extremities equally. Gait testing deferred PSYCHIATRIC: Appropriate mood and affect. Normal interaction. H&P: Results Labs Labs: Short CBC 04/09/24 Range/Units 08:21 WBC 7.6 (4.5-10.0) K/mm3 Hgb 10.0 L (12.0-15.0) g/dL Hct 29.8 L (37.0-47.0) % Plt Count 273 (150-375) k/mm3 BMP 04/09/24 08:21 Sodium 123 L Potassium 2.8 L* Chloride 73 L Carbon Dioxide 31 H BUN 89 H D Creatinine 3.20 H Glucose 199 H Calcium 9.7 Cardiac Enzymes 04/09/24 Range/Units 08:21 Total Creatine Kinase 73 (30-135) U/L Troponin I 0.084 H* (0.000-0.034) ng/mL Liver Function 04/09/24 Range/Units 08:21 Total Bilirubin 0.9 (0.2-1.3) mg/dL AST 47 H (14-36) U/L ALT 17 (6-35) U/L Alkaline Phosphatase 111 (38-126) U/L Albumin 4.5 (3.5-5.1) g/dL Urine 04/09/24 Range/Units 08:21 Urine Color Yellow (Yellow) Urine Appearance Clear (Clear) Urine pH 5.0 (5.0-9.0) Ur Specific [place] 1.010 (1.001-1.035) Urine Protein Trace (Negative) mg/dL Urine Glucose (UA) Negative (Negative) mg/dL Pulse Oximetry SpO2 results: 95-100% on 2 LPM via NC, 82% on room air Attestation: I personally reviewed and interpreted this pulse oximetry as follows: Interpretation: Patient requires supplemental oxygen, will attempt to titrate ECG Attestation: I personally reviewed and interpreted this ECG as follows: ECG completion date: 04/09/24 ECG completion time: 13:52 Prior ECG tracings: available for review Interpretation: Sinus rhythm rate of 79 NJ interval 190 QRS duration 90 QTC 221 QRS axis -55 left axis deviation and no STEMI Imaging Chest x-ray: Radiologist's impression: EXAMINATION: XR chest 1V portable DATE: 04/09/2024 08:49 INDICATION: Weakness. TECHNIQUE: frontal view of the chest was obtained. COMPARISON: 03/09/2024 FINDINGS: Mild left apical pleural-parenchymal scarring. Thin linear opacities at the bilateral lower lung zones consistent with atelectasis/scarring. There is blunting at the bilateral costophrenic angles consistent with very small bilateral pleural effusions. Heart size is normal. Possible hiatal hernia versus tortuous distal thoracic aorta. IMPRESSION: 1. There are small bilateral bilateral pleural effusions and linear discoid atelectasis/scarring at the bilateral lower lung zones. Reviewed, dictated and finalized at location B. INE MOLDER SQUEEZE CT scan - head: Radiologist's impression: EXAMINATION: CT brain wo con DATE: 04/09/2024 09:21 INDICATION: Unresponsive episode TECHNIQUE: Computed tomography (CT) of the head was performed without intravenous contrast. Sagittal and coronal reconstructions were performed. The mA was adjusted according to patient size. Iterative reconstruction technique was employed. The dose-length product was 681.00 mGy-cm. COMPARISON: head CT dated 07/30/20 FINDINGS: Small focus of increased attenuation along the surface of a sulcus in the posterior right frontal region which could represent either a small thrombosed vessel or minimal subarachnoid hemorrhage. There appears to be tiny focus of decreased haider matter attenuation along side the focus of increased density suspicious for small acute infarct and which along with the relatively linear configuration of increased density would favor thrombosed vessel. There is mild scattered white matter hypoattenuation consistent with chronic small vessel ischemic disease. No abnormal extra axial fluid collection. Symmetric prominence of the sulci consistent with mild age-appropriate diffuse cerebral volume loss. Ventricles are normal and symmetric. No mass/mass effect. Changes of bilateral intraocular lens replacement. The orbits and mastoid air cells are normal. Small amount of dependently layering mucus in the right sphenoid sinus. IMPRESSION: 1. Small relatively linear region of increased density along side a small focus of loss of haider-white matter density along a sulcus in the posterior right frontal lobe suspicious for a thrombosed vessel and immediately adjacent small infarct. Differential however would include a small focus of subarachnoid hemorrhage. Dr. Starks discussed these findings with Dr. Hampton at 9:30 AM. Reviewed, dictated and finalized at location B. INE MOLDER SQUEEZE Assessment and Plan Assessment and plan (1) Stroke: Code(s): I63.9 - Cerebral infarction, unspecified Status: Acute Assessment and Plan: -Presented with syncope and weakness. -CT brain shows Small relatively linear region of increased density along side a small focus of loss of haider-white matter density along a sulcus in the posterior right frontal lobe suspicious for a thrombosed vessel and immediately adjacent small infarct. Differential however would include a small focus of subarachnoid hemorrhage. -[facility] consulted and stated no intervention and patient should be admitted here. -Highly unlikely for SAH per [facility]. -Discussed with Dr. Lugo who stated to admit here, consult Neurology and continue DAPT plus Lovenox for VTE prophylaxis. -MRI/MRA ordered -Ordered Lipid panel in AM -Ordered Echo with Bubble Study (2) Hypokalemia: Code(s): E87.6 - Hypokalemia Status: Acute Assessment and Plan: -Initial potassium 2.8 in ER. -Received magnesium and potassium via IV in ER -Repeat potassium 2.9 -Ordered 60 mEq oral and another 40 mEq IV -Check repeat in AM (3) High anion gap metabolic acidosis: Code(s): E87.29 - Other acidosis Status: Acute Assessment and Plan: -Initial anion gap 19 with elevated CO2 on chemistry panel in ER -S/P IV fluid resuscitation anion gap remains elevated at 18 -Patient takes metformin for diabetes -Ordered lactic acid, VBG and betahydroxybuterate -Mild elevation of beta hydroxybutyrate indicating potential mild euglycemic DKA versus dehydration related ketosis -ABG indicates overall alkalosis diminishing likelihood of DKA (4) Dehydration: Code(s): E86.0 - Dehydration Status: Acute Assessment and Plan: -ER treated with 2 liters IV fluid bolus -JAE on CKD noted and hyponatremia noted (5) Hyponatremia: Code(s): E87.1 - Hypo-osmolality and hyponatremia Status: Acute Assessment and Plan: -Initial sodium 123 in ER -S/P IV fluids recheck level was 131 -Will recheck again around 2300 to make sure we do not overcorrect too fast -Nephrology consulted for JAE on CKD with significant drop in renal function as well as hyponatremia (6) Acute respiratory failure with hypoxia: Code(s): J96.01 - Acute respiratory failure with hypoxia Status: Acute Assessment and Plan: -Sats 82% in ER -Good saturations on 2 LPM by NC -Wean as tolerated (7) Acute on chronic kidney failure: Code(s): N17.9 - Acute kidney failure, unspecified; N18.9 - Chronic kidney disease, unspecified Status: Resolved Assessment and Plan: -Initial labs Cr 3.2, BUN 89, eGFR 14, eCrCl 7 -ER treated with 2 liters IV fluid bolus -Repeat labs Cr 2.6, BUN 74, eGFR 17, eCrCl 9 (8) Type 2 diabetes mellitus: Code(s): E11.9 - Type 2 diabetes mellitus without complications Status: Acute Assessment and Plan: -A1c 7.5 last month -Hold metformin in light of metabolic acidosis and renal dysfunction -ACHS Fingerstick blood glucose with SSI -Mild elevation of beta hydroxybutyrate indicating potential mild euglycemic DKA versus dehydration related ketosis -ABG indicates overall alkalosis diminishing likelihood of DKA (9) Obstructive sleep apnea: Code(s): G47.33 - Obstructive sleep apnea (adult) (pediatric) Status: Acute Assessment and Plan: -AutoPap available if needed (10) Stage 4 lung cancer: Code(s): C34.90 - Malignant neoplasm of unspecified part of unspecified bronchus or lung Status: Acute Assessment and Plan: -patient with hypoxia in ER, on 2 LPM NC now (11) Anemia: Code(s): D64.9 - Anemia, unspecified Status: Acute Assessment and Plan: -Chronic anemia, likely multifactoral including anemia of chronic disease/renal dysfunction -Prior labs a month ago with Iron deficiency, received transfusion at that time, uncertain if received iron -Repeat iron labs and B12/Folate (12) Severe protein-calorie malnutrition: Code(s): E43 - Unspecified severe protein-calorie malnutrition Status: Acute Assessment and Plan: -Change to regular diet with Glucerna shakes TID -Consult Pit Manager Plan Admit to IMU Consult Neurology for thrombosis with infarct vs SAH, MRI/MRA ordered Consult Nephrology for JAE on CKD and hyponatremia Repeat labs frequently to make sure we don't overcorrect sodium too fast Quality VTE Prophylaxis VTE prophylaxis: pharmacologic ordered Due to a high probability of clinically significant, life threatening deterioration, the patient required my highest level of preparedness to intervene emergently and I personally spent this critical care time directly and personally managing the patient. This critical care time included obtaining a history; examining the patient; pulse oximetry; ordering and review of studies; arranging urgent treatment with development of a management plan; evaluation of patient's response to treatment; frequent reassessment; and discussions with other providers. It was exclusive of separately billable procedures and treating other patients and teaching time. Please see Assessment and Plan section and the rest of the note for further information on patient assessment and treatment. Critical Care time: 40 minutes Hospitalist MIPS Advance Care Plan I have confirmed that the patient's Advanced Care Plan is present, code status is documented, or surrogate decision maker is listed in patient medical record.: Yes Medication Reconciliation I have utilized all available resources to obtain, update and review the patients current medications (includes all prescriptions, OTC, herbals, cannabis, and nutritional supplements).: Yes
--- NOTE | 2024-04-09 13:44 | ECG_ITS ---
Test Date: 2024-04-09 13:52:58 Measurements Intervals [place] Rate: 79 P: 51 NH: 190 QRS: -55 QRSD: 90 T: 0 QT: 192 QTc: 221 Interpretive Statements SINUS RHYTHM LEFT AXIS DEVIATION CONSIDER INFERIOR INFARCT, AGE INDETERMINATE ANTEROSEPTAL INFARCT, AGE INDETERMINATE BORDERLINE ST-T WAVE ABNORMALITY- ANTEROLAT/HIGH LAT LEADS BASELINE ARTIFACT- I, II, III, AVR, AVL, AVF, V1-V6 ABNORMAL ECG Compared to ECG 04/09/2024 08:07:11 NO SIGNIFICANT CHANGE Electronically Signed On 04-09-2024 14:00:12 ABSORPTION AND ADSORPTION ENGINEER by Jacob Ferrara D.O.
[2024-04-09 14:12] LABS: Troponin I 0.069 ng/mL (0.000-0.034)
[2024-04-09 17:10] LABS: Anion Gap 18 mmol/L (4-12); Blood Urea Nitrogen 74 mg/dL (7-17); Calcium 9.2 mg/dL (8.4-10.2); Carbon Dioxide 27 mmol/L (22-30); Chloride 86 mmol/L (98-107); Estimated CRCL calculation 9 ml/min; Estimated Glomerular Filt Rate 17; Glucose 155 mg/dL (65-110); Potassium 2.9 mmol/L (3.4-5.0); Sodium 131 mmol/L (137-145)
[2024-04-09 17:56] LABS: Fractional Inspired Oxygen 28 %; HCO3 VBG 25.3 mEq/l (24.0-30.0); PCO2 VBG 31.2 mmHg (42.0-48.0)
[2024-04-09 17:58] LABS: Device NASAL CANNULA; PO2 VBG < 27.0 mmHg (35.0-45.0); pH VBG 7.527 (7.300-7.400)
[2024-04-09 18:07] LABS: Iron 54 ug/dL (37-170)
[2024-04-09] MEDS: POTASSIUM CHLORIDE 20 MEQ ER TABLET 60 MEQ PO (18:09)
[2024-04-09 18:10] LABS: Lactic Acid Reflex 1.3 mmol/L (0.7-2.0)
[2024-04-09 18:15] LABS: Beta-Hydroxybutyrate/Acetoacetate 2.44 mmol/L (0.02-0.27)
[2024-04-09 18:17] LABS: Percent Iron Saturation 17 % (20-50)
[2024-04-09 18:57] LABS: Glucose Point of Care 145 mg/dl (65-105)
[2024-04-09 19:17] LABS: Folic Acid > 20.0 ng/mL (2.76->20); Vitamin B12 > 1000.0 pg/mL (239-931)
[2024-04-09 20:05] LABS: Glucose Point of Care 235 mg/dl (65-105)
[2024-04-09] MEDS: CLOPIDOGREL BISULFATE 75 MG TABLET PO (20:35)
[2024-04-09 23:35] LABS: Anion Gap 11 mmol/L (4-12); Blood Urea Nitrogen 72 mg/dL (7-17); Calcium 8.9 mg/dL (8.4-10.2); Carbon Dioxide 30 mmol/L (22-30); Chloride 92 mmol/L (98-107); Estimated CRCL calculation 10 ml/min; Estimated Glomerular Filt Rate 19; Glucose 216 mg/dL (65-110); Sodium 133 mmol/L (137-145)
[2024-04-10] VITALS (16 sets, daily range): BP systolic 110–130; BP diastolic 58–67; PULSE 54–216; RESP 16–18; TEMP 36.4–36.7; O2SAT 90–98; BMI 18.1
--- NOTE | 2024-04-10 | ECHO_ITS ---
Patient Info Name: Kelsey Bain Age: 83 years : 1940 Gender: Female Ht: 60 in Wt: 91 lbs BSA: 1.32 m2 HR: 54 bpm BP: 119 / 61 mmHg Technical Quality: Poor Exam Date: 04/10/2024 9:16 AM Exam Location: Echo Lab Patient Status: Inpatient Admit Date: 04/09/2024 Staff Ordering Physician: Christopher Balderas APRN Spout Worker: MARYSOL Attending Provider: Ugo Odonnell MD Referring Physician: Andrey HUMPHRIES; Exam Type: CA echo dop bubble study w con Study Info Indications - STROKE Complete two-dimentional, color flow and Doppler transthoracic echocardiogram is performed with agitated saline and with contrast to opacify the left ventricle and to improve the delineation of the left ventricle endocardial borders. Contrast/Agitated Saline Contrast/Ag. Saline: Agitated Saline Amount: 20.00 ml Existing IV Access: Yes Contrast/Ag. Saline: Definity Amount: 2.00 ml Reason for Poor Study: poor echocardiographic windows Summary 1. No patent ovale evident (PFO) by agitated saline imaging. 2. Left atrial chamber dimension is enlarged. 3. Right atrial chamber dimension is enlarged. 4. Left ventricular chamber dimension is enlarged. 5. Left ventricular wall thickness is normal. 6. Left ventricular systolic function is mildly reduced with an estimated ejection fraction of 4045.0 %. 7. The left ventricular diastolic function is indeterminate. 8. Right ventricular chamber dimension is normal. 9. Right ventricular systolic function is normal. 10. No LV thrombus seen. 11. There is mild to moderate aortic valve regurgitation. PHT 336 ms. 12. There is mild aortic valve stenosis with a peak velocity of 157 cm/s, mean gradient of 5 mmHg, and aortic valve area of 1.7 cm2. 13. There is a mobile echogenicity seen on the aortic valve leaflet, most likley Lambl's excrescence (seen best in #c view, image 67). Thrombus or vegetation cannot be ruled out. Consider KENY for further evaluation. 14. There is moderate to severe mitral valve regurgitation. 15. The mitral valve has normal leaflets. 16. There is moderate tricuspid valve regurgitation. 17. Mild pulmonary hypertension, estimated pulmonary arterial systolic pressure is 54 mmHg. Recommendations * Consider KENY to further assess aortic and mitral valves. Left Ventricle Left ventricular chamber dimension is enlarged. Left ventricular wall thickness is normal. Left ventricular systolic function is mildly reduced with an estimated ejection fraction of 4045.0 %. There is inferior, inf-post and apico-inf segment hypokinesis. The left ventricular diastolic function is indeterminate. No LV thrombus seen. Right Ventricle Right ventricular chamber dimension is normal. Right ventricular systolic function is normal. Left Atria Left atrial chamber dimension is enlarged. Right Atria Right atrial chamber dimension is enlarged. Atrial Septum No patent ovale evident (PFO) by agitated saline imaging. Aortic Valve There is mild aortic valve stenosis with a peak velocity of 157 cm/s, mean gradient of 5 mmHg, and aortic valve area of 1.7 cm2. There is mild to moderate aortic valve regurgitation. PHT 336 ms. There is a mobile echogenicity seen on the aortic valve leaflet, most likley Lambl's excrescence (seen best in #c view, image 67). Thrombus or vegetation cannot be ruled out. Consider KENY for further evaluation. Mitral Valve The mitral valve has normal leaflets. There is moderate to severe mitral valve regurgitation. Tricuspid Valve There is moderate tricuspid valve regurgitation. Mild pulmonary hypertension, estimated pulmonary arterial systolic pressure is 54 mmHg. Pericardium/Pleural There is trivial pericardial effusion. Inferior Vena Cava Normal inferior vena cava with >50% collapse upon inspiration consistent with normal right atrial pressure, 8 mmHg. Aorta The prox ascending aorta size is normal. The aortic root size at the sinus of Valsalva is normal. Left Ventricular Outflow Tract Name Value Normal LVOT 2D LVOT Diameter 1.8 cm LVOT Doppler LVOT Peak Gradient 3 mmHg LVOT Mean Gradient 2 mmHg LVOT VTI 18 cm LVOT VTI/AV VTI Ratio 0.6 LVOT Stroke Volume 47 ml LVOT CO 4.4 l/min LVOT CI 3.3 l/min/m2 Pulmonic Valve Name Value Normal RVOT Doppler RVOT Peak Gradient 2 mmHg PV Doppler PV Peak Gradient 2 mmHg Mitral Valve Name Value Normal MV Doppler MV Peak Gradient 8 mmHg MV Mean Gradient 3 mmHg MV Decel Borden 1,173 cm/s2 MV PHT 31 ms MV Area (PHT) 7.1 cm2 4.0-5.0 MV Area (Cont Eq VTI) 2.1 cm2 MV Regurgitation Doppler MR ERO (PISA) 0.06 cm2 MR Volume (PISA) 10 ml MV Diastolic Function MV E Peak Velocity 125 cm/s MV A Peak Velocity 79 cm/s MV E/A 1.6 MV Decel Time 107 ms MV Annular TDI MV E/e' (Septal) 37.3 <=8.0 MV E/e' (Lateral) 27.9 <=8.0 MV E/e' (Average) 32.6 Tricuspid Valve Name Value Normal TV Regurgitation Doppler TR Peak Velocity 340 cm/s TR Peak Gradient 46 mmHg Estimated PAP/RSVP RA Pressure 8 mmHg <=5 PA Systolic Pressure 54 mmHg <36 RV Systolic Pressure 54 mmHg <36 Aorta Name Value Normal Ascending Aorta Ao Root Diameter (MM) 2.7 cm Ao Root Diam Index (MM) 2.1 cm/m2 Aortic Valve Name Value Normal AV Doppler AV Peak Velocity 157 cm/s AV Peak Gradient 10 mmHg AV Mean Gradient 5 mmHg AV VTI 28 cm AV Area (Cont Eq VTI) 1.7 cm2 >=3.0 AV Area (Cont Eq Rik) 1.5 cm2 AV Regurgitation 2D LVOT Area 2.6 cm2 AV Regurgitation Doppler AR Decel Time 1,160 ms AR Decel Borden 332 cm/s2 AR PHT 336 ms Ventricles Name Value Normal LV Dimensions 2D/MM IVS Diastolic Thickness (2D) 1.0 cm 0.6-1.0 LVID Diastole (2D) 5.7 cm 3.8-5.2 LVIW Diastolic Thickness (2D) 0.7 cm 0.6-0.9 LVID Systole (2D) 4.7 cm 2.2-3.5 LVOT Diameter 1.8 cm LV Mass (2D Cubed) 175.51 g 67.00-162.00 LV Mass Index (2D Cubed) 133 g/m2 43-95 Relative Wall Thickness (2D) 0.24 LV Fractional Shortening/Ejection Fraction 2D/MM LV Fractional Shortening (2D) 18 % 27-45 LV EF (2D Teicholz) 37 % 54-74 LV Diastolic Volume (4C MOD) 94 ml LV EF (4C MOD) 44 % LV Diastolic Volume (2C MOD) 93 ml LV EF (2C MOD) 25 % LV Diastolic Volume (BP MOD) 94 ml 46-106 LV Diastolic Volume Index (BP MOD) 71 ml/m2 29-61 LV Systolic Volume (BP MOD) 62 ml 14-42 LV Systolic Volume Index (BP MOD) 47 ml/m2 8-24 LV EF (BP MOD) 34 % 54-74 LV Diastolic Length (4C) 7.0 cm LV Systolic Length (4C) 6.1 cm LV Stroke Volume (4C MOD) 41 ml Atria Name Value Normal LA Dimensions LA Dimension (MM) 4.3 cm 2.7-3.8 LA Volume (4C A-L) 59 ml LA Volume (BP A-L) 59 ml Report Signatures Amended by Evonne Pinzon on 04/11/2024 19:19
[2024-04-10] MEDS: DESMOPRESSIN ACETATE 4 MCG/ML AMP 1 MCG IV PUSH (00:23)
[2024-04-10 05:15] LABS: Basophils Percent Auto 0.4 % (0.2-1.2); Eosinophils Percent Auto 0.2 % (0-4.4); Hemoglobin 8.3 g/dL (12.0-15.0); Immature Granulocyte Absolute 0.03 K/mm3 (0.00-0.031); Immature Granulocyte Percent A 0.3 % (0-0.5); Lymphocytes Absolute Auto 0.69 K/mm3 (0.9-3.2); Lymphocytes Percent Auto 7.5 % (18.3-44.2); Mean Corpuscular HGB Conc 33.2 g/dl (32-36); Mean Corpuscular Hemoglobin 28.9 pg (26-34); Mean Corpuscular Volume 87.1 fl (80-100); Mean Platelet Volume 11.7 fl (7.4-10.4); Monocytes Absolute Auto 1.2 K/mm3 (0.1-0.6); Monocytes Percent Auto 12.9 % (2.6-8.5); Neutrophils Absolute Auto 7.2 K/mm3 (1.3-6.7); Neutrophils Percent Auto 78.7 % (45.5-73.1); Platelet Count Result 226 k/mm3 (150-375); Red Blood Count 2.87 M/mm3 (4.2-5.4); White Blood Count 9.2 K/mm3 (4.5-10.0)
[2024-04-10 05:33] LABS: Alanine Aminotransferase 14 U/L (6-35); Albumin Level 3.9 g/dL (3.5-5.1); Alkaline Phosphatase 87 U/L (38-126); Anion Gap 11 mmol/L (4-12); Aspartate Amino Transferase 43 U/L (14-36); Bilirubin,Total 0.6 mg/dL (0.2-1.3); Blood Urea Nitrogen 69 mg/dL (7-17); Carbon Dioxide 30 mmol/L (22-30); Chloride 93 mmol/L (98-107); Estimated CRCL calculation 11 ml/min; Estimated Glomerular Filt Rate 20; Glucose 175 mg/dL (65-110); Magnesium 2.3 mg/dL (1.6-2.3); Potassium 4.9 mmol/L (3.4-5.0); Sodium 134 mmol/L (137-145)
[2024-04-10 06:04] LABS: Cholesterol 147 mg/dL (0-200); HDL Direct 58 mg/dL; Triglycerides 105 mg/dL (<150)
[2024-04-10 06:14] LABS: LDL Cholesterol Direct 42 mg/dL
[2024-04-10 07:55] LABS: Hemoglobin A1C 7.3 % (<5.7)
[2024-04-10 07:55] LABS: Glucose Point of Care 168 mg/dl (65-105)
[2024-04-10] MEDS: CHOLECALCIFEROL 1,000 UNITS TABLET 1000 UNITS PO (08:47)
[2024-04-10] MEDS: amLODIPine BESYLATE 5 MG TABLET PO (08:47)
[2024-04-10] MEDS: ASPIRIN 81 MG ENTERIC TABLET PO (08:47)
[2024-04-10] MEDS: THERAPEUTIC MULTIVITAMINS/MINERALS TAB (*BKC) 1 TABLET PO (08:47)
[2024-04-10] MEDS: CALCIUM CARBONATE (OSCAL) 500 MG TABLET PO (08:47)
[2024-04-10] MEDS: CYANOCOBALAMIN 1,000 MCG TABLET 1000 MCG PO (08:47)
[2024-04-10] MEDS: METOPROLOL SUCCINATE EXT REL 12.5 MG TABCR PO (08:48)
[2024-04-10] MEDS: ATORVASTATIN 40 MG TABLET PO (08:48)
[2024-04-10] MEDS: PANTOPRAZOLE 40 MG TABLET PO (08:48)
--- NOTE | 2024-04-10 09:17 | PM.CNNEP ---
History of Present Illness Reason for Consult Consult date: 04/10/24 Reason for consult: chronic renal failure Chief Complaint Chief complaint: Syncope,JAE,Hypokalemia,dehydration,hyponatremia Review of Systems Review of Systems: As per HPI. [facility] Past Medical History Medical History Anxiety Chronic kidney disease, stage 3 Coronary artery disease Gastroesophageal reflux disease Hypertension Obstructive sleep apnea Osteoporosis ST elevation myocardial infarction (STEMI) (03/04/24) inferior-posterior STEMI status post PTCA/stent to the proximal left circumflex with residual recalcitrant thrombus and mid left circumflex with COLLETTE 1 to 2 flow Stage 4 lung cancer Type 2 diabetes mellitus Surgical History Surgical History History of cardiac catheterization (03/04/24) History of coronary angioplasty with insertion of stent (03/04/24) angioplasty/stent to proximal left circumflex Social History Social History Social History: Surrogate medical decision maker: Code status: Do not resuscitate. Smoking status: Never smoker Second hand tobacco smoke exposure: No Alcohol intake: never Substance use: never Substance use type: does not use Do You Feel Safe in your Home?: Yes Lack of Transportation: No Lack of Food: Never True Current Housing: I Have Housing Concerned About Future Housing: No Difficulty Paying Gas/Electric Bills: No Difficulty Paying for Meds: No Currently Unemployed: No Education: High School Diploma/GED Difficulty w/ Childcare or Family Care: No Spiritual care concerns: Yes Meds Home Medications and Allergies Home Medications Medication Instructions Recorded Confirmed Type blood sugar diagnostic (OneTouch 03/04/24 04/09/24 History Ultra Test strips) metformin 500 mg tablet,extended 500 mg PO BID 03/04/24 04/09/24 History release 24 hr acidophilus 100 million 1 cap PO DAILY 03/05/24 04/09/24 History cell-pectin, citrus 10 mg capsule amlodipine 5 mg tablet 5 mg PO DAILY 03/05/24 04/09/24 History calcium 600 mg capsule 600 mg PO DAILY 03/05/24 04/09/24 History cholecalciferol (vitamin D3) 25 25 mcg PO DAILY 03/05/24 04/09/24 History mcg (1,000 unit) tablet (Vitamin D3) cyanocobalamin (vitamin B-12) 1,000 mcg PO DAILY 03/05/24 04/09/24 History 1,000 mcg tablet (Vitamin B-12) krill oil 500 mg capsule 500 mg PO DAILY 03/05/24 04/09/24 History nbjeazogeizm-Zm-hidb-minerals 1 tablet PO DAILY 03/05/24 04/09/24 History aspirin 81 mg tablet,delayed 81 mg PO DAILY #90 tabs 03/08/24 04/09/24 Rx release atorvastatin 40 mg tablet 40 mg PO DAILY #90 tabs 03/08/24 04/09/24 Rx osimertinib 80 mg tablet (Tagrisso) 80 mg PO DAILY 03/10/24 04/09/24 History metoprolol succinate 25 mg 12.5 mg PO DAILY #14 tabs 03/12/24 04/09/24 Rx tablet,extended release 24 hr (Toprol XL) pantoprazole 40 mg tablet,delayed 40 mg PO QAM 30 days #30 tabs 03/12/24 04/09/24 Rx release clopidogrel 75 mg tablet 75 mg PO HS 04/09/24 04/09/24 History furosemide 80 mg tablet 80 mg PO BID 04/10/24 04/10/24 History Allergies Allergy/AdvReac Type Severity Reaction Status Date / Time codeine Allergy Nausea and Verified 03/04/24 06:11 Vomiting erythromycin base Allergy Rash Verified 03/04/24 06:11 escitalopram [From Lexapro] Allergy Nausea and Verified 03/04/24 06:11 Vomiting Vital Signs Vital Signs Temp Pulse Resp BP Pulse Ox O2 Del Method FiO2 04/10/24 09:04 92 Room Air 21 04/10/24 08:48 98 04/10/24 07:35 97.7 F 95 18 116/62 90 04/10/24 06:00 54 L 04/10/24 04:00 97.7 F 95 16 119/61 94 04/10/24 04:00 Room Air 04/10/24 04:00 94 04/10/24 02:00 94 04/10/24 00:00 84 04/10/24 00:00 Room Air 04/09/24 23:37 98.6 F 83 18 123/73 96 04/09/24 22:00 97 04/09/24 20:00 84 04/09/24 20:00 Room Air 04/09/24 20:09 97.8 F 88 18 112/55 L 98 04/09/24 17:59 82 04/09/24 16:00 80 04/09/24 16:00 Room Air 04/09/24 16:00 97.3 F L 86 18 126/62 100 04/09/24 14:45 97.5 F L 83 22 H 116/59 L 100 04/09/24 14:12 81 26 H 123/66 100 04/09/24 13:42 97.8 F 83 24 H 126/72 99 04/09/24 12:49 88 24 H 129/73 100 04/09/24 12:20 90 20 121/65 100 Results Lab Results 04/10/24 04:23 04/10/24 04:23 Lab results: Most recent lab results Calcium 9.0 mg/dL (8.4-10.2) 04/10/24 04:23 Magnesium 2.3 mg/dL (1.6-2.3) 04/10/24 04:23
[2024-04-10] MEDS: ENOXAPARIN 30 MG/0.3 ML SYRINGE SUB-Q (11:05)
[2024-04-10] MEDS: PERFLUTREN LIPID MICROSPHERES 1.5 ML VIAL DILUTED TO 10 ML TOTAL VOLUME IV PUSH (11:10)
[2024-04-10 11:31] LABS: Glucose Point of Care 183 mg/dl (65-105)
--- NOTE | 2024-04-10 11:49 | IVDEFINITY ---
Prior to administration of IV Definity the patient was educated on the risks and benefits of the imaging enhancing agent including potential adverse side effects. The patient verbalized understanding. Allergies were verified. No exclusion criteria were identified and at least one of the following inclusion criteria were met: 1) physician request, 2) patient technically difficult to image (per the [place] [employer]ocardi[employer] guidelines of two or more segments not discernable within the apical view), or 3) questionable left ventricular function. ?
--- NOTE | 2024-04-10 11:50 | WPDNEURCNPN ---
Assessment and Plan Assessment and plan (1) Syncope and collapse: Code(s): R55 - Syncope and collapse Status: Acute Plan 1. Syncopal episode 2. Rule out the possibility of seizure 3. Rule out the possibility of early metastatic disease or stroke versus TIA. Plan obtain the MRI and EEG. Will discuss with the patient thoroughly Consult date: 04/10/24 HPI: Kelsey Bain is a 83 year old female Admitted to the hospital through the emergency room with the complaints of generalized weakness along with the syncopal episode ,reportedly she had in syncopal episode while in the toilet in the morning,she became completely limp and unresponsive, she did not fall off the toilet or hit her head but EMS were called. At that time she was already awake alert oriented x3 and complained of being increasingly weak. she has been recently admitted to hospital several times and also has had a stent placed for STEMI in addition she was recently diagnosed to have carcinoma of the lung and has been receiving oral chemotherapy .she gave no history of any associated generalized symptomatology at this particular time. she was placed on 2L of nasal cannula oxygen in the emergency room because her PO2 was in mid 80s, she gave no history of any other neurological symptomatology. she has been receiving multiple medications which particularly include metformin 500mg b.i.d., amlodipine 5mg daily,tagrisso 80mg tablet daily and clopidogrel 75mg daily. it was documented in the ER notes that she has chronic kidney disease stage 3, coronary artery disease, GERD, hypertension, obstructive sleep apnea, type 2 diabetes mellitus, and stage IV carcinoma of the lung, she is never a smoker, never alcohol intake, however substance use, on initial exam in the emergency room she was found to have no neurological deficit, her vital signs were normal, and lab evaluation revealed her to be hyponatremic with sodium of 123 potassium of 2.8 neg knee pate of 1.7 creatinine of 3.2 normal EKG with no STEMI or atrial fibrillation but ST segment was still down she was recovering from the STEMI or else demand ischemia chest x-ray revealed bilateral pleural effusion. [facility] was contacted for the possibility of transfer to the [facility] for neurological service but it was suggested to keep her here. On chest x-ray she was noted to have bilateral pleural effusion, on CT scan of the head there was a linear increased density along the sulcus in the posterior right frontal lobe suggestive of early infarct but hemorrhage could not be ruled out. At this particular time she is receiving amlodipine 5mg daily, metoprolol 12.5mg daily, aspirin 81mg daily, atorvastatin 40mg daily, Lovenox 30mg subQ daily, and insulin 2 to 5 5units subQ 3 times a day. MRI is pending Review of Systems Review of Systems: All systems reviewed & are unremarkable except as noted in HPI and below PMFSH Past Medical History Medical History Anxiety Chronic kidney disease, stage 3 Coronary artery disease Gastroesophageal reflux disease Hypertension Obstructive sleep apnea Osteoporosis ST elevation myocardial infarction (STEMI) (03/04/24) inferior-posterior STEMI status post PTCA/stent to the proximal left circumflex with residual recalcitrant thrombus and mid left circumflex with COLLETTE 1 to 2 flow Stage 4 lung cancer Type 2 diabetes mellitus Surgical History Surgical History History of cardiac catheterization (03/04/24) History of coronary angioplasty with insertion of stent (03/04/24) angioplasty/stent to proximal left circumflex Social History Social History Social History: Surrogate medical decision maker: Code status: Do not resuscitate. Smoking status: Never smoker Second hand tobacco smoke exposure: No Alcohol intake: never Substance use: never Substance use type: does not use Do You Feel Safe in your Home?: Yes Lack of Transportation: No Lack of Food: Never True Current Housing: I Have Housing Concerned About Future Housing: No Difficulty Paying Gas/Electric Bills: No Difficulty Paying for Meds: No Currently Unemployed: No Education: High School Diploma/GED Difficulty w/ Childcare or Family Care: No Spiritual care concerns: Yes Meds Home Medications and Allergies Home Medications Medication Instructions Recorded Confirmed Type blood sugar diagnostic (OneTouch 03/04/24 04/09/24 History Ultra Test strips) metformin 500 mg tablet,extended 500 mg PO BID 03/04/24 04/09/24 History release 24 hr acidophilus 100 million 1 cap PO DAILY 03/05/24 04/09/24 History cell-pectin, citrus 10 mg capsule amlodipine 5 mg tablet 5 mg PO DAILY 03/05/24 04/09/24 History calcium 600 mg capsule 600 mg PO DAILY 03/05/24 04/09/24 History cholecalciferol (vitamin D3) 25 25 mcg PO DAILY 03/05/24 04/09/24 History mcg (1,000 unit) tablet (Vitamin D3) cyanocobalamin (vitamin B-12) 1,000 mcg PO DAILY 03/05/24 04/09/24 History 1,000 mcg tablet (Vitamin B-12) krill oil 500 mg capsule 500 mg PO DAILY 03/05/24 04/09/24 History uvzfowuxxyof-Jx-nfys-minerals 1 tablet PO DAILY 03/05/24 04/09/24 History aspirin 81 mg tablet,delayed 81 mg PO DAILY #90 tabs 03/08/24 04/09/24 Rx release atorvastatin 40 mg tablet 40 mg PO DAILY #90 tabs 03/08/24 04/09/24 Rx osimertinib 80 mg tablet (Tagrisso) 80 mg PO DAILY 03/10/24 04/09/24 History metoprolol succinate 25 mg 12.5 mg PO DAILY #14 tabs 03/12/24 04/09/24 Rx tablet,extended release 24 hr (Toprol XL) pantoprazole 40 mg tablet,delayed 40 mg PO QAM 30 days #30 tabs 03/12/24 04/09/24 Rx release clopidogrel 75 mg tablet 75 mg PO HS 04/09/24 04/09/24 History furosemide 80 mg tablet 80 mg PO BID 04/10/24 04/10/24 History Allergies Allergy/AdvReac Type Severity Reaction Status Date / Time codeine Allergy Nausea and Verified 03/04/24 06:11 Vomiting erythromycin base Allergy Rash Verified 03/04/24 06:11 escitalopram [From Lexapro] Allergy Nausea and Verified 03/04/24 06:11 Vomiting Vital Signs Vital Signs - 24 hr 04/09/24 12:20 04/09/24 12:49 04/09/24 13:42 Temperature 36.6 C Pulse Rate 90 88 83 Respiratory Rate 20 24 H 24 H Blood Pressure 121/65 129/73 126/72 Pulse Oximetry 100 100 99 Oxygen Delivery Fraction of Inspired Oxygen 04/09/24 14:12 04/09/24 14:45 04/09/24 16:00 Temperature 36.4 C L 36.3 C L Pulse Rate 81 83 86 Respiratory Rate 26 H 22 H 18 Blood Pressure 123/66 116/59 L 126/62 Pulse Oximetry 100 100 100 Oxygen Delivery Fraction of Inspired Oxygen 04/09/24 16:00 04/09/24 16:00 04/09/24 17:59 Temperature Pulse Rate 80 82 Respiratory Rate Blood Pressure Pulse Oximetry Oxygen Delivery Room Air Fraction of Inspired Oxygen 04/09/24 20:09 04/09/24 20:00 04/09/24 20:00 Temperature 36.6 C Pulse Rate 88 84 Respiratory Rate 18 Blood Pressure 112/55 L Pulse Oximetry 98 Oxygen Delivery Room Air Fraction of Inspired Oxygen 04/09/24 22:00 04/09/24 23:37 04/10/24 00:00 Temperature 37.0 C Pulse Rate 97 83 Respiratory Rate 18 Blood Pressure 123/73 Pulse Oximetry 96 Oxygen Delivery Room Air Fraction of Inspired Oxygen 04/10/24 00:00 04/10/24 02:00 04/10/24 04:00 Temperature Pulse Rate 84 94 94 Respiratory Rate Blood Pressure Pulse Oximetry Oxygen Delivery Fraction of Inspired Oxygen 04/10/24 04:00 04/10/24 04:00 04/10/24 06:00 Temperature 36.5 C Pulse Rate 95 54 L Respiratory Rate 16 Blood Pressure 119/61 Pulse Oximetry 94 Oxygen Delivery Room Air Fraction of Inspired Oxygen 04/10/24 07:35 04/10/24 08:48 04/10/24 09:04 Temperature 36.5 C Pulse Rate 95 98 Respiratory Rate 18 Blood Pressure 116/62 Pulse Oximetry 90 92 Oxygen Delivery Room Air Fraction of Inspired Oxygen 21 04/10/24 08:00 04/10/24 08:00 04/10/24 10:00 Temperature Pulse Rate 98 100 Respiratory Rate Blood Pressure Pulse Oximetry Oxygen Delivery Room Air Fraction of Inspired Oxygen 21 04/10/24 11:26 Temperature 36.6 C Pulse Rate 101 H Respiratory Rate 18 Blood Pressure 124/64 Pulse Oximetry 98 Oxygen Delivery Fraction of Inspired Oxygen Exam Narrative: exam this morning revealed her to be awake alert cooperative in no obvious acute distress sitting in the chair and eating her meals, head normocephalic with no bruit, ear nose throat examination normal, neck supple with no cervical bruit no thyromegaly no lymphadenopathy, heart regular with no murmur, lungs clear to auscultation, abdomen is soft nontender, neurologically she is awake alert oriented x3 his speech not dysphasic not dysarthric not dysphonic, cranial examination is normal motor examination revealed her to have normal strength and tone with no drift against gravity of either upper extremities flexes are symmetrical plantars are downgoing. There is no evidence of gross cerebellar deficit. Results Labs 04/10/24 04:23 04/10/24 04:23 Labs: Short CBC 04/10/24 Range/Units 04:23 WBC 9.2 (4.5-10.0) K/mm3 Hgb 8.3 L (12.0-15.0) g/dL Hct 25.0 L (37.0-47.0) % Plt Count 226 (150-375) k/mm3 BMP 04/09/24 04/09/24 04/10/24 16:36 22:43 04:23 Sodium 131 L 133 L 134 L Potassium 2.9 L 5.0 4.9 Chloride 86 L 92 L 93 L Carbon Dioxide 27 30 30 BUN 74 H D 72 H 69 H Creatinine 2.60 H 2.40 H 2.30 H Glucose 155 H 216 H 175 H Calcium 9.2 8.9 9.0 Cardiac Enzymes 04/09/24 04/09/24 04/09/24 Range/Units 08:21 13:34 16:36 Total Creatine Kinase 73 (30-135) U/L Troponin I 0.069 H* 0.070 H* (0.000-0.034) ng/mL Liver Function 04/10/24 Range/Units 04:23 Total Bilirubin 0.6 (0.2-1.3) mg/dL AST 43 H (14-36) U/L ALT 14 (6-35) U/L Alkaline Phosphatase 87 (38-126) U/L Albumin 3.9 (3.5-5.1) g/dL
--- NOTE | 2024-04-10 13:07 | PM.IMPN ---
Progress Note: A&P Assessment and Plan (1) Stroke: Code(s): I63.9 - Cerebral infarction, unspecified Status: Acute Assessment and Plan: -Presented with syncope and weakness. -CT brain shows Small relatively linear region of increased density along side a small focus of loss of haider-white matter density along a sulcus in the posterior right frontal lobe suspicious for a thrombosed vessel and immediately adjacent small infarct. Differential however would include a small focus of subarachnoid hemorrhage. -[facility] consulted and stated no intervention and patient should be admitted here. -Highly unlikely for SAH per [facility]. Will further evaluate with MRI MRA today.. Possibility of seizure due to history of lung cancer. EEG planned. Neurology consulted Lipid panel with LDL 42 Echo with bubble study pending (2) Hypokalemia: Code(s): E87.6 - Hypokalemia Status: Acute Assessment and Plan: Replace and monitor (3) High anion gap metabolic acidosis: Code(s): E87.29 - Other acidosis Status: Acute Assessment and Plan: On presentation which has now resolved status post IV fluid resuscitation likely due to dehydration Lactic acid is normal beta hydroxybutyrate mildly elevated (4) Dehydration: Code(s): E86.0 - Dehydration Status: Acute Assessment and Plan: Treated with IV fluid (5) Hyponatremia: Code(s): E87.1 - Hypo-osmolality and hyponatremia Status: Acute Assessment and Plan: -Initial sodium 123 in ER -S/P IV fluids recheck level was 131 Received desmopressin for weak correction overnight Nephrology has been consulted Continue to monitor (6) Acute respiratory failure with hypoxia: Code(s): J96.01 - Acute respiratory failure with hypoxia Status: Acute Assessment and Plan: -Sats 82% in ER -Good saturations on 2 LPM by NC -Wean as tolerated and currently off oxygen. (7) Acute on chronic kidney failure: Code(s): N17.9 - Acute kidney failure, unspecified; N18.9 - Chronic kidney disease, unspecified Status: Resolved Assessment and Plan: -Initial labs Cr 3.2, BUN 89, eGFR 14, eCrCl 7 -ER treated with 2 liters IV fluid bolus -Repeat labs Cr 2.6, BUN 74, eGFR 17, eCrCl 9 Does have CKD stage 3 with baseline creatinine high 1s to low 2s Could Be related to over diuresis (8) Type 2 diabetes mellitus: Code(s): E11.9 - Type 2 diabetes mellitus without complications Status: Acute Assessment and Plan: -A1c 7.5 last month -Hold metformin in light of metabolic acidosis and renal dysfunction -ACHS Fingerstick blood glucose with SSI -Mild elevation of beta hydroxybutyrate indicating potential mild euglycemic DKA versus dehydration related ketosis -ABG indicates overall alkalosis diminishing likelihood of DKA Continue to monitor Accu-Cheks Adjust insulin regimen as needed (9) Obstructive sleep apnea: Code(s): G47.33 - Obstructive sleep apnea (adult) (pediatric) Status: Acute Assessment and Plan: -AutoPap available if needed (10) Stage 4 lung cancer: Code(s): C34.90 - Malignant neoplasm of unspecified part of unspecified bronchus or lung Status: Acute Assessment and Plan: -patient with hypoxia in ER, on 2 LPM NC now Will resume chemo medication (11) Anemia: Code(s): D64.9 - Anemia, unspecified Status: Acute Assessment and Plan: -Chronic anemia, likely multifactoral including anemia of chronic disease/renal dysfunction -Prior labs a month ago with Iron deficiency, received transfusion at that time, uncertain if received iron -Repeat iron labs and B12/Folate (12) Severe protein-calorie malnutrition: Code(s): E43 - Unspecified severe protein-calorie malnutrition Status: Acute Assessment and Plan: -Change to regular diet with Glucerna shakes TID -Consult Bookkeeper Assistant Plan DVT prophylaxis Lovenox Subjective Date/time seen: 04/10/24 13:07 Interval history: No overnight events. Feels well. Work with therapy today. Suspects see was on too much diuretics. She was recently discharged from [facility] where she went with respiratory issues related to CHF Review of Systems Review of Systems: All systems reviewed & are unremarkable except as noted in HPI and below Exam Narrative: GENERAL: well appearing, very thin, in no acute distress. HEAD: Normocephalic, atraumatic. ENT: mucous membranes intact, moist RESPIRATORY: Airway patent, respirations nonlabored. Clear to auscultation bilaterally, no rales, rhonchi, wheezing. CARDIOVASCULAR: Regular rate and rhythm without murmurs, rubs, or gallops. ABDOMINAL: Soft, no significant tenderness throughout abdomen, nondistended. Normoactive BS. MUSCULOSKELETAL: Moves all extremities. No gross deformities. SKIN: Warm, dry, normal color. NEURO: A&O X3. No focal deficits PSYCHIATRIC: Appropriate mood and affect. Normal interaction. Objective Data Vital Signs Vital Signs: Vital Signs - 24 hr 04/09/24 13:42 04/09/24 14:12 04/09/24 14:45 Temperature 97.8 F 97.5 F L Pulse Rate 83 81 83 Respiratory Rate 24 H 26 H 22 H Blood Pressure 126/72 123/66 116/59 L Pulse Oximetry 99 100 100 Oxygen Delivery Fraction of Inspired Oxygen 04/09/24 16:00 04/09/24 16:00 04/09/24 16:00 Temperature 97.3 F L Pulse Rate 86 80 Respiratory Rate 18 Blood Pressure 126/62 Pulse Oximetry 100 Oxygen Delivery Room Air Fraction of Inspired Oxygen 04/09/24 17:59 04/09/24 20:09 04/09/24 20:00 Temperature 97.8 F Pulse Rate 82 88 Respiratory Rate 18 Blood Pressure 112/55 L Pulse Oximetry 98 Oxygen Delivery Room Air Fraction of Inspired Oxygen 04/09/24 20:00 04/09/24 22:00 04/09/24 23:37 Temperature 98.6 F Pulse Rate 84 97 83 Respiratory Rate 18 Blood Pressure 123/73 Pulse Oximetry 96 Oxygen Delivery Fraction of Inspired Oxygen 04/10/24 00:00 04/10/24 00:00 04/10/24 02:00 Temperature Pulse Rate 84 94 Respiratory Rate Blood Pressure Pulse Oximetry Oxygen Delivery Room Air Fraction of Inspired Oxygen 04/10/24 04:00 04/10/24 04:00 04/10/24 04:00 Temperature 97.7 F Pulse Rate 94 95 Respiratory Rate 16 Blood Pressure 119/61 Pulse Oximetry 94 Oxygen Delivery Room Air Fraction of Inspired Oxygen 04/10/24 06:00 04/10/24 07:35 04/10/24 08:48 Temperature 97.7 F Pulse Rate 54 L 95 98 Respiratory Rate 18 Blood Pressure 116/62 Pulse Oximetry 90 Oxygen Delivery Fraction of Inspired Oxygen 04/10/24 09:04 04/10/24 11:03 04/10/24 08:00 Temperature Pulse Rate Respiratory Rate Blood Pressure Pulse Oximetry 92 Oxygen Delivery Room Air Room Air Room Air Fraction of Inspired Oxygen 21 21 04/10/24 08:00 04/10/24 10:00 04/10/24 11:26 Temperature 97.8 F Pulse Rate 98 100 101 H Respiratory Rate 18 Blood Pressure 124/64 Pulse Oximetry 98 Oxygen Delivery Fraction of Inspired Oxygen Intake/Output Intake/Output: Intake & Output 04/07/24 04/08/24 04/09/24 04/10/24 23:59 23:59 23:59 23:59 Intake Total 3210 580 Output Total 500 500 Balance 2710 80 Meds/Results Medications: Active Medications Generic Name Dose Route Start Last Admin Trade Name Freq PRN Reason Stop Dose Admin Acetaminophen 650 mg 04/09/24 13:03 Acetaminophen 650 Mg Suppository RECTAL Q6H PRN Mild Pain (1-3) or Fever Amlodipine Besylate 5 mg 04/10/24 09:00 04/10/24 08:47 Amlodipine Besylate 5 Mg Tablet PO 5 mg DAILY BONY Administration Aspirin 81 mg 04/10/24 09:00 04/10/24 08:47 Aspirin 81 Mg Enteric Tablet PO 81 mg DAILY BONY Administration Atorvastatin Calcium 40 mg 04/10/24 09:00 04/10/24 08:48 Atorvastatin 40 Mg Tablet PO 40 mg DAILY BONY Administration Calcium Carbonate 500 mg 04/10/24 09:00 04/10/24 08:47 Calcium Carbonate (Oscal) 500 Mg Tablet PO 500 mg QAM BONY Administration Clopidogrel Bisulfate 75 mg 04/09/24 21:00 04/09/24 20:35 Clopidogrel Bisulfate 75 Mg Tablet PO 75 mg HS BONY Administration Cyanocobalamin 1,000 mcg 04/10/24 09:00 04/10/24 08:47 Cyanocobalamin 1,000 Mcg Tablet PO 1,000 mcg DAILY BONY Administration Dextrose 12.5 gm 04/09/24 19:42 Dextrose 50% 25 Gm/50 Ml Syringe IV PUSH PRN PRN Hypoglycemia Protocol Enoxaparin Sodium 30 mg 04/10/24 09:00 Enoxaparin 30 Mg/0.3 Ml Syringe SUB-Q DAILY BONY Glucagon 1 mg 04/09/24 19:42 Glucagon For Inj 1 Mg Vial IM PRN PRN Hypoglycemia Protocol Glucose 15 gm 04/09/24 19:42 Glucose Oral Gel 15 Gm Of Glucse In 37.5 Gm Tube PO PRN PRN Hypoglycemia Protocol Dextrose 1,000 mls @ 100 mls/hr 04/09/24 19:42 Dextrose 5% 1,000 Ml IVPB PRN PRN Hypoglycemia Protocol Insulin Aspart 2 - 5 units 04/10/24 08:00 04/10/24 08:57 Insulin Aspart (*Bkc) 100 Units/Ml SUB-Q Not Given TIDWM [facility] Protocol Metoprolol Succinate 12.5 mg 04/10/24 09:00 04/10/24 08:48 Metoprolol Succinate Ext Rel 12.5 Mg Tabcr PO 12.5 mg DAILY BONY Administration Miscellaneous Information 0 each 04/09/24 00:01 04/10/24 03:04 Osimertinib (Tagrisso) Is Nonformulary - Can Patient Use From Home? XX 05/09/24 00:00 Not Given CLARIFY BONY Multivitamins/Calcium 1 tablet 04/10/24 09:00 04/10/24 08:47 Therapeutic Multivitamins/Minerals Tab (*Bkc) PO 1 tablet DAILY BONY Administration Non-Formulary Medication 80 mg 04/10/24 09:00 Osimertinib [Tagrisso] PO 05/10/24 08:59 DAILY [facility] Ondansetron HCl 4 mg 04/09/24 13:03 Ondansetron Inj 4 Mg/2 Ml Vial IV PUSH Q4H PRN Nausea Pantoprazole Sodium 40 mg 04/10/24 09:00 04/10/24 08:48 Pantoprazole 40 Mg Tablet PO 40 mg QAM BONY Administration Vitamin D 1,000 units 04/10/24 09:00 04/10/24 08:47 Cholecalciferol 1,000 Units Tablet PO 1,000 units DAILY BONY Administration Radiology Results: ITS Impressions Chest X-Ray 04/09/24 08:54 IMPRESSION: 1. There are small bilateral bilateral pleural effusions and linear discoid atelectasis/scarring at the bilateral lower lung zones. Head CT 04/09/24 09:21 IMPRESSION: 1. Small relatively linear region of increased density along side a small focus of loss of haider-white matter density along a sulcus in the posterior right frontal lobe suspicious for a thrombosed vessel and immediately adjacent small infarct. Differential however would include a small focus of subarachnoid hemorrhage. Dr. Starks discussed these findings with Dr. Hampton at 9:30 AM. Labs Labs: Laboratory Results - last 24 hr 04/09/24 04/09/24 04/09/24 13:34 16:21 16:36 WBC RBC Hgb Hct MCV MCH MCHC RDW Plt Count MPV Immature Gran % (Auto) Neut % (Auto) Lymph % (Auto) [place] % (Auto) Eos % (Auto) Baso % (Auto) Lymph # (Auto) [place] # (Auto) Eos # (Auto) Baso # (Auto) Abs Immat Gran (auto) Absolute Neuts (auto) Absolute Nucleated RBC Nucleated RBC % VBG pH VBG pCO2 VBG pO2 VBG HCO3 O2 Delivery Device O2 Liters/Min FiO2 Sodium 131 L Potassium 2.9 L Chloride 86 L Carbon Dioxide 27 Anion Gap 18 H BUN 74 H D Creatinine 2.60 H Estim Creat Clear Calc 9 Estimated GFR 17 L Glucose 155 H POC Capillary Glucose 145 H Hemoglobin A1c Lactic Acid Calcium 9.2 Magnesium Iron TIBC % Saturation Ferritin Total Bilirubin AST ALT Alkaline Phosphatase Troponin I 0.069 H* 0.070 H* Total Protein Albumin Triglycerides Cholesterol LDL Cholesterol Direct HDL Direct Vitamin B12 Folate Beta-Hydroxybutyrate/Acetoacetate 04/09/24 04/09/24 04/09/24 16:56 17:49 17:52 WBC RBC Hgb Hct MCV MCH MCHC RDW Plt Count MPV Immature Gran % (Auto) Neut % (Auto) Lymph % (Auto) [place] % (Auto) Eos % (Auto) Baso % (Auto) Lymph # (Auto) [place] # (Auto) Eos # (Auto) Baso # (Auto) Abs Immat Gran (auto) Absolute Neuts (auto) Absolute Nucleated RBC Nucleated RBC % VBG pH 7.527 H* VBG pCO2 31.2 L VBG pO2 < 27.0 L VBG HCO3 25.3 O2 Delivery Device Nasal cannula O2 Liters/Min 2.0 FiO2 28 Sodium Potassium Chloride Carbon Dioxide Anion Gap BUN Creatinine Estim Creat Clear Calc Estimated GFR Glucose POC Capillary Glucose Hemoglobin A1c Lactic Acid 1.3 Calcium Magnesium Iron 54 TIBC 317 % Saturation 17 L Ferritin 417.00 H Total Bilirubin AST ALT Alkaline Phosphatase Troponin I Total Protein Albumin Triglycerides Cholesterol LDL Cholesterol Direct HDL Direct Vitamin B12 > 1000.0 H Folate > 20.0 H Beta-Hydroxybutyrate/Acetoacetate 2.44 H 04/09/24 04/09/24 04/10/24 20:03 22:43 04:23 WBC 9.2 RBC 2.87 L Hgb 8.3 L Hct 25.0 L MCV 87.1 MCH 28.9 MCHC 33.2 RDW 15.0 H Plt Count 226 MPV 11.7 H Immature Gran % (Auto) 0.3 Neut % (Auto) 78.7 H Lymph % (Auto) 7.5 L [place] % (Auto) 12.9 H Eos % (Auto) 0.2 Baso % (Auto) 0.4 Lymph # (Auto) 0.69 L [place] # (Auto) 1.2 H Eos # (Auto) 0.0 Baso # (Auto) 0.0 Abs Immat Gran (auto) 0.03 Absolute Neuts (auto) 7.2 H Absolute Nucleated RBC 0.000 Nucleated RBC % 0.0 VBG pH VBG pCO2 VBG pO2 VBG HCO3 O2 Delivery Device O2 Liters/Min FiO2 Sodium 133 L 134 L Potassium 5.0 4.9 Chloride 92 L 93 L Carbon Dioxide 30 30 Anion Gap 11 11 BUN 72 H 69 H Creatinine 2.40 H 2.30 H Estim Creat Clear Calc 10 11 Estimated GFR 19 L 20 L Glucose 216 H 175 H POC Capillary Glucose 235 H Hemoglobin A1c 7.3 H Lactic Acid Calcium 8.9 9.0 Magnesium 2.3 Iron TIBC % Saturation Ferritin Total Bilirubin 0.6 AST 43 H ALT 14 Alkaline Phosphatase 87 Troponin I Total Protein 8.0 Albumin 3.9 Triglycerides 105 Cholesterol 147 LDL Cholesterol Direct 42 HDL Direct 58 Vitamin B12 Folate Beta-Hydroxybutyrate/Acetoacetate 04/10/24 04/10/24 07:51 11:25 WBC RBC Hgb Hct MCV MCH MCHC RDW Plt Count MPV Immature Gran % (Auto) Neut % (Auto) Lymph % (Auto) [place] % (Auto) Eos % (Auto) Baso % (Auto) Lymph # (Auto) [place] # (Auto) Eos # (Auto) Baso # (Auto) Abs Immat Gran (auto) Absolute Neuts (auto) Absolute Nucleated RBC Nucleated RBC % VBG pH VBG pCO2 VBG pO2 VBG HCO3 O2 Delivery Device O2 Liters/Min FiO2 Sodium Potassium Chloride Carbon Dioxide Anion Gap BUN Creatinine Estim Creat Clear Calc Estimated GFR Glucose POC Capillary Glucose 168 H 183 H Hemoglobin A1c Lactic Acid Calcium Magnesium Iron TIBC % Saturation Ferritin Total Bilirubin AST ALT Alkaline Phosphatase Troponin I Total Protein Albumin Triglycerides Cholesterol LDL Cholesterol Direct HDL Direct Vitamin B12 Folate Beta-Hydroxybutyrate/Acetoacetate
[2024-04-10 16:45] LABS: Glucose Point of Care 197 mg/dl (65-105)
--- NOTE | 2024-04-10 18:08 | PC.NURSE ---
This patient, Kelsey Bain, was received from IMU on 04/10/24 at 1808. Patient/family oriented to unit policies and routines
[2024-04-10] MEDS: CLOPIDOGREL BISULFATE 75 MG TABLET PO (20:08)
--- NOTE | 2024-04-10 20:12 | PHAR ---
PT'S HOME MED TAGRISSO 80 MG TAB VERIFIED BY PHARMACY
[2024-04-10 20:16] LABS: Glucose Point of Care 293 mg/dl (65-105)
[2024-04-11 05:11] VITALS: BP 109/59; PULSE 100; RESP 20; TEMP 36.6; O2SAT 96
[2024-04-11 05:33] LABS: Basophils Percent Auto 0.4 % (0.2-1.2); Eosinophils Absolute Auto 0.2 K/mm3 (0-0.3); Eosinophils Percent Auto 2.3 % (0-4.4); Hematocrit 25.6 % (37.0-47.0); Hemoglobin 8.4 g/dL (12.0-15.0); Immature Granulocyte Absolute 0.03 K/mm3 (0.00-0.031); Immature Granulocyte Percent A 0.3 % (0-0.5); Lymphocytes Absolute Auto 0.96 K/mm3 (0.9-3.2); Lymphocytes Percent Auto 9.8 % (18.3-44.2); Mean Corpuscular HGB Conc 32.8 g/dl (32-36); Mean Corpuscular Hemoglobin 28.7 pg (26-34); Mean Corpuscular Volume 87.4 fl (80-100); Mean Platelet Volume 10.6 fl (7.4-10.4); Monocytes Absolute Auto 1.1 K/mm3 (0.1-0.6); Monocytes Percent Auto 10.8 % (2.6-8.5); Neutrophils Absolute Auto 7.5 K/mm3 (1.3-6.7); Neutrophils Percent Auto 76.4 % (45.5-73.1); Platelet Count Result 198 k/mm3 (150-375); Red Blood Count 2.93 M/mm3 (4.2-5.4); Red Cell Distribution Width 15.2 % (11.5-14.5); White Blood Count 9.8 K/mm3 (4.5-10.0)
[2024-04-11 05:47] LABS: Alanine Aminotransferase 15 U/L (6-35); Albumin Level 3.9 g/dL (3.5-5.1); Alkaline Phosphatase 89 U/L (38-126); Anion Gap 6 mmol/L (4-12); Aspartate Amino Transferase 44 U/L (14-36); Bilirubin,Total 0.8 mg/dL (0.2-1.3); Blood Urea Nitrogen 55 mg/dL (7-17); Calcium 9.5 mg/dL (8.4-10.2); Carbon Dioxide 34 mmol/L (22-30); Chloride 94 mmol/L (98-107); Estimated CRCL calculation 13 ml/min; Estimated Glomerular Filt Rate 25; Glucose 161 mg/dL (65-110); Magnesium 1.9 mg/dL (1.6-2.3); Potassium 4.6 mmol/L (3.4-5.0); Sodium 134 mmol/L (137-145)
[2024-04-11 08:00] VITALS: O2SAT 98
[2024-04-11 08:12] LABS: Glucose Point of Care 136 mg/dl (65-105)
[2024-04-11 09:45] VITALS: PULSE 103
[2024-04-11] MEDS: CHOLECALCIFEROL 1,000 UNITS TABLET 1000 UNITS PO (09:45)
[2024-04-11] MEDS: amLODIPine BESYLATE 5 MG TABLET PO (09:45)
[2024-04-11] MEDS: PANTOPRAZOLE 40 MG TABLET PO (09:45)
[2024-04-11] MEDS: ASPIRIN 81 MG ENTERIC TABLET PO (09:45)
[2024-04-11] MEDS: METOPROLOL SUCCINATE EXT REL 12.5 MG TABCR PO (09:45)
[2024-04-11] MEDS: CALCIUM CARBONATE (OSCAL) 500 MG TABLET PO (09:45)
[2024-04-11] MEDS: ENOXAPARIN 30 MG/0.3 ML SYRINGE SUB-Q (09:45)
[2024-04-11] MEDS: ATORVASTATIN 40 MG TABLET PO (09:45)
[2024-04-11] MEDS: THERAPEUTIC MULTIVITAMINS/MINERALS TAB (*BKC) 1 TABLET PO (09:45)
[2024-04-11] MEDS: CYANOCOBALAMIN 1,000 MCG TABLET 1000 MCG PO (09:45)
[2024-04-11] MEDS: TAGRISSO 1 EACH PO (09:46)
[2024-04-11 11:36] LABS: Glucose Point of Care 239 mg/dl (65-105)
--- NOTE | 2024-04-11 13:33 | P.PNNP_ITS ---
Progress Note: A&P Assessment and Plan (1) Acute kidney injury: Code(s): N17.9 - Acute kidney failure, unspecified Status: Acute Assessment and Plan: * as noted on admission with a creatinine up to 3.2mg/dl * improvement noted with IVFs arguing a component of volume depletion/dehydration * follow trend of repeat labs with supportive therapy (2) Chronic kidney disease, stage 3: Code(s): N18.30 - Chronic kidney disease, stage 3 unspecified Status: Chronic Assessment and Plan: baseline creatinine was running ~ 1.0 - 1.6mg/dl in the last year prior to hospitalization in February 2024 * however, since discharge, appears to be running closer to 1.9 - 2.3mg/dl (possible new baseline?) * presumably secondary to HTN, DM, vascular disease, and age-related change with some disease progression given recent STEMI + cardiomyopathy (3) Hyponatremia: Code(s): E87.1 - Hypo-osmolality and hyponatremia Status: Acute Assessment and Plan: * slowly improving * admission sodium 123mmol/L * evidence of overcorrection with IVF resuscitation * s/p DDAVP administration * suspect multifactorial: * poor oral intake/hydration * volume depletion * recent CVA/stroke * PPI use * history of lung cancer * mild CHF/fluid overload * follow trend of repeat sodium levels (4) Stroke: Code(s): I63.9 - Cerebral infarction, unspecified Status: Acute Assessment and Plan: * as noted by presentation of syncope along with weakness * CT of brain noted: small relatively linear region of increased density along side a small focus of loss of haider-white matter density along a sulcus in the posterior right frontal lobe suspicious for a thrombosed vessel and immediately adjacent small infarct. Differential however would include a small focus of subarachnoid hemorrhage * Brain MRI/MRA with: * acute and subacute infarcts in the right frontal and parietal deep white matter * acute infarct in the left frontoparietal jay radiata * old infarcts in the right frontal, temporal, and occipital lobes and right cerebellum * moderate nonspecific cerebral white matter disease, which likely represents chronic small vessel ischemic disease. * Neurology following (5) Acute respiratory failure with hypoxia: Code(s): J96.01 - Acute respiratory failure with hypoxia Status: Acute Assessment and Plan: * clinically better * noted hypoxia on arrival * complicated by history of lung cancer and cardiomyopathy * weaned off oxygen * may need chronic diuretic therapy * follow respiratory status (6) Anemia: Code(s): D64.9 - Anemia, unspecified Status: Acute Assessment and Plan: * due to JAE, CKD, and acute illness and underlying malignancy * follow trend of H/H * PRBC transfusion per protocol (7) Stage 4 lung cancer: Code(s): C34.90 - Malignant neoplasm of unspecified part of unspecified bronchus or lung Status: Chronic Assessment and Plan: * on outpatient chemotherapy * follow with oncology at [facility] (8) Type 2 diabetes mellitus: Code(s): E11.9 - Type 2 diabetes mellitus without complications Status: Acute Assessment and Plan: * follow accu-cheks * glycemic control per hospitalists Will continue to follow. Subjective Date/time seen: 04/11/24 13:33 Interval history: Follow-up for acute kidney injury/acute renal failure on chronic kidney disease. No apparent distress noted at the time of my visit; major complaint is that of generalized weakness and fatigue that has been present as far back as her hospitalization about a month ago; no issues/events overnight or earlier this morning. Exam Narrative: General: elderly female in NAD Heart: normal S1 and S2; no rub Lungs: clear anteriorly Abdomen: soft, nontender, nondistended, positive bowel sounds Extremities: no cyanosis or clubbing; no edema Skin: warm and dry Objective Data Vital Signs Vital Signs: Vital Signs Temp Pulse Resp BP Pulse Ox O2 Del Method 04/11/24 13:25 97.6 F 103 H 20 116/78 92 Room Air 04/11/24 10:00 98.0 F 107 H 20 108/67 100 04/11/24 08:00 98 Room Air 04/11/24 09:45 103 H 04/11/24 05:11 97.9 F 100 20 109/59 L 96 Intake/Output Intake/Output: Intake & Output 04/08/24 04/09/24 04/10/24 04/11/24 23:59 23:59 23:59 23:59 Intake Total 3210 700 800 Output Total 500 500 Balance 2710 200 800 Meds/Results Medications: Active Medications Generic Name Dose Route Start Last Admin Trade Name Freq PRN Reason Stop Dose Admin Acetaminophen 650 mg 04/09/24 13:03 Acetaminophen 650 Mg Suppository RECTAL Q6H PRN Mild Pain (1-3) or Fever Amlodipine Besylate 5 mg 04/10/24 09:00 04/11/24 09:45 Amlodipine Besylate 5 Mg Tablet PO 5 mg DAILY BONY Administration Aspirin 81 mg 04/10/24 09:00 04/11/24 09:45 Aspirin 81 Mg Enteric Tablet PO 81 mg DAILY BONY Administration Atorvastatin Calcium 40 mg 04/10/24 09:00 04/11/24 09:45 Atorvastatin 40 Mg Tablet PO 40 mg DAILY BONY Administration Calcium Carbonate 500 mg 04/10/24 09:00 04/11/24 09:45 Calcium Carbonate (Oscal) 500 Mg Tablet PO 500 mg QAM BONY Administration Clopidogrel Bisulfate 75 mg 04/09/24 21:00 04/11/24 20:56 Clopidogrel Bisulfate 75 Mg Tablet PO 75 mg HS BONY Administration Cyanocobalamin 1,000 mcg 04/10/24 09:00 04/11/24 09:45 Cyanocobalamin 1,000 Mcg Tablet PO 1,000 mcg DAILY BONY Administration Dextrose 12.5 gm 04/09/24 19:42 Dextrose 50% 25 Gm/50 Ml Syringe IV PUSH PRN PRN Hypoglycemia Protocol Enoxaparin Sodium 30 mg 04/10/24 09:00 04/11/24 09:45 Enoxaparin 30 Mg/0.3 Ml Syringe SUB-Q 30 mg DAILY BONY Administration Furosemide 80 mg 04/12/24 09:00 Furosemide 80 Mg Tablet PO DAILY [facility] Glucagon 1 mg 04/09/24 19:42 Glucagon For Inj 1 Mg Vial IM PRN PRN Hypoglycemia Protocol Glucose 15 gm 04/09/24 19:42 Glucose Oral Gel 15 Gm Of Glucse In 37.5 Gm Tube PO PRN PRN Hypoglycemia Protocol Dextrose 1,000 mls @ 100 mls/hr 04/09/24 19:42 Dextrose 5% 1,000 Ml IVPB PRN PRN Hypoglycemia Protocol Insulin Aspart 2 - 5 units 04/10/24 08:00 04/11/24 18:13 Insulin Aspart (*Bkc) 100 Units/Ml SUB-Q Not Given TIDWM [facility] Protocol Metoprolol Succinate 12.5 mg 04/10/24 09:00 04/11/24 09:45 Metoprolol Succinate Ext Rel 12.5 Mg Tabcr PO 12.5 mg DAILY BONY Administration Multivitamins/Calcium 1 tablet 04/10/24 09:00 04/11/24 09:45 Therapeutic Multivitamins/Minerals Tab (*Bkc) PO 1 tablet DAILY BONY Administration Non-Formulary 1 each 04/11/24 09:00 04/11/24 09:46 Tagrisso ( PO 05/11/24 08:59 1 each Osimertinib Mesylate DAILY BONY Administration 80 Mg Oral Tablet) Ondansetron HCl 4 mg 04/09/24 13:03 Ondansetron Inj 4 Mg/2 Ml Vial IV PUSH Q4H PRN Nausea Pantoprazole Sodium 40 mg 04/10/24 09:00 04/11/24 09:45 Pantoprazole 40 Mg Tablet PO 40 mg QAM BONY Administration Vitamin D 1,000 units 04/10/24 09:00 04/11/24 09:45 Cholecalciferol 1,000 Units Tablet PO 1,000 units DAILY BONY Administration Radiology Results: ITS Impressions Chest X-Ray 04/09/24 08:54 IMPRESSION: 1. There are small bilateral bilateral pleural effusions and linear discoid atelectasis/scarring at the bilateral lower lung zones. Head CT 04/09/24 09:21 IMPRESSION: 1. Small relatively linear region of increased density along side a small focus of loss of haider-white matter density along a sulcus in the posterior right frontal lobe suspicious for a thrombosed vessel and immediately adjacent small infarct. Differential however would include a small focus of subarachnoid hemorrhage. Dr. Starks discussed these findings with Dr. Hampton at 9:30 AM. Neck MRA 04/10/24 15:20 IMPRESSION: 1. 0% stenosis of the proximal internal carotid arteries relative to normal distal artery lumen diameters (NASCET criteria). Brain MRI 04/10/24 15:52 IMPRESSION: 1. Acute and subacute infarcts in the right frontal and parietal deep white matter. Acute infarct in the left frontoparietal jay radiata. 2. Old infarcts in the right frontal, temporal, and occipital lobes and right cerebellum. 3. Moderate nonspecific cerebral white matter disease, which likely represents chronic small vessel ischemic disease. Brain MRA 04/10/24 15:57 IMPRESSION: 1. Normal MRA. Labs Labs: Laboratory Tests 04/11/24 05:27 04/11/24 05:27 Calcium 9.5 Magnesium 1.9 Total Bilirubin 0.8 AST 44 H ALT 15 Alkaline Phosphatase 89 Total Protein 8.0 Albumin 3.9
--- NOTE | 2024-04-11 15:07 | P.PNIM_ITS ---
Progress Note: A&P Assessment and Plan (1) Stroke: Code(s): I63.9 - Cerebral infarction, unspecified Status: Acute Assessment and Plan: -Presented with syncope and weakness. -CT brain shows Small relatively linear region of increased density along side a small focus of loss of haider-white matter density along a sulcus in the posterior right frontal lobe suspicious for a thrombosed vessel and immediately adjacent small infarct. Differential however would include a small focus of subarachnoid hemorrhage. -[facility] consulted and stated no intervention and patient should be admitted here. -Highly unlikely for SAH per [facility]. * Will further evaluate with MRI MRA today.. Possibility of seizure due to history of lung cancer. EEG planned. * Neurology consulted * Lipid panel with LDL 42 * Echo with bubble study pending * Speech evalution pending (2) Hypokalemia: Code(s): E87.6 - Hypokalemia Status: Acute Assessment and Plan: RESOLVED (3) Hyponatremia: Code(s): E87.1 - Hypo-osmolality and hyponatremia Status: Acute Assessment and Plan: * Initial sodium 123 POA * S/P IV fluids recheck level was 131 * Received desmopressin for weak correction overnight * Nephrology has been consulted * Continue to monitor * Encourage oral hydration * patient reports poor oral intake problems with swallowing unsure if it is related to the stroke, cancer or needs follow-up with GI for EGD (4) Acute respiratory failure with hypoxia: Code(s): J96.01 - Acute respiratory failure with hypoxia Status: Acute Assessment and Plan: * Sats 82% POA * HX of luung cancer * CXR with small bilateral pleural effusions * 2L NC Weaned as tolerated and currently off oxygen. (5) Acute on chronic kidney failure: Code(s): N17.9 - Acute kidney failure, unspecified; N18.9 - Chronic kidney disease, unspecified Status: Resolved Assessment and Plan: * Stage III CKD * Baseline 1.5-2.00 * Gentle IV hydration. * Monitor antihypertensive drug therapy. * Avoid NSAIDs. * Routine CMP monitoring GFR. * Monitor electrolytes especially potassium. (6) Type 2 diabetes mellitus: Code(s): E11.9 - Type 2 diabetes mellitus without complications Status: Acute Assessment and Plan: * Accu-Cheks a.c. HS * sliding scale insulin * hold oral diabetic medications * resume patient's home long-acting * Hemoglobin A1c goal less than 7.5 last month * lipid panel/resume statin * Diabetic diet * consult to dietitian * Optimize Darron inhibitors and statins. * Watch for hypoglycemia/hypoglycemic protocol ordered (7) Obstructive sleep apnea: Code(s): G47.33 - Obstructive sleep apnea (adult) (pediatric) Status: Acute Assessment and Plan: * AutoPap available if needed (8) Stage 4 lung cancer: Code(s): C34.90 - Malignant neoplasm of unspecified part of unspecified bronchus or lung Status: Chronic Assessment and Plan: * patient with hypoxia in ER, on 2 LPM NC now * Will resume chemo medication * Follows with oncologist (9) Anemia: Code(s): D64.9 - Anemia, unspecified Status: Acute Assessment and Plan: * Chronic anemia, likely multifactoral including anemia of chronic disease/renal dysfunction * Prior labs a month ago with Iron deficiency, received transfusion at that time, uncertain if received iron * Repeat iron labs and B12/Folate (10) Severe protein-calorie malnutrition: Code(s): E43 - Unspecified severe protein-calorie malnutrition Status: Acute Assessment and Plan: * Change to regular diet with Boris tomlinson TID * Consult Cyber Incident Handler Plan Code status: DNR DVT prophylaxis: Lovenox Stress ulcer prophylaxis: Protonix 40 daily PT/OT/ST notes: PT/OT HH/ST: Pending modified barium swallow Disposition: Patient continues admission to the medical unit post acute CVA, PT OT cleared for home home is currently awaiting speech therapy and modified barium swallow. Plan is to discharge home with home health if no events overnight can likely discharge home tomorrow. Time Spent With Patient Time with patient: 15 - 25 minutes Subjective Date/time seen: 04/11/24 15:07 Interval history: Patient is an 83-year-old female who was admitted with syncopal episode MRI showed an acute and subacute infarct of the right frontal and partial deep white matter and acute infarct of the left frontopartial cornea radiata. 04/11/2024: Assumed Care Patient feeling better today reported no further syncopal episodes or dizziness, denied visual changes, headache, CP, SOB, or ABD pain. Staff did report some cough with medication and breakfast. Did report she feels weak all the time ever since she was started on her diuretics post STEMI with cardiogenic shock. Review of Systems Review of Systems: All systems reviewed & are unremarkable except as noted in HPI and below Exam Narrative: GENERAL: well appearing, very thin, in no acute distress. Reported 15 lbs weight loss HEAD: Normocephalic, atraumatic. ENT: mucous membranes intact, moist RESPIRATORY: Airway patent, respirations nonlabored. Clear to auscultation bilaterally, no rales, rhonchi, wheezing. CARDIOVASCULAR: Regular rate and rhythm without murmurs, rubs, or gallops. ABDOMINAL: Soft, no significant tenderness throughout abdomen, nondistended. Normoactive BS. MUSCULOSKELETAL: Moves all extremities. No gross deformities. SKIN: Warm, dry, normal color. NEURO: A&O X3. No focal deficits PSYCHIATRIC: Appropriate mood and affect. Normal interaction. Objective Data Vital Signs Vital Signs: Vital Signs - 24 hr 04/10/24 15:38 04/10/24 16:00 04/10/24 16:00 Temperature 97.5 F L Pulse Rate 93 216 H Respiratory Rate 18 Blood Pressure 130/67 Pulse Oximetry 97 Oxygen Delivery Room Air Oxygen Flow Rate 04/10/24 20:55 04/10/24 20:00 04/11/24 05:11 Temperature 98.1 F 97.9 F Pulse Rate 95 100 Respiratory Rate 16 20 Blood Pressure 110/58 L 109/59 L Pulse Oximetry 91 92 96 Oxygen Delivery Nasal Cannula Oxygen Flow Rate 1 04/11/24 09:45 04/11/24 08:00 Temperature Pulse Rate 103 H Respiratory Rate Blood Pressure Pulse Oximetry 98 Oxygen Delivery Room Air Oxygen Flow Rate Intake/Output Intake/Output: Intake & Output 04/08/24 04/09/24 04/10/24 04/11/24 23:59 23:59 23:59 23:59 Intake Total 3210 700 440 Output Total 500 500 Balance 2710 200 440 Meds/Results Medications: Active Medications Generic Name Dose Route Start Last Admin Trade Name Freq PRN Reason Stop Dose Admin Acetaminophen 650 mg 04/09/24 13:03 Acetaminophen 650 Mg Suppository RECTAL Q6H PRN Mild Pain (1-3) or Fever Amlodipine Besylate 5 mg 04/10/24 09:00 04/11/24 09:45 Amlodipine Besylate 5 Mg Tablet PO 5 mg DAILY BONY Administration Aspirin 81 mg 04/10/24 09:00 04/11/24 09:45 Aspirin 81 Mg Enteric Tablet PO 81 mg DAILY BONY Administration Atorvastatin Calcium 40 mg 04/10/24 09:00 04/11/24 09:45 Atorvastatin 40 Mg Tablet PO 40 mg DAILY BONY Administration Calcium Carbonate 500 mg 04/10/24 09:00 04/11/24 09:45 Calcium Carbonate (Oscal) 500 Mg Tablet PO 500 mg QAM BONY Administration Clopidogrel Bisulfate 75 mg 04/09/24 21:00 04/10/24 20:08 Clopidogrel Bisulfate 75 Mg Tablet PO 75 mg HS BONY Administration Cyanocobalamin 1,000 mcg 04/10/24 09:00 04/11/24 09:45 Cyanocobalamin 1,000 Mcg Tablet PO 1,000 mcg DAILY BONY Administration Dextrose 12.5 gm 04/09/24 19:42 Dextrose 50% 25 Gm/50 Ml Syringe IV PUSH PRN PRN Hypoglycemia Protocol Enoxaparin Sodium 30 mg 04/10/24 09:00 04/11/24 09:45 Enoxaparin 30 Mg/0.3 Ml Syringe SUB-Q 30 mg DAILY BONY Administration Glucagon 1 mg 04/09/24 19:42 Glucagon For Inj 1 Mg Vial IM PRN PRN Hypoglycemia Protocol Glucose 15 gm 04/09/24 19:42 Glucose Oral Gel 15 Gm Of Glucse In 37.5 Gm Tube PO PRN PRN Hypoglycemia Protocol Dextrose 1,000 mls @ 100 mls/hr 04/09/24 19:42 Dextrose 5% 1,000 Ml IVPB PRN PRN Hypoglycemia Protocol Insulin Aspart 2 - 5 units 04/10/24 08:00 04/11/24 13:12 Insulin Aspart (*Bkc) 100 Units/Ml SUB-Q Not Given TIDWM BONY Protocol Metoprolol Succinate 12.5 mg 04/10/24 09:00 04/11/24 09:45 Metoprolol Succinate Ext Rel 12.5 Mg Tabcr PO 12.5 mg DAILY BONY Administration Multivitamins/Calcium 1 tablet 04/10/24 09:00 04/11/24 09:45 Therapeutic Multivitamins/Minerals Tab (*Bkc) PO 1 tablet DAILY BONY Administration Non-Formulary 1 each 04/11/24 09:00 04/11/24 09:46 Tagrisso ( PO 05/11/24 08:59 1 each Osimertinib Mesylate DAILY BONY Administration 80 Mg Oral Tablet) Ondansetron HCl 4 mg 04/09/24 13:03 Ondansetron Inj 4 Mg/2 Ml Vial IV PUSH Q4H PRN Nausea Pantoprazole Sodium 40 mg 04/10/24 09:00 04/11/24 09:45 Pantoprazole 40 Mg Tablet PO 40 mg QAM BONY Administration Vitamin D 1,000 units 04/10/24 09:00 04/11/24 09:45 Cholecalciferol 1,000 Units Tablet PO 1,000 units DAILY BONY Administration Radiology Results: ITS Impressions Chest X-Ray 04/09/24 08:54 IMPRESSION: 1. There are small bilateral bilateral pleural effusions and linear discoid atelectasis/scarring at the bilateral lower lung zones. Head CT 04/09/24 09:21 IMPRESSION: 1. Small relatively linear region of increased density along side a small focus of loss of haider-white matter density along a sulcus in the posterior right frontal lobe suspicious for a thrombosed vessel and immediately adjacent small infarct. Differential however would include a small focus of subarachnoid hemorrhage. Dr. Starks discussed these findings with Dr. Hampton at 9:30 AM. Neck MRA 04/10/24 15:20 IMPRESSION: 1. 0% stenosis of the proximal internal carotid arteries relative to normal distal artery lumen diameters (NASCET criteria). Brain MRI 04/10/24 15:52 IMPRESSION: 1. Acute and subacute infarcts in the right frontal and parietal deep white matter. Acute infarct in the left frontoparietal jay radiata. 2. Old infarcts in the right frontal, temporal, and occipital lobes and right cerebellum. 3. Moderate nonspecific cerebral white matter disease, which likely represents chronic small vessel ischemic disease. Brain MRA 04/10/24 15:57 IMPRESSION: 1. Normal MRA. Labs Labs: Laboratory Results - last 24 hr 04/10/24 04/10/24 04/11/24 16:09 20:13 05:27 WBC 9.8 RBC 2.93 L Hgb 8.4 L Hct 25.6 L MCV 87.4 MCH 28.7 MCHC 32.8 RDW 15.2 H Plt Count 198 MPV 10.6 H Immature Gran % (Auto) 0.3 Neut % (Auto) 76.4 H Lymph % (Auto) 9.8 L [place] % (Auto) 10.8 H Eos % (Auto) 2.3 Baso % (Auto) 0.4 Lymph # (Auto) 0.96 [place] # (Auto) 1.1 H Eos # (Auto) 0.2 Baso # (Auto) 0.0 Abs Immat Gran (auto) 0.03 Absolute Neuts (auto) 7.5 H Absolute Nucleated RBC 0.000 Nucleated RBC % 0.0 Sodium 134 L Potassium 4.6 Chloride 94 L Carbon Dioxide 34 H Anion Gap 6 BUN 55 H D Creatinine 1.90 H Estim Creat Clear Calc 13 Estimated GFR 25 L Glucose 161 H POC Capillary Glucose 197 H 293 H Calcium 9.5 Magnesium 1.9 Total Bilirubin 0.8 AST 44 H ALT 15 Alkaline Phosphatase 89 Total Protein 8.0 Albumin 3.9 04/11/24 04/11/24 08:04 11:34 WBC RBC Hgb Hct MCV MCH MCHC RDW Plt Count MPV Immature Gran % (Auto) Neut % (Auto) Lymph % (Auto) [place] % (Auto) Eos % (Auto) Baso % (Auto) Lymph # (Auto) [place] # (Auto) Eos # (Auto) Baso # (Auto) Abs Immat Gran (auto) Absolute Neuts (auto) Absolute Nucleated RBC Nucleated RBC % Sodium Potassium Chloride Carbon Dioxide Anion Gap BUN Creatinine Estim Creat Clear Calc Estimated GFR Glucose POC Capillary Glucose 136 H 239 H Calcium Magnesium Total Bilirubin AST ALT Alkaline Phosphatase Total Protein Albumin Quality VTE Prophylaxis VTE prophylaxis: pharmacologic ordered -Patient's previous records reviewed on admission -ER notes reviewed in detail on admission -discussed all findings and current treatment plan with patient/Family/POA -Consultations reviewed for recommendations -Patient's disposition for safe discharge discussed with pillowcase cleaner Dictation performed by [id number] direct speech recognition software, therefore colon and rectal surgeon variants and typographical errors may occur. Hospitalist MIPS Advance Care Plan I have confirmed that the patient's Advanced Care Plan is present, code status is documented, or surrogate decision maker is listed in patient medical record.: Yes Medication Reconciliation I have utilized all available resources to obtain, update and review the patients current medications (includes all prescriptions, OTC, herbals, cannabis, and nutritional supplements).: Yes The patient is not eligible for med reconciliation; the patient is in a emergent medical situation where delaying treatment would jeopardize the patients health.: No
--- NOTE | 2024-04-11 15:24 | PCSTNOTE ---
Please refer to the Bedside Swallow Evaluation in the EMR. Please note, silent aspiration cannot be ruled out at bedside.
[2024-04-11 16:00] VITALS: BP 108/67; PULSE 107; RESP 20; TEMP 36.7; O2SAT 100
[2024-04-11 17:06] LABS: Glucose Point of Care 174 mg/dl (65-105)
[2024-04-11] MEDS: CLOPIDOGREL BISULFATE 75 MG TABLET PO (20:56)
[2024-04-11 21:09] LABS: Glucose Point of Care 226 mg/dl (65-105)
[2024-04-11 21:25] VITALS: BP 116/78; PULSE 103; RESP 20; TEMP 36.4; O2SAT 92
[2024-04-12 06:16] LABS: Basophils Percent Auto 0.5 % (0.2-1.2); Eosinophils Absolute Auto 0.2 K/mm3 (0-0.3); Eosinophils Percent Auto 1.9 % (0-4.4); Hematocrit 24.6 % (37.0-47.0); Hemoglobin 8.2 g/dL (12.0-15.0); Immature Granulocyte Absolute 0.02 K/mm3 (0.00-0.031); Immature Granulocyte Percent A 0.2 % (0-0.5); Lymphocytes Absolute Auto 0.94 K/mm3 (0.9-3.2); Lymphocytes Percent Auto 10.7 % (18.3-44.2); Mean Corpuscular HGB Conc 33.3 g/dl (32-36); Mean Corpuscular Hemoglobin 29.1 pg (26-34); Mean Corpuscular Volume 87.2 fl (80-100); Mean Platelet Volume 11.2 fl (7.4-10.4); Monocytes Absolute Auto 0.9 K/mm3 (0.1-0.6); Monocytes Percent Auto 10.7 % (2.6-8.5); Neutrophils Absolute Auto 6.7 K/mm3 (1.3-6.7); Platelet Count Result 189 k/mm3 (150-375); Red Blood Count 2.82 M/mm3 (4.2-5.4); Red Cell Distribution Width 15.4 % (11.5-14.5); White Blood Count 8.8 K/mm3 (4.5-10.0)
[2024-04-12 06:22] VITALS: BP 106/65; PULSE 100; RESP 18; TEMP 36.9; O2SAT 92
[2024-04-12 06:34] LABS: Alanine Aminotransferase 21 U/L (6-35); Albumin Level 3.8 g/dL (3.5-5.1); Alkaline Phosphatase 87 U/L (38-126); Anion Gap 4 mmol/L (4-12); Aspartate Amino Transferase 53 U/L (14-36); Bilirubin,Total 0.9 mg/dL (0.2-1.3); Blood Urea Nitrogen 45 mg/dL (7-17); Calcium 9.3 mg/dL (8.4-10.2); Carbon Dioxide 35 mmol/L (22-30); Chloride 92 mmol/L (98-107); Estimated CRCL calculation 16 ml/min; Estimated Glomerular Filt Rate 31; Glucose 176 mg/dL (65-110); Magnesium 1.5 mg/dL (1.6-2.3); Potassium 3.9 mmol/L (3.4-5.0); Sodium 131 mmol/L (137-145)
[2024-04-12 08:47] LABS: Glucose Point of Care 158 mg/dl (65-105)
--- NOTE | 2024-04-12 09:10 | PCPTNOTE ---
Attempted to see patient for PT, however patient was out of the room for testing.
--- NOTE | 2024-04-12 09:43 | PCSTNOTE ---
Please refer to the Modified Barium Swallow Evaluation in the EMR.
[2024-04-12 10:49] VITALS: PULSE 92
[2024-04-12] MEDS: CHOLECALCIFEROL 1,000 UNITS TABLET 1000 UNITS PO (10:49)
[2024-04-12] MEDS: CYANOCOBALAMIN 1,000 MCG TABLET 1000 MCG PO (10:49)
[2024-04-12] MEDS: ATORVASTATIN 40 MG TABLET PO (10:49)
[2024-04-12] MEDS: amLODIPine BESYLATE 5 MG TABLET PO (10:49)
[2024-04-12] MEDS: PANTOPRAZOLE 40 MG TABLET PO (10:49)
[2024-04-12] MEDS: ASPIRIN 81 MG ENTERIC TABLET PO (10:49)
[2024-04-12] MEDS: FUROSEMIDE 80 MG TABLET PO (10:49)
[2024-04-12] MEDS: METOPROLOL SUCCINATE EXT REL 12.5 MG TABCR PO (10:49)
[2024-04-12] MEDS: FERROUS SULFATE 325 MG TABLET DR PO (10:49)
[2024-04-12] MEDS: ENOXAPARIN 30 MG/0.3 ML SYRINGE SUB-Q (10:50)
[2024-04-12] MEDS: MAGNESIUM SULF 2 GM/WATER 50ML 2 GM/50 ML BAG IVPB (10:50)
[2024-04-12] MEDS: TAGRISSO 1 EACH PO (10:50)
--- NOTE | 2024-04-12 11:02 | P.DS_ITS ---
DS: Admitting Diagnosis Discharge Date 04/12/2024 Admitting Diagnosis Acute on subacute CVA DS: Discharge Diagnosis Discharge Diagnosis (1) Stroke: Code(s): I63.9 - Cerebral infarction, unspecified Status: Acute (2) Hypokalemia: Code(s): E87.6 - Hypokalemia Status: Acute (3) Hyponatremia: Code(s): E87.1 - Hypo-osmolality and hyponatremia Status: Acute (4) Acute respiratory failure with hypoxia: Code(s): J96.01 - Acute respiratory failure with hypoxia Status: Acute (5) Acute on chronic kidney failure: Code(s): N17.9 - Acute kidney failure, unspecified; N18.9 - Chronic kidney disease, unspecified Status: Resolved (6) Type 2 diabetes mellitus: Code(s): E11.9 - Type 2 diabetes mellitus without complications Status: Acute (7) Obstructive sleep apnea: Code(s): G47.33 - Obstructive sleep apnea (adult) (pediatric) Status: Acute (8) Stage 4 lung cancer: Code(s): C34.90 - Malignant neoplasm of unspecified part of unspecified bronchus or lung Status: Chronic (9) Anemia: Code(s): D64.9 - Anemia, unspecified Status: Acute Assessment and Plan: * Chronic anemia, likely multifactoral including anemia of chronic disease/renal dysfunction * Prior labs a month ago with Iron deficiency, received transfusion at that time, uncertain if received iron * Repeat iron labs and B12/Folate (10) Severe protein-calorie malnutrition: Code(s): E43 - Unspecified severe protein-calorie malnutrition Status: Acute Plan Disposition: Discharged to home with Home Health DS: Summary Hospital Course Reason for hospitalization: Acute and subacute CVA Hospital Course: Patient was a 83-year-old female patient with past medical history of hypertension lung cancer recent STEMI and diabetes who presented to the emergency department with complaints degenerating strength unable to ambulate at home. patient reported having a syncopal episode this morning while using the restroom. Patient reports significant amount of weight loss and inability to eat at home. In the emergency department patient found to be hypoxic and oxygen and she was weaned off prior to admission to admission to the floor Initial findings in the emergency department showed hyponatremia, hypokalemia, elevated lipase, elevated proBNP and worsening renal failure. CT scan of the brain showed a small area of concern for thrombosed vessel with small area of infarct verses small area of subarachnoid hemorrhage. ER consulted with Neurology at [place] who reviewed imaging and does not believe it was subarachnoid hemorrhage. They believe this is a very small thrombosed vessel with very small infarct. MRI was ordered that ruled out thrombus but did show a acute subacute infarction MRI showed a acute infarct in the right hemisphere her as well as on the left side. Patient had echo which showed no shunting. Patient was seen by PT/OT/ST no neurological deficits and no risk for aspiration. Patient with poor intake and weight loss likely secondary to multiple recent hospitalization including cardiogenic shock post STEMI. Patient with overall improvement of symptoms and hyponatremia resolved. Patient was discharged to home with HH. Status at Discharge Functional status at discharge: independent ambulation Overall status at discharge: patient is progressing back to baseline Time Spent with Patient Time attestation: Total time spent providing and/or coordinating discharge services: Time spent: Greater than 30 minutes Exam Narrative: GENERAL: well appearing, very thin, in no acute distress. Reported 15 lbs weight loss HEAD: Normocephalic, atraumatic. ENT: mucous membranes intact, moist RESPIRATORY: Airway patent, respirations nonlabored. Clear to auscultation bilaterally, no rales, rhonchi, wheezing. CARDIOVASCULAR: Regular rate and rhythm without murmurs, rubs, or gallops. ABDOMINAL: Soft, no significant tenderness throughout abdomen, nondistended. Normoactive BS. MUSCULOSKELETAL: Moves all extremities. No gross deformities. SKIN: Warm, dry, normal color. NEURO: A&O X3. No focal deficits PSYCHIATRIC: Appropriate mood and affect. Normal interaction. DS: Data Data Completed and Pending Labs on day of discharge: Labs from last 24 hours 04/12/24 04/12/24 04/11/24 08:33 05:56 20:35 WBC 8.8 RBC 2.82 L Hgb 8.2 L Hct 24.6 L MCV 87.2 MCH 29.1 MCHC 33.3 RDW 15.4 H Plt Count 189 MPV 11.2 H Immature Gran % (Auto) 0.2 Neut % (Auto) 76.0 H Lymph % (Auto) 10.7 L [place] % (Auto) 10.7 H Eos % (Auto) 1.9 Baso % (Auto) 0.5 Lymph # (Auto) 0.94 [place] # (Auto) 0.9 H Eos # (Auto) 0.2 Baso # (Auto) 0.0 Abs Immat Gran (auto) 0.02 Absolute Neuts (auto) 6.7 Absolute Nucleated RBC 0.000 Nucleated RBC % 0.0 Sodium 131 L Potassium 3.9 Chloride 92 L Carbon Dioxide 35 H Anion Gap 4 BUN 45 H D Creatinine 1.60 H Estim Creat Clear Calc 16 Estimated GFR 31 L Glucose 176 H POC Capillary Glucose 158 H 226 H Calcium 9.3 Magnesium 1.5 L Total Bilirubin 0.9 AST 53 H ALT 21 Alkaline Phosphatase 87 Total Protein 8.0 Albumin 3.8 04/11/24 04/11/24 17:04 11:34 WBC RBC Hgb Hct MCV MCH MCHC RDW Plt Count MPV Immature Gran % (Auto) Neut % (Auto) Lymph % (Auto) [place] % (Auto) Eos % (Auto) Baso % (Auto) Lymph # (Auto) [place] # (Auto) Eos # (Auto) Baso # (Auto) Abs Immat Gran (auto) Absolute Neuts (auto) Absolute Nucleated RBC Nucleated RBC % Sodium Potassium Chloride Carbon Dioxide Anion Gap BUN Creatinine Estim Creat Clear Calc Estimated GFR Glucose POC Capillary Glucose 174 H 239 H Calcium Magnesium Total Bilirubin AST ALT Alkaline Phosphatase Total Protein Albumin Imaging Radiologist's impression: Radiology Results: ITS Impressions Chest X-Ray 04/09/24 08:54 IMPRESSION: 1. There are small bilateral bilateral pleural effusions and linear discoid atelectasis/scarring at the bilateral lower lung zones. Head CT 04/09/24 09:21 IMPRESSION: 1. Small relatively linear region of increased density along side a small focus of loss of haider-white matter density along a sulcus in the posterior right frontal lobe suspicious for a thrombosed vessel and immediately adjacent small infarct. Differential however would include a small focus of subarachnoid hemorrhage. Dr. Starks discussed these findings with Dr. Hampton at 9:30 AM. Neck MRA 04/10/24 15:20 IMPRESSION: 1. 0% stenosis of the proximal internal carotid arteries relative to normal distal artery lumen diameters (NASCET criteria). Brain MRI 04/10/24 15:52 IMPRESSION: 1. Acute and subacute infarcts in the right frontal and parietal deep white matter. Acute infarct in the left frontoparietal jay radiata. 2. Old infarcts in the right frontal, temporal, and occipital lobes and right cerebellum. 3. Moderate nonspecific cerebral white matter disease, which likely represents chronic small vessel ischemic disease. Brain MRA 04/10/24 15:57 IMPRESSION: 1. Normal MRA. Discharge Plan Discharge Attending physician on discharge: Kendell Larios Consulting providers: Hortencia Hernandez; Robert Zafar; Haile Martinez; Peña Starks; Jacob Ferrara; Evonne Pinzon; Brock Mcdaniels V.; Ugo Odonnell; Christopher Balderas; Imer Hampton Discharging Clinician: Cornelia Menezes Anticipated Discharge Date/Time: 04/12/24 10:53 Patient Disposition: Home Health Service Activity: may shower and as tolerated Diet: heart healthy Discharge Instructions: * Care Coordination: Patient to have [facility] resume services at discharge. They can be reached at [phone] if you have any questions. They will contact you upon discharge. * You are being discharged after a diagnosis of acute stroke, findings on her MRI showed acute and subacute infarct of the right frontal and partial deep white matter as well as an acute infarct of the left frontoparietal cornona radiata * Continue to take your atorvastatin, Plavix and aspirin as prescribed to reduce risks of another stroke. * I have provided information for follow-ups with Neurology in recommend to follow-up with primary care as scheduled * Home health services have been set up through [facility] which will assist you with physical and occupational therapy * You also had a modified barium swallow with speech therapy please continue to use the head flexion and monitor for any difficulties swallowing. * I have attached information on your diagnosis for education * You also had acute on chronic kidney injury I encourage adequate oral hydration and follow-up with Nephrology for close renal monitoring. * I have also prescribed Ferrous Sulfate for your iron deficiency anemia this can cause constipation and dark stool How can you care for yourself at home? ? Keep track of any new symptoms or changes in your symptoms. ? Rest until you feel better. ? Be safe with medicines. Take your medicines exactly as prescribed. Call your doctor if you think you are having a problem with your medicine. ? Do not drive after taking a prescription pain medicine. ? Ensure to follow-up with primary care physician as indicated and provide updated medication list provided to you at discharge. When should you call for help? Call 911 anytime you think you may need emergency care. For example, call if: ? You passed out (lost consciousness). Call your doctor now or seek immediate medical care if: ? You have new symptoms like fever, difficulty breathing, Chest pain, vomiting, or rash. ? You have new or different pain. ? You are confused and are having trouble thinking clearly. ? Your symptoms are getting worse. Watch closely for changes in your health, and be sure to contact your doctor if: ? You do not get better as expected. Patient Instructions: Antibiotic Form, Ischemic Stroke (DC), Self Care Measures After a Stroke (DC), Stroke (DC) Patient Language: Mongolian Stand Alone Forms: General Discharge Information Follow-up/Referrals: Sonja,DO Gerardo [Primary Care Provider] - Keep Reg. Scheduled Appt. Hortencia Hernandez MD [Physician] - Call for Appointment Discharge Medications: New ferrous sulfate 325 mg (65 mg iron) Tablet,Delayed Release (Dr/Ec) 325 mg PO DAILY@0800 Qty: 60 0RF Continued (DME) OneTouch Ultra Test Strip MISCELLANEOUS metformin 500 mg tablet extended release 24 hr 500 mg PO BID calcium 600 mg Capsule 600 mg PO DAILY cyanocobalamin (vitamin B-12) [Vitamin B-12] 1,000 mcg Tablet 1,000 mcg PO DAILY amlodipine 5 mg tablet 5 mg PO DAILY [id number]-Iy-nqsx-minerals Tablet 1 tablet PO DAILY cholecalciferol (vitamin D3) [Vitamin D3] 25 mcg (1,000 unit) Tablet 25 mcg PO DAILY krill oil 500 mg Capsule 500 mg PO DAILY acidophilus-pectin, citrus 100 million cell-10 mg Capsule 1 cap PO DAILY aspirin 81 mg Tablet,Delayed Release (Dr/Ec) 81 mg PO DAILY Qty: 90 3RF atorvastatin 40 mg Tablet 40 mg PO DAILY Qty: 90 3RF Tagrisso 80 mg Tablet 80 mg PO DAILY pantoprazole 40 mg Tablet,Delayed Release (Dr/Ec) 40 mg PO QAM 30 Days Qty: 30 0RF metoprolol succinate [Toprol XL] 25 mg tablet extended release 24 hr 12.5 mg PO DAILY Qty: 14 3RF clopidogrel 75 mg tablet 75 mg PO HS Changed furosemide 80 mg tablet 80 mg PO DAILY Qty: 30 0RF Date of admission: 04/11/24 10:50 Primary Care Provider: Sonja,Gerardo Admitting Provider: Ugo Odonnell Attending physician on admission: Cornelia Menezes Condition: Stable Quality VTE Prophylaxis VTE prophylaxis: pharmacologic ordered -Patient's previous records reviewed on admission -ER notes reviewed in detail on admission -discussed all findings and current treatment plan with patient/Family/POA -Consultations reviewed for recommendations -Patient's disposition for safe discharge discussed with manager of case management Dictation performed by [employer] direct speech recognition software, therefore manager of tax variants and typographical errors may occur. Hospitalist ZOE Heart Failure (Exclusion) Patient has history of Heart Transplant or Left Ventricular Assistive Device?: No IF YES, STOP HERE Heart Failure (Qualifier) Patient has current or prior documentation of LVEF less than or equal to 40%, or mod/servere depressed LVSF?: No IF NO, STOP HERE
[2024-04-12 11:58] LABS: Glucose Point of Care 284 mg/dl (65-105)
--- NOTE | 2024-04-12 15:54 | P.PNNEUR_ITS ---
Progress Note: A&P Assessment and Plan (1) Stroke: Code(s): I63.9 - Cerebral infarction, unspecified Status: Acute (2) Lung cancer: Qualifiers: Laterality: unspecified laterality Lung location: unspecified part of lung Qualified Code(s): C34.90 - Malignant neoplasm of unspecified part of unspecified bronchus or lung Code(s): C34.90 - Malignant neoplasm of unspecified part of unspecified bronchus or lung Status: Acute (3) Diabetes: Code(s): E11.9 - Type 2 diabetes mellitus without complications Status: Acute (4) Acute on chronic kidney failure: Code(s): N17.9 - Acute kidney failure, unspecified; N18.9 - Chronic kidney disease, unspecified Status: Resolved Plan The patient presented with symptoms that appear to be most likely unresponsiveness however MRI has shown acute infarct in the right hemisphere her as well as on the left side. This is intriguing that she does not have any focal deficit on examination today. She is working the physical therapist in fact doing very well. She is concerned about the weight loss which obviously is most likely from the carcinoma of lung. She has significant other issues such as hemoglobin being 8.4 and creatinine 1.9. All these are being addressed by appropriate specialties. She is now on aspirin, Plavix and atorvastatin 40 mg a day and these should continue. Subjective Date/time seen: 04/12/24 15:54 Interval history: The patient 83-year-old presented to the hospital with the possible loss of consciousness. She has history of carcinoma of lung has lot of lot of weight. Her son came along and is very close to her. Patient also has been diagnosed to have coronary disease and chronic kidney disease and obstructive sleep apnea syndrome and diabetes mellitus. CT scan of brain shows a right frontal infarct versus a abnormal blood vessel however MRI of the brain shows bilateral infarcts more on the right than left side these appear acute. Her hemoglobin was 8.4 and creatinine is 1.9. MR angiography of the intra and extracranial vessels did not show any significant abnormalities. Hence the abnormality seen on the CT scan regarding the blood vessel were notified. Review of Systems Review of Systems: All systems reviewed & are unremarkable except as noted in HPI and below Exam Const: General: cooperative, well developed and alert [place] ation/consciousness: patient oriented x3 HENMT: Head: atraumatic Mouth: Yes oropharynx normal Eyes: Alignment and Position: position normal Pupils: Equal, round and reactive pupils present EOM: EOMs intact bilaterally Neck: Neck: supple Resp: Effort & Inspection: normal respiratory effort Neuro: General: patient oriented x3 Cranial nerves: Yes CN's II-XII intact bilaterally, Yes facial sensation intact/muscles of mastication intact, Yes Equal, round and reactive pupils present, Yes facial symmetry and Yes Midline tongue present Cognition (Neuro): normal cognition Speech: normal speech Motor exam (neuro): 5/5 motor strength present throughout Coordination: [id number] test normal and Normal rapid alternating movements of the distal upper extremity present (Neuro) Objective Data Vital Signs Vital Signs: Vital Signs - 24 hr 04/11/24 16:00 04/11/24 21:25 04/11/24 20:00 Temperature 98.0 F 97.6 F Pulse Rate 107 H 103 H Respiratory Rate 20 20 Blood Pressure 108/67 116/78 Pulse Oximetry 100 92 Oxygen Delivery Room Air 04/12/24 06:22 04/12/24 10:49 04/12/24 08:00 Temperature 98.4 F Pulse Rate 100 92 Respiratory Rate 18 Blood Pressure 106/65 Pulse Oximetry 92 Oxygen Delivery Room Air Intake/Output Intake/Output: Intake & Output 04/09/24 04/10/24 04/11/24 04/12/24 23:59 23:59 23:59 23:59 Intake Total 3210 700 800 710 Output Total 500 500 Balance 2710 200 800 710 Meds/Results Radiology Results: ITS Impressions Chest X-Ray 04/09/24 08:54 IMPRESSION: 1. There are small bilateral bilateral pleural effusions and linear discoid atelectasis/scarring at the bilateral lower lung zones. Head CT 04/09/24 09:21 IMPRESSION: 1. Small relatively linear region of increased density along side a small focus of loss of haider-white matter density along a sulcus in the posterior right frontal lobe suspicious for a thrombosed vessel and immediately adjacent small infarct. Differential however would include a small focus of subarachnoid hemorrhage. Dr. Starks discussed these findings with Dr. Hampton at 9:30 AM. Neck MRA 04/10/24 15:20 IMPRESSION: 1. 0% stenosis of the proximal internal carotid arteries relative to normal distal artery lumen diameters (NASCET criteria). Brain MRI 04/10/24 15:52 IMPRESSION: 1. Acute and subacute infarcts in the right frontal and parietal deep white matter. Acute infarct in the left frontoparietal jay radiata. 2. Old infarcts in the right frontal, temporal, and occipital lobes and right cerebellum. 3. Moderate nonspecific cerebral white matter disease, which likely represents chronic small vessel ischemic disease. Brain MRA 04/10/24 15:57 IMPRESSION: 1. Normal MRA. Modified Barium Swallow 04/12/24 10:51 IMPRESSION: Trace amount of transient/flash laryngeal penetration without aspiration. Please correlate with speech pathologist findings and specific feeding recommendations. Labs Labs: Laboratory Results - last 24 hr 04/11/24 04/11/24 04/12/24 17:04 20:35 05:56 WBC 8.8 RBC 2.82 L Hgb 8.2 L Hct 24.6 L MCV 87.2 MCH 29.1 MCHC 33.3 RDW 15.4 H Plt Count 189 MPV 11.2 H Immature Gran % (Auto) 0.2 Neut % (Auto) 76.0 H Lymph % (Auto) 10.7 L [place] % (Auto) 10.7 H Eos % (Auto) 1.9 Baso % (Auto) 0.5 Lymph # (Auto) 0.94 [place] # (Auto) 0.9 H Eos # (Auto) 0.2 Baso # (Auto) 0.0 Abs Immat Gran (auto) 0.02 Absolute Neuts (auto) 6.7 Absolute Nucleated RBC 0.000 Nucleated RBC % 0.0 Sodium 131 L Potassium 3.9 Chloride 92 L Carbon Dioxide 35 H Anion Gap 4 BUN 45 H D Creatinine 1.60 H Estim Creat Clear Calc 16 Estimated GFR 31 L Glucose 176 H POC Capillary Glucose 174 H 226 H Calcium 9.3 Magnesium 1.5 L Total Bilirubin 0.9 AST 53 H ALT 21 Alkaline Phosphatase 87 Total Protein 8.0 Albumin 3.8 04/12/24 04/12/24 08:33 11:52 WBC RBC Hgb Hct MCV MCH MCHC RDW Plt Count MPV Immature Gran % (Auto) Neut % (Auto) Lymph % (Auto) [place] % (Auto) Eos % (Auto) Baso % (Auto) Lymph # (Auto) [place] # (Auto) Eos # (Auto) Baso # (Auto) Abs Immat Gran (auto) Absolute Neuts (auto) Absolute Nucleated RBC Nucleated RBC % Sodium Potassium Chloride Carbon Dioxide Anion Gap BUN Creatinine Estim Creat Clear Calc Estimated GFR Glucose POC Capillary Glucose 158 H 284 H Calcium Magnesium Total Bilirubin AST ALT Alkaline Phosphatase Total Protein Albumin
== END 2024-04-12 13:20 | disposition home health service (06) | DRG 64 ==
LOC: ANHED 10:44 → ANHIMU 14:22 → ANH2MED 04-10 18:07
PROVIDERS: Emergency Medicine; Nurse Practitioner; Admitting Provider Internal Medicine; Emergency Provider Physician Assistant; PCP Student in an Organized Health Care Education/Training Program; Visit Provider Nurse Practitioner Family
DX: I63.9 Cerebral infarction, unspecified (principal); E43 Unspecified severe protein-calorie malnutrition; J96.01 Acute respiratory failure with hypoxia; C34.90 Malignant neoplasm of unspecified part of unspecified bronchus or lung; E87.1 Hypo-osmolality and hyponatremia; N17.9 Acute kidney failure, unspecified; E87.29 Other acidosis; Z68.1 Body mass index [BMI] 19.9 or less, adult; N18.30 Chronic kidney disease, stage 3 unspecified; I12.9 Hypertensive chronic kidney disease with stage 1 through stage 4 chronic kidney disease, or unspecified chronic kidney disease; E86.0 Dehydration; E87.6 Hypokalemia; E11.22 Type 2 diabetes mellitus with diabetic chronic kidney disease; D64.9 Anemia, unspecified; K21.9 Gastro-esophageal reflux disease without esophagitis; M81.0 Age-related osteoporosis without current pathological fracture; G47.33 Obstructive sleep apnea (adult) (pediatric); F41.9 Anxiety disorder, unspecified; Z20.822 Contact with and (suspected) exposure to COVID-19; I25.2 Old myocardial infarction; Z95.5 Presence of coronary angioplasty implant and graft
CPT/HCPCS: 36415; 70450; 70544; 70547; 70553; 71045; 80048; 80053; 80061; 81001; 82010; 82550; 82607; 82728; 82746; 82803; 82948; 83036; 83540; 83550; 83605; 83690; 83735; 83880; 84484; 85025; 87637; 92526; 92610; 92611; 93005; 96361; 96365; 96366; 96367; 96372; 96375; 97110; 97161; 97165; 97530; 97535; 99285; A9270; A9577; C8929; G0378; J1650; J2405; J2597; J3475; J3480; J7030; J7040; Q9957